=== PATIENT | male | born 1945 | race Hispanic/Latino ===

== ENCOUNTER 2017-03-30 09:59 | Emergency (ER) | payer MEDICARE, OTHER ==
[~2017-03-30] VITALS: Ht 160 cm; Wt 77.1 kg
[~2017-03-30 09:59] MED LIST: METFORMIN HCL500 MG PO
[2017-03-30] MEDS ORDERED: CIPRO500 MG PO (12:33)
== END 2017-03-30 12:47 | disposition home or self-care (01) ==
LOC: ED 09:59
PROC: 4A0D7LZ Measurement of Urinary Volume, Via Natural or Artificial Opening (ICD-10-PCS; principal; 2017-03-30)
DX: N39.0 Urinary tract infection, site not specified (principal); K59.00 Constipation, unspecified; E11.9 Type 2 diabetes mellitus without complications; Z85.46 Personal history of malignant neoplasm of prostate; Z79.84 Long term (current) use of oral hypoglycemic drugs
CPT/HCPCS: 51798; 80053; 81001; 85025; 87077; 87088; 99283

== ENCOUNTER 2020-02-22 20:59 | Inpatient (IN) | payer MEDICARE ==
[~2020-02-22] VITALS: Ht 160 cm; Wt 72.6 kg
--- OUTSIDE RECORDS SUMMARY | ~2020-02-22 | XMS | Encounter Summary ---
Demographics + + + | Address | [address] | | | [place] [address] | + + + | Home Phone | | + + + | Preferred Language | Unknown | + + + | Marital Status | | + + + | Latter-Day Affiliation | 1041 | + + + | Race | Unknown | + + + | Ethnic Group | Unknown | + + + Author + + + | Author | [facility] | | | and [place] | + + + | Organization | [facility] | | | and [...] Team Providers + +------+ + | Care Fisher Pot Name | Role | Phone | + +------+ + | Megan Garza | PCP | | + +------+ + Encounter Details +--------+ + + + + | Date | Type | Department | Care Team | Description | +--------+ + + + + | 10/03/ | Hospital | [facility] | Conversion | Venous ulcer of left | | 2019 | Encounter | [facility] | Transaction, | leg (HCC) | | | | [address] | Provider Unknown | | | | | [place], [place] | [phone] | | | | | [address] | | | | | | [phone] | | | +--------+ + + + + Social History + +-------+ +--------+------+ | Tobacco Use | Types | Packs/Day | Years | Date | | | | | Used | | + +-------+ +--------+------+ | Never Smoker | | | | | + +-------+ +--------+------+ + +---+---+---+ | Smokeless Tobacco: | | | | | Never Used | | | | + +---+---+---+ + + +---------+ + | Alcohol Use | Drinks/Week | oz/Week | Comments | + + +---------+ + | No | | | Alcoholic | | | | | Drinks/day: social | + + +---------+ + + + + | Sex Assigned at | Date Recorded | | | | + + + | Not on file | | + + + documented as of this encounter Medications at Time of Discharge + + + +---------+ + + | Medication | Sig | Dispensed | Refills | Start | End Date | | | | | | Date | | + + + +---------+ + + | ACCU-CHEK SOFTCLIX | | | 0 | 02/09/20 | | | LANCETS MISC | | | | 18 | | + + + +---------+ + + | carbidopa-levodopa | | | 0 | 05/31/20 | | | (SINEMET) 25-100 mg | | | | 18 | | | per tablet | | | | | | + + + +---------+ + + | cholecalciferol | Take 1,000 mg by | | 0 | | | | (VITAMIN D-3) 1,000 | mouth. | | | | | | units capsule | | | | | | + + + +---------+ + + | Cinnamon 500 MG | Take 500 mg by mouth | | 0 | | | | CAPS | 3 times daily. | | | | | + + + +---------+ + + | doxycycline | | | 0 | 08/31/19 | | | (VIBRAMYCIN) 50 MG | | | | 19 | | | capsule | | | | | | + + + +---------+ + + | fish oil 1,000 mg | Take 1,200 mg by | | 0 | | | | capsule | mouth 3 times daily. | | | | | + + + +---------+ + + | gabapentin | Take 1 capsule by | 90 | 1 | 05/15/20 | | | (NEURONTIN) 300 mg | mouth 3 times daily. | capsule | | 18 | | | capsule | | | | | | + + + +---------+ + + | Glucose Blood | | | 0 | 11/13/19 | | | (BLOOD GLUCOSE TEST | | | | 18 | | | STRIPS) STRP | | | | | | + + + +---------+ + + | glucose blood | | | 0 | 11/13/19 | | | test strips | | | | 18 | | | (ONETOUCH VERIO) | | | | | | | strip | | | | | | + + + +---------+ + + | glyBURIDE | Take 1 tablet (5 mg | | 0 | 10/05/19 | | | (DIABETA) 5 mg | total) by mouth | | | 18 | | | tablet | daily with | | | | | | | breakfast. | | | | | + + + +---------+ + + | Lancets Misc. | Test Blood sugar | | 0 | 02/28/20 | | | (UNISTIK 3 EXTRA) | QDAY and PRN Dx: | | | 17 | | | MISC | E11.9 DUSTIN: 99 | | | | | + + + +---------+ + + | | Take 1 tablet by | | 0 | 10/02/19 | | | lisinopril-hydrochlo | mouth daily. | | | 18 | | | rothiazide | | | | | | | (PRINZIDE,ZESTORETIC | | | | | | | ) 10-12.5 MG per | | | | | | | tablet | | | | | | + + + +---------+ + + | meloxicam (MOBIC) | Take 1 tablet by | 30 | 2 | 03/11/20 | | | 15 mg tablet | mouth Daily as | tablet | | 18 | | | | needed. | | | | | + + + +---------+ + + | metFORMIN | Take 1 tablet (1,000 | | 0 | 10/05/19 | | | (GLUCOPHAGE) 1000 MG | mg total) by mouth | | | 18 | | | tablet | 2 (two) times a day | | | | | | | with meals. | | | | | + + + +---------+ + + | raNITIdine | Take 1 tablet (150 | | 0 | 07/31/20 | | | (ZANTAC) 150 mg | mg total) by mouth 2 | | | 18 | | | tablet | (two) times a day. | | | | | | | Maltese instructions | | | | | + + + +---------+ + + | | Take 501,000 mg by | | 0 | 08/11/20 | | | SITagliptin-metFORMI | mouth | | | 15 | | | N (GAYATRI) 50-1,000 | | | | | | | mg per tablet | | | | | | + + + +---------+ + + | tamsulosin | Take 0.4 mg by mouth | | 0 | 01/26/20 | | | (FLOMAX) 0.4 mg CAPS | nightly. | | | 18 | | + + + +---------+ + + | timolol maleate | | | 0 | 06/26/20 | | | (TIMOPTIC) 0.5% | | | | 18 | | | ophthalmic solution | | | | | | + + + +---------+ + + | | | | 0 | 08/31/19 | | | tobramycin-dexametha | | | | 19 | | | sone (TOBRADEX) | | | | | | | ophthalmic solution | | | | | | + + + +---------+ + + | atorvaSTATin | Take 1 tablet (20 mg | | 0 | 06/17/20 | | | (LIPITOR) 20 mg | total) by mouth | | | 18 | 9 | | tablet | daily. | | | | | + + + +---------+ + + | diphenhydrAMINE | Take 1 capsule (25 | | 0 | 06/28/20 | | | (BENADRYL) 25 MG | mg total) by mouth | | | 18 | 9 | | capsule | every 6 (six) hours | | | | | | | as needed for | | | | | | | itching or | | | | | | | allergies. Maltese | | | | | | | instructions | | | | | + + + +---------+ + + | furosemide (LASIX) | Take 1 tablet (20 mg | | 0 | 06/28/20 | | | 20 mg tablet | total) by mouth | | | 18 | 9 | | | daily. Leg swelling | | | | | | | Maltese instructions | | | | | + + + +---------+ + + | glyBURIDE | Take 5 mg by mouth | | 0 | 10/05/19 | | | (DIABETA) 5 mg | daily (with | | | 18 | 9 | | tablet | breakfast). | | | | | + + + +---------+ + + | metFORMIN | Take 1,000 mg by | | 0 | 10/05/19 | | | (GLUCOPHAGE) 1000 MG | mouth 2 times daily | | | 18 | 9 | | tablet | (with breakfast & | | | | | | | dinner). | | | | | + + + +---------+ + + documented as of this encounter Plan of Treatment Not on filedocumented as of this encounter Procedures + +--------+ + + + | Procedure Name | Priori | Date/Time | Associated Diagnosis | Comments | | | ty | | | | + +--------+ + + + | XR TIBIA FIBULA LEFT | Routin | 10/03/2018 | | Results for this | | 2 VW | e | 2:57 PM | | procedure are in the | | | | PST | | results section. | + +--------+ + + + documented in this encounter Results XR Tibia Fibula Left 2 Vw (10/03/2018 2:57 PM PST) + + | Specimen | + + | | + + + + + | Impressions | Performed At | + + + | 1. Left tibia and fibula demonstrate sequela consistent with remote | | | trauma. 2. Peripheral vascular disease. Signed by: DO Rodrigo, | | | Kadeem Sign Date/Time: 10/03/2018 4:37 PM | | + + + + + + | Narrative | Performed At | + + + | LEFT TIBIA/FIBULA CLINICAL INFORMATION: Leg pain, Venous ulcer of | | | left leg. COMPARISON: [facility] (10/01/2018); FINDINGS: | | | Irregularities are demonstrated at the mid diaphysis of the left tibia | | | and fibula suggesting sequela of remote trauma. The tibia seems to | | | healed with some apex anterior angulation. No acute osseous | | | abnormality appreciated. Peripheral vascular calcifications are | | | noted. | | + + + + + | Procedure Note | + + | Satnam, Rad Conversion - 03/25/2019 9:04 PM PDT LEFT TIBIA/FIBULA | | CLINICAL INFORMATION: | | Leg pain, Venous ulcer of left leg. | | COMPARISON: | | [facility] (10/01/2018); | | FINDINGS: | | Irregularities are demonstrated at the mid diaphysis of the left tibia | | and fibula suggesting sequela of remote trauma. The tibia seems to | | healed with some apex anterior angulation. No acute osseous | | abnormality appreciated. Peripheral vascular calcifications are noted. | | IMPRESSION: | | 1. Left tibia and fibula demonstrate sequela consistent with remote | | trauma. | | 2. Peripheral vascular disease. | | Signed by: DO Wallace Robert | | Sign Date/Time: 10/03/2018 4:37 PM | + + documented in this encounter Visit Diagnoses + + | Diagnosis | + + | Venous ulcer of left leg (HCC) | + + documented in this encounter"
--- OUTSIDE RECORDS SUMMARY | ~2020-02-22 | XMS | Encounter Summary ---
Demographics + + + | Address | [address] | | | [place] [address] | + + + | Home Phone | | + + + | Preferred Language | Unknown | + + + | Marital Status | | + + + | Mandaeism Affiliation | 1041 | + + + | Race | Unknown | + + + | Ethnic Group | Unknown | + + + Author + + + | Author | [facility] | | | and [place] | + + + | Organization | [facility] | | | and [...] Team Providers + +------+ + | Care Shared Services Representative Name | Role | Phone | + +------+ + | Megan Garza | PCP | | + +------+ + Reason for Visit +---------+--------+ + | Reason | Onset | Comments | | | Date | | +---------+--------+ + | Results | 03/13/ | | | | 2018 | | +---------+--------+ + Encounter Details +--------+ + + + + | Date | Type | Department | Care Team | Description | +--------+ + + + + | 03/13/ | Telephone | [facility] [place] | Tirso Becerril | Results | | 2018 | | PHYSIATRY [address] | | | | [address] [place], [place] | | | | | [place], [place] | [address] | | | | | [address] | | | | | | [phone] | | | +--------+ + + + [...] +---------+ + | No | | | | + + +---------+ + + + + | Sex Assigned at | Date Recorded | | | | + + + | Not on file | | + + + documented as of this encounter Miscellaneous Notes Telephone Encounter - Susanna Ford, Information Coder - 03/13/2018 2:22 PM PDTAttempted to call the patient to notify him of Dr. Collins MRI notes and advise that a referral h as been sent for PT to [facility]. There was no voicemail and I was unable to leave a voice mailEle ctronically signed by Betty Charles Assistant at 03/13/2018 2:23 PM PDTTelephone Encounter - Susanna Ford, Information Coder - 03/13/2018 2:22 PM PDT----- Message from A sonu Becerril MD sent at 03/11/2018 15:49 PDT ----- He does have degenerative changes of the cervical spine at C5-C6 and C6-C7. I do recommend that he try PT for the neck first before we get advanced imaging or try any interventional procedures. I will order PT, to be done at [facility] per his request.Reyna franco signed by Susanna Ford Information Coder at 03/13/2018 2:22 PM PDTdocumented in th is encounter Plan of Treatment Not on filedocumented as of this encounter Visit Diagnoses Not on filedocumented in this encounter"
--- OUTSIDE RECORDS SUMMARY | ~2020-02-22 | XMS | Encounter Summary ---
Demographics + + + | Address | [address] | | | [place] [address] | + + + | Home Phone | | + + + | Preferred Language | Unknown | + + + | Marital Status | | + + + | Restoration Affiliation | 1041 | + + + | Race | Unknown | + + + | Ethnic Group | Unknown | + + + Author + + + | Author | [facility] | | | and [place] | + + + | Organization | [facility] | | | and [...] Team Providers + +------+ + | Care Casting And Locker Room Servicer Name | Role | Phone | + +------+ + | Megan Garza | PCP | | + +------+ + Encounter Details +--------+ + + + + | Date | Type | Department | Care Team | Description | +--------+ + + + + | 11/09/ | Orders Only | [facility] | Liz Castro | | | 2018 | | CARDIOLOGY [place] | [address] | | | | | [address] | [address] | | | | | [place], [place] | [place] [address] | | | | | [address] | [phone] | | | | | [phone] | | | +--------+ + + + [...] | + +--------+ + + + | LIPID PANEL | Routin | 11/09/2017 | | Results for this | | | e | 10:55 AM | | procedure are in the | | | | PDT | | results section. | + +--------+ + + + | SEDIMENTATION RATE, | Routin | 11/09/2017 | | Results for this | | AUTOMATED | e | 10:55 AM | | procedure are in the | | | | PDT | | results section. | + +--------+ + + + | CK TOTAL | Routin | 11/09/2017 | | Results for this | | | e | 10:55 AM | | procedure are in the | | | | PDT | | results section. | + +--------+ + + + | COMPREHENSIVE | Routin | 11/09/2017 | | Results for this | | METABOLIC PANEL | e | 10:55 AM | | procedure are in the | | | | PDT | | results section. | + +--------+ + + + documented in this encounter Results Sedimentation rate, automated (11/09/2017 10:55 AM PDT) + +-------+ + + + | Component | Value | Ref Range | Performed | Pathologist | | | | | At | Signature | + +-------+ + + + | Sed Rate | 10 | 0 - 15 | EXTERNAL | | | | | | LAB | | + +-------+ + + + + + | Specimen | + + | Blood specimen | | (specimen) | + + + +---------+ + + | Performing | Address | City/State/Zipcode | Phone Number | | Organization | | | | + +---------+ + + | EXTERNAL LAB | | | | + +---------+ + + CK Total (11/09/2017 10:55 AM PDT) + +-------+ + + + | Component | Value | Ref Range | Performed | Pathologist | | | | | At | Signature | + +-------+ + + + | CK, Total | 120 | 24 - 195 U/L | EXTERNAL | | | | | | LAB | | + +-------+ + + + + + | Specimen | + + | Blood specimen | | (specimen) | + + + +---------+ + + | Performing | Address | City/State/Zipcode | Phone Number | | Organization | | | | + +---------+ + + | EXTERNAL LAB | | | | + +---------+ + + Lipid Panel (11/09/2017 10:55 AM PDT) + +-------+ + + + | Component | Value | Ref Range | Performed | Pathologist | | | | | At | Signature | + +-------+ + + + | Cholesterol | 102 | 200 mg/dL | EXTERNAL | | | | | | LAB | | + +-------+ + + + | Triglycerid | 78 | 30 - 150 mg/dL | EXTERNAL | | | es | | | LAB | | + +-------+ + + + | HDL | 36.3 | 40 mg/dl | EXTERNAL | | | | | | LAB | | + +-------+ + + + | LDL, | 50 | 100 mg/dL | EXTERNAL | | | Calculated | | | LAB | | + +-------+ + + + | LDl/HDL | | | EXTERNAL | | | Ratio | | | LAB | | + +-------+ + + + | Chol/HDL | 2.8 | 4.97 | EXTERNAL | | | Ratio | | | LAB | | + +-------+ + + + | VLDL | 16 | 4 - 40 mg/dL | EXTERNAL | | | | | | LAB | | + +-------+ + + + | Non HDL | 66 | 130 | EXTERNAL | | | Chol. | | | LAB | | | (LDL+VLDL) | | | | | + +-------+ + + + + + | Specimen | + + | Blood specimen | | (specimen) | + + + +---------+ + + | Performing | Address | City/State/Zipcode | Phone Number | | Organization | | | | + +---------+ + + | EXTERNAL LAB | | | | + +---------+ + + Comprehensive Metabolic Panel (11/09/2017 10:55 AM PDT) + +---------+ + + + | Component | Value | Ref Range | Performed | Pathologist | | | | | At | Signature | + +---------+ + + + | Glucose, | 117 (A) | 70 - 100 mg/dL | EXTERNAL | | | Fasting | | | LAB | | + +---------+ + + + | BUN | 17 | 6 - 23 mg/dL | EXTERNAL | | | | | | LAB | | + +---------+ + + + | Creatinine | 0.84 | 0.70 - 1.18 | EXTERNAL | | | | | mg/dL | LAB | | + +---------+ + + + | BUN/Creatin | 20.2 | 6.0 - 28.6 | EXTERNAL | | | ine Ratio | | | LAB | | + +---------+ + + + | Calcium | 9.4 | 8.4 - 10.2 | EXTERNAL | | | | | mg/dL | LAB | | + +---------+ + + + | Protein, | 6.8 | 6.0 - 8.0 g/dL | EXTERNAL | | | Total | | | LAB | | + +---------+ + + + | Albumin | 4.0 | 3.5 - 5.0 | EXTERNAL | | | | | | LAB | | + +---------+ + + + | Globulin | 2.8 | 1.8 - 3.5 | EXTERNAL | | | | | | LAB | | + +---------+ + + + | A/G Ratio | 1.4 | 1.1 - 2.4 | EXTERNAL | | | | | | LAB | | + +---------+ + + + | Bilirubin | 0.5 | 0.0 - 1.2 mg/dL | EXTERNAL | | | Total | | | LAB | | + +---------+ + + + | ALP, | 104 | 31 - 120 | EXTERNAL | | | External | | | LAB | | + +---------+ + + + | ALT | 23 | 7 - 52 U/L | EXTERNAL | | | | | | LAB | | + +---------+ + + + | AST | 18 | 13 - 39 U/L | EXTERNAL | | | | | | LAB | | + +---------+ + + + | Na | 141 | 132 - 143 | EXTERNAL | | | | | mmol/L | LAB | | + +---------+ + + + | K | 4.1 | 3.6 - 5.1 | EXTERNAL | | | | | mmol/L | LAB | | + +---------+ + + + | Cl | 104 | 95 - 112 mmol/L | EXTERNAL | | | | | | LAB | | + +---------+ + + + | CO2 | 24 | 19 - 31 mmol/L | EXTERNAL | | | | | | LAB | | + +---------+ + + + | Anion Gap | 17.1 | 7 - 21 mmol/L | EXTERNAL | | | | | | LAB | | + +---------+ + + + | Estimated | 90 | 60 mg/dL | EXTERNAL | | | GFR | | | LAB | | + +---------+ + + + + + | Specimen | + + | Blood specimen | | (specimen) | + + + +---------+ + + | Performing | Address | City/State/Zipcode | Phone Number | | Organization | | | | + +---------+ + + | EXTERNAL LAB | | | | + +---------+ + + documented in this encounter Visit Diagnoses Not on filedocumented in this encounter"
--- OUTSIDE RECORDS SUMMARY | ~2020-02-22 | XMS | Encounter Summary ---
Demographics + + + | Address | [address] | | | [place] [address] | + + + | Home Phone | | + + + | Preferred Language | Unknown | + + + | Marital Status | | + + + | Advent Affiliation | 1041 | + + + | Race | Unknown | + + + | Ethnic Group | Unknown | + + + Author + + + | Author | [facility] | | | and [place] | + + + | Organization | [facility] | | | and [place] | + + + | Address | Unknown | + + + | Phone | Unavailable | + + + Support + + +---------+ + | Name | Relationship | Address | Phone | + + +---------+ + | Claudettecitlaly Piña | ECON | Unknown | | + + +---------+ + | Annjensen Nicholso | ECON | Unknown | | + + +---------+ + Care Team Providers + +------+ + | Care Pharmacy Technology Instructor Name | Role | Phone | + +------+ + | Megan Garza | PCP | | + +------+ + Reason for Visit Auth/Cert +--------+--------+ + + + + | Status | Reason | Specialty | Diagnoses / | Referred By | Referred To | | | | | Procedures | Contact | Contact | +--------+--------+ + + + + | | | | Diagnoses | | | | | | | Age-related | | | | | | | nuclear | | | | | | | cataract of | | | | | | | right eye | | | | | | | Age-related | | | | | | | nuclear | | | | | | | cataract of | | | | | | | right eye | | | | | | | [H25.11] | | | | | | | Procedures | | | | | | | DE REMV | | | | | | | CATARACT | | | | | | | EXTRACAP,INS | | | | | | | ERT LENS | | | | | | | RIGHT | | | | | | | EXTRACTION | | | | | | | CATARACT | | | | | | | WITH OR | | | | | | | WITHOUT LENS | | | | | | | IMPLANT | | | +--------+--------+ + + + + Encounter Details +--------+ + + + + | Date | Type | Department | Care Team | Description | +--------+ + + + + | 06/26/ | Anesthesia | [facility] | Roaslio Betts, | | | 2017 | Event | MED CTR OR INTRA OP | [address] | | | | | [address] | [place], [place] | | | | | [place], [place] | [address] | | | | | [address] | | | | | | [phone] | | | +--------+ + + + + Anesthesia Record + + + + + | Procedure Name | Responsible | Anesthesia Start | Anesthesia Stop Time | | | Anesthesiologist | Time | | + + + + + | RIGHT EXTRACTION | Rosalio Betts MD | 06/26/18 1044 | 06/26/18 1107 | | CATARACT WITH LENS | | | | | IMPLANT (Right Eye) | | | | + + + + + +----+---+ + + | Da | T | Event | Comment | | te | i | | | | | m | | | | | e | | | +----+---+ + + | 11 | 1 | | | | /1 | 0 | | | | 4/ | 1 | | | | 20 | 4 | | | | 18 | | | | +----+---+ + + | | 1 | An Checkout | Pre-use anesthesia machine/equipment checkout. | | | 0 | | | | | 3 | | | | | 8 | | | +----+---+ + + | | 1 | AN | Per surgeon request | | | 0 | Antibiotic | | | | 3 | declined | | | | 8 | | | +----+---+ + + | | 1 | An Start | Reassessment prior to anesthesia induction/procedure. | | | 0 | | | | | 4 | | | | | 4 | | | +----+---+ + + | | 1 | An | | | | 0 | Induction | | | | 4 | | | | | 7 | | | +----+---+ + + | | 1 | Pre-Procedu | | | | 0 | ral Timeout | | | | 5 | Completed | | | | 2 | | | +----+---+ + + | | 1 | Breathing | | | | 0 | Spontaneous | | | | 5 | ly | | | | 2 | | | +----+---+ + + | | 1 | First | | | | 0 | Inc/Proc St | | | | 5 | | | | | 4 | | | +----+---+ + + | | 1 | an stop | | | | 1 | data | | | | 0 | | | | | 4 | | | +----+---+ + + | | 1 | An Stop | Patient handed off to recovery nurseBraden | | | 0 | | | | | 7 | | | +----+---+ + + +------+ | Meds | +------+ + +--------+ | Name | Total | + +--------+ | lidocaine 2% | 80 mg | + +--------+ | propofol | 85 mg | + +--------+ | lactated ringers (LR) infusion | 350 mL | + +--------+ + + | Name | + + | N2O Flow Rate (L/Min) | + + | O2 Flow Rate (L/Min) | + + | Insp O2 | + + | Air Flow Rate (L/Min) | + + + + | No blood administrations on file. | + + +--------+ + + + | Type | Details | Placement | Removal | +--------+ + + + | Periph | 06/26/18; 1030; Right; Forearm; | 06/26/18 1030 by | 06/26/18 1147 by | | olayinkal | qono-eyn-gmomva catheter system; | Nicole Anders, | Tonja Ford, | | IV | 20 gauge, 1 1/4 in length; | RN | LAST MARKER | | | intradermal injection, tolerated | | | | | well; no longer indicated; short | | | | | term use; 06/26/18; 1147 | | | +--------+ + + + | Read | 06/26/18; 1057; Right; eye; | 06/26/18 1057 by | 11/05/18 1342 by | | only - | 11/05/18 (Completed/Removed by | Selena Hartman RN | User Epic | | | Utility); 1342 (Completed/Removed | | | | Incisi | by Utility) | | | | on | | | | +--------+ + + + documented in this encounter Social History + +-------+ +--------+------+ | Tobacco [...] + + documented as of this encounter OR Notes Anesthesia Postprocedure Evaluation - Rosalio Betts MD - 06/26/2018 11:08 AM PSTFormatti ng of this note might be different from the original. ANESTHESIA POSTANESTHESIA EVALUATION Kota Piña 73 y.o. male 1945 [id number] Procedure(s) RIGHT EXTRACTION CATARACT WITH LENS IMPLANT (Right Eye) Cooperates? Yes Mental Status Performs simple tasks. Respiratory Satisfactory - Airway patent (self maintained). Cardiovascular Satisfactory - Blood pressure and heart rate acceptable Temperature Satisfactory Pain Satisfactory N/V Control Satisfactory Hydration Satisfactory - No signs of dehydration Complications None apparent Vitals: 06/26/18 1032 06/26/18 1106 BP: 130/66 101/56 Pulse: 62 55 Temp: 36.9 C (98.4 F) 36.5 C (97.7 F) Resp: 16 16 SpO2: 97% Electronically signed by Rosalio Betts MD 06/26/2018 11:08 [facility] Rosalio Betts MD at 06/13 11:09 AM PSTAnesthesia Preprocedure Evaluation - Rosalio Betts MD - 06/24/2018 2: 33 PM PST ANESTHESIA PREANESTHESIA EVALUATION Kota Piña 73 y.o. male 1945 [id number] Procedure(s): RIGHT EXTRACTION CATARACT WITH OR WITHOUT LENS IMPLANT (Right Eye) Medical history, anesthesia, medications, allergy, NPO status verified histories reviewed. ECG reviewed. Labs reviewed. Review of Systems / Med History Anesthesia History (-) PONV, difficult intubation, malignant hyperthermia Cardiovascular (-) past AL , Exercise tolerance >4 METS Pulmonary No acute pulmonary concerns.. Neurology (+) back pain, chronic pain(-) CVA Renal (-) chronic renal insufficiency Gastrointestinal/Hepatic (-) reflux/GERD. Endocrine (+) Diabetes: type 2, NIDDM (+) obesity: BMI (30-39) Physical Exam Airway MP II, TM >3 FB, Mouth opening >2 FB. Neck: full ROM, extends >30 degrees. Dental Cesario ssly normal except where noted below.; CV Rhythm regular. Rate Normal. (-) murmur. Pulm Clear to auscultation bilaterally. Neuro Grossly normal. Anesthesia Plan ASA 2 Type: MAC. Induction: Local anesthesia. Potential problems: None anticipated. Monitors: Standard ASA monitors. Consent statement:Anesthetic plan, alternatives, risks and benefits discussed with patient and family. Risks discussed included (but were not limited to): pain, heart problems, perioperative CV events, respiratory events, nausea, failed or inadequate block. Consenting person understands and agrees to proceed. Annealing Oven Operator used. PARQ. MAC/TIVA with propofol and anxiolytics / opioids as needed / tolerated. Discussion distin tly mentions that awareness is probable during the case, as Dr. Russ often wants the patie nt to respond to commands.. documented in this en counter Plan of Treatment Not on filedocumented as of this encounter Visit Diagnoses Not on filedocumented in this encounter Administered Medications + +--------+ +-------+------+------+ | Medication Order | MAR | Action | Dose | Rate | Site | | | Action | Date | | | | + +--------+ +-------+------+------+ | lidocaine (PF) 2% injection | Given | 06/26/20 | 80 mg | | | | Intravenous, PRN, Starting Wed | | 18 10:47 | | | | | 06/26/18 at 1047, Anesthesia | | AM PST | | | | | Intra-op | | | | | | + +--------+ +-------+------+------+ +---+---+ | | | +---+---+ + +-------+ +-------+---+---+ | propofol (DIPRIVAN) injection | Given | 06/26/20 | 25 mg | | | | Intravenous, PRN, Starting Wed | | 18 11:00 | | | | | 06/26/18 at 1047, Anesthesia | | AM PST | | | | | Intra-op | | | | | | + +-------+ +-------+---+---+ +-------+ +-------+---+---+ | Given | 06/26/20 | 20 mg | | | | | 18 10:52 | | | | | | AM PST | | | | +-------+ +-------+---+---+ | Given | 06/26/20 | 40 mg | | | | | 18 10:47 | | | | | | AM PST | | | | +-------+ +-------+---+---+ +---+---+ | | | +---+---+ documented in this encounter"
--- OUTSIDE RECORDS SUMMARY | ~2020-02-22 | XMS | Encounter Summary ---
Demographics + + + | Address | [address] | | | [place] [address] | + + + | Home Phone | | + + + | Preferred Language | Unknown | + + + | Marital Status | | + + + | Christian Affiliation | 1041 | + + + | Race | Unknown | + + + | Ethnic Group | Unknown | + + + Author + + + | Author | [facility] | | | and [place] | + + + | Organization | [facility] | | | [...] Team Providers + +------+ + | Care Java Support Engineer Name | Role | Phone | + +------+ + | Megan Garza | PCP | | + +------+ + Encounter Details +--------+ + + + + | Date | Type | Department | Care Team | Description | +--------+ + + + + | 03/11/ | Hospital | [facility] | Tirso Becerril | Chronic neck pain | | 2018 | Encounter | MED CTR XRAY [address] | T, MD [address] | | | | | [place] | [place], [place] | | | | | [place] [address] | [id number] | | | | | [phone] | | | +--------+ + + + [...] + + +---------+ + + | Raymon Albertc. | Test Blood sugar | | 0 [...] | 0 | 02/09/20 | | | RAYMON MISC | | | | 18 | 8 | + + + +---------+ + + | ACCU-CHEK SOFTCLIX | | | 0 | 02/09/20 | | | LANCETS MISC | | | | 18 | 8 | + + + +---------+ + + | atorvaSTATin | Take 20 mg by mouth | | 0 | 10/02/19 | | | (LIPITOR) 20 mg | Daily. | | | 18 | 9 | | tablet | | | | | | + + + +---------+ + + | gabapentin | Take 300 mg by mouth | | 0 | | | | (NEURONTIN) 300 mg | nightly. | | | | 8 | | capsule | | | | [...] + +--------+ + + + | XR CERVICAL SPINE 2 | Routin | 03/11/2018 | Chronic neck pain | Results for this | | OR 3 VIEWS | e | 10:02 AM | | procedure are in the | | | | PDT | | results section. | + +--------+ + + + documented in this encounter Results XR Cervical Spine 2 or 3 Views (03/11/2018 10:02 AM PDT) + + | Specimen | + + | | + + + + + | Narrative | Performed At | + + + | THREE VIEWS CERVICAL SPINE 03/11/2018 10:02 AM CLINICAL HISTORY: | [facility] | | Chronic neck pain and left arm pain COMPARISON: None available | | | FINDINGS: There is slight offset in alignment of the right lateral | | | masses of C1 and C2 on the odontoid view. Cervical vertebral height | | | and alignment are otherwise maintained, without visible fracture or | | | other subluxation. There is anterior disc space narrowing and | | | vertebral spondylosis at C5-6 and C6-7 with early multilevel facet | | | hypertrophy. Imaged skull base, soft tissue structures and lung | | | apices are unremarkable. IMPRESSION - 1. SLIGHT OFFSET IN | | | ALIGNMENT OF THE RIGHT LATERAL MASSES AT C1-2. CONSIDER FOLLOW-UP | | | CT. 2. DEGENERATIVE DISC DISEASE AND SPONDYLOSIS DESCRIBED. | | | Dictated and Signed by: Eduardo Santamaria MD Electronically signed: | | | 03/11/2018 10:09 AM | | + + + + + | Procedure Note | + + | Satnam, Rad Results In - 03/11/2018 10:12 AM PDT THREE VIEWS CERVICAL SPINE 03/11/2018 | | 10:02 AMCLINICAL HISTORY: Chronic neck pain and left arm painCOMPARISON: None | | availableFINDINGS: There is slight offset in alignment of the right lateral masses of | | C1and C2 on the odontoid view. Cervical vertebral height and alignment areotherwise | | maintained, without visible fracture or other subluxation. There isanterior disc space | | narrowing and vertebral spondylosis at C5-6 and C6-7 withearly multilevel facet | | hypertrophy. Imaged skull base, soft tissue structuresand lung apices are | | unremarkable.IMPRESSION -1. SLIGHT OFFSET IN ALIGNMENT OF THE RIGHT LATERAL MASSES AT | | C1-2. CONSIDERFOLLOW-UP CT.2. DEGENERATIVE DISC DISEASE AND SPONDYLOSIS | | DESCRIBED.Dictated and Signed by: Eduardo Santamaria MD Electronically signed: 03/11/2018 | | 10:09 AM | |and lung apices are unremarkable. | | | |IMPRESSION - | |1. SLIGHT OFFSET IN ALIGNMENT OF THE RIGHT LATERAL MASSES AT C1-2. CONSIDER | |FOLLOW-UP CT. | | | |2. DEGENERATIVE DISC DISEASE AND SPONDYLOSIS DESCRIBED. | | | |Dictated and Signed by: Eduardo Santamaria MD | | Electronically signed: 03/11/2018 10:09 AM | + + + +---------+ + + | Performing | Address | City/State/Zipcode | Phone Number | | Organization | | | | + +---------+ + + | [facility] | | | | + +---------+ + + documented in this encounter Visit Diagnoses + + | Diagnosis | + + | Chronic neck pain Cervicalgia | + + documented in this encounter"
--- OUTSIDE RECORDS SUMMARY | ~2020-02-22 | XMS | Encounter Summary ---
Demographics + + + | Address | [address] | | | [place] [address] | + + + | Home Phone | | + + + | Preferred Language | Unknown | + + + | Marital Status | | + + + | Quaker Affiliation | 1041 | + + + | Race | Unknown | + + + | Ethnic Group | Unknown | + + + Author + + + | Author | [facility] | | | and [place] | + + + | Organization | [facility] | | | [...] Team Providers + +------+ + | Care It Application Architect Name | Role | Phone | + +------+ + PCP | Unavailable | + +------+ + Encounter Details +--------+ + + + + | Date | Type | Department | Care Team | Description | +--------+ + + + + | 12/27/ | Hospital | [facility] | Conversion | Pain | | 2014 | Encounter | CONVERSION [address] | Transaction, | | | | | [address] | Provider Unknown | | | | | [place], [place] | | | | | | [address] | (Fax) | | | | | [phone] | | | +--------+ + + + [...] | + +--------+ + + + | MRI LUMBAR SPINE WO | Routin | 11/14/2013 | | Results for this | | CONTRAST | e | 2:21 AM | | procedure are in the | | | | PDT | | results section. | + +--------+ + + + documented in this encounter Results MRI Lumbar Spine wo Contrast (11/14/2013 2:21 AM PDT) + + | Specimen | [...]
--- OUTSIDE RECORDS SUMMARY | ~2020-02-22 | XMS | Encounter Summary ---
Demographics + + + | Address | [address] | | | [place] [address] | + + + | Home Phone | | + + + | Preferred Language | Unknown | + + + | Marital Status | | + + + | Baptist Affiliation | 1041 | + + + | Race | Unknown | + + + | Ethnic Group | Unknown | + + + Author + + + | Author | [facility] | | | and [place] | + + + | Organization | [facility] | | | [...] Team Providers + +------+ + | Care Construction Site Crossing Guard Name | Role | Phone | + [...] | Lumbar | [place], | [address] | | | | | radiculopath | Tirso Brito MD | [place], | | | | | y | [address] | [place] | | | | | Procedures | [place] | [address] | | | | | [place] INJECT | [place] | Phone: | | | | | ANES/STEROID | [address] | [phone] | | | | | [place] | Phone: | Fax: | | | | | LUMBAR/SACRA | [phone] | [phone] | | | | | L W IMG | Fax: | | | | | | GUIDE ,1 | [phone] | | | | | | LEVEL [place] | | | | | | | [...] + + | 07/24/ | Hospital | [facility] | [place], | Lumbar | | 2018 | Encounter | MED CTR XRAY [address] | PA-C [address] | radiculopathy; | | | | [address] [place] | [address] [place] | Spondylolisthesis at | | | | [place] [address] | [place] [address] | L5-S1 level | | | | [phone] | [phone] | | | | | | | | | | | | Plastics Process Hand, Svetlana | | | | | | [...] | | | | | | allergies. Belgian | | | | | | | instructions | | | | | + + + +---------+ + + | furosemide (LASIX) | Take 1 tablet (20 mg | | 0 | 06/28/20 | | | 20 mg tablet | total) by mouth | | | 18 | 9 | | | daily. Leg swelling | | | | | | | Belgian instructions | | | | | + [...]
--- OUTSIDE RECORDS SUMMARY | ~2020-02-22 | XMS | Encounter Summary ---
Demographics + + + | Address | [address] | | | [place] [address] | + + + | Home Phone | | + + + | Preferred Language | Unknown | + + + | Marital Status | | + + + | Adventist Affiliation | 1041 | + + + | Race | Unknown | + + + | Ethnic Group | Unknown | + + + Author + + + | Author | [facility] | | | and [place] | + + + | Organization | [facility] | | [...] Team Providers + +------+ + | Care Honey Blender Name | Role | Phone | + [...] | Lumbar | [place], | [address] | | | | | radiculopath | Tirso Brito MD | [place], | | | | | y | [address] | [place] | | | | | Procedures | [place] | [address] | | | | | [place] INJECT | [place] | Phone: | | | | | ANES/STEROID | [address] | [phone] | | | | | [place]AM[place] | Phone: | Fax: | | | | | LUMBAR/SACRA | [phone] | [phone] | | | | | [address] W IMG | Fax: | | | | | | GUIDE ,1 | [phone] | | | | | | LEVEL [place] | | | | | | | TRIAMCINOLON | | | | | | | E ACET INJ | | | | | | | NOS, 10 MG | | | | | | | Left L5-S1 | | | | | | | TFESI To | | | | | | | be completed | | | | | | | second | | | +--------+--------+ + + + + Encounter Details +--------+ + + + + | Date | Type | Department | Care Team | Description | +--------+ + + + + | 12/31/ | Hospital | [facility] | [place], | Spondylolisthesis at | | 2019 | Encounter | MED CTR XRAY [address] | PA-C [address] | L5-S1 level; Lumbar | | | | [place] | [address] [place] | radiculopathy | | | | [place] [address] | [place] [address] | | | | | [phone] | [phone] | | | | | | | | | | | | Client Associate, [facility] | | | | | | [place] [...] +---------+ + + | Blood Pressure | 169/81 | 12/31/2018 4:37 PM | | | | | PDT | | + +---------+ + + | Pulse | 75 | 12/31/2018 4:37 PM | | | | | PDT | | + +---------+ + + | [...] ACCU-CHEK SOFTCLIX | | | 0 | 10/26/19 | | | LANCETS MISC | | | | 19 | | + + + +---------+ + [...] + + +---------+ + + | Raymon Leon. | Test Blood sugar | | 0 | 02/28/20 | | | (UNISTIK 3 EXTRA) | QDAY and NELL Dx: | | | 17 | | [...] | | | | | | | Welsh instructions | | | | | + [...] | | | | | | allergies. Welsh | | | | | | | instructions | | | | | + + + +---------+ + + | furosemide (LASIX) | Take 1 tablet (20 mg | | 0 | 06/28/20 | | | 20 mg tablet | total) by mouth | | | 18 | 9 | | | daily. Leg swelling | | | | | | | Welsh instructions | | | | | + [...] | FL EPIDURAL STEROID | Routin | 12/31/2018 | Spondylolisthesis | Results for this | | INJECTION LUMBAR | e | 4:30 PM | at L5-S1 level | procedure are in the | | TRANSFORAMINAL | | PDT | Lumbar radiculopathy | results section. | + +--------+ + + + documented in this encounter Results FL ALE Lumbar Transforaminal (12/31/2018 4:30 PM PDT) + + | Specimen | + + | | + + + + + | Narrative | Performed At | + + + | 12/31/2018 | [facility] | | Transforaminal Epidural Steroid InjectionDiagnosis: Lumbar | | | radiculopathyICD-10 Code M54.16 Kota Piña presents to the | | | fluoroscopy suite for a fluoroscopically-guided left L5-S1 | | | transforaminal epidural steroid injection as part of conservative | | | management for chronic pain with lumbar radiculopathy and degenerative | | | disc disease. After informed consent was obtained, the patient lay | | | in the prone position on the fluoroscopy table. The area was | | | identified under fluoroscopic guidance. The area was prepped and | | | draped in sterile fashion. A 25-gauge, 1.5-inch needle was inserted | | | into this region and approximately 3 mL of buffered 1% lidocaine was | | | infused. Then, a 22-gauge spinal needle was inserted into the | | | posterior superior transforaminal space and advanced into the epidural | | | space under fluoroscopic guidance. Confirmation into the epidural | | | space was obtained with infusion of approximately 1 mL of Omnipaque | | | contrast which showed epidural flow as well as nerve sheath flow. | | | Then, a combination of 1.5 mL of 1% lidocaine and 1 mL of 10 | | | mg/mL Dexamethasone was infused. The patient tolerated the procedure | | | well without complications. Pre- and post-procedure blood pressures | | | were stable. The patient was given verbal as well as written | | | follow-up instructions. Prior to the start of the procedure, the | | | following were performed and/or verified, including correct patient | | | [...] | | | 1% Lidocaine | | |addressed. | | |I personally performed the procedure above. | | | | | |Estimated blood loss: Minimal | | |Complications: None | | |Findings: As expected | | |Anesthesia: Local 1% Lidocaine | | | | | + + + + +---------+ + + | Performing | Address | City/State/Zipcode | Phone Number | | Organization | | | | + +---------+ + + | [facility] | | | | + +---------+ + + documented in this encounter Visit Diagnoses + + | Diagnosis | + + | Spondylolisthesis at L5-S1 level | + + | Lumbar radiculopathy Thoracic or lumbosacral neuritis or radiculitis, unspecified | + + documented in this encounter Administered Medications + +--------+ +-------+------+------+ | Medication Order | MAR | Action | Dose | Rate | Site | | | Action | Date | | | | + +--------+ +-------+------+------+ | dexamethasone (PF) 10 mg/mL | Given | 01/01/20 | 10 mg | | | | injection 10 mg 10 mg, Other, | | 19 4:48 | | | | | ONCE, 12/31/18 at 1645, For 1 | | PM PDT | | | | | dose, When ordered IV push: | | | | | | | Dilute to 10-20 mL with NS and | | | | | | | give slowly over 1-2 minutes., | | | | | | + +--------+ +-------+------+------+ +---+---+ | | | +---+---+ + +-------+ +-------+---+---+ | iohexol (OMNIPAQUE 300) 300 | Given | 01/01/20 | 4 mLs | | | | mg/mL injection 4 mL 4 mL, | | 19 4:46 | | | | | INTRATHECAL, ONCE, 12/31/18 at | | PM PDT | | | | | 1645, For 1 dose | | | | | | + +-------+ +-------+---+---+ +---+---+ | | | +---+---+ + +-------+ +-------+---+---+ | lidocaine (PF) 1% injection 2 | Given | 01/01/20 | 2 mLs | | | | mL 2 mL, Other, ONCE, Tue | | 19 4:48 | | | | | 12/31/18 at 1645, For 1 dose | | PM PDT | | | | + +-------+ +-------+---+---+ +---+---+ | | | +---+---+ + +-------+ +-------+---+ + | lidocaine buffered 0.9% | Given | 01/01/20 | 3 mLs | | Other | | injection 3 mL 3 mL, | | 19 4:44 | | | (Comment | | Intradermal, ONCE, Loco 12/31/18 at | | PM PDT | | | ) | | 1645, For 1 dose | | | | | | + +-------+ +-------+---+ + +---+---+ | | | +---+---+ documented in this encounter"
--- OUTSIDE RECORDS SUMMARY | ~2020-02-22 | XMS | Encounter Summary ---
Demographics + + + | Address | [address] | | | [place] [address] | + + + | Home Phone | | + + + | Preferred Language | Unknown | + + + | Marital Status | | + + + | Worship Affiliation | 1041 | + + + | Race | Unknown | + + + | Ethnic Group | Unknown | + + + Author + + + | Author | [facility] | | | and [place] | + + + | Organization | [facility] | | [...] Team Providers + +------+ + | Care Tile Shader Name | Role | Phone | + [...] | | | | | | | MO REMV | | | | | | [...] + + | 06/26/ | Hospital | [facility] | Ty Russ | | | 2018 | Encounter | MED CTR OR INTRA OP | MD Tyron [address] | | | | | [address] | [place] | | | | | [place], [place] | [place] [address] | | | | | [address] | [phone] | | | | | [phone] | | | +--------+ + + + [...] wear the eye shield as noted aleksey bladnon. Do not drive for at least 24 [...] symptoms, immediately call your eye doctor or 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 | [place] | [phone] | | [facility] | | [address] | | | - LABORATORY | | [...]
--- OUTSIDE RECORDS SUMMARY | ~2020-02-22 | XMS | Encounter Summary ---
Demographics + + + | Address | [address] | | | [place] [address] | + + + | Home Phone [...] | + + +---------+ + | Ann iPña | ECON | Unknown | | + + +---------+ + Care Team Providers + +------+ + | Care Product Safety Expert Name | Role | Phone | + [...] | Chronic | Jone, | [address] | | | | | bilateral | Tirso Brito MD | [place], | | | | | low back | [address] | [place] | | | | | pain with | [place] | [address] | | | | | bilateral | [place], [place] | Phone: | | | | | sciatica | [address] | [phone] | | | | | Spondylolist | Phone: | Fax: | | | | | hesis at | [phone] | [phone] | | | | | L5-S1 level | Fax: | | | | | | Procedures | [phone] | | | | | | MRI [...] | [place] [address] | [facility] | | | | | pain | St | [place], [place] | | | | | | [place], | [address] Phone: | | | | | | [place] [address] | [phone] | | | | | | Phone: | Fax: | | | | | | [phone] | [phone] | | | | | | Fax: | | | | | | | [phone] | | +--------+--------+ + + + + Encounter Details +--------+---------+ + + + | Date | Type | Department | Care Team | Description | +--------+---------+ + + + | 03/11/ | Office | [facility] | Tirso Becerril | Chronic bilateral | | 2017 | Visit | PHYSIATRY [address] | MD Daryl [address] | low back pain with | | | | [address] | [place] | bilateral sciatica | | | | [place] [facility] | [address] | (Primary Dx); | | | | [address] | | Spondylolisthesis at | | | | [phone] | | L5-S1 level; | | | | | | Parkinson's disease | | | | | | (tremor, stiffness, | | | | | | slow motion, | | | | | | unstable posture) | | | | | | ([facility]); Type 2 | | | | | | diabetes mellitus | | | | | | without | | | | | | complication, | | | | | | without long-term | | | | | | current use of | | | | | | insulin ([facility]); | | | | | | Chronic [...] 8:30 AM PDT Tirso Becerril MD [address] [facility], [address] [place], [place] [address] FAX: PHYSICAL MEDICINE AND REHABILITATION H&P CHIEF [...] disease (tremor, stiffness, slow motion, unstable posture) ([facility]) 03/11/2018 Pedal edema Pill rolling tremor Spondylolisthesis at L5-S1 level 03/11/2018 Type 2 diabetes mellitus without complication ([facility]) 03/11/2018 Type II diabetes mellitus ([facility]) PAST SURGICAL HISTORY: History reviewed. No pertinent [...] has no apparent deficits with short or usp memory. He has appropriate fund of knowledge [...] complication, without long-term current use of insulin ([facility]) Chronic neck pain PLAN: 1. We discussed [...] would like to complet e this at [facility]. 3. We only briefly discussed his neck and arm issues. I did order cervical x-rays for fur ther evaluation. I will likely order PT as an initial treatment for the neck and arm pain a s he has not tried that as of yet. He would like to do this at [facility] also. 4. Medications were reviewed today. [...]
--- OUTSIDE RECORDS SUMMARY | ~2020-02-22 | XMS | Encounter Summary ---
Demographics + + + | Address | [address] | | | [place] [address] | + + + | Home Phone | | + + + | Preferred Language | Unknown | + + + | Marital Status | | + + + | Advent Affiliation | 1041 | + + + | Race | Unknown | + + + | Ethnic Group | Unknown | + + + Author + + + | Author | [facility] | | | and [place] | + + + | Organization | [facility] | | [...] Team Providers + +------+ + | Care Web Production Designer Name | Role | Phone | + [...] + + | 05/15/ | Office | [facility] | Raheel De Luna, | Lumbar radiculopathy | | 2018 | Visit | PHYSIATRY [address] | PA-C [address] | (Primary Dx); | | | | [address] | [address] [place] | Spondylolisthesis at | | | | [facility] | [place] [address] | L5-S1 level; | | | | [address] | [phone] | Chronic bilateral | | | | [phone] | | low back pain with | [...] of the procedure you must provide a refrigerated company driver to take you home. For all [...] presin contra un nervio. Date Last Reviewed: 05/16/201519996391-8094 [employer]. [address] [place] [address], [place] [address]. Todos lo s derechos reservados. Esta informacin no pretende sustituir la atencin mdica profesio nal. Slo marcelino mdico puede diagnosticar y tratar un problema de halie. documented in this encounter Progress Notes Raheel De Luna PA-C - 05/15/2018 8:50 AM PDTFormatting of this note might be different fro m the original. Raheel De Luna PA-C [address] [facility], [address] [place] [address] FAX: PHYSICAL MEDICINE AND REHABILITATION H&P CHIEF [...] which he is Dr. Kumar in the [facility] (neurology - [facility]). He is currently n ot taking medication [...] disease (tremor, stiffness, slow motion, unstable posture) ([facility]) 03/11/2018 Pedal edema Pill rolling tremor Spondylolisthesis at L5-S1 level 03/11/2018 Type 2 diabetes mellitus without complication ([facility]) 03/11/2018 Type II diabetes mellitus ([facility]) PAST SURGICAL HISTORY: History reviewed. No pertinent [...] has no apparent deficits with short or terminal superintendent memory. 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 Unfortunately Kota rai continues to have significant [...] medication was never called over to the [facility]. I instructed patient's son to follow-up with Dr. Kumar's office and provided the [facility]'s phone number for patient. 5) Patient [...] care, and coordinating his care. Patient is Venezuelan-speaking only and his son was there as chicken fancier. ELECTRONICALLY EDITED AND SIGNED BY: Raheel De Luna PA-C, 05/15/2018 CC: TARYN Valverde CC: Dr. Kumar ([facility] neurology) documented in this en counter Plan [...]
--- OUTSIDE RECORDS SUMMARY | ~2020-02-22 | XMS | Encounter Summary ---
Demographics + + + | Address | [address] | | | [place] [address] | + + + | Home Phone | | + + + | Preferred Language | Unknown | + + + | Marital Status | | + + + | Denominational Affiliation | 1041 | + + + | Race | Unknown | + + + | Ethnic Group | Unknown | + + + Author + + + | Author | [facility] | | | and [place] | + + + | Organization | [facility] | | [...] Team Providers + +------+ + | Care Straightener And Aligner Name | Role | Phone | + +------+ + | Megan Garza | PCP | | + +------+ + Encounter Details +--------+ + + + + | Date | Type | Department | Care Team | Description | +--------+ + + + + | 03/23/ | Orders Only | [facility] | Provider, | | | 2019 | | SYSTEM GENERIC OP | MD [address] | | | | | [address] | [place] | | | | | [address] [place], [place] | [place] [address] | | | | | [address] | | | | | | [phone] | | | +--------+ + + + [...]
--- OUTSIDE RECORDS SUMMARY | ~2020-02-22 | XMS | Encounter Summary ---
Demographics + + + | Address | [address] | | | [place] [address] | + + + | Home Phone | | + + + | Preferred Language | Unknown | + + + | Marital Status | | + + + | Holiness Affiliation | 1041 | + + + | Race | Unknown | + + + | Ethnic Group | Unknown | + + + Author + + + | Author | [facility] | | | and [place] | + + + | Organization | [facility] | | [...] Team Providers + +------+ + | Care Tool Inspector Name | Role | Phone | + +------+ + | Megan Garza | PCP | | + +------+ + Encounter Details +--------+ + + + + | Date | Type | Department | Care Team | Description | +--------+ + + + + | 10/01/ | Orders Only | [facility] | Monty Murillo DNP | | | 2018 | | VASCULAR SURGERY | [address] | | | | | [address] | [address] [place], [place] | | | | | [address] | [address] | | | | | [place], [place] | | | | | | [address] | | | | | | [phone] | | | +--------+ + + + [...]
--- OUTSIDE RECORDS SUMMARY | ~2020-02-22 | XMS | Encounter Summary ---
Demographics + + + | Address | [address] | | | [place] [address] | + + + | Home Phone | | + + + | Preferred Language | Unknown | + + + | Marital Status | | + + + | Zoroastrianism Affiliation | 1041 | + + + | Race | Unknown | + + + | Ethnic Group | Unknown | + + + Author + + + | Author | [facility] | | | and [place] | + + + | Organization | [facility] | | [...] Team Providers + +------+ + | Care Cementer Machine Name | Role | Phone | + [...] | | | [address] [place] | [place] [address] | | | | | [place] [address] | | | | | | [phone] | | | +--------+ + + + [...]
--- OUTSIDE RECORDS SUMMARY | ~2020-02-22 | XMS | Encounter Summary ---
Demographics + + + | Address | [address] | | | [place] [address] | + + + | Home Phone | | + + + | Preferred Language | Unknown | + + + | Marital Status | | + + + | Druze Affiliation | 1041 | + + + | Race | Unknown | + + + | Ethnic Group | Unknown | + + + Author + + + | Author | [facility] | | | and [place] | + + + | Organization | [facility] | | | and [...] Team Providers + +------+ + | Care Finisher Special Stocks Name | Role | Phone | + +------+ + | Megan Garza | PCP | | + +------+ + Encounter Details +--------+ + + + + | Date | Type | Department | Care Team | Description | +--------+ + + + + | 09/10/ | Orders Only | [facility] | Greyson Vaughan, | | | 2018 | | VASCULAR SURGERY | PA-C [address] | | | | | [address] | [address], | | | | | [address] | [place] [address] | | | | | [facility] [place] | [phone] | | | | | [address] | | | | | | [phone] | | | +--------+ + + + [...]
--- OUTSIDE RECORDS SUMMARY | ~2020-02-22 | XMS | Encounter Summary ---
Demographics + + + | Address | [address] | | | [place] [address] | + + + | Home Phone | | + + + | Preferred Language | Unknown | + + + | Marital Status | | + + + | Caodaism Affiliation | 1041 | + + + | Race | Unknown | + + + | Ethnic Group | Unknown | + + + Author + + + | Author | [facility] | | | and [place] | + + + | Organization | [facility] | | | [...] Team Providers + +------+ + | Care Mortgage Protection Sales Name | Role | Phone | + [...] | [place] [address] | [address] [facility] | | | | | pain | | [place], [place] | | | | | | [place], | [address] Phone: | | | | | | [place] [address] | [phone] | | | | | | Phone: | Fax: | | | | | | [phone] | [phone] | | | | | | Fax: | | | | | | | [phone] | | + +--------+ + + + + Encounter Details +--------+---------+ + + + | Date | Type | Department | Care Team | Description | +--------+---------+ + + + | 05/12/ | Office | [facility] | Andrea Nguyen PA-C | Chronic neck pain | | 2019 | Visit | PHYSIATRY [address] | [address] | (Primary Dx); | | | | [address] | [place] | Cervical | | | | [place] | [address] | radiculopathy; | | | | [address] | | Parkinson's disease | | | | [phone] | | (tremor, stiffness, | | | [...] realice actividades en las que tenga que gum remover mucho el julianne. Puede usar calor y masajes para ayudar a aliviar el dolor. [place] mary ducha o un avi, o use [...] para respirar o tragar Date Last Reviewed: 06/03/201719992575-8515 [employer]. [address] [place] [address], [place] [address]. Todos lo s derechos reservados. Esta informacin no pretende sustituir la atencin mdica profesio nal. Slo diza mdico puede diagnosticar y tratar un problema de halie. Qu es la radiculopata cervical? La radiculopata cervical es mary irritacin o inflamacin de mary lisseth nerviosa en el cu ello. Provoca dolor en el julianne y otros sntomas que pueden propagarse al pecho o a lo lar go del brazo. Para entender esta afeccin, ayuda comprender relationship mgr se compone la columna kaylyn tebral: Vrtebras. [...] las races nerviosas del julianne estn irritadas. [place] produce dolor y sntomas que pueden desplazarse [...] a causa del desgaste y el envejecimiento. [place] puede ocasionar un estrecha miento (estenosis) de las aberturas entre las vrtebras. Las aberturas que se york estrechad o presionan sobre las races nerviosas cuando estas salen del canal koroma. Mary columna inestable. [place] sucede cuando mary vrtebra se desliza hacia [...] dolor. Soporte para el julianne (julianne ortopdico). [place] puede ayudar a aliviar la inflamacin y el dolor. Fisioterapia, incluyendo ejercicios fsicos y estiramientos. Puede ayudar a reducir el dolor y a aumentar el movimiento y el funcionamiento. Inyecciones de medicamentosalrededor de las races nerviosas. [place] se hace para ayudar a aliviar los sntomas por algn tiempo. En algunos casos, diaz proveedor de atencin mdica puede indicarle amry ciruga para corre gir el problema subyacente. [...] vejiga o anjelica intestinos Date Last Reviewed: 10/21/201519992271-7[address] [employer] [place] [address]. All [facility] ts reserved. This information is not intended [...] disk, and irritate nerves. Date Last Reviewed: 01/11/201819994415-2719 [employer]. [address] [place] [address], [place] [address]. All [facility] reserved. This information is not intended as [...] los mensajes que le indican al cuerpo relationship mgr moverse se duane interrumpidos o alterados. [place] puede causar s ntomas rogelio temblores, rigidez [...] que producen d opamina comienzan a morir. [place] significa que hay menos dopamina disponible para [...] completamente paralizadas e incapaces de moverse. Rigidez. [place] ocurre cuando los msculos no se relajan. Puede causar dolor muscular y u na postura encorvada. Otros sntomas. Estos incluyen prdida del equilibrio, escritura en mary letra diminuta , volumen bajo de voz, estreimiento, expresin facial disminuida o apagada y trasto rnos del sueo. Elijah pueden ocurrir prdida de la memoria u otros problemas del pensam iento a medida que avanza la enfermedad. Delivery Director se diagnostica la enfermedad de Parkinson? No [...] la enfermedad de Parkinson. Date Last Reviewed: 05/08/201519990821-0990 [employer]. [address] [place] [address]. Todos lo s derechos reservados. Esta informacin [...] piso y las rodillas separadas. Ponga las lras sobre los apoyabrazos. Inclnese hacia adelante mientras [...] lentamente sobre la silla. Date Last Reviewed: 05/11/201519991811-4554 [employer]. [address] [place] [address], [place] [address]. Todos lo s derechos reservados. Esta informacin no pretende sustituir la atencin mdica profesio nal. Slo diaz mdico puede diagnosticar y tratar un problema de haile. Sntomas comunes de la enfermedad de Parkinson Usted tiene la enfermedad de Parkinson. Esta enfermedad se debe a la prdida de mary sustan sindhu qumica en diaz cerebro que se necesita para controlar el movimiento y el equilibrio. Por razones que an no son claras, las clulas que producen esta sustancia del cerebro laquita de funcionar. [place] es lo que provoca los sntomas. En esta hoja, encontrar ms informaci n sobre la enfermedad de Parkinson. Delivery Director podran afectarle los sntomas? Los sntomas de [...] en reposo (cuando no se usa). Rigidez. [place] significa tener los msculos duros o tensos. Sucede porque los msculos no reciben la seal de relajarse. La rigidez puede provocar calambres y dolor en los mscu los. Tambin puede causar mary postura encorvada. Problemas de equilibrio. [place] puede afectar la manera en que usted [...] se puede presentar bradicinesia (o movimientos lentos). [place] puede causar prob lemas con acciones rogelio levantarse de la cama o de mary silla. Caminar podra quedar limitad o a pasos cortos y arrastrados. Quizs se sienta congelado, o incapaz de moverse. Tambin se vuelven ms lentos otros movimientos que son inconscientes, rogelio pestaear, gum remover la ca ra en diferentes expresiones, balancear los brazos al caminar. Algunas personas pueden tener problemas al orinar, y otras pueden sufrir depresin. Date Last Reviewed: 05/08/201519993091-0076 [employer]. [address] [place] [address]. Todos lo s derechos reservados. Esta informacin no pretende sustituir la atencin vidhi cifuentes. Slo diaz mdico puede diagnosticar y tratar un problema de halie. documented in this encounter Progress Notes Andrea Nguyen PA-C - 05/12/2019 11:20 AM PDT Andrea Nguyen PA-C [address] [facility] [place] [address] FAX: CHIEF COMPLAINT: Chief Complaint [...] Dermatophytosis of nail Diabetes mellitus type I ([facility]) Disorder of eye Disorder of lipid metabolism Disorder of skin and subcutaneous tissue Fecal occult blood test positive Functional disorder of stomach History of prostate cancer treated with radiation Obesity Osteoarthrosis Parkinson's disease ([facility]) 03/07/2018 Parkinson's disease (tremor, stiffness, slow motion, unstable posture) ([facility]) 03/11/2018 Pedal edema Pill rolling tremor Prostate cancer ([facility]) Spondylolisthesis at L5-S1 level 03/11/2018 Type 2 diabetes mellitus without complication ([facility]) 03/11/2018 PAST SURGICAL HISTORY: Past Surgical History: Procedure Laterality Date CATARACT REMOVAL Right 06/26/2018 Procedure: RIGHT EXTRACTION CATARACT WITH LENS IMPLANT; Surgeon: Bj Thomas; Location: [facility] MAIN OR HERNIA REPAIR WRIST FRACTURE SURGERY [...] hours as needed for itching or allergies. Namibian instructions docusate sodium (COLACE) 100 MG tablet 100 mg doxycycline (VIBRAMYCIN) 50 MG capsule ergocalciferol (VITAMIN D-2) 50,000 units capsule Ergocalciferol(ERGOCALCIFEROL) 92750 UNT CAPSULE Dose: 58489 UNT finasteride (PROSCAR) 5 mg tablet 5 mg fish oil 1,000 mg capsule Take 1,200 mg by mouth 3 (three) times a day. fish oil 1,000 mg capsule Take 1,200 mg by mouth 3 times daily. furosemide (LASIX) 20 mg tablet Take 1 tablet (20 mg total) by mouth daily. Leg swellin g Namibian instructions gabapentin (NEURONTIN) 300 mg capsule Take [...] by mouth 2 (two) times a day. [place]ian instructions SITagliptin-metFORMIN (JANUMET) 50-1,000 mg per tablet [...] Extension 5 4 Finger Abduction 5 4 Web Services Manager Strength 5 4 NEUROLOGIC: The patient is awake, alert, and oriented to time, place, person. He follows simple and complex commands. His speech is fluent. He comprehends speech well. He has no apparent deficits with short or chcf memory. He has appropriate fund of knowledge [...] complication, without long-term current use of insulin ([facility]) PLAN: It was a pleasure meeting and [...] PT (multiple sessions over the years) and memory care director. Unfortunately Kota rai continues to have significant [...]
--- OUTSIDE RECORDS SUMMARY | ~2020-02-22 | XMS | Encounter Summary ---
Demographics + + + | Address | [address] | | | [place] [address] | + + + | Home Phone | | + + + | Preferred Language | Unknown | + + + | Marital Status | | + + + | Shinto Affiliation | 1041 | + + + [...] Team Providers + +------+ + | Care Solid State Tester Name | Role | Phone | + [...] | | | | | | | HI REMV | | | | | | [...] Description | +--------+---------+ + + + | 06/26/ | Surgery | [facility] | Ty Russ | RIGHT EXTRACTION | | 2018 | | MED CTR OR INTRA OP | MD Tyron [address] | CATARACT WITH LENS | | | | [address] [place] | IMPLANT | | | | [place], [place] | [place] [address] | | | | | [address] | [phone] | | | | | [phone] | | | +--------+---------+ + + + Social History [...] wear the eye shield as noted aleksey bautista Do not drive for at least 24 [...] symptoms, immediately call your eye doctor or [facility] at (dial "9" after hours or on [...] AM PSTSURGICAL INTERIM HISTORY & PHYSICAL UPDA NADIA Pt. Name/Age/: Kota Piña 73 y.o. 1945 [...] signed by: Ty Russ MD, 06/26/2018 10:13 [facility] documented in t his encounter Miscellaneous Notes Op Note - Ty Russ MD - 06/26/2018 10:50 AM PSTPre-op Diagnosis: Nuclear scle rosis (H25.11), right eye Post-op Diagnosis: same Procedure: Cataract extraction by phacoemulsification with intraocular lens implant, right eye (75845) Implant: Glez PCB00 24.5 D, SN [id number] Surgeon: Ty Russ MD Anesthesia: Monitored anesthesia care Technique/Procedure Description: After the patient's eye prepped and draped in the usual [facility] ophthalmic manner, a lid speculum was [...] + | [facility] | [address] | [place] | [phone] | | [facility] | | [id number] | | | - LABORATORY | | | | + + + + + documented in this encounter Visit Diagnoses + + | Diagnosis | + + | Age-related nuclear cataract of right eye Senile nuclear sclerosis | + + documented in this encounter Administered Medications + +--------+---------+------+------+------+ [...] +---+ | | | + +---+ + +-------+ + +---+ + | balanced salts sterile | Given | 06/26/20 | 1 | | Surgical | | ophthalmic irrigation solution | | 18 10:56 | Applicat | | Site | | PRN, Starting Sun06/26/18 at | | AM PST | ion | | | | 1056, Intra-op | | | | | | + +-------+ + +---+ + +---+---+ | | | +---+---+ + +-------+ +-------+---+---+ | BSS 2.25ML + lidocaine 4% | Given | 06/26/20 | 4 mLs | | | | 0.75ML + EPINEPHrine (1:1000) 1ML | | 18 10:56 | | | | | one step ophthalmic solution | | AM PST | | | | | PRN, Starting Sun06/26/18 at | | | | | | | 1056, Intra-op | | | | | | + +-------+ +-------+---+---+ + +---+ | | | + +---+ [...] +---+ | | | + +---+ + +-------+ +-------+---+---+ | hyaluronate & chondroitin | Given | 06/26/20 | 1 kit | | | | hyaluronate (DUOVISC) intraocular | | 18 10:56 | | | | | kit PRN, Starting 06/26/18 | | AM PST | | | | | at 1056, Intra-op | | | | | | + +-------+ +-------+---+---+ +---+---+ | | | +---+---+ + +---------+ +---+-------+---+ | lactated ringers (LR) [...] PST | | | | | Starting Sun06/26/18 at 0958, | | | | | [...] +---+---+ | | | +---+---+ + +-------+ + +---+ + | lidocaine (XYLOCAINE) 2% jelly | Given | 06/26/20 | 1 | | Surgical | | (uro-jet) PRN, Starting Sun | | 18 10:53 | Applicat | | Site | | 06/26/18 at 1053, Intra-op | | AM PST | ion | | | + +-------+ + +---+ + +---+---+ | | | +---+---+ + +-------+ +--------+---+ + | moxifloxacin (VIGAMOX) 0.5 % | Given | 06/26/20 | 0.5 mg | | Eye-Righ | | intracameral injection PRN, | | 18 11:02 | | | t | | Starting 06/26/18 at 1102, | | AM PST | | | | | Intra-op | | | | | | + +-------+ +--------+---+ + +---+---+ | | | +---+---+ + +-------+ [...] | | +---+---+ + +-------+ +--------+---+---+ | pilocarpine (ISOPTO CARPINE) 1% | Given | 06/26/20 | 1 drop | | | | ophthalmic solution PRN, | | 18 11:02 | | | | | Starting Sun06/26/18 at 1102, | | AM PST | | | | | Intra-op | | | | | | + +-------+ +--------+---+---+ +---+---+ | | | +---+---+ + +-------+ +--------+---+---+ | povidone-iodine 5 % ophthalmic | Given | 06/26/20 | 1 drop | | | | solution PRN, Starting Sun | | 18 10:47 | | | | | 06/26/18 at 1047, Intra-op | | AM PST | | | | + +-------+ +--------+---+---+ +---+---+ | | | +---+---+ + +-------+ +--------+---+---+ | proparacaine (ALCAINE) 0.5% | Given | 06/26/20 | 1 drop | | | | ophthalmic solution 1 drop 1 | | 18 10:16 | | | | | drop, Right Eye, Prior to | | AM PST | | | | | Incision, Starting Wed /14/18 | | | | | | | [...] +---+---+ | | | +---+---+ + +-------+ +------+---+ + | triamcinolone acetonide | Given | 06/26/20 | 5 mg | | Surgical | | (KENALOG-10) 10 mg/mL injection | | 18 11:02 | | | Site | | PRN, Starting Sun06/26/18 at | | AM PST | | | | | 1102, Intra-op | | | | | | + +-------+ +------+---+ + +---+---+ | | | +---+---+ + +-------+ [...]
--- OUTSIDE RECORDS SUMMARY | ~2020-02-22 | XMS | Encounter Summary ---
Demographics + + + | Address | [address] | | | [place] [address] | + + + | Home Phone | | + + + | Preferred Language | Unknown | + + + | Marital Status | | + + + | Spiritism Affiliation | 1041 | + + + | Race | Unknown | + + + | Ethnic Group | Unknown | + + + Author + + + | Author | [facility] | | | and [place] | + + + | Organization | [facility] | | | and [...] Team Providers + +------+ + | Care Dock Loader Name | Role | Phone | + +------+ + PCP | Unavailable | + +------+ + Encounter Details +--------+ + + + + | Date | Type | Department | Care Team | Description | +--------+ + + + + | 12/27/ | Hospital | [facility] | Conversion | Pain | | 2014 | Encounter | CONVERSION [address] | Transaction, | | | | | [address] | Provider Unknown | | | | | [place], [place] | | | | | | [address] | (Fax) | | | | | [phone] | | | +--------+ + + + [...]
--- OUTSIDE RECORDS SUMMARY | ~2020-02-22 | XMS | Encounter Summary ---
Demographics + + + | Address | [address] | | | [place] [address] | + + + | Home Phone | | + + + | Preferred Language | Unknown | + + + | Marital Status | | + + + | Faith Affiliation | 1041 | + + + | Race | Unknown | + + + | Ethnic Group | Unknown | + + + Author + + + | Author | [facility] | | | and [place] | + + + | Organization | [facility] | | [...] Team Providers + +------+ + | Care Technology Adoption Manager Name | Role | Phone | + +------+ + | Megan Garza | PCP | | + +------+ + Encounter Details +--------+ + + + + | Date | Type | Department | Care Team | Description | +--------+ + + + + | 05/09/ | Hospital | [facility] | Conversion | | | 2018 | Encounter | CENTER OUTPATIENT | Transaction, | | | | | PHYSICAL THERAPY | Provider Unknown | | | | | [address] [facility] | [phone] | | | | | [place], [place] | | | | | | [address] | Doris Rosado, PT | | | | | [phone] | | | +--------+ + + + [...] Plan by Doris Rosado PT at 05/09/18 9135 Author: Doris Rosado PT Service: Physical Medicine and Rehab Author Type: Physical donald Filed: 10/10/18 1357 Date of Service: 05/09/18 4221 Status: Signed Economics Instructor: Doris Rosado PT (Physical Therapist) [facility] Physical Therapy Discharge Summary 10/10/2018 Dear Rick [...] Date of Service: 05/09/18 0729 Status: Signed Economics Instructor: Doris Rosado PT (Physical Therapist) Cosigner: Rick Kumar MD at 08/30 1122 [facility] Physical Therapy Initial Evaluation Summary/Plan of Care [...] gabapentin (NEURONTIN) 300 MG capsule glucose blood (Dinner LabUCH VERIO) test strip glyBURIDE (DIABETA) 5 MG [...] son Ann is with him as a eyeletter a nd lives with him along with pts . Patient s prior functional status: Independent with functional mobility, Independent wit h ADLs, Independent with IADLs, Community distance History of current diagnosis: Pt has had some tremor for a couple of years. 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 H e was diagnosed last year. He also has some chronic back and neck pain with some recent imag ing that was done out of town and they do not have any results. He has not had any previous physical therapy. He does not use any assistive devices. Additional Comments: Patient speaks Welsh only, sone interprets per their request. Pt [...] and change in activity or exercise , Ericson 3DY Screening Tool 1. What is the [...] Movement (toe tapping): dysdiadochokinesis of bilateral leg(s). [id number] Coordination Test: within normal limits of bilateral hand(s). Heel to Kim Coordination Test: dysdiadochokinesis of bilateral leg(s). Note: if motor & sensory systems are intact, an abnormal, asymmetric heel to kim test is h ighly suggestive of an ipsilateral cerebellar lesion. and Results of the evaluation were discussed using demonstration, explanation and eyeletter w ith the patient and/or their family/caregivers, [...] to ascend 8 stairs with CGA. LTG: Sizing End Bander Goals to be achieved in 13 weeks: [...] please feel free to contact me at [phone] . Doris Rosado, PT 05/09/2018 10:16 AM Please sign below to indicate agreement with treatment plan: Rick Kumar MD Date documented in t his encounter Plan of Treatment Not on filedocumented as of this encounter Visit Diagnoses Not on filedocumented in this encounter
--- OUTSIDE RECORDS SUMMARY | ~2020-02-22 | XMS | Encounter Summary ---
Demographics + + + | Address | [address] | | | [place] [address] | + + + | Home Phone | | + + + | Preferred Language | Unknown | + + + | Marital Status | | + + + | Hinduism Affiliation | 1041 | + + + | Race | Unknown | + + + | Ethnic Group | Unknown | + + + Author + + + | Author | [facility] | | | and [place] | + + + | Organization | [facility] | | | and [...] Team Providers + +------+ + | Care Radioisotope Technologist Name | Role | Phone | + +------+ + | Megan Garza | PCP | | + +------+ + Encounter Details +--------+ + + + + | Date | Type | Department | Care Team | Description | +--------+ + + + + | 05/27/ | Hospital | [facility] | Marce Jeanna Mon, | | | 2017 | Encounter | CENTER OUTPATIENT | [facility]LL[facility] | | | | | PHYSICAL THERAPY | | | | | | [address] | | | | | | [place] | | | | | | [address] | | | | | | [phone] | | | +--------+ + + + [...] Jeanna Zheng PTA Service: (none) Author Type: Incident Analyst Filed: 06/06/18 5486 Date of Service: 05/27/181115 Status: Signed Comic Illustrator: Jeanna J Zheng, NUT SHELLER (Incident Analyst) Therapy Daily Treatment note Date of Service: [...] Date: Expiration Date: G-CODES 1 of 10 NUT SHELLER visits: 1 of 4 Functional Limitations: $Mobility: [...] to ascend 8 stairs with CGA. LTG: Care Home Goals to be achieved in 13 weeks: [...]
--- OUTSIDE RECORDS SUMMARY | ~2020-02-22 | XMS | Encounter Summary ---
Demographics + + + | Address | [address] | | | [place] [address] | + + + | Home Phone | | + + + | Preferred Language | Unknown | + + + | Marital Status | | + + + | Episcopalian Affiliation | 1041 | + + + | Race | Unknown | + + + | Ethnic Group | Unknown | + + + Author + + + | Author | [facility] | | | and [place] | + + + | Organization | [facility] | | | [...] Team Providers + +------+ + | Care Fur Blower Name | Role | Phone | + +------+ + | Megan Garza | PCP | | + +------+ + Encounter Details +--------+ + + + + | Date | Type | Department | Care Team | Description | +--------+ + + + + | 04/11/ | Imaging | [facility] | Provider, | | | 2018 | Exam | MED CTR EXTERNAL | MD [address]il[address] | | | | | IMAGING [address] | | | | | [address] [place] | [place] [address] | | | | | [place] [address] | | | | | | [phone] | | | +--------+ + + + [...] MRI LUMBAR SPINE WO | Routin | 04/02/2018 | | Results for this | | CONTRAST | e | 4:35 PM | | procedure are in the | | | | PDT | | results section. | + +--------+ + + + documented in this encounter Results MRI Lumbar Spine wo Contrast (04/02/2018 4:35 PM PDT) + + | Specimen | [...]
--- OUTSIDE RECORDS SUMMARY | ~2020-02-22 | XMS | Encounter Summary ---
Demographics + + + | Address | [address] | | | [place] [address] | + + + | Home Phone | | + + + | Preferred Language | Unknown | + + + | Marital Status | | + + + | Bahai Affiliation | 1041 | + + + | Race | Unknown | + + + | Ethnic Group | Unknown | + + + Author + + + | Author | [facility] | | | and [place] | + + + | Organization | [facility] | [...] Team Providers + +------+ + | Care Mental Health Professional Name | Role | Phone | + [...] | Cervical | [place], | [address] | | | | | radiculopath | Tirso Brito MD | [place], | | | | | y | [address] | [place] | | | | | Procedures | [address] [place] | [address] | | | | | [place] | [place], [place] | Phone: | | | | | DX/THER SBST | [address] | [phone] | | | | | INTRLMNR | Phone: | Fax: | | | | | CRV/THRC | [phone] | [phone] | | | | | W/IMG GDN | Fax: | | | | | | [place] | [phone] | | | | | | TRIAMCINOLON [...] + + | 06/23/ | Hospital | [facility] | Andrea Nguyen PA-C | Chronic neck pain; | | 2019 | Encounter | MED CTR XRAY [address] | [address] | Cervical | | | | [place] | [place] | radiculopathy | | | | [place] [address] | [phone] | | | | | [phone] | | | | | | | Ship CaptainSvetlana | | | | | | helen [...] | | (VITAMIN D-2) 50,000 | ALCIFEROL) 90620 UNT | | | | | | units capsule | CAPSULEDose: [address] | | | | | | | [...] | | | | | | | Bulgarian instructions | | | | | + [...] | | | | | | allergies. Bulgarian | | | | | | | instructions | | | | | + + + +---------+ + + | furosemide (LASIX) | Take 1 tablet (20 mg | | 0 | 06/28/20 | | | 20 mg tablet | total) by mouth | | | 18 | 9 | | | daily. Leg swelling | | | | | | | Bulgarian instructions | | | | | + [...]
--- OUTSIDE RECORDS SUMMARY | ~2020-02-22 | XMS | Clinical Summary ---
Demographics + + + | Address | [address] | | | [place] [address] | + + + | Home Phone | | + + + | Preferred Language | Unknown | + + + | Marital Status | | + + + | Mormon Affiliation | 1041 | + + + [...] Team Providers + +------+ + | Care Stoner Hand Name | Role | Phone | + +------+ + | Megan Garza | PCP | | + +------+ + Allergies No Known Allergies Medications + + + +---------+------+------+-------+ | Medication | Sig | Dispensed | Refills | Star | End | Statu | | | | | | t | Date | s | | | | | | Date | | | + + + +---------+------+------+-------+ | cholecalciferol | Take 1,000 mg by | | 0 | | | Activ | | (VITAMIN D-3) 1,000 | mouth. | | | | | e | | units capsule | | | | | | | + + + +---------+------+------+-------+ | Cinnamon 500 MG | Take 500 mg by mouth | | 0 | | | Activ | | CAPS | 3 times daily. | | | | | e | + + + +---------+------+------+-------+ | fish oil 1,000 mg | Take 1,200 mg by | | 0 | | | Activ | | capsule | mouth 3 times daily. | | | | | e | + + + +---------+------+------+-------+ | tamsulosin | Take 0.4 mg by mouth | | 0 | 06/1 | | Activ | | (FLOMAX) 0.4 mg CAPS | nightly. | | | 5/20 | | e | | | | | | 18 | | | + + + +---------+------+------+-------+ | Glucose Blood | | | 0 | 04/0 | | Activ | | (BLOOD GLUCOSE TEST | | | | 2/20 | | e | | STRIPS) STRP | | | | 18 | | | + + + +---------+------+------+-------+ | glucose blood | | | 0 | 04/0 | | Activ | | test strips | | | | 2/20 | | e | | (ONETOUCH VERIO) | | | | 18 | | | | strip | | | | | | | + + + +---------+------+------+-------+ | meloxicam (MOBIC) | Take 1 tablet by | 30 | 2 | 07/3 | | Activ | | 15 mg tablet | mouth Daily as | tablet | | 0/20 | | e | | | needed. | | | 18 | | | + + + +---------+------+------+-------+ | gabapentin | Take 1 capsule by | 90 | 1 | 10/0 | | Activ | | (NEURONTIN) 300 mg | mouth 3 times daily. | capsule | | 3/20 | | e | | capsule | | | | 18 | | | + + + +---------+------+------+-------+ | carbidopa-levodopa | | | 0 | 10/1 | | Activ | | (SINEMET) 25-100 mg | | | | 9/20 | | e | | per tablet | | | | 18 | | | + + + +---------+------+------+-------+ | docusate sodium | 100 mg | | 0 | | | Activ | | (COLACE) 100 MG | | | | | | e | | tablet | | | | | | | + + + +---------+------+------+-------+ | doxycycline | | | 0 | 01/1 | | Activ | | (VIBRAMYCIN) 50 MG | | | | 05/02 | | e | | capsule | | | | 19 | | | + + + +---------+------+------+-------+ | ergocalciferol | Ergocalciferol(ERGOC | | 0 | | | Activ | | (VITAMIN D-2) 50,000 | ALCIFEROL) 16298 UNT | | | | | e | | units capsule | CAPSULEDose: 19841 | | | | | | | | UNT | | | | | | + + + +---------+------+------+-------+ | finasteride | 5 mg | | 0 | | | Activ | | (PROSCAR) 5 mg | | | | | | e | | tablet | | | | | | | + + + +---------+------+------+-------+ | glyBURIDE | Take 1 tablet (5 mg | | 0 | 02/2 | | Activ | | (DIABETA) 5 mg | total) by mouth | | | 10/30 | | e | | tablet | daily with | | | 18 | | | | | breakfast. | | | | | | + + + +---------+------+------+-------+ | ACCU-CHEK SOFTCLIX | | | 0 | 06/2 | | Activ | | LANCETS MISC | | | | 9/20 | | e | | | | | | 18 | | | + + + +---------+------+------+-------+ | ACCU-CHEK SOFTCLIX | | | 0 | 03/1 | | Activ | | LANCETS MISC | | | | 5/20 | | e | | | | | | 19 | | | + + + +---------+------+------+-------+ | Lancets Misc. | Test Blood sugar | | 0 | 07/1 | | Activ | | (UNISTIK 3 EXTRA) | QDAY and ANAN Dx: | | | 8/20 | | e | | MISC | E11.9 DUSTIN: 99 | | | 17 | | | + + + +---------+------+------+-------+ | | Take 1 tablet by | | 0 | 02/2 | | Activ | | lisinopril-hydrochlo | mouth daily. | | | 0/20 | | e | | rothiazide | | | | 18 | | | | (PRINZIDE,ZESTORETIC | | | | | | | | ) 10-12.5 MG per | | | | | | | | tablet | | | | | | | + + + +---------+------+------+-------+ | metFORMIN | Take 1 tablet (1,000 | | 0 | 02/2 | | Activ | | (GLUCOPHAGE) 1000 MG | mg total) by mouth | | | 3/20 | | e | | tablet | 2 (two) times a day | | | 18 | | | | | with meals. | | | | | | + + + +---------+------+------+-------+ | fish oil 1,000 mg | Take 1,200 mg by | | 0 | | | Activ | | capsule | mouth 3 (three) | | | | | e | | | times a day. | | | | | | + + + +---------+------+------+-------+ | omeprazole | 40 mg. | | 0 | | | Activ | | (PRILOSEC) 40 MG | | | | | | e | | capsule | | | | | | | + + + +---------+------+------+-------+ | raNITIdine | Take 1 tablet (150 | | 0 | 12/ | | Activ | | (ZANTAC) 150 mg | mg total) by mouth 2 | | | 05/02 | | e | | tablet | (two) times a day. | | | 18 | | | | | [place] instructions | | | | | | + + + +---------+------+------+-------+ | | Take 501,000 mg by | | 0 | 12/3 | | Activ | | SITagliptin-metFORMI | mouth | | | 0/20 | | e | | N (JANUMET) 50-1,000 | | | | 15 | | | | mg per tablet | | | | | | | + + + +---------+------+------+-------+ | terazosin (HYTRIN) | 1 mg | | 0 | | | Activ | | 1 mg capsule | | | | | | e | + + + +---------+------+------+-------+ | timolol maleate | | | 0 | 11/1 | | Activ | | (TIMOPTIC) 0.5% | | | | 4/20 | | e | | ophthalmic solution | | | | 18 | | | + + + +---------+------+------+-------+ | | | | 0 | 01/1 | | Activ | | tobramycin-dexametha | | | | 9/20 | | e | | sone (TOBRADEX) | | | | 19 | | | | ophthalmic solution | | | | | | | + + + +---------+------+------+-------+ | traMADol (ULTRAM) | 100 mg | | 0 | | | Activ | | 50 mg tablet | | | | | | e | + + + +---------+------+------+-------+ | traZODone | 50 mg | | 0 | | | Activ | | (DESYREL) 50 mg | | | | | | e | | tablet | | | | | | | + + + +---------+------+------+-------+ | glucose blood | CONTOUR NEXT TEST | | 0 | | | Activ | | test strips (CONTOUR | STRIPS(GLUCOSE | | | | | e | | NEXT TEST) strip | BLOOD) 1 EACH | | | | | | | | STRIPDose: 1 EA | | | | | | + + + +---------+------+------+-------+ Active Problems + + + | Problem | Noted Date | + + + | Chronic venous insufficiency | 08/28/2018 | + + + + + | Overview: 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 [facility], wears compression | | stockings | + + + + + | Venous ulcer of left leg | 08/28/2018 | + + + | Lumbar radiculopathy | 05/15/2018 | + + + | Age-related cataract of right eye | 04/10/2018 | + + + | Chronic bilateral low back pain with bilateral sciatica | 03/11/2018 | + + + | Spondylolisthesis at L5-S1 level | 03/11/2018 | + + + | Parkinson's disease (tremor, stiffness, slow motion, unstable | 03/11/2018 | | posture) | | + + + | Type 2 diabetes mellitus without complication | 03/11/2018 | + + + | Chronic neck pain | 03/11/2018 | + + + | DDD (degenerative disc disease), cervical | 03/11/2018 | + + + Immunizations + + + + | Name | Administration Dates | Next Due | + + + + | PNEUMOCOCCAL | 10/30/2008 | | | POLYSACCHARIDE | | | | 23-VALENT (PPSV23) | | | + + + + Family History + + +--------+ + | Relation | Name | Status | Comments | + + +--------+ + | Daughter | CLAUDETTE | Alive | | | | Q. | | | + + +--------+ + Social History + +-------+ +--------+------+ | [...] on file | | + + + Last Filed Vital Signs + + + + + | Vital Sign | Reading | Time Taken | Comments | + + + + + | Blood Pressure | 119/57 | 06/23/2019 1:18 PM | | | | | PST | | + + + + + | Pulse | 71 | 01/23/2019 3:22 PM | | | | | PDT [...] | | + + + + + Plan of Treatment + + + + + | Health Maintenance | Due Date | Last | Comments | | | | Done | | + + + + + | Hepatitis C | | | | | Screening | 6 | | | + + + + + | Diabetic Eye Exam | | | | | | 4 | | | + + + + + | Diabetic Foot Exam | | | | | | 4 | | | + + + + + | Hemoglobin A1c | | | | | Screening | 4 | | | + + + + + | Vaccine: | | | | | Dtap/Tdap/Td (1 - | 5 | | | | Tdap) | | | | + + + + + | Colorectal Cancer | | | | | Screening | 6 | | | | (Colonoscopy) | | | | + + + + + | Vaccine: Zoster (1 | | | | | of 2) | 6 | | | + + + + + | Vaccine: | | 10/31/19 | | | Pneumococcal 65+ (1 | 4 | 09 | | | of 1 - PPSV23) | | | | + + + + + | Adult Annual | | | | | Wellness Visit | 8 | | | + + + + + | Statin Therapy | | | | | (optimal intensity) | 8 | | | + + + + + | Vaccine: Influenza | | | | | (#1) | 0 | | | + + + + + Implants + +--------+--------+ +--------+--------+--------+ | Implanted | Type | Area | Manufacture | Device | Shelf | Model | | | | | r | | Expira | / | | | | | | Identi | tion | Serial | | | | | | fier | Date | / Lot | + +--------+--------+ +--------+--------+--------+ | Lens Tecnis Preloaded Pcb | Generi | Right: | NELSON | | 03/20/ | [id number] | | 24.5 - [id number]: | c | Eye | MEDICAL | | 2020 | [id number] | | Qty: 1 on 06/26/2018 by | | | [employer] - | | | /[id number] | | Ty Russ MD at | | | [place] | | | [id number] | | [facility] | | | | | | / | | [facility] | | | | | | | + +--------+--------+ +--------+--------+--------+ Results Not on filefrom Last 3 Months Insurance + +--------+ +--------+ +---------+--------+ | Payer | Benefi | Subscriber | Effect | Phone | Address | Type | | | t Plan | ID | wu | | | | | | / | | Dates | | | | | | Group | | | | | | + +--------+ +--------+ +---------+--------+ | BCBS | BCBS | [id number] | 08/13/19 | | | PPO | | | OOS | [id number] | 19-Pre | | | | | | PPO | | sent | | | | + +--------+ +--------+ +---------+--------+ | MEDICARE | MEDICA | [id number] | 04/13/20 | [phone] | | Medica | | | RE | | 11-Pre | 5 | | re | | | PART A | | sent | | | | | | AND B | | | | | | + +--------+ +--------+ +---------+--------+ + +--------+ +--------+ + + | Guarantor Name | Accoun | Relation to | Date | Phone | Billing Address | | | t Type | Patient | of | | | | | | | | | | + +--------+ +--------+ + + | Kota Piña | Person | Self [birth year] | [address] | | | al/Fam | | 1945 | [phone] | [place] | | | [place] | | | [address] (Home) | [address] | + +--------+ +--------+ + + Advance Directives + + + + + | Type | Date Recorded | Patient | Explanation | | | | 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
--- OUTSIDE RECORDS SUMMARY | ~2020-02-22 | XMS | Encounter Summary ---
Demographics + + + | Address | [address] | | | [place] [address] | + + + | Home Phone | | + + + | Preferred Language | Unknown | + + + | Marital Status | | + + + | Hoahaoism Affiliation | 1041 | + + + | Race | Unknown | + + + | Ethnic Group | Unknown | + + + Author + + + | Author | [facility] | | | and [place] | + + + | Organization | [facility] | | | and [...] Team Providers + +------+ + | Care Staff Psychiatrist Name | Role | Phone | + +------+ + | Megan Garza | PCP | | + +------+ + Encounter Details +--------+ + + + + | Date | Type | Department | Care Team | Description | +--------+ + + + + | 06/06/ | Hospital | [facility] | Marce Jeanna Mon, | | | 2017 | Encounter | CENTER OUTPATIENT | 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 LTG: Intermediate Goals to be achieved in 13 weeks: [...]
--- OUTSIDE RECORDS SUMMARY | ~2020-02-22 | XMS | Encounter Summary ---
Demographics + + + | Address | [address] | | | [place] [address] | + + + | Home Phone | | + + + | Preferred Language | Unknown | + + + | Marital Status | | + + + | Islam Affiliation | 1041 | + + + [...] Team Providers + +------+ + | Care Technical Sales Representative Name | Role | Phone | [...] | [place], [place] | [place] [address] | | | | | [address] | [phone] | | | | | [phone] | | | +--------+ + + + [...]
--- OUTSIDE RECORDS SUMMARY | ~2020-02-22 | XMS | Encounter Summary ---
Demographics + + + | Address | [address] | | | [place] [address] | + + + | Home Phone | | + + + | Preferred Language | Unknown | + + + | Marital Status | | + + + | Zoroastrian Affiliation | 1041 | + + + | Race | Unknown | + + + | Ethnic Group | Unknown | + + + Author + + + | Author | [facility] | | | and [place] | + + + | Organization | [facility] | | | and [place] | + + + | Address | Unknown | + + + | Phone | Unavailable | + + + Support + + +---------+ + | Name | Relationship | Address | Phone | + + +---------+ + | Claudette Mariano | ECON | Unknown | | + + +---------+ + | Ann Mariano | ECON | Unknown | | + + +---------+ + Care Team Providers + +------+ + | Care Bell Person Name | Role | Phone | + +------+ + PCP | Unavailable | + +------+ + Encounter Details +--------+ + + + + | Date | Type | Department | Care Team | Description | +--------+ + + + + | 08/17/ | Emergency | [facility] | Greyson Day | Hyperglycemia; Acute | | 2016 | | [facility] | DO Brodie [address] | nonintractable | | | | [facility] [place] | [address] | headache, | | | | [address] | [place], [place] | unspecified headache | | | | [place], [place] | [address] | type; Acute | | | | [address] | [phone] | bronchitis, | | | | [phone] | | unspecified | | | | | | organism; Dizziness; | | | | | | Renal insufficiency | +--------+ + + + + Social [...] + + documented as of this encounter ED Notes Symone Apple ARNP - 08/17/2015 1:13 PM PSTFormatting of this note might be differ ent from the original. ED Provider Notes by FERMIN Camacho at 08/17/15 1313 Author: FERMIN Camacho Service: Emergency Department Author Type: Advanced R egistered Nurse Practitioner Filed: 08/17/15 1316 Date of Service: 08/17/151312 Status: Signed Kitchen Utility Associate: FERMIN Camacho (Advanced Registered Nurse Practitioner) Cosigner: Dana Day DO at 08/17/152101 Patient called and requested work note to be off work until tomorrow. Faxed to employer. Re ports that he has mild headache, no other symptoms. Wants to return to work. Reviewed precau tions. Advised to seek assistance if dizziness, increased headache, increased BP, syncope or near syncope or any focal neurologic symptoms. Patient verbalized understanding. Son transl ating. FERMIN Camacho 08/17/15 131 Greyson Mcgee DO - 08/17/2015 1:06 AM PSTFormatting of this note might be different fr om the original. ED Provider Notes by Greyson Day DO at 08/17/15 010 Author: Greyson Day DO Service: Emergency Department Author Type: Physician Filed: 08/17/15 0334 Date of Service: 08/17/15105 Status: Signed Kitchen Utility Associate: Greyson Day DO (Physician) Procedures Additional Documentation Procedures [facility] Department of Emergency Medicine 3:34 AM History of Present Illness Patient Identification Marty Mariano is a 70 y.o. male. Patient information was obtained from patient. History/Exam limitations: communication barrier Language. Patient presented to the Emergency Department by: Car Chief Complaint Chief Complaint Patient presents with Headache Hyperglycemia- Symptomatic has a headache, blodd sugar was 518 at home 70-year-old male was brought to the emergency department by family for evaluation of feelin g shaky and having a elevated blood sugar. Tonight the patient was at work when he felt very shaky, weak and was having headaches. The patient also complains of recent cough and conges tion. The patient has been taking all his medications as prescribed. The patient denies feve rs, chills or shortness of breath or chest pain. The patient now is feeling much improved Past Medical History Diagnosis Date Diabetes mellitus type I (HCC) Prostate cancer (HCC) History reviewed. No pertinent past surgical history. Prior to Admission medications Not on File No Known Allergies History Social History Marital Status: Spouse Name: N/A Number of Children: N/A Years of Education: N/A Occupational History Not on file. Social History Main Topics Smoking status: Never Smoker Smokeless tobacco: Never Used Alcohol Use: Yes Comment: social Drug Use: No Sexual Activity: Not on file Other Topics Concern Not on file Social History Narrative No narrative on file History reviewed. No pertinent family history. Review of Systems Review of Systems Constitutional: Negative for fever. Respiratory: Positive for cough. Negative for sputum production. Cardiovascular: Negative for chest pain. Gastrointestinal: Negative for nausea and vomiting. Genitourinary: Negative for dysuria. Skin: Negative for rash. Neurological: Positive for headaches. All other systems reviewed and are negative. Physical Exam There BP 134/68 mmHg | Pulse 91 | Temp(Src) 98.5 F (36.9 C) (Oral) | Resp 16 | Ht 1.676 m (5' 6") | Wt 72.3 kg (159 lb 6.3 oz) | BMI 25.74 kg/m2 | SpO2 94% Vital signs interpretation: WNL Pulse Oximetry interpretation: Normal Physical Exam Constitutional: He is oriented to person, place, and time. He appears well-developed and we ll-nourished. No distress. HENT: Head: Normocephalic and atraumatic. Right Ear: External ear normal. Left Ear: External ear normal. Mouth/Throat: No oropharyngeal exudate. Eyes: Conjunctivae and EOM are normal. Pupils are equal, round, and reactive to light. Righ t eye exhibits no discharge. Left eye exhibits no discharge. Neck: Normal range of motion. No tracheal deviation present. Cardiovascular: Normal rate, regular rhythm and intact distal pulses. Pulmonary/Chest: Effort normal and breath sounds normal. No respiratory distress. Abdominal: Soft. There is no tenderness. Musculoskeletal: Normal range of motion. He exhibits no edema or tenderness. Neurological: He is alert and oriented to person, place, and time. He exhibits normal muscl e tone. Skin: Skin is warm. He is not diaphoretic. Psychiatric: He has a normal mood and affect. His behavior is normal. Medical Decision Making and Emergency Department Course Laboratory Evaluation Results Procedure Component Value Ref Range Date/Time POC venous blood gas [[id number]] (Abnormal) Collected: 08/17/15241 Order Status: Completed Updated: 08/17/15248 POC CORD MARINA PH 7.448 (H) 7.310 - 7.410 POC CORD MARINA PCO2 37 (L) 41 - 51 mmHG POC CORD MARINA PO2 53 (H) 30 - 40 mmHG POC VENOUS HCO3 26 23 - 28 mmol/L POC TCO2 27 24 - 29 mEq/L POC BASE EXCESS 2 0 - 3 mEq/L POC VENOUS SO2 89.0 (H) 60 - 85 % Cardiac Panel [[id number]] (Abnormal) Collected: 08/17/15123 Order Status: Completed Updated: 08/17/15210 WBC 6.88 3.80 - 11.00 K/uL RBC 4.36 4.20 - 5.70 M/uL HGB 13.3 13.2 - 17.0 g/dL HCT 39.1 39.0 - 50.0 % MCV 89.6 80.0 - 100.0 fl MCH 30.4 27.0 - 34.0 pg MCHC 34.0 32.0 - 35.5 g/dL RDW SD 40.3 37 - 53 fl PLT 220 150 - 400 K/uL MPV 8.3 fl DIFF TYPE AUTOMATED NEUTROPHILS 85.78 % LYMPHOCYTES 6.04 % MONOCYTES 7.36 % EOSINOPHILS 0.52 % BASOPHILS 0.30 % NEUTROPHILS ABS 5.91 1.90 - 7.40 K/uL LYMPHOCYTES ABS 0.42 (L) 1.00 - 3.90 K/uL MONOCYTES ABS 0.51 0.00 - 0.80 K/uL EOSINOPHILS ABS 0.04 0.00 - 0.50 K/uL BASOPHILS ABS 0.02 0.00 - 0.10 K/uL MORPHOLOGY NORMAL RBC MORPH Platelet Estimate ADEQUATE Diff Comment Result: SLIDE SCANNED, AGREES WITH AUTOMATED RESULTS. SODIUM 133 (L) 135 - 143 mmol/L POTASSIUM 4.7 3.5 - 4.9 mmol/L CHLORIDE 98 (L) 99 - 109 mmol/L CO2 27 23 - 32 mmol/L ANION GAP AGAP 13 5 - 20 mmol/L GLUCOSE 416 (H) 65 - 99 mg/dL BUN 21 8 - 25 mg/dL CREATININE 1.74 (H) 0.70 - 1.30 mg/dL BUN/CREAT 12 CALCIUM 8.6 8.5 - 10.5 mg/dL TOTAL PROTEIN 7.0 6.3 - 8.2 g/dL Albumin 2.7 (L) 3.3 - 4.8 g/dL GLOBULIN 4.3 1.3 - 4.9 g/dL A/G 0.6 (L) 1.0 - 2.4 TBIL 0.2 0.1 - 1.5 mg/dL ALK PHOS 124 (H) 35 - 115 U/L AST 55 (H) 10 - 45 U/L ALT 60 10 - 65 U/L EGFR 42 (L) >60 mL/min/1.73m2 CPK 168 55 - 400 U/L INR 1.0 APTT 29 23 - 32 seconds MMB 4.0 (H) 0.5 - 3.6 ng/mL CK-MB Index 2.4 Urine microscopic only [[id number]] (Abnormal) Collected: 08/17/15124 Order Status: Completed Updated: 08/17/15205 WBC >100 0 - 5 /hpf RBC 1-5 0 - 2 /hpf EPITHELIAL 1-5 /lpf BACTERIA 3+ (A) NONE SEEN Urinalysis Comments CULTURE TO FOLLOW TSH [[id number]] Collected: 08/17/15123 Order Status: Completed Specimen Information: Blood Updated: 08/17/15204 TSH 1.70 0.45 - 5.10 uIU/mL T4, Free [[id number]] Collected: 08/17/15123 Order Status: Completed Specimen Information: Blood Updated: 08/17/15204 FREE T4 1.2 0.7 - 1.5 ng/dL CPK [[id number]] Collected: 08/17/15123 Order Status: Completed Specimen Information: Blood Updated: 08/17/15204 CPK 173 55 - 400 U/L Urinalysis (reflex to microscopic) [[id number]] (Abnormal) Collected: 08/17/15124 Order Status: Completed Specimen Information: Urine / Urine, Clean Catch Updated: 01/ 05/16 0204 COLOR UA YELLOW CLARITY CLOUDY Specific [place], UA 1.010 1.001 - 1.035 LEUKOCYTE ESTERASE SMALL (A) NEGATIVE NITRITE NEGATIVE NEGATIVE UROBILINOGEN 1.0 <1.1 mg/dL PROTEIN NEGATIVE NEGATIVE mg/dL PH,URINE 6.5 4.6 - 8.0 BLOOD TRACE (A) NEGATIVE KETONES TRACE (A) NEGATIVE mg/dL BILIRUBIN NEGATIVE NEGATIVE GLUCOSE >1000 (A) NEGATIVE mg/dL Troponin I [[id number]] Collected: 08/17/15123 Order Status: Completed Specimen Information: Blood Updated: 08/17/15155 TROPONIN I <0.04 0.00 - 0.10 ng/mL Magnesium [[id number]] Collected: 08/17/15123 Order Status: Completed Specimen Information: Blood Updated: 08/17/15155 MAGNESIUM 2.0 1.7 - 2.4 mg/dL Influenza Swab [[id number]] Collected: 08/17/15123 Order Status: Completed Specimen Information: Nasopharyngeal / Nasopharyngeal Culture Updated: 08/17/15154 Specimen Description NASOPHARYNGEAL RESULT Result: Negative for Influenzae Type A and Type B antigen by ICA RESULT Result: Testing performed at [facility], [address] [address] Ketones, Serum [[id number]] Collected: 08/17/15123 Order Status: Completed Specimen Information: Blood Updated: 08/17/15 0149 KETONES,SERUM NEGATIVE NEGATIVE I personally reviewed the lab results and they have been posted to the chart. Pertinent po sitive and negative findings have been addressed appropriately. EKG:Sinus at 98 beats a minute, VA interval within normal limits, normal QRS duration, nor mal ST segments, normal T waves: Sinus without acute ischemic changes or arrhythmia Radiology Imaging Results XR chest PA and lateral (Preliminary result) Result time: 08/17/15 03:34:08 ED Interpretation Documented by Greyson Day DO (08/17/15 03:34:08, [facility] in [place], Emergency Medicine) Questionable infiltrate right middle lobe CT Head Non-Contrast (Final result) Result time: 08/17/15 02:17:37 Preliminary result by Rad Results In Satnam (08/17/15 02:17:37) Impression: Negative head CT. RADIA Read by Leon Oneal MD on Aug 17 2015 2:17AM Final result by Rad Results In Satnam (08/17/15 02:17:28) Impression: Negative head CT. RAD[facility] Electronically signed by Leon Oneal MD on Aug 17 2015 2:17AM Referring Provider Mahnaz styles: [phone] ID: [id number] Narrative: EXAM: CT HEAD EXAM DATE: 08/17/2015 01:56 AM. CLINICAL HISTORY: Headache. COMPARISON: None. TECHNIQUE: Multiaxial CT images were obtained from the foramen magnum to the vertex. IV con trast: None. FINDINGS: Parenchyma: No intraparenchymal hemorrhage. No evidence of mass, midline shift or CT findin gs of infarction. Martinez-white differentiation is distinct. Extraaxial Spaces: Normal for age. No subdural or epidural collections identified. Ventricles: Normal in size and position. Sinuses: Imaged paranasal sinuses, orbits, and mastoids show no significant abnormality. Bones: No evidence of fracture or calvarial defect. Other: None. ED Diagnoses Final diagnoses Hyperglycemia Acute nonintractable headache, unspecified headache type Acute bronchitis, unspecified organism Dizziness Renal insufficiency ED Department Course The patient is feeling much better and requesting discharge home. All the findings were dis cussed with the patient, I advised following up with primary care to further evaluate his re nal function. We will start the patient on antibiotics for bronchitis first pneumonia. The p atient will return to the emergency department for any worsening in his condition Disposition: ED Disposition Discharge Condition at discharge: Good Follow-up Information Follow up With Details Comments Contact Info Robles Matta MD MPH In 1 week [address] [place] [id number] Discharge Medications: New Prescriptions AZITHROMYCIN (ZITHROMAX) 250 MG TABLET Take 1 tablet by mouth daily. Dr. Greyson Day D.O. Dictation software, [employer], used which may contain error for similar sounding words even af ter review. Personal communication requested for any clarification. Greyson Day DO 08/17/15 0334 documente d in this encounter Plan of Treatment Not on filedocumented as of this encounter Procedures + +--------+ + + + | Procedure Name | Priori | Date/Time | Associated Diagnosis | Comments | | | ty | | | | + +--------+ + + + | POC GLUCOSE | Routin | 08/17/2015 | | Results for this | | | e | 2:51 AM | | procedure are in the | | | | PST | | results section. | + +--------+ + + + | XR CHEST 2 VIEWS | Routin | 08/17/2015 | | Results for this | | | e | 1:56 AM | | procedure are in the | | | | PST | | results section. | + +--------+ + + + | CT HEAD WO CONTRAST | Routin | 08/17/2015 | | Results for this | | | e | 1:55 AM | | procedure are in the | | | | PST | | results section. | + +--------+ + + + | ECG 12 LEAD | Routin | 08/17/2015 | | Results for this | | | e | 1:37 AM | | procedure are in the | | | | PST | | results section. | + +--------+ + + + | URINALYSIS WITH | Routin | 08/17/2015 | | Results for this | | MICROSCOPIC IF | e | 1:25 AM | | procedure are in the | | INDICATED | | PST | | results section. | + +--------+ + + + | URINALYSIS, | Routin | 08/17/2015 | | Results for this | | MICROSCOPIC ONLY | e | 1:25 AM | | procedure are in the | | | | PST | | results section. | + +--------+ + + + | CULTURE, URINE | STAT | 08/17/2015 | | Results for this | | | | 1:25 AM | | procedure are in the | | | | PST | | results section. | + +--------+ + + + | HISTORICAL LAB PANEL | Routin | 08/17/2015 | | Results for this | | RESULT | e | 1:24 AM | | procedure are in the | | | | PST | | results section. | + +--------+ + + + | TROPONIN I | Routin | 08/17/2015 | | Results for this | | | e | 1:24 AM | | procedure are in the | | | | PST | | results section. | + +--------+ + + + | INFLUENZA A AND B | STAT | 08/17/2015 | | Results for this | | [place], [place] | | 1:24 AM | | procedure are in the | | | | PST | | results section. | + +--------+ + + + | TSH | Routin | 08/17/2015 | | Results for this | | | e | 1:24 AM | | procedure are in the | | | | PST | | results section. | + +--------+ + + + | T4, FREE | Routin | 08/17/2015 | | Results for this | | | e | 1:24 AM | | procedure are in the | | | | PST | | results section. | + +--------+ + + + | MAGNESIUM | Routin | 08/17/2015 | | Results for this | | | e | 1:24 AM | | procedure are in the | | | | PST | | results section. | + +--------+ + + + | CK TOTAL | Routin | 08/17/2015 | | Results for this | | | e | 1:24 AM | | procedure are in the | | | | PST | | results section. | + +--------+ + + + | KETONES, BLOOD | Routin | 08/17/2015 | | Results for this | | | e | 1:24 AM | | procedure are in the | | | | PST | | results section. | + +--------+ + + + | POC GLUCOSE | Routin | 08/17/2015 | | Results for this | | | e | 1:19 AM | | procedure are in the | | | | PST | | results section. | + +--------+ + + + documented in this encounter Results POC Glucose (08/17/2015 2:51 AM PST) + + + + + + | Component | Value | Ref Range | Performed | Pathologist | | | | | At | Signature | + + + + + + | Glucose, | 310 (H)Comment: Testing | 65 - 99 mg/dL | EXTERNAL | | | Fingerstick | performed at [facility];[address] | LAB | | | [address];[place], [place] | | | | | | [address] | | | | + + + + + + + + | Specimen | + + | | + + + +---------+ + + | Performing | Address | City/State/Zipcode | Phone Number | | Organization | | | | + +---------+ + + | EXTERNAL LAB | | | | + +---------+ + + XR Chest 2 Vws (08/17/2015 1:56 AM PST) + + | Specimen | + + | | + + + + + | Impressions | Performed At | + + + | 1. Opacity in the right lower lobe may reflect developing | | | atelectasis or pneumonia. | | + + + + + + | Narrative | Performed At | + + + | MARTY MARIANO 1945 70 years Male XR CHEST 2 VIEW FRONTAL AND | | | LATERAL 08/17/2015 1:56 AM INDICATION: Shortness of breath | | | COMPARISON: None. TECHNIQUE: Two view chest, PA and lateral views | | | FINDINGS: There is borderline mild cardiomegaly. No mediastinal | | | widening or shift is noted. There is no pneumothorax. There appears to | | | be a granuloma of the right upper lobe. The pulmonary markings are | | | normal in caliber. No focal airspace consolidation is present. There | | | is mild atelectasis of the right lower lobe. | | + + + + + | Procedure Note | + + | Satnam, Rad Conversion - 03/27/2019 7:56 PM PDT MARTY MARIANO89[birth year]53 years MaleXR | | CHEST 2 VIEW FRONTAL AND LATERAL08/17/2015 1:56 AM INDICATION: Shortness of breath | | COMPARISON: None. TECHNIQUE: Two view chest, PA and lateral views FINDINGS: There is | | borderline mild cardiomegaly. No mediastinal widening or shift is noted. There is no | | pneumothorax. There appears to be a granuloma of the right upper lobe. The pulmonary | | markings are normal in caliber. No focal airspace consolidation is present. There is | | mild atelectasis of the right lower lobe. IMPRESSION: 1. Opacity in the right lower | | lobe may reflect developing atelectasis or pneumonia. | | | |TECHNIQUE: Two view chest, PA and lateral views | | | |FINDINGS: There is borderline mild cardiomegaly. No mediastinal widening or shift is noted. There is no pneumothorax. There appears to be a granuloma of the right upper lobe. The pulm onary markings are normal in | |caliber. No focal airspace consolidation | |is present. There is mild atelectasis of the right lower lobe. | | | |IMPRESSION: | |1. Opacity in the right lower lobe may reflect developing atelectasis or pneumonia. | | | | | + + CT Head wo Contrast (08/17/2015 1:55 AM PST) + + | Specimen | + + | | + + + + + | Impressions | Performed At | + + + | Negative head CT. RADIA Electronically signed by Leon | | | MD Jm on Aug 17 2015 2:17AM Referring Provider Line: | | | [phone] ID: [id number] | | + + + + + + | Narrative | Performed At | + + + | EXAM: CT HEAD EXAM DATE: 08/17/2015 01:56 AM. CLINICAL | | | HISTORY: Headache. COMPARISON: None. TECHNIQUE: Multiaxial CT | | | images were obtained from the foramen magnum to the vertex. IV | | | contrast: None. FINDINGS: Parenchyma: No intraparenchymal | | | hemorrhage. No evidence of mass, midline shift or CT findings of | | | infarction. Martinez-white differentiation is distinct. Extraaxial | | | Spaces: Normal for age. No subdural or epidural collections | | | identified. Ventricles: Normal in size and position. Sinuses: | | | Imaged paranasal sinuses, orbits, and mastoids show no significant | | | abnormality. Bones: No evidence of fracture or calvarial defect. | | | Other: None. | | + + + + + | Procedure Note | + + | Satnam, Rad Conversion - 03/27/2019 7:56 PM PDT EXAM:CT HEAD EXAM DATE: 08/17/2015 01:56 | | AM. CLINICAL HISTORY: Headache. COMPARISON: None. TECHNIQUE: Multiaxial CT images were | | obtained from the foramen magnum to the vertex. IV contrast: None. FINDINGS:Parenchyma: | | No intraparenchymal hemorrhage. No evidence of mass, midline shift or CT findings of | | infarction. Martinez-white differentiation is distinct. Extraaxial Spaces: Normal for age. | | No subdural or epidural collections identified. Ventricles: Normal in size and position. | | Sinuses: Imaged paranasal sinuses, orbits, and mastoids show no significant | | abnormality. Bones: No evidence of fracture or calvarial defect. Other: None. | | IMPRESSION: Negative head CT. RADIA Electronically signed by Leon Oneal MD on Aug | 2015 2:17AM Referring Provider Line: [phone] ID: [id number] | | | |FINDINGS: | |Parenchyma: No intraparenchymal hemorrhage. No evidence of mass, midline shift or CT findin gs of infarction. Martinez-white differentiation is distinct. | | | |Extraaxial Spaces: Normal for age. No subdural or epidural collections identified. | | | |Ventricles: Normal in size and position. | | | |Sinuses: Imaged paranasal sinuses, orbits, and mastoids show no significant abnormality. | | | |Bones: No evidence of fracture or calvarial defect. | | | |Other: None. | | | |IMPRESSION: | |Negative head CT. | | | |RADIA | | | | Electronically signed by Leon Oneal MD on Aug 17 2015 2:17AM Referring Provider Mahnaz e: [phone] ID: [id number] | + + ECG 12 lead (08/17/2015 1:37 AM PST) + + + + + + | Component | Value | Ref Range | Performed | Pathologist | | | | | At | Signature | + + + + + + | DIAGNOSIS: | Normal sinus | | EXTERNAL | | | | rhythmNormal ECGNo | | LAB | | | | previous ECGs | | | | | | availableThis ECG | | | | | | contains Unconfirmed | | | | | | Interpretation | | | | | | Statements. See ED | | | | | | Record for Physician | | | | | | Interpretation. | | | | | | Confirmed by MUSE READ | | | | | | ONLY, -COMPUTER ([id number]), | | | | | | commissioning editor Allison Basilio | | | | | | ([id number]) on 08/17/2015 6:46:53 | | | | | | AM | | | | + + + + + + + + | Specimen | + + | | + + + + + | Narrative | Performed At | + + + | Historically converted procedure from [employer] Epic environment | EXTERNAL LAB | + + + + +---------+ + + | Performing | Address | City/State/Zipcode | Phone Number | | Organization | | | | + +---------+ + + | EXTERNAL LAB | | | | + +---------+ + + Culture, Urine (08/17/2015 1:25 AM PST) + + | Specimen | + + | | + + + + + | Narrative | Performed At | + + + | Specimen Description URINE, COLLECTION NOT | EXTERNAL LAB | | GIVEN CULTURE NO GROWTH | | | Testing performed | | | at [facility], [address] [place] [address] | | + + + + +---------+ + + | Performing | Address | City/State/Zipcode | Phone Number | | Organization | | | | + +---------+ + + | EXTERNAL LAB | | | | + +---------+ + + Urinalysis, Microscopic Only (08/17/2015 1:25 AM PST) + + + + + + | Component | Value | Ref Range | Performed | Pathologist | | | | | At | Signature | + + + + + + | WBC, UA | >100Comment: Testing | 0 - 5 /hpf | EXTERNAL | | | | performed at [facility], [address] | [address] | | | [address] [place], | | | | | | [place] [address] | | | | + + + + + + | RBC, UA | 1-5Comment: Testing | 0 - 2 /hpf | EXTERNAL | | | | performed at [facility], [address] | | [address] | | | [address] [place], | | | | | | [place] [address] | | | | + + + + + + | Epithelial | 1-5Comment: Testing | /lpf | EXTERNAL | | | Cells | performed at [facility], [address] | | [address] | | | [address] [place], | | | | | | [place] [address] | | | | + + + + + + | Bacteria, | 3+ (A)Comment: Testing | | EXTERNAL | | | UA | performed at [facility], [address] | | [address] | | | [address] [place], | | | | | | [place] [address] | | | | + + + + + + | Urinalysis | CULTURE TO | | EXTERNAL | | | Comments | FOLLOWComment: Testing | | LAB | | | | performed at [facility], [address] | | | [address] [place], | | | | | | [place] [address] | | | | + + + + + + + + | Specimen | + + | | + + + +---------+ + + | Performing | Address | City/State/Zipcode | Phone Number | | Organization | | | | + +---------+ + + | EXTERNAL LAB | | | | + +---------+ + + Urinalysis with Microscopic if Indicated (08/17/2015 1:25 AM PST) + + + + + + | Component | Value | Ref Range | Performed | Pathologist | | | | | At | Signature | + + + + + + | Color | YELLOWComment: Testing | | EXTERNAL | | | | performed at [facility], [address] | [address] | | | [address] [place], | | | | | | [place] [address] | | | | + + + + + + | Clarity, | CLOUDYComment: Testing | | EXTERNAL | | | Urine | performed at [facility], [address] | | [address] | | | [address] [place], | | | | | | [place] [address] | | | | + + + + + + | Specific | 1.010Comment: Testing | 1.001 - 1.035 | EXTERNAL | | | [place], | performed at [facility], [address] | | LAB | | | Urine | [address], | | | | | | [place] [address] | | | | + + + + + + | Leukocyte | SMALL (A)Comment: | | EXTERNAL | | | Esterase, | Testing performed at | | LAB | | | Urine | [facility], [address], | | | | | | [place] [address] | | | | + + + + + + | Nitrite, | NEGATIVEComment: Testing | | EXTERNAL | | | Urine | performed at [facility], [address] | | LAB | | | | [address], | | | | | | [place] [address] | | | | + + + + + + | Urobilinoge | 1.0Comment: Testing | mg/dL | EXTERNAL | | | n, Urine | performed at [facility], [address] | | LAB | | | | [address], | | | | | | [place] [address] | | | | + + + + + + | Protein, | NEGATIVEComment: Testing | mg/dL | EXTERNAL | | | Urine | performed at [facility], [address] | | LAB | | | | [address], | | | | | | [place] [address] | | | | + + + + + + | pH, Urine | 6.5Comment: Testing | 4.6 - 8.0 | EXTERNAL | | | | performed at [facility], [address] | | LAB | | | | [address], | | | | | | [place] [address] | | | | + + + + + + | Blood, | TRACE (A)Comment: | | EXTERNAL | | | Urine | Testing performed at | | LAB | | | | [facility], [address], | | | | | | [place] [address] | | | | + + + + + + | Ketones | TRACE (A)Comment: | mg/dL | EXTERNAL | | | | Testing performed at | | LAB | | | | [facility], [address], | | | | | | [place] [address] | | | | + + + + + + | Bilirubin, | NEGATIVEComment: Testing | | EXTERNAL | | | Urine | performed at [facility], [address] | | LAB | | | | [address] | | | | | | [place] [address] | | | | + + + + + + | Glucose, | >1000 (A)Comment: | mg/dL | EXTERNAL | | | Urine | Testing performed at | | LAB | | | | [facility], [address], | | | | | | [place], [place] [address] | | | | + + + + + + + + | Specimen | + + | Urine specimen | | (specimen) | + + + +---------+ + + | Performing | Address | City/State/Zipcode | Phone Number | | Organization | | | | + +---------+ + + | EXTERNAL LAB | | | | + +---------+ + + Ketones, blood (08/17/2015 1:24 AM PST) + + + + + + | Component | Value | Ref Range | Performed | Pathologist | | | | | At | Signature | + + + + + + | Ketones, | NEGATIVEComment: Testing | | EXTERNAL | | | Blood | performed at [facility], [address] | | LAB | | | | [address], | | | | | | [place] [address] | | | | + + + + + + + + | Specimen | + + | Blood specimen | | (specimen) | + + + +---------+ + + | Performing | Address | City/State/Zipcode | Phone Number | | Organization | | | | + +---------+ + + | EXTERNAL LAB | | | | + +---------+ + + Influenza A and B YASIR Garrison (08/17/2015 1:24 AM PST) + + | Specimen | + + | | + + + + + | Narrative | Performed At | + + + | Specimen Description NASOPHARYNGEAL RESULT | EXTERNAL LAB | | Negative for Influenzae Type A | | | and Type B antigen by ICA | | | Testing performed at [facility], [address] | | | [address] | | + + + + +---------+ + + | Performing | Address | City/State/Zipcode | Phone Number | | Organization | | | | + +---------+ + + | EXTERNAL LAB | | | | + +---------+ + + HISTORICAL LAB PANEL RESULT (08/17/2015 1:24 AM PST) + + + + + -+ | Component | Value | Ref Range | Performed | Pathologist | | | | | At | Signature | + + + + + -+ | WBC | 6.88Comment: Testing | 3.80 - 11.00 | EXTERNAL | | | | performed at [facility], [address] | K/uL | LAB | | | | [address], | | | | | | [place] [address] | | | | + + + + + -+ | Non- | 4.36Comment: Testing | 4.20 - 5.70 | EXTERNAL | | | Red Blood | performed at [facility], [address] | M/uL | LAB | | | Cells | [address], | | | | | Counted | [place] [address] | | | | + + + + + -+ | Hemoglobin | 13.3Comment: Testing | 13.2 - 17.0 | EXTERNAL | | | | performed at [facility], [address] | g/dL | LAB | | | | [address], | | | | | | [place] [address] | | | | + + + + + -+ | Hematocrit, | 39.1Comment: Testing | 39.0 - 50.0 % | EXTERNAL | | | POC | performed at [facility], [address] | | LAB | | | | [address], | | | | | | [place] [address] | | | | + + + + + -+ | MCV | 89.6Comment: Testing | 80.0 - 100.0 fl | EXTERNAL | | | | performed at [facility], [address] | | LAB | | | | [address], | | | | | | [place] [address] | | | | + + + + + -+ | MCH | 30.4Comment: Testing | 27.0 - 34.0 pg | EXTERNAL | | | | performed at [facility], [address] | | LAB | | | | [address], | | | | | | [place] [address] | | | | + + + + + -+ | MCHC | 34.0Comment: Testing | 32.0 - 35.5 | EXTERNAL | | | | performed at [facility], [address] | g/dL | LAB | | | | [address], | | | | | | [place] [address] | | | | + + + + + -+ | RDW-CV | 40.3Comment: Testing | 37 - 53 fl | EXTERNAL | | | | performed at [facility], [address] | | LAB | | | | [address], | | | | | | [place] [address] | | | | + + + + + -+ | Platelet | 220Comment: Testing | 150 - 400 K/uL | EXTERNAL | | | Count | performed at [facility], [address] | | LAB | | | Plasma | [address], | | | | | | [place] [address] | | | | + + + + + -+ | MPV | 8.3Comment: Testing | fl | EXTERNAL | | | | performed at [facility], [address] | | LAB | | | | [address], | | | | | | [place] [address] | | | | + + + + + -+ | Differentia | AUTOMATEDComment: | | EXTERNAL | | | l Type | Testing performed at | | LAB | | | | [facility], [address], | | | | | | [place], [place] [address] | | | | + + + + + -+ | % Segmented | 85.78Comment: Testing | % | EXTERNAL | | | | performed at [facility], [address] | | LAB | | | Neutrophils | [address], | | | | | | [place] [address] | | | | + + + + + -+ | % | 6.04Comment: Testing | % | EXTERNAL | | | Lymphocytes | performed at [facility], [address] | | LAB | | | | [address] [place] [address], | | | | | | [place] [address] | | | | + + + + + -+ | % Monocytes | 7.36Comment: Testing | % | EXTERNAL | | | | performed at [facility], [address] | | LAB | | | | [address], | | | | | | [place] [address] | | | | + + + + + -+ | % | 0.52Comment: Testing | % | EXTERNAL | | | Eosinophils | performed at [facility], [address] | | LAB | | | | [address], | | | | | | [place] [address] | | | | + + + + + -+ | % Basophils | 0.30Comment: Testing | % | EXTERNAL | | | | performed at [facility], [address] | | LAB | | | | [address], | | | | | | [place] [address] | | | | + + + + + -+ | Absolute | 5.91Comment: Testing | 1.90 - 7.40 | EXTERNAL | | | Segmented | performed at [facility], [address] | K/uL | LAB | | | Neutrophils | [address], | | | | | | [place] [address] | | | | + + + + + -+ | Absolute | 0.42 (L)Comment: Testing | 1.00 - 3.90 | EXTERNAL | | | Lymphocytes | performed at [facility], [address] | K/uL | LAB | | | | [address], | | | | | | [place] [address] | | | | + + + + + -+ | Absolute | 0.51Comment: Testing | 0.00 - 0.80 | EXTERNAL | | | Monocytes | performed at [facility], [address] | K/uL | LAB | | | | [address], | | | | | | [place] [address] | | | | + + + + + -+ | Absolute | 0.04Comment: Testing | 0.00 - 0.50 | EXTERNAL | | | Eosinophils | performed at [facility], [address] | K/uL | LAB | | | | [address], | | | | | | [place] [address] | | | | + + + + + -+ | Absolute | 0.02Comment: Testing | 0.00 - 0.10 | EXTERNAL | | | Basophils | performed at [facility], [address] | K/uL | LAB | | | | [address], | | | | | | [place] [address] | | | | + + + + + -+ | RBC | NORMAL RBC MORPHComment: | | EXTERNAL | | | Morphology | NORMAL PLT MORPH1+TOXIC | | LAB | | | | GRANULATIONTesting | | | | | | performed at [facility], [address] | | | | | | [address], | | | | | | [place] [address] | | | | | | | | | | + + + + + -+ | Platelet | ADEQUATEComment: Testing | | EXTERNAL | | | Estimate | performed at [facility], [address] | | LAB | | | | [address], | | | | | | [place] [address] | | | | + + + + + -+ | Differentia | SLIDE SCANNED, AGREES | | EXTERNAL | | | l Comments | WITH AUTOMATED | | LAB | | | | RESULTS.Comment: Testing | | | | | | performed at [facility], [address] | | | | | | [address], | | | | | | [place] [address] | | | | + + + + + -+ | Na | 133 (L)Comment: Testing | 135 - 143 | EXTERNAL | | | | performed at [facility], [address] | mmol/L | LAB | | | | [address], | | | | | | [place] [address] | | | | + + + + + -+ | K | 4.7Comment: Testing | 3.5 - 4.9 | EXTERNAL | | | | performed at [facility], [address] | mmol/L | LAB | | | | [address], | | | | | | [place] [address] | | | | + + + + + -+ | Cl | 98 (L)Comment: Testing | 99 - 109 mmol/L | EXTERNAL | | | | performed at [facility], [address] | | LAB | | | | [address], | | | | | | [place] [address] | | | | + + + + + -+ | CO2 | 27Comment: Testing | 23 - 32 mmol/L | EXTERNAL | | | | performed at [facility], [address] | | LAB | | | | [address], | | | | | | [place] [address] | | | | + + + + + -+ | Anion Gap | 13Comment: Testing | 5 - 20 mmol/L | EXTERNAL | | | | performed at [facility], [address] | | LAB | | | | [address], | | | | | | [place] [address] | | | | + + + + + -+ | Glucose, | 416 (H)Comment: Testing | 65 - 99 mg/dL | EXTERNAL | | | Fasting | performed at [facility], [address] | | LAB | | | | [address], | | | | | | [place] [address] | | | | + + + + + -+ | BUN | 21Comment: Testing | 8 - 25 mg/dL | EXTERNAL | | | | performed at [facility], [address] | | LAB | | | | [address], | | | | | | [place] [address] | | | | + + + + + -+ | Creatinine | 1.74 (H)Comment: Testing | 0.70 - 1.30 | EXTERNAL | | | | performed at [facility], [address] | mg/dL | LAB | | | | [address], | | | | | | [place] [address] | | | | + + + + + -+ | BUN/Creatin | 12Comment: Testing | | EXTERNAL | | | ine Ratio | performed at [facility], [address] | | LAB | | | | [address], | | | | | | [place] [address] | | | | + + + + + -+ | Calcium | 8.6Comment: Testing | 8.5 - 10.5 | EXTERNAL | | | | performed at [facility], [address] | mg/dL | LAB | | | | [address], | | | | | | [place] [address] | | | | + + + + + -+ | Protein, | 7.0Comment: Testing | 6.3 - 8.2 g/dL | EXTERNAL | | | Total | performed at [facility], [address] | | LAB | | | | [address], | | | | | | [place] [address] | | | | + + + + + -+ | Albumin | 2.7 (L)Comment: Testing | 3.3 - 4.8 g/dL | EXTERNAL | | | | performed at [facility], [address] | | LAB | | | | [address], | | | | | | [place] [address] | | | | + + + + + -+ | Globulin | 4.3Comment: Testing | 1.3 - 4.9 g/dL | EXTERNAL | | | | performed at [facility], [address] | | LAB | | | | [address], | | | | | | [place] [address] | | | | + + + + + -+ | A/G Ratio | 0.6 (L)Comment: Testing | 1.0 - 2.4 | EXTERNAL | | | | performed at [facility], [address] | | LAB | | | | [address], | | | | | | [place] [address] | | | | + + + + + -+ | Bilirubin | 0.2Comment: Testing | 0.1 - 1.5 mg/dL | EXTERNAL | | | Total | performed at [facility], [address] | | LAB | | | | [address], | | | | | | [place] [address] | | | | + + + + + -+ | ALP, | 124 (H)Comment: Testing | 35 - 115 U/L | EXTERNAL | | | External | performed at [facility], [address] | | LAB | | | | [address], | | | | | | [place] [address] | | | | + + + + + -+ | AST | 55 (H)Comment: Testing | 10 - 45 U/L | EXTERNAL | | | | performed at [facility], [address] | | LAB | | | | [address], | | | | | | [place] [address] | | | | + + + + + -+ | ALT | 60Comment: Testing | 10 - 65 U/L | EXTERNAL | | | | performed at [facility], [address] | | LAB | | | | [address], | | | | | | [place] [address] | | | | + + + + + -+ | Estimated | 42 (L)Comment: GFR <60: | mL/min/1.73m2 | EXTERNAL | | | GFR | CHRONIC KIDNEY DISEASE, | | LAB | | | | IF FOUND OVER A 3 MONTH | | | | | | PERIOD.GFR <15: KIDNEY | | | | | | FAILURE.FOR | | | | | | AMERICANS, MULTIPLY THE | | | | | | CALCULATED GFR BY | | | | | | 1.210.Testing performed | | | | | | at [facility], [address] | | | | | | [place] | | | | | | [address] | | | | + + + + + -+ | CK, Total | 168Comment: Testing | 55 - 400 U/L | EXTERNAL | | | | performed at [facility], [address] | | LAB | | | | [address], | | | | | | [place] [address] | | | | + + + + + -+ | INR | 1.0Comment: REFERENCE | | EXTERNAL | | | | RANGE:0.9 - 1.2 | | LAB | | | | NON-ANTICOAGULATED2.0 | | | | | | - 3.0 ALL OTHER | | | | | | THERAPEUTIC | | | | | | INDICATIONS2.5 - 3.5 | | | | | | MECHANICAL HEART VALVES, | | | | | | RECURRENT OR SYSTEMIC | | | | | | EMBOLISMTesting | | | | | | performed at [facility], [address] | | | | | | [address] [place] [address], | | | | | | [place] [address] | | | | + + + + + -+ | aPTT, | 29Comment: Testing | 23 - 32 seconds | EXTERNAL | | | Patient | performed at [facility], [address] | | LAB | | | | [address], | | | | | | [place] [address] | | | | + + + + + -+ | CK-MB | 4.0 (H)Comment: Testing | 0.5 - 3.6 ng/mL | EXTERNAL | | | | performed at [facility], [address] | | LAB | | | | [address], | | | | | | [place] [address] | | | | + + + + + -+ | CK-MB Index | 2.4Comment: CK INDEX | | EXTERNAL | | | | INTERPRETATION: | | LAB | | | | MMB ng/mL | | | | | | | | | | | |CK INDEX INTERPRETATION: | | | | | | MMB ng/mL | | | | | | | | | | + + + + + -+ + + | Specimen | + + | | + + + +---------+ + + | Performing | Address | City/State/Zipcode | Phone Number | | Organization | | | | + +---------+ + + | EXTERNAL LAB | | | | + +---------+ + + Troponin I (08/17/2015 1:24 AM PST) + + + + + + | Component | Value | Ref Range | Performed | Pathologist | | | | | At | Signature | + + + + + + | Troponin I, | <0.04Comment: 0.00 to | 0.00 - 0.10 | EXTERNAL | | | Qual | 0.10 CONSISTENT WITH | ng/mL | LAB | | | | NORMAL POPULATION0.11 to | | | | | | 0.60 CONSISTENT WITH | | | | | | INCREASED RISK FOR | | | | | | ADVERSE OUTCOMES> 0.60 | | | | | | CONSISTENT | | | | | | WITH WHO CRITERIA FOR | | | | | | ACUTE HI Testing | | | | | | performed at [facility], [address] | | | | | | [address], | | | | | | [place] [address] | | | | + + + + + + + + | Specimen | + + | Blood specimen | | (specimen) | + + + +---------+ + + | Performing | Address | City/State/Zipcode | Phone Number | | Organization | | | | + +---------+ + + | EXTERNAL LAB | | | | + +---------+ + + TSH (08/17/2015 1:24 AM PST) + + + + + + | Component | Value | Ref Range | Performed | Pathologist | | | | | At | Signature | + + + + + + | TSH | 1.70Comment: Testing | 0.45 - 5.10 | EXTERNAL | | | | performed at [facility], [address] | uIU/mL | LAB | | | | [address], | | | | | | [place] [address] | | | | + + + + + + + + | Specimen | + + | Blood specimen | | (specimen) | + + + +---------+ + + | Performing | Address | City/State/Zipcode | Phone Number | | Organization | | | | + +---------+ + + | EXTERNAL LAB | | | | + +---------+ + + T4, Free (08/17/2015 1:24 AM PST) + + + + + + | Component | Value | Ref Range | Performed | Pathologist | | | | | At | Signature | + + + + + + | FREE T4 | 1.2Comment: Testing | 0.7 - 1.5 ng/dL | EXTERNAL | | | (REF) | performed at [facility], [address] | | LAB | | | [address] [place], | | | | | | [place] [address] | | | | + + + + + + + + | Specimen | + + | Blood specimen | | (specimen) | + + + +---------+ + + | Performing | Address | City/State/Zipcode | Phone Number | | Organization | | | | + +---------+ + + | EXTERNAL LAB | | | | + +---------+ + + Magnesium (08/17/2015 1:24 AM PST) + + + + + + | Component | Value | Ref Range | Performed | Pathologist | | | | | At | Signature | + + + + + + | Magnesium | 2.0Comment: Testing | 1.7 - 2.4 mg/dL | EXTERNAL | | | | performed at [facility], [address] | | LAB | | | | [address], | | | | | | [place] [address] | | | | + + + + + + + + | Specimen | + + | Blood specimen | | (specimen) | + + + +---------+ + + | Performing | Address | City/State/Zipcode | Phone Number | | Organization | | | | + +---------+ + + | EXTERNAL LAB | | | | + +---------+ + + CK Total (08/17/2015 1:24 AM PST) + + + + + + | Component | Value | Ref Range | Performed | Pathologist | | | | | At | Signature | + + + + + + | CK, Total | 173Comment: Testing | 55 - 400 U/L | EXTERNAL | | | | performed at [facility], [address] | | LAB | | | | [address] [place] [address], | | | | | | [place] [address] | | | | + + + + + + + + | Specimen | + + | Blood specimen | | (specimen) | + + + +---------+ + + | Performing | Address | City/State/Zipcode | Phone Number | | Organization | | | | + +---------+ + + | EXTERNAL LAB | | | | + +---------+ + + POC Glucose (08/17/2015 1:19 AM PST) + + + + + + | Component | Value | Ref Range | Performed | Pathologist | | | | | At | Signature | + + + + + + | Glucose, | 346 (H)Comment: Testing | 65 - 99 mg/dL | EXTERNAL | | | Fingerstick | performed at [facility];[address] | | LAB | | | | [address] [place];[place] | | | | | | [address] | | | | + + + + + + + + | Specimen | + + | | + + + +---------+ + + | Performing | Address | City/State/Zipcode | Phone Number | | Organization | | | | + +---------+ + + | EXTERNAL LAB | | | | + +---------+ + + documented in this encounter Visit Diagnoses + + | Diagnosis | + + | Hyperglycemia Other abnormal glucose | + + | Acute nonintractable headache, unspecified headache type | + + | Acute bronchitis, unspecified organism | + + | Dizziness Dizziness and giddiness | + + | Renal insufficiency Unspecified disorder of kidney and ureter | + + documented in this encounter
--- OUTSIDE RECORDS SUMMARY | ~2020-02-22 | XMS | Encounter Summary ---
Demographics + + + | Address | [address] | | | [place] [address] | + + + | Home Phone | | + + + | Preferred Language | Unknown | + + + | Marital Status | | + + + | Presybeterian Affiliation | 1041 | + + + | Race | Unknown | + + + | Ethnic Group | Unknown | + + + Author + + + | Author | [facility] | | | and [place] | + + + | Organization | [facility] | | | [...] Team Providers + +------+ + | Care Nurse Practitioner Per Diem Name | Role | Phone | + +------+ + | Megan Garza | PCP | | + +------+ + Encounter Details +--------+ + + + + | Date | Type | Department | Care Team | Description | +--------+ + + + + | 06/27/ | Hospital | [facility] | Marce Jeanna Mon, | | | 2017 | Encounter | CENTER OUTPATIENT | SENIOR ELECTRICAL ESTIMATOR | | | | | PHYSICAL THERAPY | | | | | | [address] | | | | | | [place] | | | | | | [address] | | | | | | [phone] | | | +--------+ + + + [...] Jeanna Zheng PTA Service: (none) Author Type: Stationary Boiler Fireman Filed: 06/27/18 0935 Date of Service: 06/27/18803 Status: Signed Outreach Coordinator: Jeanna Zheng PTA (Stationary Boiler Fireman) Therapy Daily Treatment note Date of Service: [...] Date: Expiration Date: G-CODES 3 of 10 SENIOR ELECTRICAL ESTIMATOR visits: 3 of 4 Functional Limitations: $Mobility: [...] to ascend 8 stairs with CGA. LTG: Raw Silk Grader Goals to be achieved in 13 weeks: [...]
--- OUTSIDE RECORDS SUMMARY | ~2020-02-22 | XMS | Encounter Summary ---
Demographics + + + | Address | [address] | | | [place] [address] | + + + | Home Phone | | + + + | Preferred Language | Unknown | + + + | Marital Status | | + + + | Mandaen Affiliation | 1041 | + + + | Race | Unknown | + + + | Ethnic Group | Unknown | + + + Author + + + | Author | [facility] | | | and [place] | + + + | Organization | [facility] | | | [...] Team Providers + +------+ + | Care Wire Spooler Name | Role | Phone | + [...] | | | | | Cervical | [place], | [address] | | | | | radiculopath | Tirso Brito MD | [place], | | | | | y | [address] | [place] | | | | | Procedures | [address] [place] | [address] | | | | | [place] | [facility], [place] | Phone: | | | | | DX/THER SBST | [address] | [phone] | | | | | INTRLMNR | Phone: | Fax: | | | | | CRV/THRC | [phone] | [phone] | | | | | W/IMG GDN | Fax: | | | | | | [place] | [phone] | | | | | | TRIAMCINOLON | | | | | | | E ACET INJ | | | | | | | NOS, 10 MG | | | | | | | C7-T1 ILESI | | | | | | | To be done | | | | | | | last | | | +--------+--------+ + + + + Encounter Details +--------+ + + + + | Date | Type | Department | Care Team | Description | +--------+ + + + + | 01/23/ | Hospital | [facility] | Raheel De Luna, | Cervical | | 2019 | Encounter | MED CTR XRAY [address] | PA-C [address] | radiculopathy | | | | [place] | [address] [place] | | | | | [place] [address] | [place] [address] | | | | | [phone] | [phone] | | | | | | | | | | | | Qm Consultant, [facility] | | | | | | [...] +---------+ + + | Blood Pressure | 161/84 | 01/23/2019 3:22 PM | | | | | PDT | | + +---------+ + + | Pulse | 71 | [...] ACCU-CHEK SOFTCLIX | | | 0 | / | | | LANCETS MISC | | [...] | | | | | | | Italian instructions | | | | | + [...] | | | | | | allergies. Italian | | | | | | | instructions | | | | | + + + +---------+ + + | furosemide (LASIX) | Take 1 tablet (20 mg | | 0 | 06/28/20 | | | 20 mg tablet | total) by mouth | | | 18 | 9 | | | daily. Leg swelling | | | | | | | Italian instructions | | | | | + [...] | [place] EPIDURAL STEROID | Routin | 01/23/2019 | Cervical | Results for this | | INJ CERVICAL | e | 3:07 PM | radiculopathy | procedure are in the | | THORACIC | | PDT | | results section. | | INTERLAMINAR | [...] + | Diagnosis | + + | Cervical radiculopathy Brachial neuritis or radiculitis nos | + + documented in this encounter Administered Medications + +--------+ +-------+------+------+ | Medication Order | MAR | Action | Dose | Rate | Site | | | Action | Date | | | | + +--------+ +-------+------+------+ | dexamethasone (PF) 10 mg/mL | Given | 01/24/20 | 10 mg | | | | injection 10 mg 10 mg, Other, | | 19 3:17 | | | | | ONCE, [facility] 01/23/19 at 1530, For 1 | | PM PDT | [...] iohexol (OMNIPAQUE 300) 300 | Given | 01/24/20 | 4 mLs | | | | mg/mL injection 4 mL 4 mL, | | 19 3:15 | | | | | Other, ONCE, [facility] 01/23/19 at 1530, | | PM PDT | | | | | For 1 dose | | | | | | + +-------+ +-------+---+---+ +---+---+ | | | +---+---+ + +-------+ +-------+---+ + | lidocaine buffered 0.9% | Given | 01/24/20 | 3 mLs | | Other | | injection 3 mL 3 mL, | | 19 3:12 | | | (Comment | | Intradermal, ONCE, [facility] 01/23/19 at | | PM PDT | | | ) | | 1530, For 1 dose | | | | | | + +-------+ +-------+---+ + +---+---+ | | | +---+---+ documented in this encounter"
--- OUTSIDE RECORDS SUMMARY | ~2020-02-22 | XMS | Encounter Summary ---
Demographics + + + | Address | [address] | | | [place] [address] | + + + | Home Phone | | + + + | Preferred Language | Unknown | + + + | Marital Status | | + + + | Latter Day Affiliation | 1041 | + + + | Race | Unknown | + + + | Ethnic Group | Unknown | + + + Author + + + | Author | [facility] | | | and [place] | + + + | Organization | [facility] | | | and [...] Team Providers + +------+ + | Care Boat Tender Name | Role | Phone | + [...] | | | | | disease), | [address] [address] | | | | | cervical | Phone: | [place] | | | | | Procedures | [phone] | [address] | | | | | HIM 03/13 | Fax: | Phone: | | | | | | [phone] | [phone] | | | | | | | Fax: | | | | | | | [phone] | +--------+ + + + + + [...] | | | [place], [place] | [address] | cervical | | | | [address] | | | | | | [phone] | | | +--------+ + + + [...]
--- OUTSIDE RECORDS SUMMARY | ~2020-02-22 | XMS | Encounter Summary ---
Demographics + + + | Address | [address] | | | [place] [address] | + + + | Home Phone | | + + + | Preferred Language | Unknown | + + + | Marital Status | | + + + | Latter-Day Affiliation | 1041 | + + + | Race | Unknown | + + + | Ethnic Group | Unknown | + + + Author + + + | Author | [facility] | | | and [place] | + + + | Organization | [facility] | | [...] Team Providers + +------+ + | Care Cotton Gin Yard Supervisor Name | Role | Phone | [...] | hesis at | [address] | [place] | | | | | L5-S1 level | [address] | [address] | | | | | Lumbar | [place], | [place], [place] | | | | | radiculopath | [place] [address] | [address] Phone: | | | | | y | Phone: | [phone] | | | | | Procedures | [phone] | Fax: | | | | | HIM 08/14/18 | Fax: | [phone] | | | | | | [phone] | | +--------+ + + + + + Reason for Visit + + + | Reason | Comments | + + + | Follow-up | Injections: bilateral L5-S1 TFESI 07/24/18 | + + + Encounter Details +--------+---------+ + + + | Date | Type | Department | Care Team | Description | +--------+---------+ + + + | 08/14/ | Office | [facility] | Raheel De Luna, | Spondylolisthesis at | | 2019 | Visit | PHYSIATRY [address] | PA-C [address] | L5-S1 level | | | | [address] | [address] [place] | (Primary Dx); Lumbar | | | | RADHA [place] | [place] [address] | radiculopathy; | | | | [address] | [phone] | Sacroiliitis, not | | | | [phone] | | elsewhere classified | | | | | | ([facility]); Cervical | | | | | | [...] of the procedure you must provide a jukebox route driver to take you home. For all [...] el tratamien to actual. [facility] [place]: 1. Si diaz mdico le roper recetado [...] el flujo sanguneo a la malcom inflamada. [place] hace que sea ms difcil de tratar. [...] enrojecimiento de la piel Date Last Reviewed: 07/06/201519996732-9595 [employer]. [address] [place] [address]. Todos lo s derechos reservados. Esta informacin [...] realice actividades en las que tenga que asset protection professional mucho el julianne. Puede usar calor y masajes para ayudar a aliviar el dolor. [place] mary ducha o un avi, o use [...] para respirar o tragar Date Last Reviewed: 06/03/201719997648-1413 [facility] [employer]. [address] [place] [address]. Todos lo s derechos reservados. Esta informacin no pretende sustituir la atencin mdica profesio nal. Slo diaz mdico puede diagnosticar y tratar un problema de halie. documented in this encounter Progress Notes Raheel De Luna PA-C - 08/14/2018 11:20 AM PSTFormatting of this note might be different fro m the original. Raheel De Luna PA-C [address] [place] [address], [address] [place] [address] FAX: PHYSICAL MEDICINE AND REHABILITATION [...] ch [facility]). He rates the pain as moderate [...] disease (tremor, stiffness, slow motion, unstable posture) ([facility]) 03/11/2018 Pedal edema Pill rolling tremor Spondylolisthesis at L5-S1 level 03/11/2018 Type 2 diabetes mellitus without complication ([facility]) 03/11/2018 PAST SURGICAL HISTORY: Past Surgical History: Procedure Laterality Date CATARACT REMOVAL Right 06/26/2018 Procedure: RIGHT EXTRACTION CATARACT WITH LENS IMPLANT; Surgeon: Bj Thomas; Location: [facility] MAIN OR CURRENT MEDICATIONS: Current Outpatient [...] has no apparent deficits with short or termite treater helper memory. He has appropriate fund of knowledge [...] PT (multiple sessions over the years) and critical care cns. Unfortunately Kota rai continues to have significant [...] care, and coordinating his care. Patient is Indian-speaking only and his grandson was there as bottom presser. ELECTRONICALLY EDITED AND SIGNED BY: Raheel De [...]
--- OUTSIDE RECORDS SUMMARY | ~2020-02-22 | XMS | Encounter Summary ---
Demographics + + + | Address | [address] | | | [place] [address] | + + + | Home Phone | | + + + | Preferred Language | Unknown | + + + | Marital Status | | + + + | Sikhism Affiliation | 1041 | + + + | Race | Unknown | + + + | Ethnic Group | Unknown | + + + Author + + + | Author | [facility] | | | and [place] | + + + | Organization | [facility] | | | [...] Team Providers + +------+ + | Care Leather Production Worker Name | Role | Phone | + [...] | | | [place], | [address] | | | | | Sacroiliitis | Tirso Brito MD | [place], | | | | | ([facility]) | [address] | [place] | | | | | Procedures | [place] | [address] | | | | | [place] INJECT SI | [place], [place] | Phone: | | | | | JOINT | [address] | [phone] | | | | | ARTHRGRPHY&/ | Phone: | Fax: | | | | | ANES/STEROID | [phone] | [phone] | | | | | W/IMAGE [place] | Fax: | | | | | | | [phone] | | | | | | TRIAMCINOLON [...] + + | 11/26/ | Hospital | [facility] | [place], | Sacroiliitis, not | | 2019 | Encounter | MED CTR XRAY [address] | PA-C [address] | elsewhere classified | | | | [address] [place] | [address] [place] | ([facility]) | | | | [place] [address] | [place] [address] | | | | | [phone] | [phone] | | | | | | | | | | | | Dope Mixer, Ws | | | | | | [...] | | | | | | | [place] instructions | | | | | + [...] | | | | | | allergies. [place] | | | | | | | instructions | | | | | + + + +---------+ + + | furosemide (LASIX) | Take 1 tablet (20 mg | | 0 | 06/28/20 | | | 20 mg tablet | total) by mouth | | | 18 | 9 | | | daily. Leg swelling | | | | | | | [place] instructions | | | | | + [...] the | | | | PDT | ([facility]) | results section. | + +--------+ + + + | [place] SACROILIAC | Routin | 11/26/2018 | Sacroiliitis, not | Results for this | | INJECTION LEFT | e | 2:17 PM | elsewhere classified | procedure are in the | | | | PDT | ([facility]) | results section. | + +--------+ [...]
--- OUTSIDE RECORDS SUMMARY | ~2020-02-22 | XMS | Encounter Summary ---
Demographics + + + | Address | [address] | | | [place] [address] | + + + | Home Phone [...] Team Providers + +------+ + | Care Burlap Worker Name | Role | Phone | [...] Provider Unknown | | | | | [place], [place] | | | | | | [address] | (Fax) | | | | | [phone] | | | +--------+ + + + [...]
[~2020-02-22 20:59] MED LIST changes: +CIPRO500 MG PO
--- NOTE | 2020-02-23 03:30 | NUR ---
ASSESSMENT, VS AND I&O COMPLETED. LUNGS CLEAR, SHALLOW BREATHING, SPO2 92%, RA. PT USED URINAL WITH ASSISTANCE. IV FLUIDS INFUSING PER ORDER. IV WNL, CDI, FLUSHED WELL. BOWEL TONES ACTIVE. NO EDEMA NOTED. ICE WATER PROVIDED. PT INSTRUCTED ON USE OF CALL LIGHT. NO OTHER NEEDS AT THIS TIME. CALL LIGHT IN REACH.
--- NOTE | 2020-02-23 05:17 | NUR ---
PT RESTING IN BED, EYES CLOSED. RR EVEN, SHALLOW. IV FLUIDS INFUSING PER ORDER. CALL LIGHT IN REACH.
--- NOTE | 2020-02-23 06:46 | NUR ---
VS AND I&O COMPLETED. PT USED URINAL WITH ASSISTANCE. SPO2 92%, RA. RR EVEN, SHALLOW, UNLABORED. LUNG SOUNDS CLEAR. NO OTHER NEEDS AT THIS TIME. CALL LIGHT IN REACH.
--- NOTE | 2020-02-23 07:00 | NUR ---
HANDOFF REPORT RECEIVED FROM SPINNING LATHE OPERATOR HYDRAULIC RN, PT RESTING IN BED, BED ALARM IN PLACE.
--- NOTE | 2020-02-23 08:15 | NUR ---
PT REQUESTED ASSISTANCE WITH USING URINAL, VOIDED. PT ON ROOM AIR, O2 SATS 96%, DENIES SOB, OCCASIONAL COUGH, UNABLE TO ASSESS LUNG SOUNDS DUE TO PAPR. PT ALERT/ORIENTED. PT WITH MILD CHEST PAIN 08/22. IV FLUIDS INFUSING LR AT 125ML/HR TO LEFT ARM. PT WITH POOR APPETITE, ORDERED BREAKFAST, DENIES NAUSEA. CMS INTACT, PT WITH HX OF PARKINSONS, TREMORS PRESENT, WITHOUT EDEMA. PT 2PA TO STAND PIVOT TO CHAIR, WEAK. MORNING MEDICATIONS ADMINISTERED PER EMAR.
[2020-02-23] MEDS ORDERED: ATORVASTATIN CA20 MG PO (08:24)
[2020-02-23] MEDS ORDERED: METFORMIN HCL1000 MG PO (08:24)
[2020-02-23] MEDS ORDERED: LISINOPRIL-HCT1 EAC2 PO (08:25)
[2020-02-23] MEDS ORDERED: GLYBURIDE5 MG PO (08:25)
[2020-02-23] MEDS ORDERED: CARBIDOPA-LEVO1 EAC1 PO (08:25)
[2020-02-23] MEDS ORDERED: TAMSULOSIN HCL0.4 MG PO (08:25)
[2020-02-23] MEDS ORDERED: LATANOPROST2.5 ML OD (08:26)
--- NOTE | 2020-02-23 09:09 | EKG ---
[facility] [address] [facility] [facility] [address] [place] [address] Signed Normal sinus rhythm Normal ECG No previous ECGs available Confirmed by OSMAN BOWER MD ([id number]) on 02/23/2020 9:09:03 AM Electronically Signed By: OSMAN BOWER MD 02/23/20908 PATIENT NAME: MARTY MARIANO Electrocardiogram DATE OF : 47 PHYSICIAN: OSMAN BOWER MD REPORT #: [id number] REPORT IS CONFIDENTIAL AND NOT TO BE RELEASED WITHOUT AUTHORIZATION
--- NOTE | 2020-02-23 09:25 | NUR ---
Medications reconciled using pharmacy records
--- NOTE | 2020-02-23 09:47 | NUR ---
PATIENT SITTING UP IN CHAIR. PATIENT WAS FED. VITAL SIGNS AND I&O DONE. HIGH TEMPERATURE. RN NOTIFIED. CALL LIGHT WITHIN REACH. NO OTHER NEEDS AT THIS TIME
--- NOTE | 2020-02-23 09:51 | NUR ---
pt with fever 101.7, given 500mg po tylenol per order. pt sitting in chair. pt denies other needs at this time.
--- NOTE | 2020-02-23 11:36 | NUR ---
DAUGHTER LOIS CALLED, MESSAGE LEFT, RETURNED CALL TO NUMBER PROVIDED BUT IT WAS THE WRONG NUMBER. CALLED LISTED HOUSE NUMBER, SPOKE WITH DAUGHTER KANA, UPDATED ON PT CONDITION, AWAITING TEST RESULTS AND PT LIKELY TO REMAIN HOSPITALIZED TODAY, ALL QUESTIONS ANSWERED. PT WITH FEVER 101.7, DR. BOWER NOTIFIED, ORDER TO REDRAW BLOOD CULTURES, COMPLETED. PT SITTING IN CHAIR, DENIES OTHER NEEDS AT THIS TIME.
--- NOTE | 2020-02-23 12:30 | NUR ---
PT SITTING IN CHAIR. PT BLOOD GLUCOSE 147, GIVEN 1 UNIT SS INSULIN. PT ASSISTED TO EAT LUNCH, GOOD APPETITE. PT TEMP IMPROVED, NOW 99.7. PT DENIES OTHER NEEDS AT THIS TIME.
--- NOTE | 2020-02-23 13:53 | NUR ---
PATIENT SITTING UP IN CHAIR. PATIENT ASSISTED TO ANSWER A PHONE CALL. CALL LIGHT WITHIN REACH. NO OTHER NEEDS AT THIS TIME
--- NOTE | 2020-02-23 14:31 | NUR ---
PT WITH FEVER 101.5, GIVEN TYLENOL. DR. BOWER NOTIFIED, NO NEW ORDERS AT THIS TIME.
--- NOTE | 2020-02-23 16:37 | NUR ---
DR. BOWER NOTIFIED OF FEVER 102.0 AFTER TYLENOL, MOTRIN GIVEN PER ORDER. XRAY AT BEDSIDE FOR CHEST XRAY, NO NEW ORDERS AT THIS TIME.
--- NOTE | 2020-02-23 17:10 | NUR ---
PT SITTING IN CHAIR. PT BLOOD GLUCOSE 101, SS INSULIN HELD. PT ASSISTED TO ORDER DINNER. PT FEVER DOWN TO 99.2. PT DENIES OTHER NEEDS AT THIS TIME.
--- NOTE | 2020-02-23 19:47 | NUR ---
SHIFT REPORT RECEIVED FROM NURSE PEGUERO. pt UP IN CHAIR EATING DINNER. NO APPARENT SIGNS OF DISTRESS.
--- NOTE | 2020-02-23 21:00 | NUR ---
ASSESSMENT COMPLETE. VSS. SPO2 93% ON RA. 2PA WITH FWW TO BED pt WAS IN RECLINER. pt COULD NOT URINATE IN URINAL IN CHAIR BUT WAS SUCCESSFUL WITH STANDING. URINE IS MEI IN COLOR. pt APPEARS TO UNDERSTAND SOME K[place]YARWANDA AND RESPONDS APPRORIATELY. ASSISTED pt WITH PHONE CALL TO DAUGHTER DREA. CALL LIGHT PLACED WITHIN REACH. SIDE RAILS UP ON BED.
--- NOTE | 2020-02-23 23:46 | NUR ---
ROUNDS COMPLETE. PT SLEEPING, TURNED SLIGHTLY TO RIGHT SIDE. NO APPARENT SIGNS OF DISRESS.
--- NOTE | 2020-02-24 02:26 | NUR ---
CALL LIGHT ANSWERED. PT WAS UP AT BEDSIDE TO VOID, INCONTINENCE IN DEPENDS WELL. VITAL SIGNS TAKEN. 102.[address] BOWER INFORMED. PRN TYLENOL PROVIDED FOR pt. OTHERWISE VSS. SP02 91-92% ON RA. pt REPOSITIONED IN BED. CALL LIGHT WITHIN REACH.
--- NOTE | 2020-02-24 04:45 | NUR ---
IN ROOM TO RECHECK VITALS. TEMP IS DOWN TO 100.3. VSS OTHERWISE STABLE. SPO2 AT 92% ON RA. PT VOICED NEEDS FOR THE URINAL AND THEN WAS UP TO BSC TO HAVE A BM AND RETURNED TO BED. NO FURTHER NEEDS AT THIS TIME.
--- NOTE | 2020-02-24 06:07 | NUR ---
PT HAD A GOOD NIGHT. PT USES CALL LIGHT APPROPRIATELY. PT CAN TRANSFER VERY SLOWLY WITH SBA AND FWW TO BS. PT HAD ONE EPISODE OF URINE INCONTINENCE THIS SHIFT OTHERWISE USES URINAL WITH ASSISTANCE. SPO2 REMAINS 91-92% ON RA. TEMP SPIKED TO 102.5 (DR. BOWER INFORMED) THIS SHIFT BUT WITH TYLENOL CAME DOWN TO 100.3. RESPIRATIONS REMAIN TACHYPNIC. PT REPORTS NO PAIN.
--- NOTE | 2020-02-24 07:09 | NUR ---
REPORT RECEIVED FROM BK THAO. PT RESTING IN BED. NO REQUESTS OR COMPLAINTS AT THIS TIME. CALL LIGHT WITHIN REACH.
--- NOTE | 2020-02-24 07:59 | NUR ---
MORNING ASSESSMENT AND MEDICATION DUE. PT RESTING IN BED. REPORTS NEED TO URINATE. PT ASSISTED WITH USE OF URINAL. CARLOS CARE DONE. DEPENDS CHANGED. 2 PERSON ASSIST UP TO CHAIR. PT UNSTEADY ON FEET AND HAS DIFFICTULY WITH TRANSPORT. ASSESSMENT DONE. PT RE PORTS 2/10 PAIN WHEN COUGHING. CRACKELS NOTED TO RIGHT LOWER LOBE. TOLERATING ROOM AIR WITH O2 SATURATION OF 92 PERSCENT. PT REPORTS BASELINE TINGLING AND NUMBNESS IN FEET. VITALS TAKEN. MEDICATIONS GIVEN (SEE MAR). PT EATING BREAKFAST. NO ADDITIONAL REQUESTS OR COMPLAINTS. CALL LIGHT WITHIN REACH.
--- NOTE | 2020-02-24 10:11 | NUR ---
THIS RN TO ROOM WITH MD FOR ROUNDS. PT UP TO CHAIR. RR= 40, O2 AT 94% ON ROOM AIR. PT BREATHING SHALLOWLY AND RAPIDLY. PT DENIES SHORTNESS OF BREATH. TELEPHONE INTURPRETATION USED. PT ASSISTED WITH USING URINAL AND MAKING A TELEPHONE CALL. NO ADDITIONAL REQUESTS OR COMPLAINTS AT THIS TIME. CALL LIGHT WITHIN REACH.
--- NOTE | 2020-02-24 10:47 | NUR ---
PTS DAUGHTER IN LAW, WILMAR, CALLED FOR UPDATE. PT STATES IT IS OK TO TALK WITH WILMAR. WILMAR UPDATED ON PT CONDITION AND STATUS. WILMAR STATES HER QUESTIONS HAVE BEEN ANSWERED.
--- NOTE | 2020-02-24 11:40 | NUR ---
PATIENT SITTING UP IN CHAIR. PATIENT'S LUNCH ORDERED. CALL LIGHT WITHIN REACH. NO OTHER NEEDS AT THIS TIME
--- NOTE | 2020-02-24 12:05 | NUR ---
NOON ASSESSMENT AND MEDICAITON DUE. PT UPT O CHAIR. MARIOLA DAWSON USE TO TRANSLATE. PT DENIES PAIN AND NAUSEA. PT DENIES SHORTNESS OF BREATH. I.S. USE DEMONSTRATED. PT REACHES 500M.LUNG SOUNDS CORSE IN RIGHT LOWER LOBE. RR - 40 BREATHS PER MINUTE. MD AWARE. VITALS TAKEN. TEMPERATURE OF 102.5 NOTED. MD NOTIFIED. PT HAS DIFFICULY DRINKING AND FEEDING SELF RELATED TO TREMORS. PT ASSISTED. PT ABLE TO EAT 100% OF LUNCH ORRDER. TYLENOL GIVEN. PT REPOITIONED IN CHAIR FOR COMFORT. PT DENIES ADDITIONAL REQUESTS OR COMPLAINTS. CALL LIGHT WITHIN REACH.
--- NOTE | 2020-02-24 13:25 | NUR ---
PT RESTING IN CHAIR, RESPONDS TO VOICE. PT PLACED ON CONTINIOUS PULSE OX MONITORING RELATED TO RR OF 40 AND O2 SATURATIONS IN THE LOW 90'S, O2 SATURATION STEADY AT 91% AT THIS TIME HEART RATE OF 93. TEMPERATURE REASSESSED, NOW 102.2. ADVIL GIVEN. UPDATED. PT REPOSITIONED WITH PILLOW. CONTINUES TO REPORT WEAKNESS. CALL LIGHT WITHIN REACH. PT EASILY VIEWED FROM NURSES STATION.
--- NOTE | 2020-02-24 13:37 | NUR ---
BECAUSE OF PRECAUTIONS, I AM UNABLE TO VISIT PT. WILL FOLLOW NEEDED
--- NOTE | 2020-02-24 14:15 | NUR ---
UPDATED ON PT STATUS. ORDERS FOR O2 BY NC TO KEEP O2 SATURATION ABOVE 92%. PT PLACED ON 2L O2 AND RESPONDS WITH O2 INCREASING TO 93% ON 2L O2 BY NC. PT REPORTS FEELING COMFORTABLE. CONTINIOUS PULSE OX IN PLACE. NO ADDITIONAL REQUESTS OR COMPLAINTS. CALL LIGHT WITHING REACH.
--- NOTE | 2020-02-24 15:44 | NUR ---
AFTERNOON ASSESSMENT DUE. PT REQUESTS REPOSITIONING IN CHAIR. CPOX REMAINS IN PLACE WITH O2 SATURATION OF 94-97% ON 2L O2 BY NC. 2 PERSON ASSIST TO REPOSITION IN CHIAR TO RIGHT SIDE. LUNG SOUNDS CONTINUE TO SHOW CRACKELS IN RIGHT LOWER LOBE. VITALS TAKEN. FEVER RESOLVED. RESPIRATORY RATE NOW 30 BPM. PT REPORTS HE IS FEELING BETTER NOW. TREMORS CONTINUE. HEEL PROTETORS PLACED. PT DEMONSTRATES USE OF I.S. REACHING 500ML. I/Os RECORDED. PT DENIES ADDITIONAL REQUESTS OR COMPLAINTS. DINNER ORDER PLACED. CALL LIGHT WITHIN REACH. PT EASILY VIEWED FROM NURSES STATION.
--- NOTE | 2020-02-24 16:40 | NUR ---
MEDICATION DUE. PT RESTING IN CHAIR. O2 NOW AT 97% ON 2L O2 BY NC. PT REPORTS FEELING COMFORTABLE. MEDICAITON GIVEN. PT CONTINUES RESTING IN CHAIR. NO ADDITIONAL REQUESTS OR COMPLAINTS. CALL LIGHT WITHIN REACH.
--- NOTE | 2020-02-24 17:51 | NUR ---
MD CALLED AND UPDATED REGARDING PTS BLOOD PRESSURE AND RESPIRATORY RATE. NO NEW ORDERS AT THIS TIME. WILL REASSESS BLOOD PRESSURE. AUTOMATIC SERGING MACHINE OPERATOR TO BEDSIDE. 2PA ASSIST BACK TO BED. PT REPORTS DIZZINESS WITH TRANSFER BACK TO BED. INCONTANT EPISODE NOTED WITH DEPENDS, SHEETS AND PILLOWS WET. CARLOS CARE DONE. FRESH DEPENDS IN PLACE. PT VOIDS ADDITIONAL 100ML IN URINAL. O2 REMAINS AT 98% ON 2L O2 BY NC. NO ADDITIONAL REQUESTS OR COMPLAINTS. BED RAILS UP. CALL LIGHT WITHIN REACH.
--- NOTE | 2020-02-24 17:59 | NUR ---
PATIENT SITTING UP IN CHAIR. PATIENT TRANSFERRED TO BED. TWO PERSON ASSISTING. PATIENT'S GOWN AND BEDDING IS COMPLETELY WET WITH SWEAT. GOWN AND LINENS CHANGED. PATIENT INCONTINENT OF URINE. PERICARE PERFORMED AND PATIENT USING A CLEAN ADULT PULL UP. PATIENT SAID HE IS FEELING DIZZY AND REFUSED TO EAT OR DRINK FLUIDS. RN NOTIFIED. CALL LIGHT WITHIN REACH. NO OTHER NEEDS AT THIS TIME
--- NOTE | 2020-02-24 18:22 | NUR ---
PT HERE FOR WEAKNESS, FEVER, PNEUMOINA AND COVID RULE OUT. PT VERY WEAK THIS SHIFT, HEAVY 2 PERSON ASSIST UP TO CHAIR. BLOOD SUGAR CHECKS WITH SLIDING SCALE INSULIN, NO INSULIN NEEDED THIS SHIFT. MINIMAL APPITITE FOR 60 GRAM CARB DIET. PT DENIES PAIN AND NAUSEA THIS SHIFT. RESPIRATORY RATE ELVEATED 30-40 BPM. O2 AT 2L BY NC STARTED. PT NOW ON CONTINIOUS PULSE OXEMETRY. PT FEBRIAL THIS SHIFT WITH DIFFICULTY CONTROLYING FEVER, SEE MAR FOR MEDICATIONS GIVEN. MONITORING VITAL SIGNS AND I/OS CLOSELY. NICARAGUAN SPEAKING ONLY, HIRED HAND USED. IV FLUID RATE DECREASED THIS SHIFT, ENCORUAGING PO FLUIDS. VOIDING QUANTITY SUFFICIENT. PT USES CALL LIGHT INCONSISTANTLY.
--- NOTE | 2020-02-24 19:33 | NUR ---
RECEIVED REPORT ON PT. HE IS RESTING IN ROOM AT THIS TIME. CALL LIGHT IS CLOSE
--- NOTE | 2020-02-24 21:11 | NUR ---
ASSISTED PT TO USE URINAL AND BSC, 2PA WITH VI BOURGEOIS. USED LANGUAGE LINE TO ASSIST IN ASSESSMENT. PT DENIES SOB AND PAIN. RR IS INCREASED WITH COARSE LUNGS ON 2LNC. PT DENIES FURTHER NEEDS AT THIS TIME. CALL LIGHT IS CLOSE AND HE IS VISABLE FROM 2ND RN STATION.
--- NOTE | 2020-02-24 22:27 | NUR ---
ASSISTED PT TO ANSWER PHONE CALL. PT DENIES FURTHER NEEDS AND CALL LIGHT IS CLOSE.
--- NOTE | 2020-02-25 00:20 | NUR ---
PT IS RESTING WITH EYES CLOSED, RR IS EVEN AND SHALLOW, HE REMAINS ON 2LNC AND SPO2 IS 97%. CALL LIGHT IS CLOSE.
--- NOTE | 2020-02-25 01:47 | NUR ---
ASSISTED PT TO USE URINAL. THEN HE WAS ASKING ABOUT SOMETHING WHICH THIS RN COULD NOT UNDERSTAND. USED IT RISK ANALYST SERVICE. PT IS ASKING ABOUT SOMETHING RED FROM HOME THAT HE USES TO GRAB THINGS, OR WALK WITH, THEN HE SAID IT MIGHT BE ON HIS FEET. WE SHOWED HIM HIS FEET AND HE SAID THEY WERE NOT THERE. TOLD PT THAT WE CAN ASK HIS FAMILY TOMORROW BECAUSE IT'S NOT IN THE ROOM. THIS RN IS NOT SURE IF THE PT IS CONFUSED OR IF THERE IS A LANGUAGE BARRIER/DIALECT ISSUE WITH THE IMPROVEMENT INTERN. VI BOURGEOIS ASSISTED IN REPOSITIONING PT IN BED. PT DENIES FURTHER NEEDS AT THIS TIME. CALL LIGHT IS CLOSE.
--- NOTE | 2020-02-25 06:00 | NUR ---
PT RR IS ELEVATED AND TEMP IS 100.3. PT WAS UNCOMFORTABLE IN BED SAYING HIS BACK HURT (VIA LANGUAGE LINE). ADMINISTERED TYLENOL AND REPOSITIONED PT. VS AND I&O'S ENTERED AND PT DENIES FURTHER NEEDS. CALL LIGHT IS CLOSE.
--- NOTE | 2020-02-25 07:11 | NUR ---
REPORT RECEIVED FROM BK BEAN. PT RESTINGIN BED ON LEFT SIDE. O2 AT 2L BY NC REMAINS IN PLACE WITH O2 SATURATION OF 91%. BED RAILS UP CALL LIGHT WITHIN REACH. PT EASILY VIEWED FROM NURSES STATION.
--- NOTE | 2020-02-25 08:15 | NUR ---
MORNING ASSESSMENT AND MEDICAITON DUE. PT RESTING IN BED. O2 SATRUATION HOLDING AT 90% ON 2L O2 BY [place]. PHONE INTURPRETER SERVICES USED FOR ASSESSMENT. PT DENIES PAIN AND NAUSEA. PT CONCERNED ABOUT COUGH. CURRENT ILLNESS EXPLAINED IN DETAIL TO PT. PT VERBALIZES UNDERSTANDING BUT IS QUICKLY FORGETFUL. VITALS TAKEN. O2 INCRASED TO 4L O2 BY [place] WITH OXYBEN SATURATIOSN MAINTAINING ABOVE 92%. TEMPERATURE OF 99.1, RR = 32. UPDATED ON PT STATUS. LUNG SOUNDS CORSE IN BASES. PT REPORTS TROUBLE WITH CONSTIPATION IN THE PAST. NIO MEDICATIONS ORDERED. PT DECLINES BREAKFAST. DEMONSTRATES USE OF I.S. REACHING 400ML. 1PERSON HEAVY ASSIST UP TO CHAIR. CARLOS CARE DONE. URINAL USED WITH MINIMAL VOIDING. FRESH DEPENDS IN PLACE. LINENS CHANGED. PT DENIES ADDITIONAL REQUESTS OR COMPLAINTS. CALL LIGHT WITHIN REACH. PT EASILY VEIWED FROM NURSES STATION.
--- NOTE | 2020-02-25 09:54 | NUR ---
THIS RN TO ROOM TO CHECK ON PT. PHONE TRANSLATION SERVICES USED. PT DECLINES MEDICATION FOR CONSTIPATION AT THIS TIME STATING HE HAS HAD PROBLEMS WITH CONSTIPATION IN THE PAST BUT DOES NOT RIGHT NOW. O2 AT 98% ON 4L O2 BY NC. RR = 32. PT RESTING ON BACK IN CHAIR. NO ADDITIONAL REQUESTS OR COMPLAINTS AT THIS TIME. CALL LIGHT WITHIN REACH.
--- NOTE | 2020-02-25 10:27 | NUR ---
PT WAVING AT NURSE FROM WINDOW. A OPERATOR SERVICES ACTIVATED. PT REQUESTS ASSISTANCE WITH RESTROOM USE. PT USES URAINAL VOIDING 125ML. PT ENCOURAGED TO DRINK WATER. PT DECLINES. O2 AT 96% ON 4L O2 BY DE. PT DENIES ADDITIONAL REQUESTS OR COMPLAINTS AT THIS TIME. CALL RAS HAQUE.
--- NOTE | 2020-02-25 11:17 | NUR ---
2PA WITH BK RICHARD TO C AND BACK TO CHAIR, USING GAIT BELT AND PIVOT. VITALS AND I&OS CHARTED. SECURITY SUPPORT ANALYST USED FOR ASSISTANCE. CALL LIGHT IN REACH. NO OTHER NEEDS AT THIS TIME
--- NOTE | 2020-02-25 11:24 | NUR ---
PT CALL LIGHT ON. PT REQUESTS ASSISTANCE UP TO RESTROOM TO HAVE BOWEL MOVMENT. MASONRY INSTALLER SERVICES USED FOR CARES AND ASSESSMENT. 2 PERSON ASSIST UP TO COMODE. PT VERY WEEK BUT ABLE TO FOLLOW DIRECTIONS AND ATTEMPTS TO ASSIST WITH CARES. CARLOS CARE ANURADHA, DEPENDS CHANGED. 2 PERSON ASSIST BACK TO CHAIR. PT POSITIONED WITH PILLOWS. ASSESSMENT DONE. LUNGS CORSE IN BASES. O2 BY NC REMAINS AT 4L. O2 SATURATION AT 97%. PT DENIES SHORTNESS OF BREATH EXCEPT WHEN AMBULATING. I.S. USED, PT REACHES 400ML. VITAL SIGNS TAKEN. PT DECLINES LUNCH, DRINKS SMALL AMOUNTS OF WATER. IV FLUDS INCREASED PER MD ORDER. MEDICATIONS GIVEN. NO ADDITIONAL REQUESTS OR COMPLAINTS. CALL LIGHT WITHIN REACH.
--- NOTE | 2020-02-25 12:32 | NUR ---
PTS SON SHANTA CALLED FOR UPDATE. PT STATES HE WOULD LIKE HIS SON UPDATED. SHANTA UPDATED PER PT REQUEST. SHANTA HAS QUESTIONS ABOUT TEST RESULTS AND DURATION OF STAY. SHANTA UPDATED AND STATES HIS QUESTIONS HAVE BEEN ANSWERED. CALL TRANSFERED INTO PTS ROOM. PT TALKING ON PHONE WITH FAMILY. NO ADDITIONAL NEEDS AT THIS TIME. O2 AT 96% ON 4L O2 BY NC. CALL LIGHT WITHIN REACH.
--- NOTE | 2020-02-25 13:17 | NUR ---
PT CALL LIGHT ON. PT TALKING WITH FAMILY ON PHONE AND REQUESTS REPOSITIONING. PT REPOSITIONED TO LEFT SIDE PER REQUEST, PILLOWS IN PLACE FOR COMFORT. PT REQUESTS YOGURT AND FRUIT TO EAT. ORDER PLACED. PT ASSISTED WITH DINKING WATER AND EATING YOGURT AND FRUIT. ENSURE MILKSHAKE PROVIDED WELL. PT DEMONSTRATES USE OF I.S. REACHING 500ML. O2 REMAINS AT 96% ON 4L O2 BY NC. NO ADDITIONAL REQUESTS OR COMPLAINTS. CALL LIGHT WITHIN REACH.
--- NOTE | 2020-02-25 13:39 | NUR ---
PT ON PRECAUTIONS, UNABLE TO VISIT. WILL REMAIN AVAILABLE
--- NOTE | 2020-02-25 15:27 | NUR ---
AFTERNOON ASSESSMENT DUE. PT CALL LIGHT ON. PT SMELLS DIRTY. PT UP TO STAND, CARLOS CARE DONE. DEPENDS CHANGED. MD TO BEDSIDE FOR ROUNDS. INTREPRETER USED FOR ALL CARES, VIST, AND ASSESSMENT. PT DENIES PAIN AND NAUSEA. PT REPORTS HE FEELS HIS COUGH IS BETTER. PT VERY WEEK AND UNABLE TO STAND WITHOUT 2 PERSON SUPPORT AND ASSIST. ATTEMPTED TO WEAN PT TO 3 LITERS O2 BY NC. O2 SATURATION MAINTAINS ABOVE 92% BUT WORK OF BREATHING AND RESPIRATORY RATE INCREASES. PT PLACED BACK ON 4L O2 BY PA. MD UPDATED. PT ASSISTED WITH DRINKING WATER. I.S. USED REACHING 400ML. PT POSITIONED IN CHAIR WILL PILLOWS. NO ADDITIONAL REQUESTS OR COMPLAINTS. CALL LIGHT WITHIN REACH.
--- NOTE | 2020-02-25 17:00 | NUR ---
THIS RN TO ROOM TO CHECK ON PT. DETECTIVE PRIVATE EYE SERVICES USED. PT REQUESTS TO GET BACK TO BED. 2 PERSON HEAVEY ASSIST BACK TO BED. PT ABLE TO ASSIST VERY LITTLE. WORK OF BREATHING NOTED TO BE INCREASED. PT O2 DROPPING TO LOW 90'S ON 4 LITERS. TACHYCARDIA NOTED. PT REPORTS COUGH IS WORSE. RR = 48-56. MD NOTIFIED. MD TO BEDSIDE. MEDICATION GIVEN FOR FEVER AND COUGH. RESPIRATORY RATE REMAINS ELEVATED. HEAD OF BED ELEVATED. PT REQUESTS SOMETHING TO EAT. APPLE SAUCE PROVIDED. PT ASSISTED WITH EATING. WATER PROVIDED. BLOOD SUGAR TAKEN, SEE MAR FOR MEDICATION GIVEN. CONTINIOUS PULSE OX REMAINS IN PLACE. PT MAINTAININ O2 SATURATIONS FROM 92-94% ON 4 LITERS. HUMIDIFICATION ADDED TO OXYGEN LINE. PT DENIES ADDITIONAL REQUESTS OR COMPLAINTS. BED RAILS UP. CALL LIGHT WITHIN REACH.
--- NOTE | 2020-02-25 18:06 | PATH ---
[facility] [address] [place], [place] [address] Signed ORDERING PHYSICIAN: Boubacar BLUE, Mary Rosales PATIENT NAME: MARTY MARIANO GENDER: M : 1945 SPECIMEN(S): No Source Given MOLECULAR PATHOLOGY RESULTS: SARS-CoV-2 DETECTED ADDITIONAL NOTES.: Positive results are indicative of the presence of SARS-CoV-2 RNA. The test will detect both and live SARS-CoV-2. Positive results do not rule out bacterial infection or co-infection with other viruses. Negative results do not rule-out SARS-CoV-2 infection and should not be used as the sole basis for patient management decisions. Negative results must be combined with other clinical observations, patient history, and epidemiological information. Inconclusive results indicate the minimum number of SARS-CoV-2 molecular targets required to reliably interpret the test was not met. Invalid results are possibly due to inhibiting or interfering substances in the collected sample. In both scenarios, please recollect if clinically indicated. The [employer] COVID-19 combo test kit is authorized to aid in the diagnosis of SARS-CoV2 infection. The test has not been validated for screening asymptomatic individuals. The test has not been FDA approved; it has been authorized by the FDA under an Emergency Use Authorization (EUA). This test is only authorized for the duration of the declaration that circumstances exist justifying the authorization of emergency use of in vitro diagnostic tests for detection and/or diagnosis of COVID-19 under Section 564(b)(1) of the Act, 21 U.S. C. 360bbb-3(b)(1), unless the authorization is terminated or revoked sooner. PERFORMING LABORATORY.: Molecular testing was performed by [facility], [address] [place] [id number] (Vice President Business & Corporate Development: Jennifer Batres MD, PhD.; CLIA#: [id number]).1 PATIENT NAME: MARTY MARIANO PATHOLOGY DATE OF : 47 REPORT #: [id number] PHYSICIAN: [facility] PATH[facility] PCP: NO PRIMARY CARE PHYSICIAN REPORT IS CONFIDENTIAL AND NOT TO BE RELEASED WITHOUT AUTHORIZATION [address] [place] [address] Signed Diagnostician: Marion Reeves Pathologist Electronically Signed 02/25/2020 Copies: ~ PATIENT NAME: MARTY MARIANO PATHOLOGY DATE OF : 47 REPORT #: [id number] PHYSICIAN: [facility] PATHOLOG[facility] PCP: NO PRIMARY CARE PHYSICIAN REPORT IS CONFIDENTIAL AND NOT TO BE RELEASED WITHOUT AUTHORIZATION
--- NOTE | 2020-02-25 18:10 | NUR ---
DR VALE AND CHARGE NOTIFIED OF POSITIVE RESULT FROM [employer]
--- NOTE | 2020-02-25 18:34 | NUR ---
PTS FAMILY CALLED AND UPDATED PER DOCTOR REQUEST. PTS FAMILY STATES THEIR QUESTIONS HAVE BEEN ANSWERED. THIS RN TO ROOM. RECOOPERER SERVICES USED TO UPDATE PT. MD TO BEDSIDE FOR CONCENT OF REMDESIVIR. CONCENT FORM SIGNED. MEDICAITON GIVEN (SEE MAR). NO ADDITIONAL REQUESTS AT THIS TIME. CALL LIGHT WITHIN REACH.
--- NOTE | 2020-02-25 19:15 | NUR ---
SHIFT REPORT RECEIVED FROM DAYSHIFT BK RICHARD AT BEDSIDE. PT AWAKE AND RESTING IN BED, DROWSY. RESPIRATIONS LABORED, 30-40'S ALL DAY PER BK RICHARD. 4LNC IN PLACE, O2 SAT LOW 90'S. IV FLUIDS INFUSING 125MLS/HR, PER BK RICHARD. CALL LIGHT IN REACH OF PT, ISOLATION PRECAUTIONS IN PLACE.
--- NOTE | 2020-02-25 19:16 | NUR ---
PT HERE FOR WEKNESS, FEVER AND COVID REALTED PNEUMONIA. 2 PERSON HEAVY ASSIST UP TO CHAIR THIS SHIFT WITH INCREASING WEAKNESS. PT HAS MINIMAL APPITITE, ENSURES PROVIDED X2. SMALL BOWEL MOVMENT NOTED THIS SHIFT. CRAKESL TO LOWER LOBES CONTINUE, O2 INCRASED TO 4L BY NC TO MAINTAIN O2 SATURATIONS ABOVE 92%. PT VERY SHORT OF BREATH WITH ACTIVITY. PT FEBRIAL THIS SHIFT, TYELNOL GIVEN. PHONE INTURPRETATION USED FOR ALL CARES. FAMILY UPDATED X2. CONCENT PENDING FOR COVID TREATMENT. PT INCONTINANT AT TIMES, VODING QUANTITY SUFFICIENT. PT USES CALL LIGHT APPROPRAITLY.
--- NOTE | 2020-02-25 20:35 | NUR ---
spoke to dr de via telephone regarding poc and medications. per dr de, continue with scheduled decadron. kenisha waiting to hear back from family regarding remdesimir medicaiton and consent.
--- NOTE | 2020-02-25 21:15 | NUR ---
ASSESSMENT COMPLETE, SCHEDULED MEDS GIVEN ALONG WITH PRN TYLENOL (SEE EMAR). CERTIFIED INTERPRETOR UTILIZED, PT IS CONGOLESE SPEAKING ONLY. COMMUNICAITON IS SLOW AND TIME CONSUMING. ELEVATED TEMP REMAINS, 100.4, PRN TYLENOL GIVEN. RR ALSO INCREASED. MILITARY ANALYST MADE AWARE, PER CHARGE NO NEED TO NOTIFY MD AT THIS TIME STATUS HAS NOT DECREASED AND VS ARE IMPROVING COMPARED TO PREVIOUS SET. WILL MONITOR. PT DENIES SOB AT REST, BUT REPORTS SOME SOB WITH COUGHING, STATING "NOTHING COMES UP". DENIES PAIN. VERY WEAK, REQUIRES ASSISTANCE WITH BOOSTING SELF IN BED. ASSISTANCE WITH URINAL, I&O'S COMPLETE. NO FURTHER NEEDS, CALL LIGHT IN REACH.
--- NOTE | 2020-02-25 22:00 | NUR ---
DR VALE WANTING TO VISIT WITH FAMILY ABOUT REMDESIMIR, FOR COVID. PT UNABLE TO UNDERSTAND THE RISKS. DR VALE WOULD LIKE FAMILY TO CONTACT HIM IN THE MORNING.
--- NOTE | 2020-02-25 22:20 | NUR ---
KENDRA CALLED, PT SON. INFORMED HIM THAT DR VALE WOULD LIKE TO VISIT WITH HIM IN THE MORNING, REGARDING THE COVID MEDICATION. SON STATED HE WOULD CALL AFTER 8 AM, WAS TOLD TO CALL THE [phone], REQUEST MEDICAL FLOOR, AND THIS RN WILL PASS TO THE DAY CHARGE, AND BUSINESS ANALYST INTERN THE PLAN FOR SUNDAY.
--- NOTE | 2020-02-25 23:45 | NUR ---
WITH HELP FROM BK GARNICA, PT REPOSITIONED AND BOOSTED IN BED. PT SWEATY TO THE TOUCH, CLEANED WITH COOL CLOTH. REPEAT TEMP AFEBRILE, 98.7 AXILLARY. WILL MONITOR. EXCESS BLANKETS REMAIN OFF, PT HAS SHEET. HOB REMAINS ELEVATED FOR EASE OF BREATHING. RESPIRATIONS REMAINS SOMEWHAT LABORED, BUT APPEAR TO BE IMPROVING, WILL MONITOR. PT ASSISTED TO LEFT LATERAL WITH USE OF PILLOWS PER REQUEST. LUNG SOUNDS CLEAR. CALL LIGHT IN REACH, LIGHTS TURNED OFF TO PROMOTE REST.
--- NOTE | 2020-02-26 01:11 | NUR ---
PT RESTING IN BED WITH EYES CLOSED, RESPIRATIONS SHALLOW, RR APPROX. 36. 4LNC IN PLACE, O2 SAT 94%. 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 CALL LIGHT IN REACH.
--- NOTE | 2020-02-26 02:02 | NUR ---
THIS RN IN ROOM AFTER PT WAVED RN IN. ASSISTED WITH URINAL, 275MLS OUTPUT NOTED. IV FLUIDS INFUSING, SITE REMAINS WNL. VIA INTERPRETOR, PT REQUESTING BLANKET, BLANKET GIVEN. PT DENIES ADDITIONAL NEEDS. DENIES PAIN, SOB, DIFFICULTY BREATHING. O2 SAT 92% ON 4LNC W/ HUMIDIFIER. CALL LIGHT IN REACH.
--- NOTE | 2020-02-26 03:42 | NUR ---
THIS RN IN ROOM TO PLACE O2 PROBE ON FINGER. O2 SAT 93% ON 4LNC, RR 32. NO RETRACTIONS OR DISTRESS NOTED. PT RESTING QUIETLY IN BED WITH EYES CLOSED. AWAKENS TO VOICE, ATTEMPTED TO VOID VIA URINAL. UNSUCCESSFUL. NO ADDITIOANL NEEDS, CALL LIGHT IN REACH.
--- NOTE | 2020-02-26 04:34 | NUR ---
PT CALLED, ASSISTED WITH USE OF URINAL. NO FURTHER NEEDS, 4LNC IN PLACE, O2 SAT IN LOW 90'S. NO FURTHER NEEDS, PT ASSISTED WITH POSITIONING. CALL LIGHT IN REACH.
--- NOTE | 2020-02-26 05:55 | NUR ---
ASSESSMENT COMPLETE, NO NEW CHANGES OR CONCERNS. PT A/O TO SELF, PLACE, AND EVENTS. REORIENTED TO DATE, INTERPRETOR USED FOR COMMUNICATION. VSS, PT AFEBRILE. IV SITE WNL, FLUIDS INFUSING AT 125MLS/HR. PT DENIES PAIN AND NAUSEA. LAB DRAW COLLECTED AND SENT TO LAB. PT DENIES FURTHER NEEDS, CALL LIGHT IN REACH.
--- NOTE | 2020-02-26 07:42 | NUR ---
MESSAGE SENT TO DR VALE REGARDING UPDATE ON RR AND TEMP. DAYSHIFT BK MASON WHO IS TAKING OVER CARE OF PT UPDATED ON STATUS OF REMDESIVIR CONSENT AND THAT FAMILY IS GOING TO DISCUSS MEDICATION WITH DR VALE THIS AM. WILL LEAVE UNFINISHED CONSENT ON PT'S CHART, UNTIL ISSUE IS RESOLVED. BK MASON AWARE.
--- NOTE | 2020-02-26 09:59 | NUR ---
ASSESSMENT COMPLETED. UNABLE TO AUSCULTATE DUE TO PAPR USE. DENIES PAIN. RESPIRATIONS UNLABORED AT THIS TIME. REMAINS ON OXYGEN PER NC. CALL LIGHT IN REACH. BED RAILS UP X2. REFUSES BREAKFAST WHEN ATTEMPTS TO ASSIST TO EAT. TAKES MEDICATIONS WITHOUT DIFFICULTY. ANSWERS QUESTIONS APPROPRIATELY, IN CHILEAN, WHEN ASKED IN CHILEAN.
--- NOTE | 2020-02-26 10:56 | NUR ---
VERBAL ORDER DR. VALE/Sarah GILLETTE RN FOR CONDOM CATHETER. SON INFORMED OF NEED FOR CONDOM CATHETER AND PROCEDURE FOR PLACEMENT, INFORMS PATIENT.
--- NOTE | 2020-02-26 11:14 | NUR ---
STANDING IN ROOM WHILE PATIENT TALKING TO FAMILY ON PHONE. STATES HE DOESN'T WANT THE MEDICATION FOR COVID TREATMENT. SPOKE WITH PATIENT'S SON ON THE PHONE WELL PER PATIENT REQUEST. SON STATES PATIENT DOES NOT WANT TO TAKE MEDICATIONS FOR COVID, WOULD STILL LIKE TO SPEAK WITH DR. VALE REGARDING PATIENT.
--- NOTE | 2020-02-26 11:53 | NUR ---
Condom catheter placed on patient. Incontinent of urine prior to application, periarea cleansed and clean brief placed on patient.
--- NOTE | 2020-02-26 15:25 | NUR ---
Utilized scorekeeper with Dr. Turner, patient and son on phone. Discussed medications and need for carolina catheter. Condom catheter slipped off, patient incontinent of urine. After phone conference, patient assist to bedside commode with 2 person assist. Continent of large stool. Returns to bed. Carolina catheter inserted, utilizing uroject. Tolerates without verbalizations of pain or signs of discomfort. Moved from patient room 114 to room 118 in bed. VS obtained, assessment completed. Unable to auscultate lungs due to PAPR. Completed incentive spirometer use 10 times, Able to get up to 750. Encouraged use of IS multiple times.
--- NOTE | 2020-02-26 18:03 | NUR ---
ASSISTED PATIENT WITH EATING DINNER. VITALS AND I&OS CHARTED. GARCIA EMPTIED. FACE, HANDS, NECK AND HEAD WIPED DOWN WITH WASHCLOTH. FRESH ICE WATER GIVEN 2 PA ASSIST IN REPOSITIONING PATIENT WITH RN. NO OTHER NEEDS AT THIS TIME.
--- NOTE | 2020-02-26 18:47 | NUR ---
IV CONVERTED TO SL. SITTING UP IN BED. VS OBTAINED. MEDICATIONS GIVEN, TAKES WITHOUT DIFFICULTY. CALL LIGHT IN REACH, BED RAILS X2.
--- NOTE | 2020-02-26 19:57 | NUR ---
IN BED, EQUATORIAL GUINEAN SPEAKING, COOP WITH ASSSESSMENT. WANTED WARM WATER TO RINSE BACK OF THROAT. ' I NEED TO GET RID OF THIS SICKNESS, YOU CAN GET RID OF BY TAKING WARM WATER, HONEY AND LEMON, IT HELPS WITH COUGH TOO". PT INSTRUCTED ABOUT COVID PRECAUTIONS AND THAT WARM WATER GARGLES DO NOT HELP, INSTRUCTED ON SCIENTIFIC AND NON SCIENTIF MISSCONCEPTIONS AND TX. OH, I STILL WANT WARM WATER, WARM WATER PROVIDED. TELE IN PLACE, O2 IN PLACE, RESP 30, NON FEBRILE AT THIS TIME. HELPS TURNING IN BED. DRY COUGH PRESENT. STILL ON ISOLATION PRECATUONS, COVID+. SL PATENT
--- NOTE | 2020-02-26 22:07 | NUR ---
All procedures exdplained in Haitian, stated understanding, on 3.5L NC O@. moist, non productive cough present. SL L arm patent. f/c care and HS care done. Visiting with family via phone. call light and warm fluids at his requests at hands reach. Pt has invomuntary hand tremors, tolerating sips of fluids given by RN. Continue on isolation precautions COVID+. COoperative. CBG 223 received 3 untis insulin sq.
--- NOTE | 2020-02-27 00:45 | NUR ---
HOB ELEVATED TO HIS COMOFRT, O2 3.5L NC IN PLACE, O2 SATS PER MONITOR RANGE FROM 88-94%, RESP 24 AT THIS TIME. CALL LIGHT, BED ALARM ON AND FLUIDSA T BEDSIDE, HIGH RISK FALL AND ASPIRATION PRECAUTIONS IN PLACE.
--- NOTE | 2020-02-27 02:05 | NUR ---
resting, eys closed. O2 3.5L NC, sats 88%, nasal prong repositioned. turns self in bed. call light at bedside. fall and aspiratin precautions in place continues on isolation precautions
--- NOTE | 2020-02-27 06:11 | NUR ---
Repositioned in bed, HOB elevated, Sats dropped to 84% on 3.5L NC, O2 increaed to 4L and after that and CDB several times, sats went up to 89%, currently satting at 89-90% on 4L, resp 26, denies sob with exertion. tolerating sips of warm water. Tessalon perles given per dry cough, Tylenol given per back and throat pain from coughing stated, all procedures and precautions explained in Armenian, stated understanding. f/c patent. Turned. tolerated well, call light, phone and fluids at bedside. Fall and aspiration precautions in place.
--- NOTE | 2020-02-27 07:10 | NUR ---
Recieved report from Luciano Car RN.
--- NOTE | 2020-02-27 09:57 | NUR ---
In to assess patient and give AM medications. Utilized interpretation line to discuss with patient proning and medications. Patient requests warm water to take meds and help cough. Warm water provided. Begins desaturation while this nurse at bedside to 84-85% on 4 L/min per NC. Turned to Right side. encouraged to deep breath and cough. Sats remain low, patient coughing as well. After increase O2 to 6L/min per NC. Patient begins to reach O2 sats of 92% on 6L/min per NC. Pulse of 77. Remains pink skin color and respirations 28. Dr. Turner at room, informed of increased demand for O2 and turning to right side at this time. Will lay on stomach after patient taken to bedside commode per request.
--- NOTE | 2020-02-27 10:30 | NUR ---
2PA TO BSC USING GAIT BELT AND BACK TO BED. RT IN ROOM. REFUSED BREAKFAST, SIPS ON WARM WATER. CALL LIGHT IN HAND.
--- NOTE | 2020-02-27 10:40 | NUR ---
RT in to assess patient. Patient pivots to bedside commode, then returns to bed. Call light in hand. Currently on Vapotherm as set by RT and sats have increased to 95%.
--- NOTE | 2020-02-27 11:08 | NUR ---
Currently lying in bed with head of bed elevated to 30 degrees. O2 sats 94% at this time. Eyes closed. No signs of discomfort at this time. Heartrate remains in the 70's at this time. Dr. Turner verbalizes need to encourage frequent use of IS when in room.
--- NOTE | 2020-02-27 11:34 | NUR ---
Working with PT at this time. O2 saturations remain in mid 90's at this time.
--- NOTE | 2020-02-27 11:45 | NUR ---
Begins to desat while working with PT. Sats mid to high 80's while on Vapotherm at 30LPM and 90%. RT notified. PT discontinued and patient in bed. Stating he is hungry. Discussed patient with RT and charge nurse regarding possible need for transfer to CCU due to activity intolerance and increasing need for supplemental oxygen. Jason Rodríguez, RN/Charge nurse discusses with Dr. Turner while this nurse in room, will be transferring to CCU bed.
--- NOTE | 2020-02-27 12:33 | NUR ---
Assisting to feed patient. Tolerating eating without desaturation. Remains on Vapotherm as previously state, settings remain unchanged at this time. O2 sats currently 94%.
--- NOTE | 2020-02-27 12:59 | NUR ---
Dr. Turner in to speak with patient. Utilize interpretor phone to discuss transfer to CCU. Also discussed patient's desire if he were to need a ventilator. Patient states "if he needs it, he will use it." Questions answered by Dr. Turner. Also discussed need for proning and educated patient on turning with nurse assistance. Patient verbalizes understanding and states he will do what is needed.
--- NOTE | 2020-02-27 13:25 | NUR ---
Transport patient in bed to CCU room 130 by this nurse. Report given to BK Small.
--- NOTE | 2020-02-27 13:45 | NUR ---
PATIENT ARRIVED TO THE CCU ROOM 130 VIA BED. REPOSITIONED PATIENT IN BED TO HIS SIDE. NO OTHER NEEDS AT THIS TIME. WILL START NEW ORDERES. PER REPORT PATIENTS RR BASELINE HAS BEEN 30-40'S SHALLOW AND TACHYPNIC. PATIENT DENEIS SOB AT REST. PATIENT ON VAPOTHERM AT 30L AND 90% ON ARRIVAL. TURNED DOWN TO 30L AND 75%. WILL CONTINUE TO TURN DOWN O2 PATIENT TOLERATES.
--- NOTE | 2020-02-27 15:00 | NUR ---
THIS RN UPDATED PATIENTS FAMILY OF HOW HE IS DOING. EDUCATED THAT PATIENT IS CONTINUING TO GET WORSE, EHICH IS WHY HE WAS TRANSFERED TO CCU. PATIENTS FAMILY DOES NOT SEEM TO UNDERSTAND PATIENTS CONDITION. EDUCATED THAT PATIENT IS STABLE, BUT IS CONTINUING TO SLOWLY GET WORSE EACH DAY AND IS NOT SHOWING IMPROVEMENTS. FAMILY ASKED STAFF WHEN WE THINK HE WILL BE ABLE TO COME HOME. AGAIN EDUCATED FAMILY WE HAVE NO IDEA WHEN THAT KEIRY BE, D/T THE FACT THAT AT THIS TIME HE IS CONTINUING TO GET WORSE AND NOT BETTER. FAMILY WOULD LIKE TO TALK WITH THE PATIENT. THIS RN WILL BE IN THE ROOM AND GET HIS PHONE SET UP. ALL OTHER QUESTIONS ANSWERED. WILL CONTINUE TO CLOSELY MONITOR.
--- NOTE | 2020-02-27 17:00 | NUR ---
THIS RN IN PATIENTS ROOM FOR MUNGUIA 2 HOURS. PATIENT VISITED WITH HIS FAMILY FOR ABOUT 30MINUTES. CALLED INTERPRETIVE SERVICES AND SPOKE WITH THEM PRIOR TO GIVING MEDICATIONS. PATIENTS ASSESSMENT COMPLETED. DINNER ORDERED. EDUCATED PATIENT HOW PRONING WORKS AND THEN 4 MEMBERS CAME INTO THE ROOM AND STAFF WERE ABLE TO REPOSITION INTO A PRONE POSITION. STAYED WITH PATIENT AND USED INTERPRETIVE SERVICE TO ENSURE PATIENT IS COMFORTABLE PRIOR TO STAFF LEAVING. THIS RN STAYED IN THE ROOM FOR 30 MINUTES ONCE PATIENT WAS ON HIS BELLY. PATIENT SEEMED TO TOELRATE WELL. PATIENTS SPO2 INCREASED TO 100% ONCE HE WAS ON HIS BELLY. GAVE PATIENT THE PUSH BUTTON CALL LIGHT FOR EASIER ACCESS TO CALLING STAFF. ALL QUESTIONS ANSWERED. WILL CONTINUE TO CLOSELY MONITOR.
--- NOTE | 2020-02-27 18:20 | NUR ---
STAFF IN ROOM TO REPOSITION PATIENT FROM HIS BELLLY TO HIS SIDE. PATIENT TOLERATED WELL. CALLED INTERPRUTIVE SERVICES TO ASSIST WITH TRANSLATION. PATIENT DENEIS ANY OTHER NEEDS AT THIS TIME. PATIENT STATES HE IS FELLING OKAY AT THIS TIME. DEONNA BARLOW IN HAND. WILL CONTINUE TO CLOSELY MONITOR.
--- NOTE | 2020-02-27 19:45 | NUR ---
PATIENT'S DINNER ARRIVED LATER THAN EXPECTED. EVENING ACCU CHECK AND SSI PROVIDED. PATIENT ASSISTED WITH EATING 100% OF HIS NOODLE AND VEGGIE DISH. DID NOT EAT THE DINNER ROLL. PATIENT TOLERATED WELL. DOES NOT APPEAR TO BE SOB. VS STABLE. ORAL TEMP WNL. PATIENT TOLERATING A MOSTLY SIDE LYING POSITION AT THIS TIME. FIELD PRODUCER NUMBER NOT WORKING AT THIS TIME. DIRECTOR OF PHYSICIAN PRACTICES CONTACTED.
--- NOTE | 2020-02-27 20:30 | NUR ---
VIA WRAP KNITTING MACHINE OPERATOR PHONE CALL PATIENT ASKING IF HE IS DOING BETTER OR WORSE. DISCUSSED PATIENT'S CURRENT O2 DEMANDS AND NEED FOR PRONE POSITION WHILE HIS BODY FIGHTS THE VIRUS. PATIENT WANTS TO KNOW HOW LONG. TOLD PATIENT THE TIME LINE IS UNKNOWN BUT HAS BEEN A SLOW PROCESS WITH OTHER PATIENTS. PATIENT VERBALIZED UNDERSTANDING. PATIENT REQUEST COUGH MEDS, WHICH WERE PROVIDED. DISCUSSED NEED FOR PRONING POSITION IN ABOUT AN HOUR. PATIENT AGREEABLE. NO FURTHER NEEDS AT THIS TIME. CALL BUTTON IN HAND.
--- NOTE | 2020-02-27 22:24 | NUR ---
SETTER AUTOMATIC SPINNING LATHE USED TO PROVIDED PATIENT WITH EVENING MEDS AND DISCUSSED PLAN TO PRONE. ALL QUESTIONS ANSWERED. PATIENT AGREEABLE TO PLAN. RT AND SUPERVISOR WHITE SUGAR ASSISTED THIS RN TO TURN PATIENT. PATIENT TOLERATED WELL. REPORTS BEING COMFORTABLE AND APPEARS SO. O2 SATS 93% ON VAPO THERM AT 25L WITH 65% Fi02. RR 40. IMPROVED TO O2 SAT OF 99% WITH RR 32. PATIENT PROVIDED WITH BUTTON CALL LIGHT IN HIS HAND AND INSTRUCTED TO USE CALL LIGHT. PATIENT VERBALIZED UNDERSTANDING.
--- NOTE | 2020-02-27 23:15 | NUR ---
PATIENT REPORTS DIFFICULTY SLEEPING IN PRONE POSITION AND REQUEST TO LAY ON HIS SIDE. DOCUMENTATION COORDINATOR USED TO DISCUSS OPTIONS WITH PATIENT. PATIENT REPOSITIONED TO RIGHT SIDE. REPORTS BEING COMFORTABLE. O2 SATS MAINTAINED GREATER THAN 88%. RR 40'S. PATIENT DENIES FEELING SOB. VS STABLE. CALL LIGHT IN HAND.
--- NOTE | 2020-02-28 02:15 | NUR ---
INTERPRETOR USED; PATIENT REPORTS PAIN IN HIS STOMACH AND HEAD. NO NAUSEA. PRN TYLENOL PROVIDED. ASSISTED PATIENT TO REPOSITION IN BED. PATIENT REPORTS FEELING THAT HE CANNOT BREATH WELL IN BED. ATTEMPTED TO GET PATIENT UP TO THE CHAIR AND PATIENT DECLINED. REPOSITIONED AGAIN TO LEFT SIDE WITH HOB ELEVATED. O2 SATS 89% WITH RR 45 ON VAPOTHERM AT 25L AND 65%. INCREASED TO 70% Fi02 AND PATIENT REPORTED BEING MORE COMFORTABLE. OR SATS IMPROVED TO 94% AND RR DECREASED TO 30S. PATIENT VERBALIZED UNDERSTANDING OF USING CALL LIGHT AND HAS CALL LIGHT IN HAND.
--- NOTE | 2020-02-28 04:24 | NUR ---
PATIENT CALLED VIA CALL LIGHT. NIGHT FILLER USED TO DISCUSS NEEDS. PATIENT REPORTS BEING HOT, ORAL TEMP. COOL WASH CLOTH APPLIED TO HIS FOREHEAD. PATIENT REPORTS BEING UNCOMFORTABLE. REPOSIITONED THE BED REQUESTED. PATIENT REPORTS DIFFICULTY SLEEPING DUE TO HIS COUGHING. PRN COUGH SYRUP PROVIDED. PATIENT APPEARS UNCOMOFRTABLE IN THE BED BUT DENIES ANY FURTHER POSITION CHANGES. O2 SAT 95% ON VAPOTHERM 25L 70% Fi02, RR 35-40. PATIENT HAS CALL LIGHT IN HAND. ENCOURAGED PATIENT TO CALL FOR ANY NEEDS AT ALL.
--- NOTE | 2020-02-28 06:20 | NUR ---
PATIENT APPEARS TO BE RESTING COMFORTABLY LAYING FLAT ON HIS BACK PER HIS REQUEST. SECOND IV SITE ESTABLISHED AND LABS DRAWN. PATIENT TOLERATED WELL. DENIED ANY NEEDS. VS STABLE. GARCIA EMPTIED. RR 25-30. 02 SAT 95% ON VAPOTHERM AT 25L AND 70% Fi02.
--- NOTE | 2020-02-28 07:30 | NUR ---
report recieved. PATIENT IS RESTFUL IN BED ON VAPOTHERM.
--- NOTE | 2020-02-28 08:23 | NUR ---
SLEEPING ON BACK, WILL DO ASSESSMENT AND ACCUCHECK WHEN BREAKFAST ARRIVES.
--- NOTE | 2020-02-28 08:40 | NUR ---
ACCUCHECK-235. 5 UNITS HUMULIN SQ GIVEN.
--- NOTE | 2020-02-28 09:00 | NUR ---
FED PATIENT APPROX 30% OF BREAKFAST. THEN OOB TO CHAIR WITH TOTAL ASSIST. IS VERY STIFF.
--- NOTE | 2020-02-28 09:10 | NUR ---
LANTUS 10 UNITS SQ GIVEN PER ORDERS.
--- NOTE | 2020-02-28 09:45 | NUR ---
TALKING WITH SON ON PHONE, IS ABLE TO HAVE LONG CONVERSATION ON THE PHONE W/O INCREASED SHORTNESS OF BREATH.
--- NOTE | 2020-02-28 10:15 | NUR ---
TO COMMODE WITH ASSIST. UNABLE TO HAVE BM. REQUESTING TO RETURN TO CHAIR. THIS DONE. PATIENT INDICATES HE IS FEELING BETTER TODAY. WAS ABLE TO STAND ON BOTH FEET TO TRANSFER BACK TO CHAIR. SPONGE GIVEN WHILE ON COMMODE.
--- NOTE | 2020-02-28 10:48 | NUR ---
REMAINS IN CHAIR. VAPOTHERM 25 L AT 70%. RESTING. IS W/O C/O.
--- NOTE | 2020-02-28 12:04 | NUR ---
WILL DO ASSESSMENT WHEN LUNCH TRAY ARRIVES. CONTINUES TO SIT IN CHAIR. DR. VALE HERE TO SEE PATIENT. HE TURNED FIO2 VIA VAPOTHERM TO 50%.
--- NOTE | 2020-02-28 12:08 | NUR ---
CURRENT SAT ON FIO2 AT 50% 91. REMAINS IN CHAIR.
--- NOTE | 2020-02-28 12:30 | NUR ---
FED PATIENT APPROX 80% 0F LUNCH.
--- NOTE | 2020-02-28 12:45 | NUR ---
TO COMMODE TO EXPELL LARGE SOFT FORMED STOOL. THEN TO BED. POSTIONED TO PRONE, WITH ASSIST OF 2 STAFF.
--- NOTE | 2020-02-28 13:00 | NUR ---
IN PRONE POSITION, O2 SAT ON 50%, 96. O2 TO 40%.
--- NOTE | 2020-02-28 14:00 | NUR ---
REMAINS PRONE. TOLERATING WELL.
--- NOTE | 2020-02-28 14:40 | NUR ---
REPOSITIONED TO BACK WITH HOB SLIGHTLY ELEVATED. DENEIS SHORTNESS OF BREATH.
--- NOTE | 2020-02-28 15:15 | NUR ---
O2 SATS ON BACK ON 40%, 87-88. FIO2 INCREASED TO 55%. WITH 25 L VIA OXYMASK.
--- NOTE | 2020-02-28 17:00 | NUR ---
NAPPING, NO CHANGES.
--- NOTE | 2020-02-28 18:10 | NUR ---
RESTING AFTER DINNER. REMAINS ON O2 VIA VAPOTHERM AT 25 L, 55%. GARCIA CATH PATENT. LAYING ON RIGHT SIDE.
--- NOTE | 2020-02-28 19:07 | NUR ---
TALKING TO SON ON PHONE. REPORT TO NEXT SHIFT. NO CHANGES.
--- NOTE | 2020-02-28 19:33 | NUR ---
SHIFT REPORT RECEIVED. PATIENT APPEARED TO BE TRYING TO PUT HIS NASAL CANULA BACK INTO PLACE. O2 SATS 84% ON ROOM AIR. RN ENTERED ROOM TO ASSIST PATIENT. O2 SATS IMPROVED QUICKLY TO >88% ON THE 55% Fi02 VIA VAPOTHERM. PATIENT DENIED ANY NEEDS. CALL LIGHT IN REACH.
--- NOTE | 2020-02-28 20:45 | NUR ---
ASSITED PATIENT TO ANSWER PHONE CALL FROM HIS SON
--- NOTE | 2020-02-28 21:30 | NUR ---
WASH OIL COOLER OPERATOR USED. PATIENT REPORTS NEED TO HAVE A BM. ASSISTED PATIENT TO STAND PIVOT TO THE BSC. PATIENT PASSED SOME GAS AND HAD A SMEAR OF BM. NEW [place]OWN AND ATTENDS PROVIDED. PATIENT RETURNED TO BED. COUGH MEDS AND SCHEDULED MEDS PROVIDED. PATIENT TURNED TO LEFT SIDE. TOLERATING VAPOTHERM AT 25L WITH 55% Fi02, O2 SAT 88% AND RR 40. THIS ACCEPTABLE PER MD ORDERS TO KEEP Fi02 MINIMAL TO MAINTAIN O2 SAT OF 88%. PATIENT'S LUNGS ARE CLEAR IN UPPER LOBES AND LLL. CRACKLES NOTED IN RLL. URINE OUTPUT IMPROVED, GARCIA EMPTIED. PATIENT HAS CALL LIGHT IN REACH.
--- NOTE | 2020-02-29 00:47 | NUR ---
PATIENT HAS APPEARS TO BE SLEEPING SOUNDLY. O2 SAT CONSISTENTLY 86-89% ON VAPOTHERM AT 25L 55% Fi02. INCREASED Fi02 TO 60%. TURNED PATIENT TO HIGH RIGHT SIDE. PATIENT TOLERATED WELL. WOKE ONLY BREIFLY. ALLOWED PATIENT TO REST. CALL LIGHT IN HAND. RR 30'S.
--- NOTE | 2020-02-29 02:20 | NUR ---
PATIENT HAD MOVED HIMSELF MOSTLY ONTO HIS BACK. APPEARED TO BE SLEEPING WELL. O2 SATS CONSISTENTLY 86-87%. RR 35. RN TURNED PATIENT ONTO HIGH RIGHT SIDE. O2 SATS IMPROVED TO 93%, PATIENT DENIED ANY NEEDS. VAPOTHERM 25L 60% Fi02.
--- NOTE | 2020-02-29 05:15 | NUR ---
MORNING LABS DRAWN. PATIENT HAD WORKED HIMSELF ONTO HIS BACK AND AGAIN HAD O2 SATS IN 85-87% RANGE. TURNED PATIENT TO HIGH LEFT SIDE. SATS IMPROVED. PATIENT CONTINUES ON THE VAPOTHERM WITH 25L AND 60% Fi02. CAR SWEEPER USED; PATIENT REPORTS FEELING RESTED THIS MORNING. ASK THAT STAFF ORDER HIS BREAKFAST AND HE IS NOT SURE WHAT HE WOULD LIKE. PATIENT'S LEFT EYE APPEARS MORE RED THIS MORNING. WARM WASH CLOTH USED TO APPLY WARM PRESSURE AND EYE FLUSHED. PATIENT REPORTS MILD PAIN IN THIS EYE. MESSAGE SENT TO . VS STABLE. PATIENT PROVIDED WITH COUGH SYRUP AND SIPS OF WARM WATER. NO FURTHER NEEDS AT THIS TIME.
--- NOTE | 2020-02-29 07:30 | NUR ---
REPORT RECIEVED. PATIENT IS SLEEPING IN BED TURNED TO LEFT SIDE ON VAPOTHERM AT 60% FIO2 AND 25 LITERS. NO DISTRESS NOTED.
--- NOTE | 2020-02-29 08:00 | NUR ---
WOKE PATIENT FOR ASSESSENT AND ACCUCHECK. ACCUCHECK-224, 5 UNITS INSULIN SQ GIVEN WELL LANTUS 20 UNITS SQ. AFTER ASSESSMENT ASSISTED PATIENT OOB TO CHAIR. ROUTINE MEDICATIONS GIVEN. TYLENOL 500 MG PO GIVEN FOR OVERALL COMFORT.
--- NOTE | 2020-02-29 08:15 | NUR ---
ENC USE OF I.S. VERY POOR TECHNIQUE. LEFT EYE REMAINS RED AND IRRITATED.
--- NOTE | 2020-02-29 09:00 | NUR ---
FED PATIENT 85% OF BREAKFAST. TOOK ENSURE WELL. O2 SATS VARY FROM 88-92 ON 60% FIO2. SHAVE GIVEN, BED LINEN CHANGED.
--- NOTE | 2020-02-29 09:15 | NUR ---
TALKING WITH SON ON PHONE. JOSE RASHID PATENT. REMAINS IN CHAIR.
--- NOTE | 2020-02-29 11:14 | NUR ---
REMAINS IN CHAIR, RESTFUL. NOT CHANGES IN VAPOTHERM SETTINGS.
--- NOTE | 2020-02-29 13:00 | NUR ---
FED PATIENT 100% OF LUNCH. TOLERATED WELL. WISHES TO REMAIN IN CHAIR.
--- NOTE | 2020-02-29 14:30 | NUR ---
SLEEPING IN CHAIR.
--- NOTE | 2020-02-29 15:00 | NUR ---
ASSISTED BACK TO BED, NOW IN PRONE POSITION. UPON PLACING IN PRONE O2 SAT UP TO 99. FIO2 DECREASED TO 40%. WILL CONTINUE TO MONITOR SATS.
--- NOTE | 2020-02-29 16:06 | NUR ---
IZZY IN PRONE POSITION. O2 SAT94.
--- NOTE | 2020-02-29 16:30 | NUR ---
OUT OF PRONE POSITION TO COMMODE TO EXPELL LARGE SOFT STOOL. ACCUCHECK 273. INSULIN 7 HUMULIN UNITS GIVEN WELL 3 UNITS OF REG HUMALOG. ROUTINE MEDICATIONS GIVEN. FIO2 INCREASED TO 60%, NOW NOT IN PRONE POSITION.
--- NOTE | 2020-02-29 18:00 | NUR ---
FED BY JEWEL STRIPPER. TOLERATED DINNER WELL. SITTNG UP IN BED.
--- NOTE | 2020-02-29 19:30 | NUR ---
SHIFT REPORT RECEIVED. PATIENT RESTING IN BED. HOB ELEVATED. PATIENT APPEARS COMFORTABLE. RR 25, O2 SATS 92% ON VAPOTHERM AT 25L 60% Fi02. CALL LIGHT IN REACH.
--- NOTE | 2020-02-29 21:15 | NUR ---
PATIENT PROVIDED WITH EVENING MEDICATIONS. DENIES NEED FOR GOAT HERDER AT THIS TIME. PATIENT HAS HARSH COUGH. LUNG SOUNDS ARE CLEAR. RR 30'S. O2 SAT 92% ON VAPOTHERM AT 25 AND 60% Fi02. PATIENT PROVIDED WITH PRN COUGH MEDS. FACE WASHED WITH WARM WASH CLOTH. WARM CLOTH APPLIED TO EYES. EYES APPEAR LESS IRRITATED AT THIS TIME. RECENTLY EYE DROPS WERE APPLIED. GARCIA EMPTIED, GOOD URINE OUTPUT. IV FLUSHED WNL. ACCU CHECK, BLOOD GLUCOSE >300. 9 UNITS PROVIDED PER SLIDING SCALE. PATIENT ASSISTED TO TURN ONTO LEFT SIDE PER REQUEST. ASSISTED IN DIALING SON'S PHONE NUMBER. LIGHTS DIMMED. PATIENT ON PHONE WITH HIS SON AND HAS CALL LIGHT IN HAND.
--- NOTE | 2020-02-29 21:42 | NUR ---
THIS ICE CREAM SERVER ASSISTED RN TO REPOSITION PATIENT. PATIENT ROTATED ONTO HIS LEFT SIDE, RN AT BEDSIDE.
--- NOTE | 2020-03-01 01:15 | NUR ---
PATIENT SLEEPING SOUNDLY. O2 SATS 86%. PATIENT HAD TURNED HIMSELF ONTO HIS BACK. TURNED PATIENT ONTO LEFT SIDE. O2 SATS IMPROVED TO 90% ON VAPOTHERM AT 25L AND 60% Fi02. WATER OFFERED, PATIENT DECLINED. DENIES ANY NEEDS. CALL LIGHT IN REACH.
--- NOTE | 2020-03-01 04:15 | NUR ---
PATIENT SLEEPING SOUNDLY. TURNED PATIENT TO RIGHT SIDE. WATER PROVIDED. TOLERATING VAPOTHERM. VS STABLE.
--- NOTE | 2020-03-01 08:00 | NUR ---
ASSESSMENT DONE. UP TO COMMODE, UNABLE TO HAVE BM. ACCUCHECK 150, ROUTINE INSULIN AND 3 UNITS OF SS INSULIN GIVEN. TAKES PO MEDS WELL. DENIES SHORTNESS OF BREATH. REMAINS ON VAPOTHERM AT 25 L AND 60%. WHILE PATIENT ON COMMODE, SPONGE BATH GIVEN.
--- NOTE | 2020-03-01 09:00 | NUR ---
IN CHAIR, FED PATIENT 70% OF BREAKFAST. GARCIA CATH IS PATENT. MEI URINE NOTED. TYLENOL GIVEN EARLIER FOR GENERAL COMFORT.
--- NOTE | 2020-03-01 10:30 | NUR ---
REMAINS IN CHAIR. DENIES PROBLEMS. NO CHANGES.
--- NOTE | 2020-03-01 12:00 | NUR ---
OOB TO COMMODE TO EXPELL VERY LARGE SOFT STOOL. THEN TO CHAIR FOR LUNCH. FED SELF SANDWICH, AND SOUP. ACCUCHECK 185. HUMALOG 5 UNITS SQ AND HUMULIN 3 UMITS.
--- NOTE | 2020-03-01 13:00 | NUR ---
BACK TO BED WITH ASSIST. THEN BACK OOB PATIENT STATES HE IS UNCOMFORTABLE, BACK TO CHAIR. O2 DECREASED TO 55 FROM 60.
--- NOTE | 2020-03-01 14:17 | NUR ---
BECAUSE OF PRECAUTIONS, UNABLE TO VISIT WITH PT. WILL RESPOND NEEDED
--- NOTE | 2020-03-01 15:22 | NUR ---
REMAINS IN CHAIR. UPON TALKING WITH PATIENT ABOUT GOING TO BED, HE INDICATES HE WANTS TO STAY IN THE CHAIR. ENC USE OF I.S. HAS VERY POOR TECHNIQUE.
--- NOTE | 2020-03-01 17:00 | NUR ---
O2 SATS 0N 60 % VA VAPOTHERM 95. PATIENT IS SITTING IN CHAIR. FIO2 DECREASED TO 40. WILL CONTINUE TO MONITOR O2 SATS, AND TITRATE ACCORDINGLY.. ACCUCHECK 212 5 UNITS HUMALOG, 3 UNITS HUMULIN. HAS OCC DRY COUGH. L EYE CONTINUES TO LOOK IRRITATES WITH LIGHT FILM OVER IT. EYE GTT HAVE BEEN INSTILLED.
--- NOTE | 2020-03-01 19:25 | NUR ---
REPORT RECEIVED FROM BK BURNS. pt UP IN CHAIR, SPO2 91-92% ON VAPOTHERM 50% 25L. PERSONAL SUPPLIES IN REACH.
--- NOTE | 2020-03-01 22:33 | NUR ---
pt SLEEPING IN CHAIR, SPO2 86% ON VAPOTHERM 50% FIO2, 25L. INCREASED TO 55% FIO2, SATURATIONS WNL. pt DENIES PAIN, DENIES SOB. C/O COUGH. PRN COUGH MEDICATION ADMINISTERED WITH SCHEDULED MEDICATION. ORAL CARE COMPLETE BY pt. CATHETER CARE COMPLETE. GARCIA EMPTIED. 1PA TO BED WITH FWW, SLOW GAIT. pt COMPLIANT TO SIDE LIE AT THIS TIME. PERSONAL SUPPLIES IN REACH. PHONE CALL FROM SON WHILE RN IN ROOM, pt VISITING WITH SON. PHONE INTERPRETIVE SERVICES UTILIZED. CALL LIGHT IN HAND. LIGHTS OFF IN ROOM.
--- NOTE | 2020-03-01 23:35 | NUR ---
pt APPEARS TO BE SLEEPING, RESTING ON BACK AT THIS TIME, SPO2 90% WITH VAPOTHERM 25L AT 55% FIO2. RR 28.
--- NOTE | 2020-03-02 01:11 | NUR ---
pt RESTING IN BED WITH EYES CLOSED, RR 22. SPO2 90% ON VAPOTHERM.
--- NOTE | 2020-03-02 01:50 | NUR ---
SPO2 MAINTAINING AT 87% ON CONT. PULSE OX MONITOR. pt COUGHING, RESTING IN BED WITH EYES CLOSED. AWAKENS TO VOICE. PRN MEDICATION ADMINISTERED FOR COUGH. VAPOTHERM OUT OF ONE NARE, REPOSITIONED, SPO2 INCREASES TO 92%. pt ASSISTED TO REPOSITION IN BED. GARCIA EMPTIED. DRINKS OF WATER PROVIDED. CALL LIGHT IN REACH. LIGHTS OFF IN ROOM.
--- NOTE | 2020-03-02 04:04 | NUR ---
pt RESTING IN BED WITH EYES CLOSED, RR 30, 89% ON VAPOTHERM. LIGHTS OFF IN ROOM.
--- NOTE | 2020-03-02 05:40 | NUR ---
SPO2 DECREASES LOW 83% ON 25L OXYGEN, 50% VAPOTHERM, TITRATED TO 40L OXYGEN, 65% VAPOTHERM, SATURATIONS INCREASE TO 87% SPO2. pt REPOSITIONED TO SIDE, PULSE OXIMETER PROBE CHANGED, ATTEMPT AT IS USE, 250 ML BEST EFFORT, NO INCREASE IN SPO2. pt REPOSITIONED WITH TWO RN ASSIST TO PRONE POSITION, SPO2 INCREASES TO 93-94% SPO2 WITH TITRATION OF VAPOTHERM DOWN TO 30L, 65% FIO2. TELEPHONE INTERPRETIVE SERVICES UTILIZED, EDUCATION PROVIDED, pt COMPLIANT. RN REMAINS IN ROOM.
--- NOTE | 2020-03-02 05:49 | NUR ---
VAPOTHERM TITRATED TO 25L, 65% FIO2 AT THIS TIME. pt REMAINS IN PRONE POSITION, RR 36. SPO2 92%. GARCIA EMPTIED. CALL LIGHT IS IN REACH.
--- NOTE | 2020-03-02 06:25 | NUR ---
CALL LIGHT ANSWERED. pt STATES TO ARTISTIC ASSOCIATE "I'M TIRED". TWO RN ASSIST TO SIDE LYING POSITION, pt SATURATIONS 85%. 2PA TO CHAIR. SPO2 INCREASES TO 89-90% ON 40L 75% FIO2. pt DENIES SOB. RESTING IN CHAIR WITH EYES CLOSED. GARCIA DRAINING YELLOW URINE.
--- NOTE | 2020-03-02 08:49 | NUR ---
IN PATIENT'S ROOM FOR ASSESSMENT AND VITALS AND MEDS. PT SITTING IN CHAIR. RT WAS IN PRIOR TO THIS RN AND INCREASED FI02 TO 100% and 40 L FLOW ON VAPOTHERM. RR ELEVATED, MID TO UPPER 30s-40. HARDWOOD FLOOR REFINISHER PHONE USED FOR MORNING ASSESSMENT. PT DENIES PAIN, AND ALSO DENIES FEELING SHORT OF BREATH. WHEN ASKED HOW HE WAS FEELING, PATIENT STATES, "I FEEL FINE. I FEEL GOOD COMPARED TO YESTERDAY." CBG 97 THIS AM. RT NOW BACK IN ROOM AND COLLECTING ABG. LUNGS UNABLE TO BE LISTENED TO DUE TO PAPR. PT TO GET BACK INTO BED AFTER BREAKFAST. WILL CONTINUE TO MONITOR CLOSELY.
--- NOTE | 2020-03-02 09:41 | NUR ---
BACK IN PATIENT'S ROOM. PT TALKING ON THE PHONE WITH HIS FAMILY. BED LINEN CHANGED. ABG RESULTS BACK. SP02 IS ONLY 89% ON VAPOTHERM 100% AND 40 L.
--- NOTE | 2020-03-02 10:33 | NUR ---
DR. BEARD IN ROOM AND SEES PATIENT. POLITICAL ANTHROPOLOGIST PHONE USED. CPAP SET UP WITH RT. DISCUSSED PATIENT'S REASONING FOR NOT WANTING THE ANTIVIRAL MEDICATION AND PATIENT STATES, "I DID NOT WANT IT BECAUSE IT WOULD AFFECT MY DIABETES." PATIENT THEN ASKS US TO DISCUSS THIS MORE WITH HIS FAMILY. DR. BEARD ALSO DISCUSSING ADVANCE DIRECTIVES WITH PATIENT, AND AGAIN HE DEFERS US TO DISCUSS MORE WITH HIS FAMILY. PT BACK INTO BED ON CPAP NOW, LAYING ON LEFT SIDE. CALL LIGHT WITHIN REACH. WILL CONTINUE TO MONITOR.
--- NOTE | 2020-03-02 10:43 | NUR ---
PATIENT ON CPAP WITH SETTINGS OF 12 AND FI02 OF 55%. PT'S OXYGEN NOW UP TO 100% ON THIS, LAYING ON LEFT SIDE. CONTINUE TO MONITOR.
--- NOTE | 2020-03-02 12:15 | NUR ---
IN PATIENT'S ROOM FOR ASSESSMENT. PT BACK ON VAPOTHERM AT 40 L AND 90%. PT HELPED TO GET INTO PRONE POSITION AND NOW RESTING IN THIS POSITION, WITH PILLOWS UNDERNEATH. SP02 100% ON THIS AT THE MOMENT. SP02 MOVED TO RIGHT RING FINGER HAND. IV REMDESIVIR STARTED. PT'S FAMILY GAVE VERBAL CONSENT ON THE PHONE.
--- NOTE | 2020-03-02 13:11 | NUR ---
PATIENT OUT OF PRONE POSITION AT 1300 AND NOW LAYING ON RIGHT SIDE. SP02 IS 95% WITH 40 L FLOW AND 90% FI02 VAPOTHERM. PT DENIES WANTING LUNCH TODAY. WILL CONTINUE TO MONITOR.
--- NOTE | 2020-03-02 13:25 | NUR ---
PT UNDER PRECAUTIONS, WILL BE AVAILABLE NEEDED
--- NOTE | 2020-03-02 15:03 | NUR ---
PHYS THERAPY WORKING WITH PATIENT AT THIS TIME. BOTTLE GAUGER PHONE USED AND PATIENT'S QUESTIONS ANSWERED BEST POSSIBLE. PT UP TO CHAIR WITH PT AND THIS RN. PT TAKES MEDICATIONS AND ALSO TAKES COUGH MEDICINE, HE STATES HIS COUGH IS WHAT IS HURTING HIM THE MOST. PT ALSO BROUGHT SOME LUNCH TO EAT AT THIS TIME.
--- NOTE | 2020-03-02 15:25 | NUR ---
PATIENT REMAINS SITTING UP IN CHAIR AT THIS TIME AND HAS FINISHED HIS GRILLED CHEESE SANDWICH. PATIENT CURRENTLY SP02 IS 97% ON 85% FI02. PT WORKED WITH PHYSICAL THERAPY WELL. WILL CONTINUE TO LET PATIENT SIT IN CHAIR FOR A LITTLE WHILE LONGER.
--- NOTE | 2020-03-02 16:12 | NUR ---
PATIENT RESTING IN CHAIR AT THIS TIME WITH EYES CLOSED. SP02 IS 96%, RR 29-30, HR IN THE 70s. WILL TAKE TEMP AND BP NEXT TIME IN ROOM TO SEE PATIENT. PT DOES NOT APPEAR TO BE IN ANY RESPIRATORY DISTRESS.
--- NOTE | 2020-03-02 16:52 | NUR ---
IN PATIENT'S ROOM FOR ASSESSMENT AND MEDICATIONS. ICELANDIC SPEAKING CAREGIVER IN ROOM WITH THIS RN TO HELP TRANSLATE. DINNER ORDERED FOR PATIENT, BUT NOT UNTIL AROUNS 1800 PATIENT ATE A LATE LUNCH. PT REMAINS SITTING IN CHAIR. PT STATES HE FEELS BETTER THAN EARLIER TODAY. PT'S OXYGEN LEVELS HAVE BEEN BETTER THIS AFTERNOON. PT AGREES TO WEAR CPAP AGAIN THIS AFTERNOON FOR A WHILE UNTIL HIS DINNER COMES. CURRENT CPAP SETTINGS ARE 10 AND 55% FI02. SP02 IS 97% AT THIS TIME AND RR IS 35. BED BATH GIVEN AND GARCIA CATHETER CARE PROVIDED. PT REMAINS RESTING IN CHAIR. WILL BRING PT'S DINNER IN AND CHECK BLOOD SUGAR WHEN DINNER ARRIVES.
--- NOTE | 2020-03-02 18:29 | NUR ---
IN ROOM FOR DINNER AND CBG - 323 AND 9 + 3 UNITS GIVEN PER EMAR. PT EATING. PT'S SON SHANTA GIVEN UPDATE ON PHONE. PT ON VAPOTHERM AT 75% AND 40 L, WIHT SP02 OF 94% AT THIS TIME. RR STILL ELEVATED AT HIGH 28-35. CONTINUE TO MONITOR.
--- NOTE | 2020-03-02 18:54 | NUR ---
FI02 TURNED DOWN TO 70% WHILE IN PATIENT'S ROOM LAST. PT ON PHONE WITH HIS SON SHANTA FOR ABOUT 15 MINUTES, AND ABLE TO TALK WITHOUT SEEMING SHORT OF BREATH. CONTINUE TO MONITOR.
--- NOTE | 2020-03-02 19:30 | NUR ---
REPORT RECEIVED FROM BK VELARDE. pt UP IN CHAIR, VAPOTHERM 40L 70% IN PLACE. SPO2 99% AT THIS TIME, CALL LIGHT IN REACH.
--- NOTE | 2020-03-02 21:30 | NUR ---
pt AWAKE, SITTING IN CHAIR. ALERT AND ORIENTED TO ALL. DENIES SOB, DENIES PAIN. C/O COUGH, PRN MEDICATION ADMINISTERED. WARM WATER PROVIDED. CBG 283, SS INSULIN ADMINISTERED ORDERED. GARCIA EMPTIED, YELLOW URINE. VSS, SPO2 WNL ON VAPOTHERM 40L, 79% FIO2. pt REQUESTING TO SIT UP IN CHAIR. PHONE CALL FROM SON SHANTA. FAMILY TO BRING IN EYE DROPS FOR pt TOMORROW. CALL LIGHT IN REACH.
--- NOTE | 2020-03-02 22:15 | NUR ---
PHONE CALL FROM FAMILY STATING pt REQUESTS RN BACK IN ROOM HE IS NOW OFF PHONE. RN IN ROOM, ORAL CARE COMPLETE BY pt. 1PA WITH FWW TO BED FROM CHAIR. pt TOLERATED WELL, MINIMAL ASSIST WITH LEGS INTO BED. GARCIA CARE COMPLETE. RN REPOSITIONED pt TO LEFT SIDE LYING POSITION. VAPOTHERM IN PLACE 40 L, 70% FIO2. CALL LIGHT AND PERSONAL SUPPLIES IN REACH.
--- NOTE | 2020-03-02 23:18 | NUR ---
CHECKED ON pt, RESTING IN BED WITH EYES CLOSED, pt HAS SHIFTED TO BACK. SPO2 92% ON VAPOTHERM. CALL LIGHT IN REACH.
--- NOTE | 2020-03-03 00:47 | NUR ---
pt SHIFTING IN BED, EYES CLOSED, APPEARS ASLEEP, GARCIA APPEARS TAUT. RN IN ROOM, STAT LOCK NOT IN PLACE, REINFORCED. GARCIA DRAINING CLEAR YELLOW URINE, EMPTIED. pt REPOSITIONED IN BED TO RIGHT SIDE, SPO2 93% ON VAPOTHERM. RR REMAINS TACHYPNIC. pt DENIES PAIN OR ADDITIONAL NEEDS. CALL LIGHT IN HAND, PERSONAL SUPPLIES IN REACH.
--- NOTE | 2020-03-03 02:06 | NUR ---
pt RESTING IN BED, SPO2 95% ON VAPOTHERM 40L, 75% FIO2. CALL LIGHT IN REACH.
--- NOTE | 2020-03-03 03:12 | NUR ---
CALL LIGHT ANSWERED. INTERPRETIVE SERVICES UTILIZED. pt COUGHING, PRN MEDICATION ADMINISTERED. pt C/O 02/19 PAIN IN LEGS, PRN TYLENOL ADMINISTERED. pt STATES "I WILL WAIT AND SEE IF THAT HELPS". ASSISTED TO REPOSITION TO LEFT SIDE. GARCIA DRAINING YELLOW URINE WNL. VAPOTHERM IN PLACE, SPO2 94%. DRINKS OF WARM WATER PROVIDED. CALL LIGHT AND PERSONAL SUPPLIES IN REACH. pt DENIES ADDITIONAL REQUESTS AT THIS TIME.
--- NOTE | 2020-03-03 03:57 | NUR ---
CHECKED ON pt. RESTING IN BED WITH EYES CLOSED. SPO2 96% ON VAPOTHERM. RR 29.
--- NOTE | 2020-03-03 05:00 | NUR ---
CHECKED ON pt. RESTING ON LEFT SIDE WITH EYES CLOSED, VAPOTHERM IN PLACE, SPO2 WNL.
--- NOTE | 2020-03-03 06:30 | NUR ---
pt RESTING IN BED WITH EYES CLOSED, GARCIA WITH YELLOW URINE IN BAG, DRAINING QS. VAPOTHERM 40L, 70% FIO2 IN PLACE, SPO2 IS 98% AT THIS TIME. RR 24.
--- NOTE | 2020-03-03 09:02 | NUR ---
IN PATIENT'S ROOM FOR ASSESSMENT, VITALS, MEDS, AND BREAKFAST. PT SLEEPING UPON ENTRY INTO ROOM. SP02 IS MAINTAINING AT 94-95% ON 40 L AND 70% FI02 VAPOTHERM. PT HELPED UP TO CHAIR FOR BREAKFAST AND TAKES ALL AM MEDICATIONS. PT NOW EATING HIS BREAKFAST AND ABLE TO FEED HIMSELF. GARCIA DRAINING YELLOW URINE. BED LINEN CHANGED. IV REMDESIVIR STARTED IN RIGHT FOREARM. RR AROUN D 30, WHICH IS IMPROVED FROM YESTERDAY. PT WILL WORK WITH PHYS THERAPY TODAY. LEFT ARM NOTED TO TREMOR MORE THAN RIGHT ARM. CONTINUE TO MONITOR.
--- NOTE | 2020-03-03 09:19 | NUR ---
AUDIT CLERKS SUPERVISOR PHONE USED AND PLAN OF CARE DISCUSSED WITH PATIENT FOR THE DAY. PT DENIES SHORTNESS OF BREATH AND STATES HE IS FEELING FINE BUT HIS COUGH IS BOTHERING HIM. COUGH MEDICATION TO BE GIVEN. PT AGREES TO WEAR THE CPAP THIS AM, WHICH WILL PLACE ON AFTER COUGH MEDICATION IS GIVEN. SP02 IS 87% SITTING IN CHAIR ON 70%.
--- NOTE | 2020-03-03 09:33 | NUR ---
PATIENT ON CPAP NOW WITH SETTINGS OF 10 AND 50%, BUT SP02 STILL HOVERING AROUND 88-89%. FI02 TO BE TURNED UP. PT RESTING IN CHAIR. PT TALKED WITH HIS FAMILY FOR A MOMENT ON THE PHONE PRIOR TO CPAP BEING PLACED ON.
--- NOTE | 2020-03-03 11:13 | NUR ---
IN PATIENT'S ROOM IV PUMP STARTS TO ALARM, IV REMDESIVIR FINISHED. BLOOD DRAWN FOR ROUTINE LABS AND SENT. IV IN LEFT ARM D/C, TIP INTACT. PT TOLERATED WELL. PT REMAINS RESTING ON CPAP AT THIS TIME. CONTINUE TO MONITOR.
--- NOTE | 2020-03-03 12:19 | NUR ---
PATIENT WORE CPAP FROM AROUND 0930- NOW, 2.5 HOURS. PT TOLERATED WELL. UP TO BSC NOW AND SP02 DOWN TO 81% WITH ACTIVITY. INCREASED VAPOTHERM SETTINGS TO 100% WHILE PATIENT MOVING AROUND. LUNCH IN ROOM. PLAN TO HAVE PATIENT LAY DOWN IN BED AFTER LUNCH AND PRONE AND LAY ON SIDES. CBG 291 - COVERED WITH APPROPRIATE INSULIN - SEE EMAR.
--- NOTE | 2020-03-03 12:38 | NUR ---
PATIENT NOT ABLE TO HAVE A BM. PT DENIES BEING HUNGRY AT THIS TIME. PT AGREES TO GET BACK INTO BED AND INTO PRONE POSITION. HELPED PATIENT WITH THIS. FI02 BEING TITRATED BACK DOWN ON VAPOTHERM. GOAL WILL BE FOR PATIENT TO PRONE LONG POSSIBLE. PT POSITIONED WITH PILLOWS. CALL LIGHT WITHIN REACH. [facility] SPECIALIST SERVICES USED TO DISCUSS WITH PATIENT.
--- NOTE | 2020-03-03 14:31 | NUR ---
PHYS THERAPY IN ROOM WITH PATIENT. PATIENT ON VAPOTHERM AT 80% AND 40 L, WITH CURRENT SP02 OF 91%.
--- NOTE | 2020-03-03 15:48 | NUR ---
PATIENT IS SLEEPING AT THIS TIME, RESTING ON HIS LEFT SIDE IN BED WITH PILLOWS SUPPORTING HIM. SP02 IS 92% ON VAPOTHERM AT 80% AND 40 L. RR IS 25 AT THIS TIME. WILL ALLOW PATIENT TO REST AND DEFER VITALS AND ASSESSMENT UNTIL PATIENT AWAKENS. CONTINUE TO MONITOR.
--- NOTE | 2020-03-03 16:40 | NUR ---
PATIENT GIVEN COUGH MEDICINE AND CPAP PLACED ON. PATIENT WANTING TO GET UP INTO CHAIR, BUT ENCOURAGED PATIENT TO LAY ON RIGHT SIDE NOW HE HAS BEEN LAYING ON LEFT SIDE. DR. BEARD IN ROOM TO SEE PATIENT. PT'S SON SHANTA ON THE PHONE AND HELPING WITH PATIENT'S INTERPRETATION. PT AGREES TO STAY ON SIDE FOR LONG HE CAN. FAMILY WANTING TO CALL TO TALK TO PATIENT AGAIN AROUND 1800. DINNER TO BE ORDERED FOR LATER THIS EVENING WELL, SINCE HE ATE LUNCH LATER.
--- NOTE | 2020-03-03 16:48 | NUR ---
PEEP MANEUVER PERFORMED 4 TIMES 30-45SECONDS OF [id number]. BO WELL FIO2 DECREASED FROM 60-45% POST.
--- NOTE | 2020-03-03 18:08 | NUR ---
IN PATIENT'S ROOM FOR OVER AN HOUR, ON THE PHONE WITH MEDICAL TECHNICIAN SERVICES. PATIENT NOT ABLE TO WEAR CPAP FOR MORE THAN 15 MINUTES DUE TO FEELING LIKE IT WAS SUFFOCATING HIM. PATIENT ALSO STATES WHILE ON THE [place] MEDICAL TECHNICIAN THAT HE FEELS FINE, THAT HE FEELS LIKE HE NEEDS TO GO OUTSIDE AND WALK AROUND HE IS NOT NORMALLY A PERSON WHO LAYS AROUND IN BED. PATIENT DOES NOT SEEM TO UNDERSTAND THAT HE IS REQUIRING SO MUCH OXYGEN. PATIENT STANDS IN ROOM AND WALKS SOME SMALL STEPS AROUND SIDE OF BED. PT NOW SITTING IN CHAIR AND EATING DINNER. PT'S SON SHANTA CALLED AND TRANSFERRED INTO ROOM TO TALK WITH PATIENT. GARCIA EMPTIED FOR 575 ML YELLOW URINE. PT WAS ON 100% FI02 AND 40 L FLOW WHILE WALKING AROUND IN ROOM. SHORTLY AFTER TURNED DOWN TO 90%. WILL CONTINUE TO MONITOR.
--- NOTE | 2020-03-03 19:08 | NUR ---
PATIENT CONTINUES TO HAVE A COUGH BUT IS NON PRODUCTIVE. PATIENT FINISHES HIS DINNER. PATIENT SPOKE ON THE PHONE WITH HIS FAMILY FOR ABOUT 45 MINUTES. PT HAS NOT SEEMED SHORT OF BREATH AT ALL DURING THE DAY. REPORT TO DIRECTOR INSTITUTION.
--- NOTE | 2020-03-03 21:02 | NUR ---
PATIENT PROVIDED WITH EVENING MEDS AND COUGH MEDS PER REQUEST. PATIENT IS SITTING IN RECLINER. USING OPS MANAGER; IT WAS DIFFICULT TO KNOW WHAT THE PATIENT WAS WILLING TO DO. AFTER SOME DIISCUSSION PATIENT REFUSED TO LAY PRONE BUT WAS WILLING TO WEAR CPAP FOR 1 HOUR. ON CPAP PATIENT REQUIRES 50% Fi02 TO MAINTAIN O2 SAT OF 88% AND GREATER. PATIENT RR IS 40. PATIENT DID STATE TODAY FEELS THE BEST HE HAS FELT. ATE 100% OF HIS DINNER AND FINISHED AN ENSURE. SSI PROVIDED PER ORDERS. PATIENT REPORTS PAIN IN HIS BACK AND JOINTS. DENIED PRN TYLENOL. CALL LIGHT IN HAND.
--- NOTE | 2020-03-03 21:45 | NUR ---
PATIENT'S SON CALLED. SPOKE WITH HIM ABOUT HIS UNDERSTANDING OF THE PRONING AND CPAP USE. PATIENT'S SON APPEARS TO UNDERSTAND EDUCATION PROVIDED BY LUIS A BOURGEOIS AND . ENCOURAGED HIM TO EXPLAIN THINGS TO HIS FATHER. SHANTA REPORTS THAT THE CPAP IS MORE DIFFICULT TO TOLERATE WHILE IN BED BUT PATIENT IS WILLING TO WEAR IT MORE WHILE UP IN CHAIR. SHANTA ALSO REPORTS THAT THE PATIENT HAS SAID HE WILL TRY TO LAY PRONE OR ON HIS SIDE MUCH POSSIBLE. FAMILY APPEARS TO HAVE GOOD UNDERSTANDING AND ARE ENCOURAGING THE PATIENT. PHONE TRANSFERED INTO THE ROOM. PATIENT TAKEN OFF CPAP AND PLACED ON VAPOTHERM. 40L AND 90% Fi02. PATIENT THEN SPOKE TO HIS SON. CALL LIGHT IN LAP.
--- NOTE | 2020-03-03 22:00 | NUR ---
PATIENT ASSISTED INTO BED. LAID HIMSELF ON HIS LEFT SIDE. APPEARS COMFORTABLE. TOLERATING VAPOTHERM, TITRATED TO 35L AND 90% Fi02. PATIENT RR 30'S. VS STABLE. GARCIA EMPTIED. PATIENT HAS CALL LIGHT IN HAND. DENIES NEEDS.
--- NOTE | 2020-03-04 00:20 | NUR ---
PATIENT CONTINUES TO REST ON HIS LEFT SIDE. O2 SAT 94% ON VAPOTHERM 35L AND 90% Fi02. TITRATED TO 30L AND 85% Fi02. RR 20'S. PATIENT APPEARS COMFORTABLE. CALL LIGHT IN HAND.
--- NOTE | 2020-03-04 02:13 | NUR ---
PATIENT HAS BEEN TOLERATING VAPOTHERM AT 30L 85% Fi02, RR 20 AND O2 SAT 91%.
--- NOTE | 2020-03-04 04:16 | NUR ---
PATIENT O2 SAT 88-90% ON VAPOTHERM AT 30L 80% Fi02. PATIENT HAD TURNED TO HIS BACK. ASSISTED PATIENT TO REPOSITION TO HIS RIGHT SIDE. O2 SAT CONTINUES TO BE 88-90%. PATIENT DECLINES PRONING AND CPAP AT THIS TIME. AGREES TO DO ONE OR THE OTHER IN THE MORNING. VS STABLE. CALL LIGHT IN HAND.
--- NOTE | 2020-03-04 05:56 | NUR ---
PATIENT ENCOURAGED INTO PRONE POSITION DUE TO O2 SATS 86-88%. PATIENT ABLE TO GET HIMSELF INTO PRONE WITH DIRECTIONS AND ASSISTANCE WITH LINES. PATIENT HAD DIFFICULTY AND RR INCREASED TO 40'S. O2 SATS IMPROVED TO 92% ON VAPOTHERM AT 30L 85% Fi02. PATIENT AGREES TO PRONE FOR LONG HE CAN TOLERATE BUT SAYS NO TO THE GOAL OF 1 HOUR. PATIENT HAS CALL LIGHT IN [facility].
--- NOTE | 2020-03-04 06:17 | NUR ---
PATIENT UNABLE TO TOLERATE PRONE POSITION. REPORTS PAIN IN HIS BACK AND NECK. ASSISTED PATIENT TO RIGHT SIDE. O2 SAT 90% ON VAPOTHERM 30L 85% Fi02, RR 35. PATIENT PROVIDED WITH COUGH MEDS AND WARM WATER. DENIES FURTHER NEEDS. AGREES TO SIT IN CHAIR WITH CPAP AFTER RESTING A LITTLE LONGER. ENCOURAGED PATIENT TO DEEP BREATH. CALL LIGHT IN HAND.
--- NOTE | 2020-03-04 07:08 | NUR ---
PATIENT REMOVED NC AND DESAT TO 80%. UNABLE TO IMPROVE SATS WITH VAPOTHERM IN A TIMELY MANNER. ASSISTED PATIENT UP TO RECLINER TO PLACE CPAP, PATIENT ONLY AGREEABLE TO CPAP WHILE IN CHAIR. CPAP Fi02 AT 60%. PATIENT'S SATS IMPROVED TO 94% AND RR 22 AFTER 5 MINS ON CPAP. PATIENT HAS CALL LIGHT IN HAND.
--- NOTE | 2020-03-04 07:30 | NUR ---
PATIENT SHIFT REPORT RECIEVED FROM STAVE BLOCK SPLITTER RN. PATIENT RESTING IN THE CHAIR WITH THE CPAP ON AT THIS TIME. CALL LIGHT IN HAND. NO FURTHER NEEDS AT THIS TIME. WILL CONTINUE TO CLOSELY MONITOR.
--- NOTE | 2020-03-04 10:00 | NUR ---
THIS RN HAS BEEN IN THE PATIENTS ROOM FOR OVER AN HOUR. PATIENT ASSESSMENT COMPLETED AND MEDICATIONS GIVEN WHILE USING THE VACUUM DRUM DRIER OPERATOR SERVICE. UPDATED PATIENT ON PLAN OF CARE AND THE MDS RECOMMENDATION OF TRYING TO PRONE MORE TODAY. UNABLE TO LISTEN TO PATIENTS BREATH SOUNDS, BOWEL SOUNDS, AND HEART TONES D/T PAPR. AL QUESTIONS ANSWERED. PATIENT EATING BREAKFAST AT THIS TIME. VAPOTHERM AT 40L AND 95% WHILE EATING. WILL CONTINUE TO CLOSELY MONITOR.
--- NOTE | 2020-03-04 11:30 | NUR ---
CALLED AND UPDATED SON SHANTA BECAUSE HE CALLED EARLIER TODAY. UPDATE GIVEN. IN TO PATIENTS ROOM TO LET SHANTA TALK TO PATIENT. NO OTHER NEEDS AT THIS TIME. WILL CONTINUE TO CLOSELY MONITOR.
--- NOTE | 2020-03-04 12:50 | NUR ---
PT IS UNDER PRECAUTIONS, WILL FOLLOW ABLE
--- NOTE | 2020-03-04 13:00 | NUR ---
THIS RN IN TO COMPLETE PATIENT ASSESSMENT. PATIENT TOELRATED WELL. ASSISTED PATIENT UP TO THE BED AND INTO THE PRONE POSITION. ENCOURAGED PATIENT TO STAY IN THIS POSITION FOR AN HOUR. PATIENT AGGREEABLE TO PLAN OF CARE. THIS RN ON THE PHONE WITH THE HANDLING TECH TO ASSIST PATIENT INTO THIS POSITION AND ANSWRE ALL QUESTIONS. CALL LIGHT IN PATIENTS HAND. NO OTHER NEEDS AT THIS TIME. WILL CONTINUE TO CLOSELY MONITOR.
--- NOTE | 2020-03-04 14:15 | NUR ---
PHYSICAL THERAPIST IN TO ASSIST PATIENT BACK INTO THE CHAIR. PATIENT STAYED IN THE PRONE POSITION FOR APPROX 1.5 HRS AND TOELRATED WELL. VAPOTHERM CURRENTLY AT 35LPM AND 85%. WILL CONTINUE TO CLOSELY MONITOR AND WEAN OXYGEN REQUIREMENTS APPROPRIATE.
--- NOTE | 2020-03-04 15:33 | NUR ---
PATIENT SITTING BACK IN THE CHAIR AT THIS TIME VISITING WITH HIS BROTHER ON THE PHONE. LUNCH PROVIDED. PRODUCTION PLANNING MANAGER ON THE PHONE PRIOR TO HIS BROTHER CALLING. ALL QUESTIONS ANSWERED. EDUCATED ABOUT HIS BLOOD SUGAR BEING ELEVATED D/T THE STEROID MEDICATION, BUT PATIENT DOES NOT SEEM TO UNDERSTAND. ALL OTHER QUESTIONS ANSWERED. PATIENT WORKED WITH PHYSICAL THERAPY PRIOR TO THIS RN ENTERING THE ROOM. WILL CONTINUE TO CLOSELY MONITOR. CALL LIGHT ON PATIENTS LAP.
--- NOTE | 2020-03-04 17:02 | NUR ---
PATIENTS DINNER ORDERED AND ASSESSMENT COMPLETED. PATIENT RESTING COMFORTABLY IN THE CHAIR AT THIS TIME. PATIENT DENEIS ANY NEEDS. WILL CONTINUE TO MONITOR.
--- NOTE | 2020-03-04 18:00 | NUR ---
THIS RN IN PATIENTS ROOM TO BRING HIM HIS DINNER. USED INTERPETER SERVICE AND ASSISTED PATIENT TO REPOSITION IN HIS CHAIR. PATIENT TOELRATED WELL. ALL QUESTIONS ANSWERED. NO OTHER NEEDS AT THIS TIME. WILL CONTINUE TO CLOSELY MONITOR.
--- NOTE | 2020-03-04 19:15 | NUR ---
SHIFT REPORT RECEIVED FROM SKIP BOURGEOIS. PT UP IN CHAIR, WATCHING TV. VAPOTHERM AT 30L, 80%. SPO2 92%. HR 66, RR 32. CALL LIGHT IN REACH.
--- NOTE | 2020-03-04 20:30 | NUR ---
ASSESSMENT, VS AND I&O COMPLETED. UNABLE TO ASSESS LUNG AND BOWEL TONES DUE TO PAPR. PULSES INTACT, CHRONIC NUMBNESS IN ALL EXTREMITIES. PT DENIES PAIN AT THIS TIME. IVs CDI, WNL, FLUSHED VIGORIOUSLY. SKIN WARM, DRY, HR SR @ 65. VAPOTHERM 30L @ 80%, SPO2 95%, HR 30. NO EDEMA NOTED. SCAB TO ANTERIOR LEFT CALF NOTED, OPEN TO AIR. PT MOVED INTO PRONE POSITION PER PROTOCOL, TOLERATING WELL. ASSESSMENT AND CARE COMPLETED WITH ASSISTANCE OF PHONE ELECTRICAL EQUIPMENT TESTER. PT STATES HE HAS NO OTHER NEEDS AT THIS TIME.
--- NOTE | 2020-03-04 21:50 | NUR ---
SCHEDULED MEDS PROVIDED. CBG 145, 3 UNITS INSULIN PROVIDED. PT MOVED TO SUPINE POSITION WITH HOB ELEVATED. JOSE WNL. HR SR @ 73. RR 24, SPO2 97%. PRN COUGH MED PROVIDED PT IS COUGHING, DRY. VAPOTHERM 30L @ 80%. CALL LIGHT IN REACH.
--- NOTE | 2020-03-04 23:15 | NUR ---
PT RESTING IN BED, EYES CLOSED. RR 24, HR SR @62. VAPOTHERM 30L, 80%.
--- NOTE | 2020-03-05 00:15 | NUR ---
ASSESSMENT, VS AND I&O COMPLETED. UNABLE TO ASSESS LUNG SOUNDS OR BOWEL TONES DUE TO PAPR. RR 30, EVEN, DOES NOT APPEAR LABORED. HR SR @64. VAPOTHERM 30L @ 80%, SPO2 92%. PT REPOSITIONED, GARCIA CARE PROVIDED. WATER OFFERED, DECLINED. SKIN WARM, DRY. NO EDEMA NOTED. IVs WNL, CDI. PT AFEBRILE. CALL LIGHT IN REACH.
--- NOTE | 2020-03-05 01:10 | NUR ---
PT RESTING IN BED, EYES CLOSED. RR 26, EVEN, SPO2 93. HR SR @ 66. VAPOTHERM 30L, 80%. CALL LIGHT IN REACH.
--- NOTE | 2020-03-05 01:54 | NUR ---
PT SPO2 DROPS TO 86 ON VAPOTHERM 30L, 80%. VAPOTHERM INCREASED TO 30L, 90% WITHOUT IMPROVEMENT. VAPOTHERM INCREASED TO 40L, 90%. SPO2 92%. SPO2 MONITOR CHECKED, VAPOTHERM TUBING AND NASAL PRONG PLACEMENT CHECKED. PT SPO2 TRENDING 90-92% ON 40L, 90%. PT REPOSITIONED. CALL LIGHT IN REACH.
--- NOTE | 2020-03-05 03:00 | NUR ---
PT RESTING IN BED, EYES CLOSED. HR SR @ 63, RR 30, EVEN ON VAPOTHERM 40L, 90%. CALL LIGHT IN REACH.
--- NOTE | 2020-03-05 04:55 | NUR ---
PT RESTING IN BED, EYES CLOSED. RR EVEN AT 30, SPO2 92% ON VAPOTHERM AT 40L, 90%. HR SR @ 65. CALL LIGHT IN REACH.
--- NOTE | 2020-03-05 05:30 | NUR ---
ASSESSMENT, VS AND I&O COMPLETED. UNABLE TO ASSESS HEART AND BOWEL TONES DUE TO PAPR. RR EVEN, 30 ON VAPOTHERM 40L, 90%. IVs WNL, CDI. SKIN WARM, DRY, APPROPRIATE COLOR. ABD SOFT, NONTENDER. NO EDEMA NOTED. GARCIA WNL. BLOOD DRAW COMLETED IN RIGHT WRIST, PT TOLERATED WELL. CALL LIGHT IN REACH.
--- NOTE | 2020-03-05 06:42 | NUR ---
PT CALLS TO USE BSC, 1PA. PT SITS FOR 20 MINUTES WITHOUT RESULTS, BACK TO BED. SPO2 95% ON 40L, 90% VAPOTHERM. HR SR @ 72. GARCIA WNL. CALL LIGHT IN REACH.
--- NOTE | 2020-03-05 07:30 | NUR ---
PATIENT SHIFT REPORT RECIEVED FROM RADIOCOMMUNICATIONS TECHNICIAN RN. PATIENT RESTING IN BED AT THIS TIME. STAFF HAD TO GO UP ON OXYGEN NEEDS AROUND 0200 THIS AM. PATIENT ON 40LPM AND 90% FIO2. THIS RN WILL BE IN TO PRONE PATIENT FIRST THING THIS AM. NO OTHER NEEDS AT THIS TIME. WILL CONTINUE TO CLOSELY MONITOR.
--- NOTE | 2020-03-05 08:00 | NUR ---
THIS RN IN TO DO MORNING ASSESSMENT AND TO GET PATIENT INTO PRONE POSITION. ASSESSMENT COMPLETED. UNABLE TO LISTEN TO BREATH OSUNDS, BOWEL TONES, AND HEART TONES. PATIENT COTNINUES TO HAVE SHALLOW TACHYPNIC RESPIRATIONS IN THE MID 30'S. PATIENT APPEARS COMFORTABLE AND DOES NOT APPEAR SOB AND ALSO DENEIS SOB TO THE COMMUNITY SUPPORT WORKER. NO EDEMA NOTED. GARCIA CATHETER PRESENT. PATIENT AGREEABLE TO PRONING THIS AM AND PATIENT ASSISTED INTO THIS POSITION. PATIENT TOELRATED WELL. CALL LIGHT IN HAND. CHECKED WITH INTERPETER PRIOR TO THIS RN LEAVING IF PATIENT HAD ANY OTHER NEEDS. PATIENT DENEIS ANYTHING ELSE AT THIS TIME. WILL ENCOURAGE PATIENT TO STAY PRONE FOR APPROX 1 HOUR.
--- NOTE | 2020-03-05 09:45 | NUR ---
AND THIS RN IN TO ASSIST PATIENT. NO NEW ORDERS AT THIS TIME. ASSISTED PATIENT UP TO THE CHAIR FOR BREAKFAST. ALL MEDICATIONS GIVEN. PATIENT ON THE PHONE WITH HIS SON. NO FURTHER QUESTIONS AT THIS TIME. WILL CONTINUE TO CLSOELY MONITOR.
--- NOTE | 2020-03-05 11:26 | NUR ---
PHYSICAL THERAPISTS IN TO WORK WITH PATIENT. NO OTHER NEEDS AT THIS TIME. NEW BEDDING ON PATIENTS BED. WILL CONTINUE TO CLOSELY MONITOR.
--- NOTE | 2020-03-05 12:28 | NUR ---
PT STILL UNDER PRECAUTIONS, UNABLE TO VISIT.
--- NOTE | 2020-03-05 13:30 | NUR ---
this rn in to take patient off cpap machine and set up his lunch. halal butcher on the phone and all questions answered. patient deneis any other needs at this time. will continue to closely monitor.
--- NOTE | 2020-03-05 14:30 | NUR ---
PATIENT FINSIHED WITH HIS LUNCH. PATIENT DENIES ANY OTHER NEEDS. PATIETN SITTING UP IN THE CHAIR AT THSI TIME. WILL CONTINUE TO CLSOELY MONITOR. PATIENT TAKING A NAP.
--- NOTE | 2020-03-05 16:00 | NUR ---
STAFF IN TO DO PATIENTS DAILY CARES. PATIENT AGREEABLE TO PLAN OF CARE TO GET UP AND PRONE FOR AWHLE. NO OTHER NEEDS AT THIS TIME.
--- NOTE | 2020-03-05 16:30 | NUR ---
TWO RNS IN TO COMPLETE PATIENTS BEDBATH. SPOKE WITH PATIENT AND PATIENT OBSERVER PRIOR TO STARTING BEDBATH. PATIENT AGREEABLE TO PLAN OF CARE. NEW GOWN, TELE LEADS, AND UNDERWEAR PROVIDED. GARCIA CATH CARE DONE. DEODORANT APPLIED. NEW LINEN ON BED. PATIENT THEN CLIMBED INTO BED INTO THE PRONE POSITION AND STATED HE WAS COMFORTABLE. PATIENT ASSESSMENT COMPLETED AND REMAINS UNACHNGED FROM THIS AM. PATIENT HAS BEEN VERY COMPLIANT WITH PLANS FOR PRONING, PHYSICAL THERAPY, USING THE CPAP INTERMITENTLY. NO OTHER NEEDS AT THIS TIME. PATIENTS VAPOTHERM ON 30LPM AND 75% FIO2. PATIENTS SPO2 94%. RR 28 WHILE PRONING. CALL LIGHT IN PATIENTS HAND. WILL CONTINUE TO CLOSELY MONITOR.
--- NOTE | 2020-03-05 18:15 | NUR ---
PATIENT REPOSITIONED FROM THE PRONE POSITION. PATIENT WAS ABLE TO TOLERATE THE PRONE POSITION FOR 2 HOURS. CALLED AND SPOKE WITH TRIMMER AND BORER MACHINE OPERATOR. MEDICATIONS ADMINISTERED. DINNER AT THE BEDSIDE. CALL LIGHT IN HAND. WILL CONTINUE TO CLOSELY MONITOR.
--- NOTE | 2020-03-05 19:15 | NUR ---
REPORT RECEIVED FROM DAY SHIFT RN. PT IS IN BED, RESTING WITH EYES CLOSED. RESP EVEN AND UNLABORED BUT TACHYPNEIC- WEARING VAPOTHERM 30L/80% FIO2.
--- NOTE | 2020-03-05 19:50 | NUR ---
IN TO DO ASSESSMENT AND HS MEDS. CASE INVESTIGATOR PHONE USED. PT DENIES PAIN OR SOB, WAS GIVEN MEDS WITH EXPLANATION INCLUDING PRN ROBITUSSIN FOR OCCASIONAL UNPRODUCTIVE COUGH. EXPLAINED TO PT PLAN OF CARE FOR THE NIGHT, INCLUDING PLAN TO PRONE AGAIN. PT AGREES TO TRY PRONING LATER. PTS RESP RATE 24-32, DO NOT APPEAR LABORED. SPO2 93% ON VAPOTHERM 30L/80%. GARCIA PATENT DRAINING LIGHT YELLOW URINE. CALL LIGHT IN HAND
--- NOTE | 2020-03-05 22:10 | NUR ---
IN TO TRY TO GET PT TO PRONE, PT REFUSES AT THIS TIME STATES HE WILL DO IT LATER. SON CALLS FOR PT, PT TALKING TO SON WITH CALL LIGHT IN HAND.
--- NOTE | 2020-03-06 00:17 | NUR ---
IN TO DO ASSESSMENT AND TRY TO HAVE PT PRONE, PT RELUCTANT BUT AGREES TRY. SPO2 HAS DIPPED DOWN TO 88-90% ON VAPOTHERM 30L/80%. RESP RATE IS 32-36. SATS UP TO 91% ONCE REPOSITIONED.
--- NOTE | 2020-03-06 01:11 | NUR ---
PT REMAINS IN PRONE POSITION WITH SPO2 88-92% ON VAPOTHERM. RESP RATE IS 32-36.
--- NOTE | 2020-03-06 01:30 | NUR ---
PT ROLLED HIMSELF BACK ONTO BACK. RESP RATE REMAINS 32-36. SPO2 88-90%, HR 70'S.
--- NOTE | 2020-03-06 03:12 | NUR ---
OXYGEN SATS HAVE BEEN DROPPING, DOWN TO 86-89%, PT HAD CURLED HIMSELF UP IN BED ON HIS SIDE- IN TO REPOSITION. PT PLACED IN PRONE POSITION, VAPOTHERM IN PLACE 30L/80%. O2 SATS UP TO 96% AFTER APPROX 5 MIN. RESP RATE 36. ASSESSMENT DONE. LUNGS REMAIN CLEAR.
--- NOTE | 2020-03-06 04:19 | NUR ---
PT CALLS, UNABLE TO TOLERATE PRONE POSITION ANY LONGER, PULPER TENDER PHONE USED. ASSISTED PT WITH REPOSITIONING ONTO LEFT LATERAL POSITION-PT DENIES FEELING SOB DESPITE RESP RATE BEING 36. DENIES PAIN. SPO2 90% IN NEW POSITION, VAPOTHERM REMAINS 30L/80%. PT WAS ABLE TO TOLERATE PRONE POSITION FOR ONE HOUR. STATES HE WILL TRY TO SLEEP SOME NOW, CALL LIGHT IN HAND.
--- NOTE | 2020-03-06 05:45 | NUR ---
IN TO DRAW BLOOD, PT DENIES NEEDS. SPO2 88-92% ON VAPOTHERM- 30L/80%.
--- NOTE | 2020-03-06 08:15 | NUR ---
THIS RN GAVE PATIENT A BACK MASSAGE PER REQUEST. PATIENT STATES WHEN HE LAYS IN THE PRONE POSITION HIS LOWER BACK REALLY ACHES EVEN MORE THAN NORMAL PER THE INTRPRETER. AFTER A BACK MASSAGE APPLIED A WARM COMPRESS TO HIS LOWER BACK.
--- NOTE | 2020-03-06 08:30 | NUR ---
IN TO GIVE PATIENT A SUPPOSITORY AND GET HIM INTO A PRONE POSITION. PATIENT AGRREABLE TO PLAN OF CARE WHEN SPEAKING WITH THE WEARING APPAREL PRESSER. PATIENT TOLERATED WELL. CALL LIGHT IN HAND. WILL CONTINUE TO CLOSELY MONITOR.
--- NOTE | 2020-03-06 09:45 | NUR ---
PATIENT UP TO THE CAMMODE AND NOW IN THE CHAIR EATING BREAKFAST. PATIENT TOLERATED WELL. PATIENT HAD A LARGE BM. PATIENT ON VAPOTHERM 30LPM AND 80%. WILL CONTINUE TO CLOSELY MONITOR. CALL LIGHT IN HAND. PATIENTS ASSESSMENT WAS COMPLETED. PATIENT APPEARS TO BE DOING A LITTLE BETTER TODAY. PATIENT STATES "I FEEL BETTER" WELL. THIS RN IN PAP AND UNABLE TO LISTEN TO HIS BREATH SOUNDS, BOWEL TONES, AND HEART TONES.
--- NOTE | 2020-03-06 10:30 | NUR ---
PATIENT IV BEEPING. THIS RN IN TO ASSESS IT. PATIENT WAS BENDING HIS ARM. RESTARTED WITH NO ISSUES. CALL LIGHT IN HAND. PHYSICAL THERPAY WILL BE IN TO WORK WITH PATIENT.
--- NOTE | 2020-03-06 11:15 | NUR ---
PHYSICAL THERAPY IN TO WORK WITH PATIENT. NO OTHER NEEDS AT THIS TIME. WILL CONTINUE TO CLOSELY MONTIOR.
--- NOTE | 2020-03-06 12:51 | NUR ---
MD BOWER WAS INTO SEE PATIENT WITH RT. PATIENT THEN PLACED ON CPAP FOR SOME RECRUTMENT. PATIENT HAS THE CALL LIGHT IN HAND. WILL ORDER LUNCH. NO OTHER NEEDS AT THIS TIME. WILL CONTINUE TO CLSOELY MONITOR.
--- NOTE | 2020-03-06 13:30 | NUR ---
THIS RN IN TO TAKE PATIENT HIS LUNCH AND MEDICATIONS. ASSISTED PATIENT INTO BETTER POSITION IN HIS CHAIR. CALLED PATIENTS SON ON HIS PHONE IN HIS ROOM SO HE COULD VISIT WITH HIM. ALL QUESTIONS ANSWERED. NO OTHER NEEDS AT THIS TIME. WILL CONTINUE TO CLOSELY MONITOR. CALL LIGHT IN HAND.
--- NOTE | 2020-03-06 15:30 | NUR ---
THIS RN IN THE ROOM TO ASSIST PATIENT.
--- NOTE | 2020-03-06 16:00 | NUR ---
ASSISTED PATIENT UP TO THE BED AND REPOSITIONED IN THE BED IN A PRONE LAYING POSITION. PATIENT TOLERATED WELL. ALL QUESTIONS AND EXPLANATIONS GIVEN THROUGH TOPOGRAPHICAL ENGINEER. GAVE PATIENT A BACK MASSAGE PER REQUEST. WILL CONTINUE TO CLSOELY MONITOR.
--- NOTE | 2020-03-06 18:38 | NUR ---
IN PATIENTS ROOM TO GIVE MEDICATIONS AND MOVE BACK TO HIS BACK AFTER PRONING. PATIENT TOLERATED PRONING FOR A LITTLE OVER 2 HOURS. PATIENT REMAINS ON VAPOTHERM 30LPM AND 60% FIO2. THIS RN USED THE MACHINE QUILT STUFFER LINE TO COMMUNICATE WITH PATIENT. DINNER AT HIS BEDSIDE. CALL LIGHT IN LAP. WILL CONTINUE TO CLOSELY MONITOR.
--- NOTE | 2020-03-06 23:54 | NUR ---
PT RESTING ON RIGHT SIDE, SPO2 91-92% VAPOTHERM REMAINS UNCHANGED AT 30L/60%. RESP RATE 30.
--- NOTE | 2020-03-07 03:50 | NUR ---
IN TO ASSESS PT AND PUT IN PRONE POSITION. PT HAD BEEN SLEEPING WELL WITH SATS 90-91% ON BACK WITH VAPOTHERM 30L/60%. ASSESSMENT DONE, LUNGS HAVE FEW SLIGHT COARSE SOUNDS ON RIGHT SIDE. PT PUT INTO PRONE POSITION, NETWORKING ENGINEER USED TO EXPLAIN PLAN OF CARE TO PT. CALL LIGHT IN HAND.
--- NOTE | 2020-03-07 04:40 | NUR ---
SATS HAVE BEEN UP-93-97% WITH PT IN PRONE POSITION. PT CALLS TO MOVE POSITION-STATES VIA WEB SITE PROJECT MANAGER THAT HE IS UNCOMFORTABLE. EXPLAINED IMPORTANCE OF POSITIONING TO HIM, HE AGREES TO STAY PRONE A LITTLE LONGER.
--- NOTE | 2020-03-07 06:30 | NUR ---
PT WAS ABLE TO STAY IN FULL PRONE POSITION APPROX 30 MINUTES. THEN ROLLED HIMSELF UP ONTO HIS LEFT SIDE. SATS WENT FROM MID NINETIES TO 90%. APPEARS RESTFUL AT THIS TIME WITH RR 30, SPO2 90%. VAPOTHERM REMAINS 30L/60%FIO2.
--- NOTE | 2020-03-07 07:30 | NUR ---
PATIENT SHIFT REPORT RECIEVED FROM UPWARD BOUND DIRECTOR RN. PATIENT RESTING IN BED ON HIS SIDE AT THIS TIME. CALL LIGHT IN REACH. WILL CONTINUE TO CLSOELY MONITOR.
--- NOTE | 2020-03-07 09:00 | NUR ---
PATIENT WAS ABLE TO REPOSITION TO HIS SIDE ON HIS OWN WITH NO ISSUES. PATIENTS SPO2 IMPROVED WITH THIS. PHYSICAL THERAPY WILL BE GOING IN TO WORK WITH PATIENT. WILL GIVE MEDICATIONS AND BREAKFAST AFTER PHYSICAL THERAPY IS COMPLETED. NO OTHER NEEDS AT THSIU TIME. PATIENT REMAINS ON VAPOTHERM AT 30LPM AND 60% FIO2 WITH SPO2 92-94%. WILL CONTINUE TO CLOSELY MONITOR.
--- NOTE | 2020-03-07 09:50 | NUR ---
PATIENT COMPLETED PHYSICAL THERAPY. THIS RN IN THE ROOM TO DO AM ASSESSMENT AND MEDICATIONS.
--- NOTE | 2020-03-07 10:30 | NUR ---
CALLED AND SPOKE WITH PHOTO FINISH PHOTOGRAPHER. PATIENTS ASSESSMENT COMPLETED. PATIENT STATES "I FEEL BETTER THAN YESTERDAY". THIS RN IN PAPR. UNABLE TO LISTEN TO BREATH SOUNDS, BOWEL TONES, HEART TONES. PATIENT DENIES SOB AND REMAINS ON VAPOTHERM AT 30LPM AND 60% FIO2. ALL MEDICATIONS GIVEN AND EXPLAINED TO PATIENT. PATIENT STATED THE PAIN IN MY FEET IS GONE NOW. NO OTHER NEEDS AT THSI TIME. CALL LIGHT ON LAP. VITALS COMPLETED. GARCIA CATHETER EMPTIED. FAMILY UPDATED. WILL CONTINUE TO CLOSELY MONITOR.
--- NOTE | 2020-03-07 12:45 | NUR ---
MD BOWER AND RT MARYSOL IN TO SEE PATIENT. AFTER MDS ASSESSMENT COMPLETED RT PLACED PATIENT ON CPAP FOR SOME LUNG RECRUTMENT. PATIENT AGREEABLE TO PLAN OF CARE. CALL LIGHT ON LAP. NO OTHER NEEDS AT THIS TIME. WILL CONTINUE TO CLOSELY MONTIOR
--- NOTE | 2020-03-07 14:45 | NUR ---
THIS RN IN PATIENTS ROOM TO ASSIST UP TO THE CAMMDOE. PATIENT TOELRATED STANDING WELL AND ON THE CAMMDOE AT THIS TIME.
--- NOTE | 2020-03-07 15:15 | NUR ---
ANNABELLEETN BACK TO THE CHAIR TO FINISH LUNCH. ONCE PATIENT WAS IN THE CHAIR P PATIENT PUSHED HIS FOOD AWAY. CALL LIGHT ON PATIENTS LAP. VAPOTHERMA T 30LPM ABD 55% FIO2. WILL BE BACK IN SHORTLY TO GET PATIENT BACK TO BED TO PRONE FOR AWHILE. WILL CONTINUE TO CLOSELY MONITOR.
--- NOTE | 2020-03-07 18:18 | NUR ---
ASSISTED PATIENT UP TO THE CAMMODE AND THEN INTO BED IN THE PRONE POSITION. PATIENT TOLERATED WELL. MASSAGE GIVEN PER REQUEST. BEDBATH GIVEN. GARCIA CATH CARE PROVIDED. NO OTHER NEEDS AT THIS TIME. WILL CONTINUE TO CLOSELY MONITOR.
--- NOTE | 2020-03-07 19:30 | NUR ---
REPORT RECEIVED FROM SKIP BOURGEOIS. PT IS CURRENTLY IN BED ON BACK, RESTING WITH EYES CLOSED. VAPOTHERM 30L/55%, SPO2 90% AND RESP RATE 28.
--- NOTE | 2020-03-07 23:30 | NUR ---
IN TO ASSESS PT, WAKENS EASILY. DENIES PAIN. UP TO BSC TO TRY TO HAVE BM, SMALL AMT LIQUID STOOL ONLY. THEN BACK TO BED INTO PRONE POSITION. IN PRONE POSITION SATS WENT TO 78%. ATTEMPTED TO HELP PT RELAX AND DEEP BREATH IN ATTEMPT TO BRING SATS UP. BACK RUB GIVEN, SATS SLOWLY UP TO 88-89%. WILL KEEP PT IN PRONE POSITION AND CONT TO MONITOR.
--- NOTE | 2020-03-08 00:49 | NUR ---
PT HAS TOLERATED BEING PRONE APPROX 30 MINUTES NOW WITH SATS 88-91%, ON VAPOTHERM 30L/55%.
--- NOTE | 2020-03-08 01:36 | NUR ---
PT HAD REPOSITIONED SELF ONTO RIGHT SIDE. SATS DROPPED, 83%. RN IN TO WORK WITH PT TO BRING SATS UP, COULD NOT GET UP ABOVE 87% SO FIO2 TITRATED UP TO 60% AND PT REPOSITIONED. SPO2 CURRENTLY 89-90%.
--- NOTE | 2020-03-08 02:05 | NUR ---
SATS AGAIN DROPPED, CONSISTENTLY IN LOW 80'S, 80-84%. IN TO CHECK ON PT, PT FOUND RESTING WITH EYES CLOSED, VAPOTHERM IN PLACE WITH RESP EVEN, UNLABORED, SHALLOW PREVIOUSLY AND RATE 28. LUNGS AUSCULTATED, MOSTLY CLEAR FEW COARSE SOUNDS HEARD ON RIGHT SIDE. PT REPOSITIONED UP IN BED, ENCOURAGED TO COUGH, SATS REMAIN LOW 80'S SO FIO2 TITRATED UP TO 70%. SATS SLOWLY UP TO 89-90%. CONT TO MONITOR.
--- NOTE | 2020-03-08 04:30 | NUR ---
SATS HAVE MAINTAINED AT 90% FOR THE LAST COUPLE OF HOURS. ASSESSMENT DONE, PT BACK TO SLEEP, WILL KEEP VAPOTHERM AT 30L/70% FOR NOW.
--- NOTE | 2020-03-08 05:54 | NUR ---
SATS CONTINUE AT 89-92% ON VAPOTHERM 30L/70% FIO2. PT REPOSITIONED ONTO LEFT SIDE, SATS CAME UP TO 94%.
--- NOTE | 2020-03-08 06:45 | NUR ---
PT REMAINS SLEEPING ON LEFT SIDE WITH VAPOTHERM IN PLACE, 30L/70% WITH SPO2 90-92%.
--- NOTE | 2020-03-08 08:30 | NUR ---
ASSESSMENT DONE, TRANSFERRED TO COMMODE, UNABLE TO HAVE BM. THEN TO CHAIR, FOR BREAKFAST.
--- NOTE | 2020-03-08 09:15 | NUR ---
TOOK BREAKFAST WELL. REMAINS ON VAPOTHERM AT 30 LITERS AND 70% FIO2. MODIFIED SPONGE BATH GIVEN.
--- NOTE | 2020-03-08 09:25 | NUR ---
DR. BOWER IN TO SEE PATIENT. PATIENT SITTING UP EATING HIS BREAKFAST. PT UP TO BATHROOM WITH ASSISTANCE OF GUARDS, BUT AMBULATING INDEPENDENTLY.
--- NOTE | 2020-03-08 10:40 | NUR ---
O2 SOURCE CHANGED TO HIGH FLOW NC AT 15 LITERS.
--- NOTE | 2020-03-08 11:20 | NUR ---
PHYS THERAPY CONTINUES TO WORK WITH PATIENT. PATIENT TOLERATING PHYS THERAPY WELL. REMAINS ON HIGH FLOW O2 AT 15 LITERS. O2 SATS ABOVE 90.
--- NOTE | 2020-03-08 12:00 | NUR ---
CONTINUES TO SIT IN CHAIR. ASSESSMENT DONE. VON ON HIGH FLOW 02 AT 15 LITERS. O2 SATS 90-94.
--- NOTE | 2020-03-08 12:29 | NUR ---
PT UNDER PRECAUTIONS, WILL REMAIN AVAILABLE
--- NOTE | 2020-03-08 13:00 | NUR ---
ORDERS RECIEVED TO TRANSFER TO MED-SURG. TOOK LUNCH WELL. REMAINS IN CHAIR AND IS ON HIGH FLOW NC AT 15 LITERS.
--- NOTE | 2020-03-08 14:00 | NUR ---
RECEIVED REPORT FROM GRANT BOURGEOIS.
--- NOTE | 2020-03-08 14:15 | NUR ---
TO MED-SURG VIA CHAIR REPORT GIVEN JOSHUA.
--- NOTE | 2020-03-08 14:27 | NUR ---
[facility]. PT IN CHAIR AND HAS NO COMPLAINTS AT THIS TIME
--- NOTE | 2020-03-08 15:30 | NUR ---
THIS RN IN PTS ROOM. DISCUSSED WITH PT IN [place] IF HE WOULD TRY TO PRONE UNTIL DINNER. PT REFUSED TO PRONE AT THIS TIME. PT STATES THAT HE DOESN'T NEED ANYTHING ELSE AT THIS TIME.
--- NOTE | 2020-03-08 18:23 | NUR ---
IN PTS ROOM GIVING EVENING MEDS AND GETTING BLOOD SUGAR. PT STATES HE IS NOT HUNGERY BUT PTS BLOOD SUGAR WAS 66. PTS SON SHANTA CALLED INTO ROOM AND ASSISTED IN TRANSLATING FOR THIS RN TO TELL HIS DAD TO EAT SOMETHING. PT DRINKING HOT APPLE CIDER AT THIS TIME AND EATING HIS FISH
--- NOTE | 2020-03-08 19:20 | NUR ---
CHARGE NURSE REPORT RECEIVED FROM TIFFANY
--- NOTE | 2020-03-08 19:35 | NUR ---
REPORT RECEIVED FROM DAY SHIFT RN. PT ALERT AND ORIENTED. CURRENTLY LYING ON RIGHT SIDE IN BED WITH CPAP IN PLACE. SPO2 92%.
--- NOTE | 2020-03-08 21:30 | NUR ---
EVENING ASSESSMENT COMPLETE. UNABLE TO AUSCULTATE LUNGS D/T PAPR. PT WITH OCCASIONAL DRY COUGH. RESP 28. RT IN ROOM TO PUT PT BACK ON VAPOTHERM AT 20 LPM WITH 50% FIO2. SPO2 90-92% CURRENTLY. REPOSITIONED PT TO SIDE LYING POSITION. SCHEDULED MEDS ADMINISTERED PER EMAR. PT DENIES PAIN. GARCIA PATENT. ENCOURAGED PT TO INCREASE ORAL INTAKE DUE TO LOW URINE OUTPUT. FRESH WATER PROVIDED. MAINTENANCE OF WAY CLERK LINE USED FOR PART OF ASSESSMENT. CALL LIGHT WITHIN REACH.
--- NOTE | 2020-03-09 01:34 | NUR ---
PT RESTING IN BED WITH EYES CLOSED LYING ON LEFT SIDE. SpO2 88-90% ON VAPOTHERM 2O LPM WITH 50% FIO2. HR 70'S.
--- NOTE | 2020-03-09 03:34 | NUR ---
PT SpO2 DOWN TO 86%. IN TO REPOSITION PT IN BED. VAPOTHERM TITRATED TO 25 LPM WITH 70% FIO2. SpO2 CURRENTLY AT 93%. HR 74. TEMP 98.4. NUT ORCHARDIST LINE CALLED FOR THIS PT INTERACTION. PT DENIES FURTHER NEEDS AT THIS TIME. CALL LIGHT IN REACH.
--- NOTE | 2020-03-09 06:51 | NUR ---
VS AND I&O COMPLETE. PT REPOSITIONED TO RIGHT SIDE. SpO2 92% ON VAPOTHERM 25L WITH 70% FIO2. RR=26.
--- NOTE | 2020-03-09 08:20 | NUR ---
Tylenol 500mg po and tessalon perles admin for generalized pain and cough.
--- NOTE | 2020-03-09 08:30 | NUR ---
Pt transitioned to the chair at this time. Vital signs are stable. Encouraged patient to drink more water as his urine is concentrated; Pt verbalized his understanding of this. Pt reports pain of 2/10; tylenol given. Pt denies sob and or chest pain. Breakfast ordered. Pt has no needs. Personal supplies and call light within reach.
--- NOTE | 2020-03-09 08:55 | NUR ---
PATIENT RESTING IN BED. RN IN ROOM. PATIENT ASSISTED TO TRANSFER TO CHAIR. TWO PERSON ASSISTING. PATIENT'S BREAKFAST ORDERED. CALL LIGHT WITHIN REACH. NO OTHER NEEDS AT THIS TIME
--- NOTE | 2020-03-09 09:57 | NUR ---
BBS DIMINISHED WITH SCATTERED RALES IN THE BASES. RN NOTIFIED THAT PT PLACED ON CPAP. PT IS ON CONTINUOUS CPOX AT THIS TIME.
--- NOTE | 2020-03-09 11:10 | NUR ---
CALLED DME'S AVAILABLE IN OUR AREA, [facility], [facility], [facility] REGARDING POSSIBLE DISCHARGE HOME ON 15L. ONLY [facility] FROM [place] HAS AVAILABILITY TO PROVIDE ENOUGH EQUIPEMENT FOR THIS. CALLED [facility] TO SEE IF THEY WOULD HAVE AVAILE RN/PT COVERAGE. SHE STATES THEY DO NOT HAVE OPENING AT THIS TIME, BUT WILL LET US KNOW. CALLED [facility] AND THEY DO NOT SERVICE [facility]. CALLED DAUGHTER WILMAR [phone] TO DISCUSS POSSIBLE DISCHARGE SOON. DISCUSSED OXYGEN NEED, POSSIBLE HOME HEALTH VISITS. SHE IS FINE WITH ANY OF THIS. SHE STATES SOMEONE WILL BE HOME WITH HIM AT ALL TIMES. DISCUSSED IMPORTANCE OF HIM KEEPING OXYGEN ON 24/7. SHE STATES THEY CAN MAKE SURE THIS HAPPENS. SHE STATES THEY WOULD BE ABLE TO TAKE HIM BACK HOME AT DISCHARGE. CONFIRMED THE ADDRESS WITH HER. WE WILL KEEP HER APPRAISED WE GET PLANS FINALIZED. SHE STATES NO ONE ELSE HAS BEEN SICK AT HOME.
--- NOTE | 2020-03-09 12:18 | NUR ---
In to check on patient. Pt sitting up in chair for lunch at this time. Encouraged IS use; pt able to demonstrate a few times. Pt denies sob and or chest pain. Montano intact, patent with concentrated urine noted. Prompted pt to drink more water at this time. Pt denies needs. Personal supplies and call light within reach.
--- NOTE | 2020-03-09 14:00 | NUR ---
CALL LIGHT ANSWERED. PATIENT SITTING UP IN CHAIR. PATIENT USES THE BASE COMMODE. ONE PERSON ASSISTING. PERICARE AND CATHETER CARE PERFORMED. PATIENT BACKS TO BED. GOWN AND ADULT PULL UP CHANGED. CALL LIGHT WITHIN REACH. NO OTHER NEEDS AT THIS TIME
--- NOTE | 2020-03-09 14:13 | NUR ---
PT SEEMS TO BE IMPROVING, BUT DUE TO PRECAUTIONS I AM UNABLE TO VISIT
--- NOTE | 2020-03-09 14:28 | NUR ---
Montano catheter removed per provider order. 9ml Sterile water removed from catheter balloon, catheter tip intact. Pt tolerated well. Pt due to void. Urinal placed within reach and brief placed on pt per his request.
--- NOTE | 2020-03-09 16:22 | NUR ---
CALL LIGHT ANSWERED. PATIENT SITTING UP IN CHAIR. PATIENT ASSISTED TO USE THE URINAL. ONE PERSON ASSISTING. CALL LIGHT WITHIN REACH. NO OTHER NEEDS AT THIS TIME
== END 2020-03-09 16:50 | disposition swing bed (61) | DRG 177 ==
LOC: ED 20:59 → MS 21:01 → CCU 02-27 13:25 → MS 03-08 14:00
PROVIDERS: ADMIT Internal Medicine
DX: U07.1 COVID-19 (principal); J12.89 Other viral pneumonia; J96.01 Acute respiratory failure with hypoxia; I10 Essential (primary) hypertension; E11.9 Type 2 diabetes mellitus without complications; N40.0 Benign prostatic hyperplasia without lower urinary tract symptoms; G20 Parkinson's disease; E78.5 Hyperlipidemia, unspecified; Z79.84 Long term (current) use of oral hypoglycemic drugs
CPT/HCPCS: 36600; 51702; 71045; 80048; 80053; 81001; 82803; 83036; 83605; 83615; 83735; 83880; 85025; 85379; 86140; 87040; 93005; 93010; 94660; 94760; 94761; 94762; 94799; 96360; 96361; 97110; 97116; 97163; 97530; 99285-25; C9803; J0696; J1650; J1815; J1940; J7030; J7050; J7121; J8540; U0002

== ENCOUNTER 2020-03-09 16:51 | Inpatient (IN) | payer MEDICARE ==
[~2020-03-09] VITALS: Ht 160 cm; Wt 72.6 kg
--- OUTSIDE RECORDS SUMMARY | ~2020-03-09 | XMS | Encounter Summary ---
Demographics + + + | Address | [address] | | | [place] [address] | + + + | Home Phone | | + + + | Preferred Language | Unknown | + + + | Marital Status | | + + + | Pentecostal Affiliation | 1041 | + + + | Race | Unknown | + + + | Ethnic Group | Unknown | + + + Author + + + | Author | [facility] | | | and [place] | + + + | Organization | [facility] | | | and [place] | + + + | Address | Unknown | + + + | Phone | Unavailable | + + + Support + + +---------+ + | Name | Relationship | Address | Phone | + + +---------+ + | Claudette Piña | ECON | Unknown | | + + +---------+ + | Ann Piña | ECON | Unknown | | + + +---------+ + Care Team Providers + +------+ + | Care Chemical Cell Changer Name | Role | Phone | + +------+ + PCP | Unavailable | + +------+ + Encounter Details +--------+ + + + + | Date | Type | Department | Care Team | Description | +--------+ + + + + | 12/27/ | Hospital | [facility] | Conversion | Pain | | 2014 | Encounter | CONVERSION [address] | Transaction, | | | | | [address] | Provider Unknown | | | | | [place], [place] | | | | | | [address] | (Fax) | | | | | [phone] | | | +--------+ + + + + Social History + +-------+ +--------+------+ | Tobacco Use | Types | Packs/Day | Years | Date | | | | | Used | | + +-------+ +--------+------+ | Never Assessed | | | | | + +-------+ +--------+------+ + + + | Sex Assigned at | Date Recorded | | | | + + + | Not on file | | + + + documented as of this encounter Plan of Treatment Not on filedocumented as of this encounter Procedures + +--------+ + + + | Procedure Name | Priori | Date/Time | Associated Diagnosis | Comments | | | ty | | | | + +--------+ + + + | XR LUMBAR SPINE 4 + | Routin | 10/17/2013 | | Results for this | | VW | e | 2:21 AM | | procedure are in the | | | | PST | | results section. | + +--------+ + + + documented in this encounter Results XR Lumbar Spine 4 + Vw (10/17/2013 2:21 AM PST) + + | Specimen | + + | | + + + + + | Narrative | Performed At | + + + | This is a non-reportable procedure without a radiologist report and | | | is used for image storage only | | + + + + + | Procedure Note | + + | Stewart Hay - 03/28/2019 3:29 PM PDT This is a non-reportable procedure | | without a radiologist report and isused for image storage only | + + documented in this encounter Visit Diagnoses + + | Diagnosis | + + | Pain Generalized pain | + + documented in this encounter"
--- OUTSIDE RECORDS SUMMARY | ~2020-03-09 | XMS | Encounter Summary ---
Demographics + + + | Address | [address] | | | [place] [address] | + + + | Home Phone | | + + + | Preferred Language | Unknown | + + + | Marital Status | | + + + | Confucianist Affiliation | 1041 | + + + | Race | Unknown | + + + | Ethnic Group | Unknown | + + + Author + + + | Author | [facility] | | | and [place] | + + + | Organization | [facility] | | | [...] Team Providers + +------+ + | Care Preparole Counseling Aide Name | Role | Phone | + +------+ + | Megan Garza | PCP | | + +------+ + Reason for Visit Service/Procedure (Routine) +--------+--------+ + + + + | Status | Reason | Specialty | Diagnoses / | Referred By | Referred To | | | | | Procedures | Contact | Contact | +--------+--------+ + + + + | Closed | | Radiology | Diagnoses | | [facility] | | | | | Lumbar | [place], | [address] | | | | | radiculopath | Tirso Brito MD | [place], | | | | | y | [address] | [place] | | | | | Procedures | [place] | [address] | | | | | [place] INJECT | [place], [place] | Phone: | | | | | ANES/STEROID | [address] | [phone] | | | | | FORAMEN | Phone: | Fax: | | | | | LUMBAR/SACRA | [phone] | [phone] | | | | | [address] IMG | Fax: | | | | | | GUIDE ,1 | [phone] | | | | | | LEVEL [place] | | | | | | | TRIAMCINOLON | | | | | | | E ACET INJ | | | | | | | NOS, 10 MG | | | | | | | *Given to | | | | | | | rajat to | | | | | | | schedule | | | | | | | 10/8*Bilat. | | | | | | | L5-S1 TFESI | | | +--------+--------+ + + + + Encounter Details +--------+ + + + + | Date | Type | Department | Care Team | Description | +--------+ + + + + | 07/24/ | Hospital | [facility] | [place], | Lumbar | | 2018 | Encounter | MED CTR XRAY [address] | PA-C [address] | radiculopathy; | | | | [address] [place] | [address] [place] | Spondylolisthesis at | | | | [place] [address] | [place] [address] | L5-S1 level | | | | [phone] | [phone] | | | | | | | | | | | | Computer Instructor, Svetlana | | | | | | [place] | | +--------+ + + + + [...] + + documented as of this encounter Last Filed Vital Signs + +---------+ + + | Vital Sign | Reading | Time Taken | Comments | + +---------+ + + | Blood Pressure | 120/78 | 07/24/2018 1:36 PM | | | | | PST | | + +---------+ + + | Pulse | 77 | 07/24/2018 1:36 PM | | | | | PST | | + +---------+ + + | Temperature | - | - | | + +---------+ + + | Respiratory Rate | - | - | | + +---------+ + + | Oxygen Saturation | - | - | | + +---------+ + + | Inhaled Oxygen | - | - | | | Concentration | | | | + +---------+ + + | Weight | - | - | | + +---------+ + + | Height | - | - | | + +---------+ + + | Body Mass Index | - | - | | + +---------+ + + documented in this encounter Medications at Time of Discharge [...] + + + +---------+ + + | Raymon Misc. | Test Blood sugar | | [...] | | 15 | | | N (JANUMET) 50-1,000 | | | | | | [...] +---------+ + + | atorvaSTATin | Take 20 mg by mouth | | 0 | 10/02/19 | | | (LIPITOR) 20 mg | Daily. | | | 18 | 9 | | tablet | | | | [...] | | | | | | allergies. Dominican | | | | | | | instructions | | | | | + + + +---------+ + + | furosemide (LASIX) | Take 1 tablet (20 mg | | 0 | 06/28/20 | | | 20 mg tablet | total) by mouth | | | 18 | 9 | | | daily. Leg swelling | | | | | | | Dominican instructions | | | | | + [...] 10/02/19 | | | lisinopril-hydrochlo | mouth Daily. | | | 18 | 9 | | rothiazide | | | | [...] | + +--------+ + + + | FL EPIDURAL STEROID | Routin | 07/24/2018 | Lumbar | Results for this | | INJECTION LUMBAR | e | 1:22 PM | radiculopathy | procedure are in the | | TRANSFORAMINAL | | PST | Spondylolisthesis at | results section. | | | | | L5-S1 level | | + +--------+ + + + documented in this encounter Results FL ALE Lumbar Transforaminal (07/24/2018 1:22 PM PST) + + | Specimen | + + | | + + + + -+ | Narrative | Performed At | + + -+ | 07/24/2018 | [facility] | | Bilateral Transforaminal Epidural Steroid Injections Diagnosis: Lumbar | | | radiculopathy ICD-10 Code M54.16 Kota Piña presents to the | | | fluoroscopy suite for fluoroscopically-guided bilateral L5-S1 | | | transforaminal epidural steroid injections as part of conservative | | | management for chronic pain with lumbar radiculopathy and degenerative | | | disc disease. After informed consent was obtained, the patient lay in | | | the prone position on the fluoroscopy table. The areas were | | | identified under fluoroscopic guidance. The areas were prepped and | | | draped in sterile fashion. A 25-gauge, 1.5-inch needle was inserted | | | into each region and approximately 3 mL of buffered 1% lidocaine was | | | infused. Then, a 22-gauge spinal needle was inserted into the | | | posterior superior transforaminal space bilaterally and advanced into | | | the epidural space under fluoroscopic guidance. Confirmation into the | | | epidural space was obtained with infusion of approximately 1 mL of | | | Omnipaque contrast which showed epidural flow as well as nerve sheath | | | flow. Then, a combination of 2 mL of 1% lidocaine and 2 mL of 6 mg/mL | | | betamethasone was infused, divided between the two sides. The patient | | | tolerated the procedure well without complications. Pre- and | | | post-procedure blood pressures were stable. The patient was given | | | verbal as well as written follow-up instructions. Prior to the start | | | of the procedure, the following were performed and/or verified, | | | including correct patient identity, correct site/side marked and | | | visible, agreement on the procedure to be done, correct patient | | | positioning and an accurate procedure consent form. Any safety | | | precautions based on clinical history and/or medication use have been | | | addressed. I personally performed the procedure above. Estimated blood | | | loss: MinimalComplications: NoneFindings: As expectedAnesthesia: | | | Local 1% Lidocaine | | |visible, agreement on the procedure to be done, correct patient | | |positioning and an accurate procedure consent form. Any safety precautions | | |based on clinical history and/or medication use have been addressed. I | | |personally performed the procedure above. | | | | | |Estimated blood loss: Minimal | | |Complications: None | | |Findings: As expected | | |Anesthesia: Local 1% Lidocaine | | | | | | | | + + -+ + +---------+ + + | Performing | Address | City/State/Zipcode | Phone Number | | Organization | | | | + +---------+ + + | [facility] | | | | + +---------+ + + documented in this encounter Visit Diagnoses + + | Diagnosis | + + | Lumbar radiculopathy Thoracic or lumbosacral neuritis or radiculitis, unspecified | + + | Spondylolisthesis at L5-S1 level | + + documented in this encounter Administered Medications + +--------+ +-------+------+------+ | Medication Order | MAR | Action | Dose | Rate | Site | | | Action | Date | | | | + +--------+ +-------+------+------+ | betamethasone (CELESTONE | Given | 07/24/20 | 12 mg | | | | SOLUSPAN) injection 12 mg 12 mg, | | 18 1:31 | | | | | Other, ONCE, Sun07/24/18 at | | PM PST | | | | | 1345, For 1 dose, Shake well. Not | | | | | | | for IV use., | | | | | | + +--------+ +-------+------+------+ +---+---+ | | | +---+---+ + +-------+ +-------+---+---+ | iohexol (OMNIPAQUE 300) 300 | Given | 07/24/20 | 4 mLs | | | | mg/mL injection 4 mL 4 mL, | | 18 1:29 | | | | | INTRATHECAL, ONCE, Sun07/24/18 | | PM PST | | | | | at 1345, For 1 dose | | | | | | + +-------+ +-------+---+---+ +---+---+ | | | +---+---+ + +-------+ +-------+---+---+ | lidocaine (PF) 1% injection 2 | Given | 07/24/20 | 2 mLs | | | | mL 2 mL, Other, ONCE, Wed | | 18 1:31 | | | | | 07/24/18 at 1345, For 1 dose | | PM PST | | | | + +-------+ +-------+---+---+ +---+---+ | | | +---+---+ + +-------+ +--------+---+ + | lidocaine buffered 0.9% | Given | 07/24/20 | 10 mLs | | Other | | injection 10 mL 10 mL, | | 18 1:27 | | | (Comment | | Intradermal, ONCE, 07/24/18 | | PM PST | | | ) | | at 1345, For 1 dose | | | | | | + +-------+ +--------+---+ + +---+---+ | | | +---+---+ documented in this encounter"
--- OUTSIDE RECORDS SUMMARY | ~2020-03-09 | XMS | Encounter Summary ---
Demographics + + + | Address | [address] | | | [place] [address] | + + + | Home Phone | | + + + | Preferred Language | Unknown | + + + | Marital Status | | + + + | Gnosticist Affiliation | 1041 | + + + | Race | Unknown | + + + | Ethnic Group | Unknown | + + + Author + + + | Author | [facility] | | | and [place] | + + + | Organization | [facility] | | | [...] Team Providers + +------+ + | Care Healthcare Risk Control Consultant Name | Role | Phone | + +------+ + | Megan Garza | PCP | | + +------+ + Encounter Details +--------+ + + + + | Date | Type | Department | Care Team | Description | +--------+ + + + + | 09/10/ | Orders Only | [facility] | Greyson Vaughan, | | | 2018 | | VASCULAR SURGERY | PA-C [address] | | | | | ULTRASOUND [address] | [address], | | | | | [address] | [place] [address] | | | | | [facility] [place] | [phone] | | | | | [address] | | | | | | [phone] | | | +--------+ + + + [...] | + +--------+ + + + | VAS VENOUS REFLUX | Routin | 09/10/2018 | | Results for this | | BILATERAL | e | 3:03 PM | | procedure are in the | | | | PST | | results section. | + +--------+ + + + documented in this encounter Results VAS Venous Reflux Bilateral (09/10/2018 3:03 PM PST) + + | Specimen | + + | | + + + + + | Impressions | Performed At | + + + | 1. No evidence of deep vein thrombosis. 2. Segmental reflux within | | | the right common femoral vein. 3. No evidence of deep venous | | | insufficiency in left lower extremity and superficial venous | | | insufficiency in both lower extremities. 4. Subcutaneous calf edema | | | bilaterally. Signed by: Bret Carballo Sign Date/Time: 09/11/2018 | | | 9:52 AM | | + + + + + + | Narrative | Performed At | + + + | VAS VENOUS REFLUX BILATERAL CLINICAL INFORMATION: Skin ulcer and | | | swelling. COMPARISON: XR CHEST 2 VIEW (08/17/2015); PROCEDURE: | | | Grayscale, color Doppler and spectral Doppler evaluation with | | | compression was performed in both lower extremity deep and superficial | | | veins from the inguinal ligament through the calves. Bilateral | | | lower extremity deep venous and greater and lesser saphenous vein | | | insufficiency studies were performed using both Valsalva and | | | augmentation, and weight-bearing, if needed. FINDINGS: No evidence | | | of acute or chronic deep or superficial venous thrombosis in either | | | lower extremity from the inguinal ligament through the calves. No | | | intraluminal echoes seen. Normal compressibility noted. | | | Augmentation noted. Subcutaneous calf edema bilaterally. Venous | | | insufficiency studies: RIGHT: Common femoral vein: Reflux greater | | | than 1 second. Femoral vein: Proximal no reflux, distal no reflux | | | Popliteal vein: No reflux Lesser Saphenous Vein: Proximal calf: | | | Diameter: 3.1 mm, depth: 5.2 mm, no reflux Mid calf: Diameter: 3.3 | | | mm, depth: 5.2 mm, no reflux Distal calf: Diameter: 2.7 mm, depth: | | | 9.3 mm, no reflux. Greater saphenous vein: Saphenofemoral junction: | | | Diameter: 6.6 mm, depth: 21.3 mm, no reflux Proximal thigh: Diameter: | | | 3 mm, depth: 11.4 mm Mid thigh: Diameter: 3.2 mm, depth: 7.3 mm, no | | | reflux Distal thigh: Diameter: 3.2 mm, depth: 8.1 mm, no reflux | | | Knee:Diameter: 2.9 mm, depth: 4.5 mm, no reflux Proximal calf: | | | Diameter: 2.4 mm, depth: 4.9 mm, no reflux Mid calf: Diameter: 3.3 | | | mm, depth: 3.9 mm, no reflux Distal calf: Diameter: 3.1 mm, depth: | | | 9.3 mm, no reflux Scratch LEFT: Common femoral vein: No reflux | | | Femoral vein: Proximal no reflux, distal no reflux Popliteal vein: No | | | refill Lesser Saphenous Vein: Proximal calf: Diameter: 3.4 mm, | | | depth: 5.4 mm, no reflux Mid calf: Diameter: 2.7 mm, depth: 7.6 cm, | | | no reflux Distal calf: Diameter: 2.7 mm, depth: 8.6 cm, no reflux | | | Greater saphenous vein: Saphenofemoral junction: Diameter: 6.8 mm, | | | depth: 24 mm, no reflux Proximal thigh: Diameter: 2.4 mm, depth: 8.6 | | | mm is Mid thigh: Diameter: 2.6 mm, depth: 9.8 mm, no reflux Distal | | | thigh: Diameter: 3 mm, depth: 7.9 mm, no reflux Knee: Diameter: 2.2 | | | mm, depth: 6.5 mm, no reflux Proximal calf: Diameter: 2.2 mm, depth: | | | 4.5 mm, no reflux Mid calf: Diameter: 2.7 mm, depth: 7.6 cm, no | | | reflux Distal calf: Diameter: 3 mm, depth: 8.3 mm, no reflux | | + + + + + | Procedure Note | + + | Satnam, Rad Conversion - 04/03/2019 1:32 PM PDT VAS VENOUS REFLUX BILATERAL | | CLINICAL INFORMATION: | | Skin ulcer and swelling. | | COMPARISON: | | XR CHEST 2 VIEW (08/17/2015); | | PROCEDURE: | | Grayscale, color Doppler and spectral Doppler evaluation with | | compression was performed in both lower extremity deep and superficial | | veins from the inguinal ligament through the calves. | | Bilateral lower extremity deep venous and greater and lesser saphenous | | vein insufficiency studies were performed using both Valsalva and | | augmentation, and weight-bearing, if needed. | | FINDINGS: | | No evidence of acute or chronic deep or superficial venous thrombosis | | in either lower extremity from the inguinal ligament through the | | calves. No intraluminal echoes seen. Normal compressibility noted. | | Augmentation noted. | | Subcutaneous calf edema bilaterally. | | Venous insufficiency studies: | | RIGHT: | | Common femoral vein: Reflux greater than 1 second. | | Femoral vein: Proximal no reflux, distal no reflux | | Popliteal vein: No reflux | | Lesser Saphenous Vein: | | Proximal calf: Diameter: 3.1 mm, depth: 5.2 mm, no reflux | | Mid calf: Diameter: 3.3 mm, depth: 5.2 mm, no reflux | | Distal calf: Diameter: 2.7 mm, depth: 9.3 mm, no reflux. | | Greater saphenous vein: | | Saphenofemoral junction: Diameter: 6.6 mm, depth: 21.3 mm, no reflux | | Proximal thigh: Diameter: 3 mm, depth: 11.4 mm | | Mid thigh: Diameter: 3.2 mm, depth: 7.3 mm, no reflux | | Distal thigh: Diameter: 3.2 mm, depth: 8.1 mm, no reflux | | Knee:Diameter: 2.9 mm, depth: 4.5 mm, no reflux | | Proximal calf: Diameter: 2.4 mm, depth: 4.9 mm, no reflux | | Mid calf: Diameter: 3.3 mm, depth: 3.9 mm, no reflux | | Distal calf: Diameter: 3.1 mm, depth: 9.3 mm, no reflux | | Scratch | | LEFT: | | Common femoral vein: No reflux | | Femoral vein: Proximal no reflux, distal no reflux | | Popliteal vein: No refill | | Lesser Saphenous Vein: | | Proximal calf: Diameter: 3.4 mm, depth: 5.4 mm, no reflux | | Mid calf: Diameter: 2.7 mm, depth: 7.6 cm, no reflux | | Distal calf: Diameter: 2.7 mm, depth: 8.6 cm, no reflux | | Greater saphenous vein: | | Saphenofemoral junction: Diameter: 6.8 mm, depth: 24 mm, no reflux | | Proximal thigh: Diameter: 2.4 mm, depth: 8.6 mm is | | Mid thigh: Diameter: 2.6 mm, depth: 9.8 mm, no reflux | | Distal thigh: Diameter: 3 mm, depth: 7.9 mm, no reflux | | Knee: Diameter: 2.2 mm, depth: 6.5 mm, no reflux | | Proximal calf: Diameter: 2.2 mm, depth: 4.5 mm, no reflux | | Mid calf: Diameter: 2.7 mm, depth: 7.6 cm, no reflux | | Distal calf: Diameter: 3 mm, depth: 8.3 mm, no reflux | | IMPRESSION: | | 1. No evidence of deep vein thrombosis. | | 2. Segmental reflux within the right common femoral vein. | | 3. No evidence of deep venous insufficiency in left lower extremity and | | superficial venous insufficiency in both lower extremities. | | 4. Subcutaneous calf edema bilaterally. | | Signed by: Bret Carballo | | Sign Date/Time: 09/11/2018 9:52 AM | + + documented in this encounter Visit Diagnoses Not on filedocumented in this encounter"
--- OUTSIDE RECORDS SUMMARY | ~2020-03-09 | XMS | Encounter Summary ---
Demographics + + + | Address | [address] | | | [place] [address] | + + + | Home Phone | | + + + | Preferred Language | Unknown | + + + | Marital Status | | + + + | Adventism Affiliation | 1041 | + + + | Race | Unknown | + + + | Ethnic Group | Unknown | + + + Author + + + | Author | [facility] | | | and [place] | + + + | Organization | [facility] | | [...] Team Providers + +------+ + | Care Manager Ecommerce Name | Role | Phone | + [...] | | | | | | | ME REMV | | | | | | [...] + + + + | 06/26/ | Hospital | [facility] | Ty Russ | | | 2018 | Encounter | [facility] | MD [address] | | | | | [address] | [place] | | | | | [place], [place] | [place] [address] | | | | | [address] | [phone] | | | | | [phone] | | | +--------+ + + + [...] this encounter Last Filed Vital Signs + + + + + | Vital Sign | Reading | Time Taken | Comments | + + + + + | Blood Pressure | 103/54 | 06/26/2018 11:15 AM | | | | | PST | | + + + + + | Pulse | 56 | 06/26/2018 11:15 AM | | | | | PST | | + + + + + | Temperature | 36.5 C (97.7 F) | 06/26/2018 11:06 AM | | | | | PST | | + + + + + | Respiratory Rate | 16 | 06/26/2018 11:06 AM | | | | | PST | | + + + + + | Oxygen Saturation | 94% | 06/26/2018 11:15 AM | | | | | PST | | + + + + + | Inhaled Oxygen | - | - | | | Concentration | | | | + + + + + | Weight | 78.3 kg (172 lb 9.9 | 06/26/2018 10:32 AM | | | | oz) | PST | | + + + + + | Height | 157.5 cm (5' 2") | 06/26/2018 10:32 AM | | | | | PST | | + + + + + | Body Mass Index | 31.57 | 06/26/2018 10:32 AM | | | | | PST | | + + + + + documented in this encounter Discharge Instructions Instructions Nelly Valdes RN - 06/25/2018FOLLOWING SURGERY: Wear the patch and shield until you get home or until your first post-op appointment, if same day. You may then discard the patch, but continue to wear the eye shield as noted aleksey blandon. Do not drive for at least 24 hours (longer if vision isn't clear enough to be safe) If prescribed the following eyedrops to use after surgery, then use as follows: Prednisolone acetate 1% - Shake well before using. Place 1 drop in your surgery ey e 4 times daily and continue for 1 month after surgery. Ofloxacin 0.3% - Place 1 drop in your surgery eye 4 times daily and continue for 1 week after surgery. Close your eye for 3-5 minutes after each eye drop. If your surgery eye has a dry, irritated, or "foreign body" sensation, you may use cold compresses or preservative free artificial tears (in individual vials) as needed. Drink water to stay well-hydrated and to promote healing. Most people need 8 glasses of water daily. Use your preferred non-prescription pain medicine as needed for mild discomfort. You will have appointments with your eye doctor as scheduled in future weeks/months. Nevaeh ng any eye drops you are taking to your first post-op appointment. THE FIRST DAYS AFTER SURGERY: The first few days are the most important after eye surgery t o be sure the eye heals well. Listed below are some things you should do or avoid doing: You may bend over, sleep on either side, read, go out to dinner, and resume most of your normal activities. Walking and gentle exercises are OK. Avoid strenuous activity for the first 3 days. Keep your eye clean with gentle lid scrubs and avoid wearing makeup for 3 days. Wear the eye shield for the first 3-4 nights to keep from bumping the eye while you are sleeping. Do not rub your eye. If you have an urge to rub your eye, wear the eye shield and chely nue using it when sleeping for even the first week after surgery. Avoid dry, makayla or dirty environments for at least 3 days. You may shower, but keep you eye dry for 3 days. Avoid dunking your head under water. Avoid splashing your face or dunking your head under water for 3 days. You may shower, k eeping your eye dry. No swimming, water sports, Jacuzzi, spa, or pool for 1 week. EXPECTATIONS: You may experience strange sensations after surgery, such as numbness, halos around lights, blurred and/or double vision. These usually resolve in 2-6 hours. Your visi on will improve over time as your eye heals, but may fluctuate over the first few weeks. Re dness will usually be gone within a few weeks. A mild dry eye sensation may persist for danie e months. IMPORTANT! If you have the following symptoms, immediately call your eye doctor or [facility] at (dial "9" after hours or on weekends): Bleeding or discharge from the eye. Vision suddenly becomes worse. Huge increase in floaters. Flashing lights or a curtain over part of or all of your vision. Severe pain not relieved by the pain reliever you've been instructed to take. Nausea, vomiting, chills, or fever over 100.4. documented in this encounter Medications at Time [...] + + documented as of this encounter H&P Notes Ty Russ MD - 06/26/2018 10:12 AM PSTSURGICAL INTERIM HISTORY & PHYSICAL UPDA TE Pt. Name/Age/: Kota Piña 73 y.o. 1945 Date of admission: 06/26/2018 The current H&P was reviewed. The patient was reexamined. Re-evaluation of the patient co nfirms the necessity for the scheduled procedure. No change has occurred in the patient s condition since the H&P was completed less than 30 days ago. VERIFICATION OF CONSENT (PARQ) The patient was counseled regarding the procedure, its indications, risks, potential compli cations and alternatives. Any questions were answered. Consent was obtained. Electronically signed by: Ty Russ MD, 06/26/2018 10:13 [facility] documented in t his encounter Miscellaneous Notes Op Note - Ty Russ MD - 06/26/2018 10:50 AM PSTPre-op Diagnosis: Nuclear scle rosis (H25.11), right eye Post-op Diagnosis: same Procedure: Cataract extraction by phacoemulsification with intraocular lens implant, right eye (24511) Implant: Glez PCB00 24.5 D, SN [id number] Surgeon: Ty Russ MD Anesthesia: Monitored anesthesia care Technique/Procedure Description: After the patient's eye prepped and draped in the usual [facility] ophthalmic manner, a lid speculum was placed between the eyelids. Two side ports were made and the anterior chamber was filled with viscoelastic. A keratome was used to create t he main wound temporally. Utrata forceps were used for a capsulorhexis. After hydrodissectio n, the lens was phacoemulsified and residual cortex was aspirated. The artificial lens was p laced under viscoelastic which was then removed. The wounds were checked and found to be leonora ertight. Vigamox 0.1cc was placed in the anterior chamber. Triamcinolone 3mg was placed in the subconjunctival space. Pilocarpine 1% drops were placed on the eye. A patch and shield w ere placed over the eye. Postoperative Plan: The patient was sent to recovery in good condition. Complications: none Estimated Blood Loss: none 1 1:02 AM PSTdocumented in this encounter Plan of Treatment Not on filedocumented as of this encounter Procedures + +--------+ + + + | Procedure Name | Priori | Date/Time | Associated Diagnosis | Comments | | | ty | | | | + +--------+ + + + | EXTRACTION CATARACT | | 06/26/2018 | Age-related | | | W/ OR W/O LENS | | 10:45 AM | nuclear cataract of | | | IMPLANT | | PST | right eye | | + +--------+ + + + | POC GLUCOSE | Routin | 06/26/2018 | | Results for this | | | e | 10:29 AM | | procedure are in the | | | | PST | | results section. | + +--------+ + + + documented in this encounter Results POC Glucose (06/26/2018 10:29 AM PST) + +---------+ + + + | Component | Value | Ref Range | Performed | Pathologist | | | | | At | Signature | + +---------+ + + + | Glucose, | 111 (H) | 70 - 109 mg/dL | [facility] | [facility] | | [facility] | | [facility] - | | | | | | [facility]ATORY | | + +---------+ + + + + + | Specimen | + + | Blood | + + + + + + + | Performing | Address | City/State/Zipcode | Phone Number | | Organization | | | | + + + + + | [facility] | [address] | [place] | [phone] | | [facility] | | [address] | | | - LABORATORY | | | | + + + + + documented in this encounter Visit Diagnoses Not on filedocumented in this encounter Administered Medications + +--------+---------+------+------+------+ | Medication Order | MAR | Action | Dose | Rate | Site | | | Action | Date | | | | + +--------+---------+------+------+------+ + +---+ | albuterol 2.5 mg/3 mL nebulizer | | | solution 2.5 mg 2.5 mg, | | | Nebulization, ONCE PRN, Wheezing, | | | Starting Sun06/26/18 at 1110, | | | For 1 dose, Notify anesthesia if | | | patient is wheezing and does not | | | have a history of asthma or COPD | | | or current smoking., | | | Recovery/Phase I | | + +---+ | | | + +---+ | albuterol-ipratropium 2.5-0.5 | | | mg/3 mL nebulizer solution 3 mL | | | 3 mL, Nebulization, ONCE PRN, | | | Wheezing, Starting Sun06/26/18 | | | at 0958, For 1 dose, Pre-op | | + +---+ | | | + +---+ | dextrose 50% injection 12.5-25 | | | g 12.5-25 g, Intravenous, EVERY | | | 15 MIN PRN, Low Blood Sugar, For | | | hypoglycemia. Give 12.5g (25ml) | | | IV if blood glucose 50-69 | | | mg/dL. Give 25g (50ml) IV if | | | blood glucose < 50, Starting Wed | | | 06/26/18 at 1110, Give over 2 | | | min. Repeat in 15 min if blood | | | glucose remains < 70 mg/dL. | | | Repeat blood glucose in 30 min | | | once blood glucose > 70., | | | Recovery/Phase I | | + +---+ | | | + +---+ | dextrose 50% injection 12.5-25 | | | g 12.5-25 g, Intravenous, EVERY | | | 15 MIN PRN, Low Blood Sugar, Give | | | 12.5g (25 mL) IV if blood | | | glucose 50-69 mg/dL. Give 25g | | | (50 mL) IV if blood glucose < 50, | | | Starting 06/26/18 at 0958, | | | Repeat in 15 min if blood glucose | | | remains < 70 mg/dL. Repeat | | | blood glucose in 30 min once | | | blood glucose > 70., Pre-op | | + +---+ | | | + +---+ + +---------+ +---+-------+---+ | lactated ringers (LR) infusion | New Bag | 06/26/20 | | 100 | | | at 10-100 mL/hr, Intravenous, | | 18 10:30 | | mL/hr | | | CONTINUOUS, Starting 06/26/18 | | AM PST | | | | | at 1015, TKO., Pre-op | | | | | | + +---------+ +---+-------+---+ +---+---+ | | | +---+---+ + +-------+ +--------+---+---+ | lidocaine (AKTEN) 3.5% | Given | 06/26/20 | 1 drop | | | | ophthalmic gel 1 drop 1 drop, | | 18 10:35 | | | | | Right Eye, Prior to Incision, | | AM PST | | | | | Starting 06/26/18 at 0958, | | | | | | | For 2 doses, Begin after | | | | | | | proparacaine. Begin 10 minutes | | | | | | | prior to leaving SDS for | | | | | | | operating room. Repeat jelly just | | | | | | | prior to leaving SDS and Q10 | | | | | | | minutes until in the operating | | | | | | | room. Keep eye closed after | | | | | | | placing medication., Pre-op | | | | | | + +-------+ +--------+---+---+ +-------+ +--------+---+---+ | Given | 06/26/20 | 1 drop | | | | | 18 10:31 | | | | | | AM PST | | | | +-------+ +--------+---+---+ +---+---+ | | | +---+---+ + +-------+ +--------+---+---+ | phenylephrine (MARION-SYNEPHRINE) | Given | 06/26/20 | 1 drop | | | | 2.5% ophthalmic solution 1 drop | | 18 10:31 | | | | | 1 drop, Right Eye, Prior to | | AM PST | | | | | Incision, Starting 06/26/18 | | | | | | | at 0958, For 3 doses, Begin after | | | | | | | proparacaine. 1 drop every 10 | | | | | | | minutes for 3 doses. (May | | | | | | | alternate every 5 minutes with | | | | | | | tropicamide) Remind patient to | | | | | | | keep eye closed after placing | | | | | | | each drop., Pre-op | | | | | | + +-------+ +--------+---+---+ +-------+ +--------+---+---+ | Given | 06/26/20 | 1 drop | | | | | 18 10:23 | | | | | | AM PST | | | | +-------+ +--------+---+---+ | Given | 06/26/20 | 1 drop | | | | | 18 10:16 | | | | | | AM PST | | | | +-------+ +--------+---+---+ +---+---+ | | | +---+---+ + +-------+ +--------+---+---+ | proparacaine (ALCAINE) 0.5% | Given | 06/26/20 | 1 drop | | | | ophthalmic solution 1 drop 1 | | 18 10:16 | | | | | drop, Right Eye, Prior to | | AM PST | | | | | Incision, Starting 06/26/18 | | | | | | | at 0958, For 1 dose, After | | | | | | | placing anesthetic, keep eye | | | | | | | closed except for when placing | | | | | | | additional medications. All other | | | | | | | drops/gel should follow this | | | | | | | drop., Pre-op | | | | | | + +-------+ +--------+---+---+ +---+---+ | | | +---+---+ + +-------+ +--------+---+---+ | tropicamide (MYDRIACYL) 1% | Given | 06/26/20 | 1 drop | | | | ophthalmic solution 1 drop 1 | | 18 10:31 | | | | | drop, Right Eye, Prior to | | AM PST | | | | | Incision, Starting 06/26/18 | | | | | | | at 0958, For 3 doses, Begin after | | | | | | | proparacaine. 1 drop every 10 | | | | | | | minutes for 3 doses. (May | | | | | | | alternate every 5 minutes with | | | | | | | phenylephrine) Remind patient to | | | | | | | keep eye closed after placing | | | | | | | each drop., Pre-op | | | | | | + +-------+ +--------+---+---+ +-------+ +--------+---+---+ | Given | 11/14/20 | 1 drop | | | | | 18 10:23 | | | | | | AM PST | | | | +-------+ +--------+---+---+ | Given | 06/26/20 | 1 drop | | | | | 18 10:16 | | | | | | AM PST | | | | +-------+ +--------+---+---+ +---+---+ | | | +---+---+ documented in this encounter
--- OUTSIDE RECORDS SUMMARY | ~2020-03-09 | XMS | Encounter Summary ---
Demographics + + + | Address | [address] | | | [place] [address] | + + + | Home Phone | | + + + | Preferred Language | Unknown | + + + | Marital Status | | + + + | Yarsanism Affiliation | 1041 | + + + | Race | Unknown | + + + | Ethnic Group | Unknown | + + + Author + + + | Author | [facility] | | | and [place] | + + + | Organization | [facility] | | | [...] Team Providers + +------+ + | Care Hair Colorist Name | Role | Phone | + +------+ + | Megan Garza | PCP | | + +------+ + Reason for Referral Evaluate & Treat (Routine) +--------+ + + + + + | Status | Reason | Specialty | Diagnoses / | Referred By | Referred To | | | | | Procedures | Contact | Contact | +--------+ + + + + + | Closed | Specialty | Physical | Diagnoses | | [facility] | | | Services | Therapy | Chronic | Jone, | JACK | | | Required | | neck pain | Tirso Brito MD | PHYSICAL | | | | | DDD | [address] | THERAPY - | | | | | (degenerativ | [place] | VENUS | | | | | e disc | [place] | [address] | | | | | disease), | [address] | [address] | | | | | cervical | Phone: | [place] | | | | | Procedures | [phone] | [address] | | | | | HIM 03/13 | Fax: | Phone: | | | | | | [phone] | [phone] | | | | | | | Fax: | | | | | | | [phone] | +--------+ + + + + + Encounter Details +--------+ + + + + | Date | Type | Department | Care Team | Description | +--------+ + + + + | 03/11/ | Orders Only | [facility] [place] | Tirso Becerril | Chronic neck pain; | | 2017 | | PHYSIATRY [address] | T, MD [address] | DDD (degenerative | | | | [address] | [place] | disc disease), | | | | [place], [place] | [address] | cervical | | | | [address] | | | | | | [phone] | | | +--------+ + + + [...] as of this encounter Plan of Treatment + + +--------+ + + | Name | Type | Priori | Associated Diagnoses | Order Schedule | | | | ty | | | + + +--------+ + + | Ambulatory referral | Outpatient | Routin | Chronic neck pain | Ordered: 03/11/2018 | | to Physical Therapy | Referral | e | DDD (degenerative | | | | | | disc disease), | | | | | | cervical | | + + +--------+ + + documented as of this encounter Visit Diagnoses + + | Diagnosis | + + | Chronic neck pain Cervicalgia | + + | DDD (degenerative disc disease), cervical Degeneration of cervical intervertebral | | disc | + + documented in this encounter"
--- OUTSIDE RECORDS SUMMARY | ~2020-03-09 | XMS | Encounter Summary ---
Demographics + + + | Address | [address] | | | [place] [address] | + + + | Home Phone | | + + + | Preferred Language | Unknown | + + + | Marital Status | | + + + | Episcopal Affiliation | 1041 | + + + | Race | Unknown | + + + | Ethnic Group | Unknown | + + + Author + + + | Author | [facility] | | | and [place] | + + + | Organization | [facility] | | | [...] Team Providers + +------+ + | Care Drywall Installer Name | Role | Phone | + +------+ + | Megan Garza | PCP | | + +------+ + Encounter Details +--------+ + + + + | Date | Type | Department | Care Team | Description | +--------+ + + + + | 06/27/ | Hospital | [facility] | Marce Jeanna Mon, | | | 2017 | Encounter | CENTER OUTPATIENT | [facility] | | | | | PHYSICAL THERAPY | | | | | | [address] | | | | | | [place] | | | | | | [address] | | | | | | [phone] | | | +--------+ + + + [...] + + documented as of this encounter Progress Notes Jeanna Zheng PTA - 06/27/2018 8:04 AM PSTFormatting of this note might be different fro m the original. Therapy Progress Note by Jeanna Zheng PTA at 06/27/18803 Author: Jeanna Zheng PTA Service: (none) Author Type: Promotion Officer Filed: 06/27/18 0935 Date of Service: 06/27/18803 Status: Signed Rn Admit: Jeanna Zheng PTA (Promotion Officer) Therapy Daily Treatment note Date of Service: 06/27/2018 Diagnosis: Gait disturbance Parkinson's disease (HCC) Resting tremor Referring Provider: Rick Kumar Treatment Time: 50 min Charges: $Therapeutic Interventions $Functional Dynamic Therapy : 23-37 mins Therapy Time: 30 Minutes $Gait/Mobility: 8-22 mins Therapy Time: 20 Minutes $ Therapeutic Interventions $Functional Dynamic Therapy : 23-37 mins Insurance Authorization: 4 of 999 authorized visits Recertification Date: Expiration Date: G-CODES 3 of 10 [facility] visits: 3 of 4 Functional Limitations: $Mobility: Moving and Walking Around $[id number] Current Status : CM - At least 80% but less than 100% impaired, limited or restricte d $[id number] Projected Goal Status : CK - At least 40% but less than 60% impaired, limited or res tricted Rationale: Pt was able to walk with no devices for 230 feet, then was unable to continue. SUBJECTIVE: Pain complaint: Yes - chronic pain in his full back, both leges and his L shoulder and r thumb. The pain is 7/10 now, average is 8/10 worst is 10/10. The pain is sharp, it does wake him at night and is eased by a cream from [place]. Subjective Comments: Pt states that he is having L LE pain. He has increased redness/blist er anterior chin and pain. OBJECTIVE: Observation: Pt has a continual tremor in his L hand. Tests/Measures: Daily treatment: Exercise Reps/Wt Completed/Date NuStep Level 3 x 10 minutes UE x 2 minutes LE only Functional warm-up to improve strength, endurance, tissue extensibility, and physiological response to exercise. Toe taps on 4"step x 10 x SLS // bars 2 x 30" x Romberg stance (blue compliant) 2 x 30" x Tandem stance(blue compliant) 2 x 30" x Feet apart (blue compliant) 2 x 30" x bridge x 10 KTC stretch 2 x 30" // bars balance forward/backward/side step 2 x length of // bars LTR HS stretch 2 x 30" x Gait: Pt provided FWW, adjusted height and instructed pt family in measurement, Pt performe d 3 x 180 ' instructed pt in mohan, step length, turning and transfers from walker to palmira r. Patient Education: Instructed pt in HEP, brigde lateral rotation ASSESSMENT: Response to treatment: Pt c/o L LE pain, pt has increased redness/blister, pain and warmth, toe appeared dark in collar. Encourage pt (family) to have MD examine LE possible increased cellulitis. Pt demonstrated improve gait with FWW, increased mohan and step length. Patient continues to require skilled intervention due to: the patient presents with gait de viations, chronic back and neck pain, stiffness, balance issues with a few falls, decreased ROM of shoulders, tremor that impacts functional ability to be safe with his walking and mob ility, difficulty with independence with functional tasks, fatigue, should try assistive dev ice for walking, and ability to live with less pain. GOALS: STG: Short Term Goals to be achieved in 4 weeks: Testing: Pt will be given additional testing on TUG and MCNAMARA balance testing for better ass essment of fall risk. HEP Education: Patient will be instructed in a home exercise program with good return demon stration of technique for stretching and strengthening. Education: Caregiver to be educated in exercise/activities to assist his father with his pr ogram. ROM: Pt to demonstrate increased ROM in shoulders Pain: Pt report average pain at 5 /10 to progress toward living a pain free life. Testing: Patient will demonstrate a 100 foot increase on the 6MWT test as indication of inc reased endurance. Gait: Pt will be given a trial of various assistive devices and recommendations made for hi s needs. Gait: Pt to demonstrate ability to ambulate 300 feet with SBA for improved independence wit h functional mobility. Stairs: Pt to demonstrate ability to ascend 8 stairs with CGA. LTG: Stretcher Leveler Operator Helper Goals to be achieved in 13 weeks: HEP Education: Patient will be independent with home exercise program to improve upon gains made during therapy as well as continued self-management of condition. Pain: Pt report average pain at 4/10 or less to progress toward living a pain free life. Testing: Patient will demonstrate a 200 foot increase on the 6MWT test as indication of inc reased endurance. Family member/pt will report readiness to continue with HEP independently. Gait: Pt to demonstrate ability to ambulate 600 feet with SBA for improved safety and indep endence with functional mobility. PLAN: Continue per POC; Recommended treatment plan: Pt would benefit from skilled intervention to address functional deficits. Treatment will include: Therapeutic Exercise, Stretching, Functional Dynamic Activity Training, Patient/Family Educ ation and Gait Training Jeanna Zheng PTA 06/27/2018 9:25 AM documented in this e ncounter Plan of Treatment Not on filedocumented as of this encounter Visit Diagnoses Not on filedocumented in this encounter
--- OUTSIDE RECORDS SUMMARY | ~2020-03-09 | XMS | Encounter Summary ---
Demographics + + + | Address | [address] | | | [place] [address] | + + + | Home Phone | | + + + | Preferred Language | Unknown | + + + | Marital Status | | + + + | Faith Affiliation | 1041 | + + + | Race | Unknown | + + + | Ethnic Group | Unknown | + + + Author + + + | Author | [facility] | | | and [place] | + + + | Organization | [facility] | | | [...] Team Providers + +------+ + | Care Can Operator Name | Role | Phone | + +------+ + PCP | Unavailable | + +------+ + Encounter Details +--------+ + + + + | Date | Type | Department | Care Team | Description | +--------+ + + + + | 12/27/ | Hospital | [facility] | Conversion | Pain | | 2014 | Encounter | CONVERSION [address] | Transaction, | | | | | [address] | Provider Unknown | | | | | [place], [place] | | | | | | [address] | (Fax) | | | | | [phone] | | | +--------+ + + + [...]
--- OUTSIDE RECORDS SUMMARY | ~2020-03-09 | XMS | Encounter Summary ---
Demographics + + + | Address | [address] | | | [place] [address] | + + + | Home Phone | | + + + | Preferred Language | Unknown | + + + | Marital Status | | + + + | Orthodoxy Affiliation | 1041 | + + + | Race | Unknown | + + + | Ethnic Group | Unknown | + + + Author + + + | Author | [facility] | | | and [place] | + + + | Organization | [facility] | | [...] Team Providers + +------+ + | Care Card Game Operator Name | Role | Phone | + +------+ + | Megan Garza | PCP | | + +------+ + Reason for Referral Diagnostic/Screening (Routine) +--------+--------+ + + + + | Status | Reason | Specialty | Diagnoses / | Referred By | Referred To | | | | | Procedures | Contact | Contact | +--------+--------+ + + + + | Closed | | Radiology | Diagnoses | | [facility] | | | | | Chronic | Jone, | [address] | | | | | bilateral | Tirso Brito MD | [place], | | | | | low back | [address] | [place] | | | | | pain with | [place] | [address] | | | | | bilateral | [place], [place] | Phone: | | | | | sciatica | [address] | [phone] | | | | | Spondylolist | Phone: | Fax: | | | | | hesis at | [phone] | [phone] | | | | | L5-S1 level | Fax: | | | | | | Procedures | [phone] | | | | | | MRI Lumbar | | | | | | | Spine wo | | | | | | | Contrast | | | +--------+--------+ + + + + Reason for Visit + + + | Reason | Comments | + + + | New Patient | low back pain | + + + Evaluate & Treat (Routine) +--------+--------+ + + + + | Status | Reason | Specialty | Diagnoses / | Referred By | Referred To | | | | | Procedures | Contact | Contact | +--------+--------+ + + + + | Closed | | Physical | Diagnoses | Greg, | [place], | | | | Medicine and | Chronic | Megan | Tirso Brito MD | | | | Rehabilitatio | bilateral | Raquel, | [address] | | | | n | low back | [place] [address] [facility] | | | | | pain | St | [place], [place] | | | | | | [place], | [address] Phone: | | | | | | [place] [address] | [phone] | | | | | | Phone: | Fax: | | | | | | [phone] | [phone] | | | | | | Fax: | | | | | | | [phone] | | +--------+--------+ + + + + Encounter Details +--------+---------+ + + + | Date | Type | Department | Care Team | Description | +--------+---------+ + + + | 03/11/ | Office | [facility] | Tirso Becerril | Chronic bilateral | | 2017 | Visit | PHYSIATRY [address] | MD Daryl [address] | low back pain with | | | | [address] | [place] | bilateral sciatica | | | | [place] [facility] | [address] | (Primary Dx); | | | | [address] | | Spondylolisthesis at | | | | [phone] | | L5-S1 level; | | | | | | Parkinson's disease | | | | | | (tremor, stiffness, | | | | | | slow motion, | | | | | | unstable posture) | | | | | | ([facility]); Type 2 | | | | | | diabetes mellitus | | | | | | without | | | | | | complication, | | | | | | without long-term | | | | | | current use of | | | | | | insulin ([facility]); | | | | | | Chronic neck pain | +--------+---------+ + + + Social History + +-------+ [...] + + + | Blood Pressure | 116/61 | 03/11/2018 8:42 AM | | | | | PDT | | + + + + + | Pulse | 52 | 03/11/2018 8:42 AM | | | | | PDT | | + + + + + | Temperature | - | - | | + + + + + | Respiratory Rate | - | - | | + + + + + | Oxygen Saturation | - | - | | + + + + + | Inhaled Oxygen | - | - | | | Concentration | | | | + + + + + | Weight | 72.6 kg (160 lb) | 03/11/2018 8:42 AM | | | | | PDT | | + + + + + | Height | 152.4 cm (5') | 03/11/2018 8:42 AM | | | | | PDT | | + + + + + | Body Mass Index | 31.25 | 03/11/2018 8:42 AM | | | | | PDT | | + + + + + documented in this encounter Progress Notes Tirso Becerril MD - 03/11/2018 8:30 AM PDT Tirso Becerril MD [address] [facility] [place], [place] [id number] FAX: PHYSICAL MEDICINE AND REHABILITATION H&P CHIEF COMPLAINT: Chief Complaint Patient presents with New Patient low back pain HISTORY OF PRESENT ILLNESS: The patient is a 73 y.o. male being seen today at the request of Megan Garza MD for the complaint of low back pain radiating into bilateral legs that beg an 4 years ago. The patient reports that the pain started without any inciting event. The s ymptoms have been unchanged/gradually worsening. He rates the pain as severe. The symptoms are daily. He describes the pain as aching, cru shing, numbing, sharp and tingling. The patient describes leg symptoms that occur on both sides. The leg symptoms are persisten t and the symptoms travel from the low back radiating into both legs. Leg symptoms account f or approximately 50% of his lower body pain. The patient does report numbness in the legs. He does report weakness of the legs. The patient does not report any change in bowel or bl adder function or saddle anesthesia recently. He reports that activities such as walking ar ound a store can increase his symptoms. Usually sitting is better but he reports that if he sits for too long his pain will increase. His symptoms worsen with changing position, walking, kneeling, bending and twisting. He has tried PT, Chiropactic, Massage, Steroids and Injections. He has had physical therap y in the past for his low back pain which unfortunately did not provide significant relief. He is also dealing with neck pain and pain in the left arm. He has not had any PT or imagi ng from that issue. He was also recently diagnosed with Parkinson's disease. PAST MEDICAL HISTORY: Past Medical History: Diagnosis Date Carpal tunnel syndrome Chronic bilateral low back pain with bilateral sciatica 03/11/2018 Chronic bilateral low back pain without sciatica Chronic midline low back pain with sciatica, sciatica laterality unspecified Dermatophytosis of nail Disorder of eye Disorder of lipid metabolism Disorder of skin and subcutaneous tissue Fecal occult blood test positive Functional disorder of stomach History of prostate cancer Obesity Osteoarthrosis Parkinson's disease (tremor, stiffness, slow motion, unstable posture) ([facility]) 03/11/2018 Pedal edema Pill rolling tremor Spondylolisthesis at L5-S1 level 03/11/2018 Type 2 diabetes mellitus without complication ([facility]) 03/11/2018 Type II diabetes mellitus ([facility]) PAST SURGICAL HISTORY: History reviewed. No pertinent surgical history. CURRENT MEDICATIONS: Current Outpatient Prescriptions Medication Sig Dispense Refill ACCU-CHEK SOFTCLIX LANCETS MISC ACCU-CHEK SOFTCLIX LANCETS MISC atorvaSTATin (LIPITOR) 20 mg tablet Take 20 mg by mouth Daily. cholecalciferol (VITAMIN D-3) 1,000 units capsule Take 1,000 mg by mouth. Cinnamon 500 MG CAPS Take 500 mg by mouth 3 times daily. fish oil 1,000 mg capsule Take 1,200 mg by mouth 3 times daily. gabapentin (NEURONTIN) 300 mg capsule Take 300 mg by mouth nightly. Glucose Blood (BLOOD GLUCOSE TEST STRIPS) STRP glucose blood test strips (ONETOUCH VERIO) strip glyBURIDE (DIABETA) 5 mg tablet Take 5 mg by mouth daily (with breakfast). lisinopril-hydrochlorothiazide (PRINZIDE,ZESTORETIC) 10-12.5 MG per tablet Take 1 table t by mouth Daily. meloxicam (MOBIC) 15 mg tablet Take 1 tablet by mouth Daily as needed. 30 tablet 2 metFORMIN (GLUCOPHAGE) 1000 MG tablet Take 1,000 mg by mouth 2 times daily (with breakf ast & dinner). tamsulosin (FLOMAX) 0.4 mg CAPS Take 0.4 mg by mouth nightly. No current facility-administered medications for this visit. ALLERGIES: No Known Allergies SOCIAL HISTORY: The patient reports that he has never smoked. He has never used smokeless tobacco. He repo rts that he does not drink alcohol or use drugs. FAMILY HISTORY: History reviewed. No pertinent family history. ROS GENERALLY: No fever, no night sweats, no anemia, no fatigue, no recent profound weight ch anges. EYES: No eye problems, no use of corrective lenses, no eye injury, no double vision, no bl indness. EARS, NOSE, AND THROAT: No changes in taste or smell, no hearing difficulty, no ringing in the ears, no ear drainage, no dizziness, no voice changes, no difficulty swallowing, no sig nificant snoring, no sleep apnea, no sinus problems, no major dental work. NEUROLOGICALLY:The patient has +numbness/pain of arms, +numbness/pain of legs, no awake wit h numbness/pain, +weakness, +muscle aching, +coordination difficulty, no change in walk, no head injury, no neck injury, no back injury, +pain in neck, +pain in back, no stroke, no mateusz nting spells, no loss of consciousness, no tremor/shaking, no seizures, no headaches, no papa kemar, no memory loss, no speech difficulty, no confusion and no numbness of face. PSYCHIATRIC: No depression, no sleep disorders, no anxiety, no bipolar disorder, no psycho tic episodes. CARDIOVASCULAR: No heart attacks, no heart murmur, no heart fluttering, no chest pain, no ankle swelling. LUNG DISEASE: No shortness of breath, no cough, no tuberculosis, no bloody cough, no asth ma, no emphysema/COPD. GASTROINTESTINAL: No bowel disease, no nausea or vomiting, no rectal bleeding, no constipa tion, no stool incontinence, no liver disease, no gallbladder disease, no abdominal pain, no ulcers. KIDNEY DISEASE: No urinary frequency, no painful or difficult urination, no incontinence. ENDOCRINE: +diabetes, no thyroid disease, no osteopenia or osteoporosis, no breast drainag e. SKIN: No breast lumps, no skin changes, no rashes, no itches. HEMATOLOGIC/LYMPHATIC: No enlarged lymph nodes, no easy or unusual bleeding, no personal h istory of cancer. RHEUMATOLOGIC: No joint arthritis, no rheumatoid arthritis. PHYSICAL EXAMINATION: Blood pressure 116/61, pulse 52, height 1.524 m (5'), weight 72.6 kg (160 lb). Body mass in dex is 31.25 kg/m. GENERAL: The patient is well developed and well nourished. He does not appear uncomfortabl e when seated. HEENT: HEAD/FACE: EYES: Normocephalic and atraumatic. There are no areas of recent trauma. Normal sclerae without icterus. SKIN Limited skin exam shows no significant rashes or lesions. There are not scars in the lumbar region. CHEST: The patient is in no acute respiratory distress with unlabored respirations. HEART: There is lower extremity edema. ABDOMEN: The patient is overweight. NEUROLOGIC: The patient is awake, alert, and oriented to time, place, person. He follows simple and complex commands. His speech is fluent. He comprehends speech well. He has no apparent deficits with short or retirement memory. He has appropriate fund of knowledge Cranial nerves 2-12 appear grossly intact. Sensory exam does not show diminished sensation at this time to light touch in the upper an d lower extremities. Pill-rolling tremor due to Parkinson's. REFLEX: RIGHT LEFT PATELLAR 2+ 2+ ACHILLES 0 0 PLANTAR Downgoing Downgoing Patient was unable to relax legs during reflex test MUSCULOSKELETAL There is no major palpable deformity of the spine. Some pain with straight leg lift on the left, mostly in the knee. Armani's maneuver and i mpingement testing were negative for any groin pain. There was no tenderness to palpation over the greater trochanters or sacral sulci. The patient localized the majority of the john n to the lower lumbar region. Lumbar facet loading was difficult to determine as he was mary ble to lean backwards. He stands with forward flexed posture and is unable to extend even t o neutral. Strength testing showed 5/5 strength throughout the lower extremities. The patient had diff iculty with heel to toe, but hard to distinguish if it was due to balance or weakness issues . There was no redness, effusion, warmth or joint line tenderness in the knees or ankles. Patient has deformity of left tibia from a fracture when he was 6 years old. RADIOGRAPHIC REVIEW: The patient's imaging was reviewed personally by me in detail with the patient during today 's visit. The XR Lumbar from 01/25/18 shows spondylolisthesis with loss of disc height at L5 -S1. IMPRESSION: Encounter Diagnoses Name Primary? Chronic bilateral low back pain with bilateral sciatica Yes Spondylolisthesis at L5-S1 level Parkinson's disease (tremor, stiffness, slow motion, unstable posture) ([facility]CC) Type 2 diabetes mellitus without complication, without long-term current use of insulin ([facility]) Chronic neck pain PLAN: 1. We discussed treatment options for his low back and leg pain which include PT, medicatio ns, injections and possibly surgery. He has tried PT without much relief. Medications incl uding gabapentin have also failed to help. I do think that interventional procedures for th e low back would be an appropriate next step. 2. Before we will consider injections for this issue I would like to have advanced imaging. I did order a lumbar MRI to further assess degenerative changes. He would like to complet e this at [facility]. 3. We only briefly discussed his neck and arm issues. I did order cervical x-rays for fur ther evaluation. I will likely order PT as an initial treatment for the neck and arm pain a s he has not tried that as of yet. He would like to do this at [facility] also. 4. Medications were reviewed today. I did recommend that he try meloxicam and a prescriptio n for this was given. Given his diabetes he does need to have his renal function tested chase ry 6 months or so. I, Dr. Tirso Becerril, personally performed the services described in this documentatio n, as scribed by Sulema Toussaint MA in my presence, and it is both accurate and complete. ELECTRONICALLY EDITED AND SIGNED BY: Tirso Becerril MD, 03/11/2018 documented in this encounter Plan of Treatment + +---------+--------+ + + | Name | Type | Priori | Associated Diagnoses | Order Schedule | | | | ty | | | + +---------+--------+ + + | MRI Lumbar Spine wo | Imaging | Routin | Chronic bilateral | Expected: | | Contrast | | e | low back pain with | 03/11/2018, Expires: | | | | | bilateral sciatica | 03/11/2019 | | | | | Spondylolisthesis at | | | | | | L5-S1 level | | + +---------+--------+ + + documented as of this encounter Results XR Cervical Spine 2 [...] | Diagnosis | + + | Chronic bilateral low back pain with bilateral sciatica - Primary | + + | Spondylolisthesis at L5-S1 level | + + | Parkinson's disease (tremor, stiffness, slow motion, unstable posture) (HCC) | | Paralysis agitans | + + | Type 2 diabetes mellitus without complication, without long-term current use of | | insulin ([facility]CC) | + + | Chronic neck pain Cervicalgia | + + documented in this encounter"
--- OUTSIDE RECORDS SUMMARY | ~2020-03-09 | XMS | Encounter Summary ---
Demographics + + + | Address | [address] | | | [place] [address] | + + + | Home Phone | | + + + | Preferred Language | Unknown | + + + | Marital Status | | + + + | Orthodox Affiliation | 1041 | + + + | Race | Unknown | + + + | Ethnic Group | Unknown | + + + Author + + + | Author | [facility] | | | and [place] | + + + | Organization | [facility] | | | [...] Team Providers + +------+ + | Care Electrician [employer] Name | Role | Phone | + [...] + + | 03/13/ | Telephone | [facility] [place] | Tirso Becerril | Results | | 2018 | | [address]SIATRY [address] | [address] | | | | | [address] | [place], [place] | | | | | [place], [place] | [address] | | | | | [address] | | | | | | [phone] | | | +--------+ + + + [...] Miscellaneous Notes Telephone Encounter - Susanna Ford, Plastics Design Engineer - 03/13/2018 2:22 PM PDTAttempted to call the patient to notify him of Dr. Collins MRI notes and advise that a referral h as been sent for PT to [facility]. There was no voicemail and I was unable to leave a voice mailEle ctronically signed by Betty Charles Assistant at 03/13/2018 2:23 PM PDTTelephone Encounter - Susanna Ford, Plastics Design Engineer - 03/13/2018 2:22 PM PDT----- Message from A sonu Becerril MD sent at 03/11/2018 15:49 PDT ----- He does have degenerative changes of the cervical spine at C5-C6 and C6-C7. I do recommend that he try PT for the neck first before we get advanced imaging or try any interventional procedures. I will order PT, to be done at [facility] per his request.Reyna franco signed by Susanna Ford Plastics Design Engineer at 03/13/2018 2:22 PM PDTdocumented in th is encounter Plan of Treatment Not on filedocumented as of this encounter Visit Diagnoses Not on filedocumented in this encounter"
--- OUTSIDE RECORDS SUMMARY | ~2020-03-09 | XMS | Encounter Summary ---
Demographics + + + | Address | [address] | | | [place] [address] | + + + | Home Phone | | + + + | Preferred Language | Unknown | + + + | Marital Status | | + + + | Yazidi Affiliation | 1041 | + + + | Race | Unknown | + + + | Ethnic Group | Unknown | + + + Author + + + | Author | [facility] | | | and [place] | + + + | Organization | [facility] | | | [...] Team Providers + +------+ + | Care Licensed Practical Nurse Clinic Nurse Name | Role | Phone | + +------+ + | Megan Garza | PCP | | + +------+ + Encounter Details +--------+ + + + + | Date | Type | Department | Care Team | Description | +--------+ + + + + | 01/29/ | Imaging | [facility] | Provider, | | | 2018 | Exam | [facility] | MD [address] | | | | | IMAGING [address] | [address] | | | | | [address] [place] | [place] [address] | | | | | [place] [address] | | | | | | [phone] | | | +--------+ + + + [...] + + + | XR LUMBAR SPINE 2 OR | Routin | 01/25/2018 | | Results for this | | 3 VW | e | 10:50 AM | | procedure are in the | | | | PDT | | results section. | + +--------+ + + + documented in this encounter Results XR Lumbar Spine 2 or 3 Vw (01/25/2018 10:50 AM PDT) + + | Specimen | + + | | + + + + + | Narrative | Performed At | + + + | External films for comparison only | [facility] | | | | | No results will be in the chart. | | + + + + +---------+ + + | Performing | Address | City/State/Zipcode | Phone Number | | Organization | | | | + +---------+ + + | [facility] | | | | + +---------+ + + documented in this encounter Visit Diagnoses Not on filedocumented in this encounter"
--- OUTSIDE RECORDS SUMMARY | ~2020-03-09 | XMS | Encounter Summary ---
Demographics + + + | Address | [address] [facility] [address] [facility] | | | [place] [address] | + + + | Home Phone [...] Team Providers + +------+ + | Care Provider Relations Rep Name | Role | Phone | + +------+ + | Megan Garza | PCP | | + +------+ + Reason for Visit + + + | Reason | Comments | + + + | Follow-up, Office | Discuss repeat injections | | Visit | | + + + Follow Up (Routine) + +--------+ + + + + | Status | Reason | Specialty | Diagnoses / | Referred By | Referred To | | | | | Procedures | Contact | Contact | + +--------+ + + + + | Authorized | | Physical | Diagnoses | Greg, | Jone, | | | | Medicine and | Chronic | Megan | Tirso Brito MD | | | | Rehabilitatio | bilateral | Raquel, | [address] | | | | n | low back | [place] [address] [facility] | | | | | pain | | [place], [place] | | | | | | [place], | [address] Phone: | | | | | | [place] [address] | [phone] | | | | | | Phone: | Fax: | | | | | | [phone] | [phone] | | | | | | Fax: | | | | | | | [phone] | | + +--------+ + + + + Encounter Details +--------+---------+ + + + | Date | Type | Department | Care Team | Description | +--------+---------+ + + + | 05/12/ | Office | [facility] | Andrea Nguyen PA-C | Chronic neck pain | | 2019 | Visit | PHYSIATRY [address] | [address] | (Primary Dx); | | | | [address] | RAMSES ERICKSON MD | Cervical | | | | STEPHON SZYMANSKI MD | [id number] | radiculopathy; | | | | [address] | | Parkinson's disease | | | | [phone] | | (tremor, stiffness, | | | | | | slow motion, | | | | | | unstable posture) | | | | | | (HCC); Type 2 | | | | | | diabetes mellitus | | | | | | without | | | | | | complication, | | | | | | without long-term | | | | | | current use of | | | | | | insulin (HCC) | +--------+---------+ + + + Social History [...] + + + | Blood Pressure | 108/62 | 05/12/2019 11:21 AM | | | | | PDT | | + + + + + | Pulse | - | - | | + [...] + + + + | Weight | 78 kg (172 lb) | 05/12/2019 11:21 AM | | | | | PDT | | + + + + + | Height | 157.5 cm (5' 2") | 05/12/2019 11:21 AM | | | | | PDT | | + + + + + | Body Mass Index | 31.46 | 05/12/2019 11:21 AM | | | | | PDT | | + + + + + documented in this encounter Patient Instructions Patient Instructions Andrea Nguyen PA-C - 05/12/2019 11:20 AM PDTFormatting of this note mi ght be different from the original. 1) C7-T1 ILESI ordered today. Our office will call you once we have insurance approval to m ove forward with next step in treatment plan. 2) Continue with at home exercises. 3) Continue with current Rx medications as prescribed and directed. 4) Follow up 3-4 weeks after injection. Nervio pinzado en el julianne Un nervio pinzado en el julianne (radiculopata cervical) se debe a que un nervio que va de la mdula koroma hasta el julianne o el brazo est irritado o presionado. Puede deberse a u n disco vertebral que est deformado. Un disco vertebral es mary almohadilla que hay entre c ada mary de las vrtebras (huesos) de la columna. Tambin puede deberse a que mary articulac in de la columna se estrech a causa de la osteoartritis o a un desgarro por lesiones coby teradas. Un nervio pinzado puede provocar entumecimiento, hormigueo, un dolor profundo o un dolor pu nzante con sensacin de electricidad que va desde un lado del julianne hasta los dedos de la mano de mary ann lado. Un nervio puede pinzarse despus de mary torcedura o flexin repentina y forzada (rogelio en un accidente de automvil) o despus de katarina realizado un movimiento simple nisha extrao . Cualquiera sea el jordyn, suele katarina espasmos musculares, lo cual aumenta el dolor. Cuidados en la casa Siga estos consejos para cuidarse en diaz casa: Descanse y relaje los msculos. Emplee mary almohada cmoda para apoyar la winston y man tener la columna en mary posicin natural (neutra). Diaz winston no debera estar inclinada roper sindhu adelante ni hacia atrs. Puede usar mary toalla enrollada para lograr un mejor apoyo.M antenga diaz julianne alineado con el diana del cuerpo cuando est parado o sentado. Mantenga l a winston hacia arriba y los hombros hacia abajo. No realice actividades en las que tenga que hollow handle knife assembler mucho el julianne. Puede usar calor y masajes para ayudar a aliviar el dolor. [place] mary ducha o un avi, o use mary almohadilla trmica. Elijah puede aliviarle usar mary compresa fra. Para formar mary compresa fra, puede envolver con mary toalla emil mary bolsa plstica con cubos de hiel o o hielo molido. Pruebe tanto con fro rogelio con calor, y use el mtodo que se sienta mejo r para usted. Daisy esto por 20 minutos varias veces al da. Puede usar acetaminofn o ibuprofeno para controlar el dolor, a menos que le hayan rece tado otro medicamento para calmar el dolor. Si tiene mary enfermedad crnica del hgado o d e los riones, consulte a diaz proveedor antes de usar estos medicamentos. Elijah hable con diaz proveedor si tiene mary lcera de estmago o sangrado gastrointestinal. Disminuya el estrs. El estrs puede hacer que el dolor tarde ms en irse. Daisy todos los ejercicios o estiramientos que le hayan indicado cuando le dieron el ela del hospital. Use un julianne ortopdico blando si as se lo indicaron. Se sabe que la fisioterapia y lso masajes pueden ayudar. Puede que necesite ciruga si tuvo mary lesin ms grave. Visita de control Programe mary visita de control con diaz proveedor de atencin mdica, o segn se le haya i ndicado, si no comienza a sentirse mejor al cabo de mary semana. Puede que necesite ms prue bas.Dgale a diaz proveedor si tiene fiebre o escalofros, o si baj de peso. Si le tomaron radiografas, las evaluar un radilogo. Le informarn de los nuevos herrmann azgos que puedan afectar diaz atencin mdica. Cundo debe buscar atencin mdica? Llame a diaz proveedor de atencin mdica de inmediato si tiene cualquiera de los siguiente s sntomas: El dolor empeora, incluso despus de maria l el medicamento recetado Debilidad en el brazo o las piernas El entumecimiento en el brazo empeora Dificultades para respirar o tragar Date Last Reviewed: 06/03/201719999235-7485 [employer]. [address] [place] [address], [place] [address]. Todos lo s derechos reservados. Esta informacin no pretende sustituir la atencin mdica profesio nal. Slo diaz mdico puede diagnosticar y tratar un problema de halie. Qu es la radiculopata cervical? La radiculopata cervical es mary irritacin o inflamacin de mary lisseth nerviosa en el cu ello. Provoca dolor en el julianne y otros sntomas que pueden propagarse al pecho o a lo lar go del brazo. Para entender esta afeccin, ayuda comprender hydrometeorology teacher se compone la columna kaylyn tebral: Vrtebras. Son huesos que se apilan unos sobre otros para formar la columna vertebral. La columna cervical contiene las siete vrtebras del julianne. Discos. Son las almohadillas blandas de tejido entre las vrtebras. Actan rogelio amorti guadores para la columna. Elcanal koroma. Es un tnel que se forma dentro de las vrtebras apiladas. La mdula koroma pasa a travs de francine canal. Nervios. Se ramifican desde la mdula koroma. Al salir del canal koroma, los nervios pasan por aberturas entre las vrtebras. La lisseth nerviosa es la parte de un nervio que est ms cerca de la mdula koroma. Cuando hay radiculopata cervical, las races nerviosas del julianne estn irritadas. [place] produce dolor y sntomas que pueden desplazarse hacia los nervios que van desde la mdula koroma hasta los brazos y el torso. Cules son las causas de la radiculopata cervical? Envejecer, mary lesin, teo postura y otros factores pueden ocasionar problemas en el cuel lo. Estos problemas pueden luego irritar las races nerviosas. Incluyen: Daos en un disco en la columna cervical. En mary ann jordyn, el disco daado puede presionar sobre las races nerviosas cercanas. Degeneracin a causa del desgaste y el envejecimiento. [place] puede ocasionar un estrecha miento (estenosis) de las aberturas entre las vrtebras. Las aberturas que se york estrechad o presionan sobre las races nerviosas cuando estas salen del canal koroma. Mary columna inestable. [place] sucede cuando mary vrtebra se desliza hacia adelante. Puede hacer presin sobre la lisseth nerviosa. Hay otras cosas, menos comunes, que ejercen presin sobre los nervios del julianne. Por ejem plo, infeccin, quistes y tumores. Sntomas de la radiculopata cervical Incluyen: Dolor en el julianne Dolor, entumecimiento, cosquilleo o debilidad que bajan por el brazo Prdida de movimiento del julianne Espasmos musculares Tratamiento de la radiculopata cervical En la mayora de los casos, diaz proveedor de atencin mdica intentar angelo con trata mientos que ayudan a aliviar los sntomas. Por ejemplo: Medicamentos analgsicos (calmantes del dolor) recetados o de venta trina. Ayudan a ali viar el dolor y la hinchazn. Compresas fras. Estos mtodos ayudan a reducir el dolor. Reposo. Implica evitar las posturas y actividades que aumentan el dolor. Soporte para el julianne (julianne ortopdico). [place] puede ayudar a aliviar la inflamacin y el dolor. Fisioterapia, incluyendo ejercicios fsicos y estiramientos. Puede ayudar a reducir el dolor y a aumentar el movimiento y el funcionamiento. Inyecciones de medicamentosalrededor de las races nerviosas. [place] se hace para ayudar a aliviar los sntomas por algn tiempo. En algunos casos, diaz proveedor de atencin mdica puede indicarle mary ciruga para corre gir el problema subyacente. Eso depende de la causa, los sntomas y cunto hace que tiene el dolor. Posibles complicaciones Con el tiempo, un nervio irritado e inflamado puede daarse. Eso puede ocasionar entumecim iento o debilidad a veronika plazo (permanente). Si anjelica sntomas cambian de manera repentina o empeoran, asegrese de comentrselo a diaz proveedor de atencin mdica. Cundo llamar a diaz proveedor de atencin mdica Llame a diaz proveedor de atencin mdica de inmediato si nota alguno de los siguientes s ntomas: Dolor nuevo o dolor que empeora Debilidad, cosquilleo o entumecimiento nuevos o que empeoran en diaz brazo o diaz mano Cambios en diaz vejiga o anjelica intestinos Date Last Reviewed: 10/21/201519991656-7568 [employer]. [address] [place] [address]. All [facility] ts reserved. This information is not intended as a substitute for professional medical care. Always follow your healthcare professional's instructions. Common Spine and Disk Problems The most common serious back problemshappen when disks tear, bulge, or rupture. In such c ases, an injured disk can no longer cushion the vertebrae and absorb shock. As a result, the rest of your spine may also weaken. This can lead to pain, stiffness, and other symptoms. Torn annulus. A sudden movement may cause a tiny tear in an annulus. Nearby ligaments ma y stretch. Contained herniated disk. As a disk wears out, the nucleus may bulge into the annulus an d press on nerves. Extruded herniateddisk. When a disk ruptures, its nucleus can squeeze out and irritate a nerve. Arthritis. As disks wear out over time, bone spurs form. These growths can irritate nerv es and inflame facets. Instability. As a disk stretches, the vertebrae slip back and forth. This can put pressu re on the annulus. Spondylolisthesis.Thisis a condition in which one vertebra has moved forward or back woodson, in relation to the one above or below it. Thiscauses a crack (stress fracture) in th e areas that link the vertebrae together. This may put pressure on the annulus, stretch the disk, and irritate nerves. Date Last Reviewed: 01/11/201819997748-5990 [employer]. [address] [place] [address], [place] [address]. All [facility] reserved. This information is not intended as a substitute for professional medical care. Always follow your healthcare professional's instructions. Informacin sobre la enfermedad de Parkinson La enfermedad de Parkinson es un trastorno que afecta el control de anjelica movimientos. Se pro duce por mary falta de dopamina, mary sustancia que ayuda a las neuronas del cerebro a comunic arse entre s. Cuando la dopamina est ausente de ciertas zonas del cerebro, los mensajes que le indican al cuerpo hydrometeorology teacher moverse se duane interrumpidos o alterados. [place] puede causar s ntomas rogelio temblores, rigidez y lentitud de los movimientos. No hay ninguna jordy para la enfermedad de Parkinson. Sin embargo, un tratamiento adecuado puede aliviar los sntomas y permitirle llevar mary bronwyn plena y activa. Cambios en el cerebro La dopamina se produce en mary malcom pequea del cerebro denominada sustancia clemencia. Por lisseth ones que an no se entienden claramente, las clulas nerviosas de esta malcom que producen d opamina comienzan a morir. [place] significa que hay menos dopamina disponible para ayudarle a controlar anjelica movimientos. Cuando est edouard, la sustancia clemencia produce suficiente dopamina para ayudar a controlar los movimientos corporales. Sntomas de la enfermedad de Parkinson Los sntomas de la enfermedad de Parkinson suelen aparecer de forma gradual. Algunos puede n tardar aos en presentarse. Otros abbe vez no se manifiesten nunca. A continuacin, se de scriben los sntomas ms comunes: Agitacin (temblor en reposo). Puede afectar las lars, los brazos y las piernas. En la mayora de los casos, los temblores son ms calin en un lado del cuerpo. Normalmente, d isminuyen cuando se usa el brazo o la pierna (la extremidad). Lentitud de los movimientos (bradicinesia). Puede afectar al cuerpo entero. Las personas afectadas pueden caminar dando pasos cortos y arrastrando los pies. Tambin pueden sentirs e completamente paralizadas e incapaces de moverse. Rigidez. [place] ocurre cuando los msculos no se relajan. Puede causar dolor muscular y u na postura encorvada. Otros sntomas. Estos incluyen prdida del equilibrio, escritura en mary letra diminuta , volumen bajo de voz, estreimiento, expresin facial disminuida o apagada y trasto rnos del sueo. Elijah pueden ocurrir prdida de la memoria u otros problemas del pensam iento a medida que avanza la enfermedad. [employer] Worker se diagnostica la enfermedad de Parkinson? No hay ninguna prueba que de por s sea suficiente para diagnosticar la enfermedad de Park inson. El diagnstico se basa en anjelica sntomas, diaz historia clnica y los resultados de un examen fsico. Es posible que elijah le larissa otros anlisis para descartar otros probl emas. Estos pueden incluir anlisis de hebert para detectar enfermedades que causan sntom as similares. Abdifatahbin pueden incluir pruebas cerebrales de diagnstico por imgenes, rogelio la resonancia magntica del cerebro. Enfermedad de Parkinson o parkinsonismo? El parkinsonismo es el nombre de un randall de trastornos cerebrales cuyos sntomas son oleg nupur a los de la enfermedad de Parkinson. Sin embargo, las causas de estos sntomas son di ferentes. En algunos casos, pueden producirse sntomas parecidos a los de la enfermedad de Parkinson rogelio consecuencia de ataques cerebrales o lesiones en la winston. Los sntomas pue den ser causados tambin por medicamentos u otras enfermedades que afectan al cerebro. En g eneral, estas afecciones no pueden tratarse jackman rudy utilizando los medicamentos que ayudan a las personas con la enfermedad de Parkinson. Date Last Reviewed: 05/08/201519993498-8950 [employer]. [address] [place] [address]. Todos lo s derechos reservados. Esta informacin no pretende sustituir la atencin mdica profesio nal. Slo diaz mdico puede diagnosticar y tratar un problema de halie. Cuando se vive con la enfermedad de Parkinson La enfermedad de Parkinson afecta el control y la coordinacin muscular. Por lo general, e sto provoca que los movimientos se larissa ms lentos y menos automticos. Quiz comience a caminar con pasos cortos, arrastrando los pies, y rachel a inclinarse hacia adelante. Tambi n es posible que en ocasiones se sienta agarrotado y no pueda moverse, rogelio si los pies es tuvieran pegados en el suelo. Los siguientes consejos pueden ayudarle con algunos movimiento s comunes. Si es necesario, diaz mdico tambin podra aconsejarle usar un bastn o andado r. Retire las alfombras pequeas y acomode el desorden para reducir el riesgo de caerse. Para levantarse de la cama Colquese de costado con las rodillas flexionadas. Baje los pies del borde de la cama, ayudndose con los brazos para incorporarse. Sintese en el borde de la cama con los pies sobre el suelo y las rodillas separadas. Implsese apoyando las lars sobre la cama y mzase hacia adelante para ponerse de pie . Mantngase parado darryl, al menos, 1 minuto antes de intentar ramirez el primer paso. Si se siente mareado o aturdido, sintese de nuevo sobre la cama. Caminar y voltearse Levante las piernas a la altura de la rodilla y d pasos altos y largos. Apoye angelo el taln en cada paso. Balancee los brazos rogelio si estuviera caminando al comps de mary ma rcha. Imagnese que est caminando por encima de mary serie de lneas en el suelo. Francine ejer cicio puede resultarle especialmente til para superar un episodio de agarrotamiento. Para voltearse, camine formando un semicrculo en lugar de tratar de detenerse y girar en el lugar. Ponerse de pie y sentarse Para ponerse de pie, arrime las caderas hasta el borde del asiento. Mantenga los pies ap oyados sobre el piso y las rodillas separadas. Ponga las lars sobre los apoyabrazos. Inclnese hacia adelante mientras se impulsa sobre los apoyabrazos para ponerse de pie. Abbe vez le sirva de ayuda mecerse unas cuantas veces en vaivn para maria l impulso. Para sentarse, retroceda hacia la silla y colquese lo ms cerca posible de la misma. Inclnese hacia ismael y doble las rodillas. Agrrese de los apoyabrazos mientras desciende lentamente sobre la silla. Date Last Reviewed: 05/11/[id number] [employer]. [address] [place] [address], [place] [address]. Todos lo s derechos reservados. Esta informacin no pretende sustituir la atencin mdica profesio nal. Slo diaz mdico puede diagnosticar y tratar un problema de halie. Sntomas comunes de la enfermedad de Parkinson Usted tiene la enfermedad de Parkinson. Esta enfermedad se debe a la prdida de mary sustan sindhu qumica en diaz cerebro que se necesita para controlar el movimiento y el equilibrio. Por razones que an no son claras, las clulas que producen esta sustancia del cerebro laquita de funcionar. [place] es lo que provoca los sntomas. En esta hoja, encontrar ms informaci n sobre la enfermedad de Parkinson. [employer] Worker podran afectarle los sntomas? Los sntomas de la enfermedad de Parkinson pueden ser diferentes en cada persona. Es posib le que tenga muchos sntomas graves o que solo tenga algunos leves. Anjelica sntomas pueden af ectar un solo lado del cuerpo o ambos lados del cuerpo. Adems, anjelica sntomas pueden cambia r con el tiempo. Es posible que tenga diferentes sntomas en fases diferentes de la enferme dad. Tambin es posible que anjelica sntomas empeoren a medida que avance la enfermedad. Sntomas que afectan el movimiento y el equilibrio Estos pueden incluir los siguientes: Temblor. marilee es un sntoma muy comn. Con frecuencia, tiembla la mano o el brazo en isra o ambos lados del cuerpo. El temblor tambin puede afectar otras zonas del cuerpo, rogelio mary pierna, un pie o la barbilla. El temblor puede ser anthony cuando se usa la parte afectad a. Y puede empeorar cuando est en reposo (cuando no se usa). Rigidez. [place] significa tener los msculos duros o tensos. Sucede porque los msculos no reciben la seal de relajarse. La rigidez puede provocar calambres y dolor en los mscu los. Tambin puede causar mary postura encorvada. Problemas de equilibrio. [place] puede afectar la manera en que usted se para y se mueve. T ambin puede aumentar diaz riesgo de caerse. Otros sntomas: Otros sntomas de la enfermedad de Parkinson incluyen hablar con voz muy baja y en un elmer solo, la escritura se vuelve temblorosa y ms pequea, problemas para tragar. Puede tener estreimiento, piel grasosa y cambios en la presin arterial. Tambin puede perder la me moria y tener otros problemas relacionados con el pensamiento a medida que avance la enferme dad. Tambin se puede presentar bradicinesia (o movimientos lentos). [place] puede causar prob lemas con acciones rogelio levantarse de la cama o de mary silla. Caminar podra quedar limitad o a pasos cortos y arrastrados. Quizs se sienta congelado, o incapaz de moverse. Tambin se vuelven ms lentos otros movimientos que son inconscientes, rogelio pestaear, hollow handle knife assembler la ca ra en diferentes expresiones, balancear los brazos al caminar. Algunas personas pueden tener problemas al orinar, y otras pueden sufrir depresin. Date Last Reviewed: 05/08/201519996300-2959 [employer]. [address] [place] [address]. Todos lo s derechos reservados. Esta informacin no pretende sustituir la atencin vidhi cifuentes. Slo diaz mdico puede diagnosticar y tratar un problema de halie. documented in this encounter Progress Notes Andrea Nguyen PA-C - 05/12/2019 11:20 AM PDT Andrea Nguyen PA-C [address] [facility], [address] [place] [address] FAX: CHIEF COMPLAINT: Chief Complaint Patient presents with Follow-up, Office Visit Discuss repeat injections HISTORY OF PRESENT ILLNESS: Kota Piña is a 74 y.o. male with the complaint of neck john n and radiating pain into bilateral shoulders Patient has been seen before for these symptom s and is requesting to have same injection repeated (C7-T1 interlaminar epidural steroid inj ection) that he had done by Dr. Becerril on 01/23/2019). The patient states that the sympto ms began over the past 2 years gradually, but first brought it to our clinic's attention in August of this year. The patient rates his pain and discomfort as moderate-severe. Since t he symptoms began, he has noticed that symptoms have been chronic and recurrent. He describ es the pain as a aching, numbing, throbbing and tingling feeling. The patient also describe s arm symptoms down to bilateral shoulders. Mr. Piña does report loss of strength on left arm. He does indicate a history of loss of fine motor function due to parkinson's disease. The patient does not reports bowel or bladder incontinence. The patient does not reports s addle paresthesias. His symptoms improve with nothing. His symptoms worsen with unknown. Treatments for these complaints have included OTC NSAIDs, massage at home, heat packs and i njections. Patient's medications, allergies, past medical, surgical, social and family histories were reviewed and updated as appropriate. 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 Disorder of skin and subcutaneous tissue Fecal occult blood test positive Functional disorder of stomach History of prostate cancer treated with radiation Obesity Osteoarthrosis Parkinson's disease ([facility]) 03/07/2018 Parkinson's disease (tremor, stiffness, slow motion, unstable posture) ([facility]) 03/11/2018 Pedal edema Pill rolling tremor Prostate cancer ([facility]) Spondylolisthesis at L5-S1 level 03/11/2018 Type 2 diabetes mellitus without complication ([facility]) 03/11/2018 PAST SURGICAL HISTORY: Past Surgical History: Procedure Laterality Date CATARACT REMOVAL Right 06/26/2018 Procedure: RIGHT EXTRACTION CATARACT WITH LENS IMPLANT; Surgeon: Bj Thomas; Location: [facility] MAIN OR HERNIA REPAIR WRIST FRACTURE SURGERY CURRENT MEDICATIONS: Current Outpatient Medications Medication Sig Dispense Refill ACCU-CHEK SOFTCLIX LANCETS MISC ACCU-CHEK SOFTCLIX LANCETS MISC atorvaSTATin (LIPITOR) 20 mg tablet Take 1 tablet (20 mg total) by mouth daily. carbidopa-levodopa (SINEMET) 25-100 mg per tablet cholecalciferol (VITAMIN D-3) 1,000 units capsule Take 1,000 mg by mouth. Cinnamon 500 MG CAPS Take 500 mg by mouth 3 times daily. diphenhydrAMINE (BENADRYL) 25 MG capsule Take 1 capsule (25 mg total) by mouth every 6 (six) hours as needed for itching or allergies. Irish instructions docusate sodium (COLACE) 100 MG tablet 100 mg doxycycline (VIBRAMYCIN) 50 MG capsule ergocalciferol (VITAMIN D-2) 50,000 units capsule Ergocalciferol(ERGOCALCIFEROL) 18476 UNT CAPSULE Dose: 90503 UNT finasteride (PROSCAR) 5 mg tablet 5 mg fish oil 1,000 mg capsule Take 1,200 mg by mouth 3 (three) times a day. fish oil 1,000 mg capsule Take 1,200 mg by mouth 3 times daily. furosemide (LASIX) 20 mg tablet Take 1 tablet (20 mg total) by mouth daily. Leg swellin g Irish instructions gabapentin (NEURONTIN) 300 mg capsule Take 1 capsule by mouth 3 times daily. 90 capsule 1 Glucose Blood (BLOOD GLUCOSE TEST STRIPS) STRP glucose blood test strips (CONTOUR NEXT TEST) strip CONTOUR NEXT TEST STRIPS(GLUCOSE BLOOD) 1 EACH STRIP Dose: 1 EA glucose blood test strips (ONETOUCH VERIO) strip glyBURIDE (DIABETA) 5 mg tablet Take 1 tablet (5 mg total) by mouth daily with breakfas t. Lancets Misc. (UNISTIK 3 EXTRA) MISC Test Blood sugar QDAY and PRN Dx: E11.9 DUSTIN: 99 lisinopril-hydrochlorothiazide (PRINZIDE,ZESTORETIC) 10-12.5 MG per tablet Take 1 table t by mouth daily. meloxicam (MOBIC) 15 mg tablet Take 1 tablet by mouth Daily as needed. 30 tablet 2 metFORMIN (GLUCOPHAGE) 1000 MG tablet Take 1 tablet (1,000 mg total) by mouth 2 (two) t imes a day with meals. omeprazole (PRILOSEC) 40 MG capsule 40 mg. raNITIdine (ZANTAC) 150 mg tablet Take 1 tablet (150 mg total) by mouth 2 (two) times a day. Irish instructions SITagliptin-metFORMIN (JANUMET) 50-1,000 mg per tablet Take 501,000 mg by mouth tamsulosin (FLOMAX) 0.4 mg CAPS Take 0.4 mg by mouth nightly. terazosin (HYTRIN) 1 mg capsule 1 mg timolol maleate (TIMOPTIC) 0.5% ophthalmic solution tobramycin-dexamethasone (TOBRADEX) ophthalmic solution traMADol (ULTRAM) 50 mg tablet 100 mg traZODone (DESYREL) 50 mg tablet 50 mg No current facility-administered medications for this visit. ALLERGIES: No Known Allergies SOCIAL HISTORY: The patient reports that he has never smoked. He has never used smokeless tobacco. He repo rts that he does not drink alcohol or use drugs. FAMILY HISTORY: History reviewed. No pertinent family history. REVIEW OF SYSTEMS: REVIEW OF SYSTEMS: GENERALLY: No fever, no night sweats, no [...] no sinus problems, no major dental work. NEUROLOGICALLY: Please see the review of systems discussed above in the history of present illness. In addition, the patient has Parkinson's disease. PSYCHIATRIC: No depression, no sleep disorders, no [...] painful or difficult urination, no incontinence. ENDOCRINE: No diabetes, no thyroid disease, no osteopenia or osteoporosis, no breast drain age. SKIN: No breast lumps, no skin changes, no rashes, no itches. HEMATOLOGIC/LYMPHATIC: No enlarged lymph nodes, no easy or unusual bleeding, no personal h istory of cancer. RHEUMATOLOGIC: No joint arthritis, no rheumatoid arthritis. PHYSICAL EXAMINATION: Blood pressure 108/62, height 1.575 m (5' 2"), weight 78 kg (172 lb). Body mass index is 31 .46 kg/m. GENERAL: The patient is well developed and well nourished. He does not appear uncomfortabl e when seated. HEENT: HEAD/FACE: EYES: Normocephalic and atraumatic. There are no areas of recent trauma. Normal sclerae without icterus. SKIN Limited skin exam shows no significant rashes or lesions. CHEST: The patient is in no acute respiratory distress with unlabored respirations. HEART: There is not lower extremity edema. ABDOMEN: Soft, non-tender, non-distended, and without palpable masses. The patient is not obese. MUSCULOSKELETAL: Cervical Spine: The cervical spine exam shows there is tenderness over the C6-C7 region. Range of motion is limited. Rotation and extension does cause symptoms to radiate into the upper extremities on left si de. Flexion and extension of the neck does not cause severe discomfort. Patient also seems to have significant muscular tension of the neck muscles equal bilateral ly at trapezius muscle, levator scapulae muscle, rhomboid minor muscle, rhomboid major muscl e. MOTOR EXAM: (5 IS NORMAL) * Indicates pain limited MUSCLE/ MOVEMENT: RIGHT LEFT Deltoids 5 4 Biceps 5 4 Triceps 5 4 Wrist Flexion 5 4 Wrist Extension 5 4 Finger Abduction 5 4 Senior Functional Analyst Strength 5 4 NEUROLOGIC: The patient is awake, alert, and oriented to time, place, person. He follows simple and complex commands. His speech is fluent. He comprehends speech well. He has no apparent deficits with short or [facility] memory. He has appropriate fund of knowledge Cranial nerves 2-12 appear grossly intact. Rapid Alternating Movement in UE and LE is intact. Sensory exam with monofilament does not show diminished sensation to light touch in the up per and lower extremities. Pill-rolling tremor due to Parkinson's disease. REFLEXES: (2 OR 2+ IS NORMAL) REFLEX: RIGHT LEFT BICEPS 2+ 2+ BRACHIORADIALIS 2+ 2+ TRICEPS 2+ 2+ RADIOGRAPHIC REVIEW: The patient's imaging was reviewed in detail with the patient today during the visit. The cervical Xray images from 03/11/2018 show cervical spine degenrative changes at C5-C6 and C6- C7. No MRI of cervical spine in EHR at this time. ASSESSMENT: Encounter Diagnoses Name Primary? Chronic neck pain Yes Cervical radiculopathy Parkinson's disease (tremor, stiffness, slow motion, unstable posture) (HCC) Type 2 diabetes mellitus without complication, without long-term current use of insulin ([facility]) PLAN: It was a pleasure meeting and evaluating this patient today, and I greatly appreciate the r salvador. 1)Today I have discussed my clinical impression with Kota Piña. Shared decision making between Kota Piña and I was used during today's encounter. We discussed the patient's d ifferential diagnosis, description of symptoms, physical exam, imaging and treatment plan th at suggest diagnosis at this time. 2) I counseled patient on treatment options which included conservative self management usi ng OTC NSAIDs/Ice and heat packs, physical therapy, prescription medications, epidural stero id injection. 3) Imaging: Reviewed above in radiology review section 4) The patient has had significant conservative care including medications (NSAIDS and narc otics), PT (multiple sessions over the years) and care nurse rn. Unfortunately Kota rai continues to have significant discomfort. It appears to me that the pain is primarily coming from Cervical spine at C6-C7 region. I did feel that Kota Piña would be a good candidate for interventional procedures an d I offered a C7-T1 ILESI to be done. 5) Patient will follow up with me 3 wks post injection/as needed to discuss any imaging and /or progress with today's treatment plan. 6) If current treatment plan is insufficient for symptom relief we should consider MRI of t he cervical spine as the next option in treatment plan because there is no MRI in EHR at thi s time. I spent 30 minutes in visit with Kota Piña today with the majority of time spent counse lling the patient on his diagnosis, options for his care, and coordinating his care. ELECTRONICALLY SIGNED BY: Andrea Nguyen PA-C, 05/12/2019 17:03 documented in this enc ounter Plan of Treatment Not on filedocumented as of this encounter Results FL ALE Cervical Thoracic Interlaminar (06/23/2019 1:29 PM PST) + + | Specimen | + + | | + + + + + | Narrative | Performed At | + + + | | [facility] | | 06/23/2019CERVICAL INTERLAMINAR EPIDURAL STEROID INJECTION CLINICAL | | | HISTORY: ICD-10 CODE M54.12 CERVICAL RADICULOPATHY Kota Piña | | | presents to the fluoroscopy suite for a fluoroscopically-guided C7-T1 | | | interlaminar epidural steroid injection, right of midline, as part of | | | conservative management for chronic pain with cervical radiculopathy | | | and degenerative disc disease. After informed consent was obtained, | | | the patient lay in the prone position on the fluoroscopy table. The | | | area was identified under fluoroscopic guidance. The area was prepped | | | and draped in sterile fashion. A 25-gauge, 1.5-inch needle was | | | inserted into this region and approximately 3 mL of buffered 1% | | | lidocaine was infused. Then a 22-gauge epidural needle was advanced | | | into the epidural space at the C7-T1 level. Confirmation into the | | | epidural space was obtained with loss of resistance, as well as | | | infusion of approximately 1 mL of Omnipaque contrast which showed | | | epidural flow. Then, a combination of 3 mL of normal saline and 1 mL | | | of 10 mg/mL dexamethasone was infused. The patient tolerated the | | | procedure well without complications. Pre- and post-procedure blood | | | pressures were stable. The patient was given verbal as well as written | | | followup instructions. Prior to the start of the procedure, the | | | following were performed and verified, including correct patient | | | identity, correct site/side marked and visible, agreement on the | | | procedure to be done, correct patient positioning and an accurate | | | procedure consent form. Any safety precautions based on clinical | | | history and/or medication use have been addressed. I personally | | | performed the procedure above. Estimated blood loss: | | | MinimalComplications: NoneFindings: As expectedAnesthesia: Local | | | 1% Lidocaine | | |I personally performed the procedure above. | | | | | |Estimated blood loss: Minimal | | |Complications: None | | |Findings: As expected | | |Anesthesia: Local 1% Lidocaine | | | | | | | | + + + + +---------+ + + | Performing | Address | City/State/Zipcode | Phone Number | | Organization | | | | + +---------+ + + | [facility] | | | | + +---------+ + + documented in this encounter Visit Diagnoses + + | Diagnosis | + + | Chronic neck pain - Primary Cervicalgia | + + | Cervical radiculopathy Brachial neuritis or radiculitis nos | + + | Parkinson's disease (tremor, stiffness, slow motion, unstable posture) (HCC) | | Paralysis agitans | + + | Type 2 diabetes mellitus without complication, without long-term current use of | | insulin (HCC) | + + documented in this encounter
--- OUTSIDE RECORDS SUMMARY | ~2020-03-09 | XMS | Encounter Summary ---
Demographics + + + | Address | [address] | | | [place] [address] | + + + | Home Phone | | + + + | Preferred Language | Unknown | + + + | Marital Status | | + + + | Sabianist Affiliation | [id number] | + + + | Race | Unknown | + + + | Ethnic Group | Unknown | + + + Author + + + | Author | [facility] | | | and [place] | + + + | Organization | [facility] | | | [...] Team Providers + +------+ + | Care Counselor Dormitory Name | Role | Phone | + +------+ + | Megan Garza | PCP | | + +------+ + Encounter Details +--------+ + + + + | Date | Type | Department | Care Team | Description | +--------+ + + + + | 05/09/ | Hospital | [facility] | Conversion | | | 2018 | Encounter | CENTER OUTPATIENT | Transaction, | | | | | PHYSICAL THERAPY | Provider Unknown | | | | | [address] | [phone] | | | | | [place], [place] | | | | | | [address] | Doris Rosado, PT | | | | | [phone] | | | +--------+ + + + [...] | 0 | 02/09/20 | | | CALIXTO MISC | | | | 18 | 8 | + + + +---------+ + + | ACCU-CHEK SOFTCLIX | | | 0 | 02/09/20 | | | LANCJULIANNA MISC | | | | 18 | [...] documented as of this encounter Miscellaneous Notes Miscellaneous - Doris Rosado PT - 05/09/2018 11:59 PM PDTFormatting of this note might b e different from the original. Treatment Plan by Doris Rosado PT at 05/09/18 0442 Author: Doris Rosado PT Service: Physical Medicine and Rehab Author Type: Physical donald Filed: 10/10/18 1357 Date of Service: 05/09/18 5277 Status: Signed Hospital Medicine Director: Doris Rosado PT (Physical Therapist) [facility] Physical Therapy Discharge Summary 10/10/2018 Dear Rick Kumar MD, Diagnosis: Gait disturbance Parkinson's disease (HCC) Resting tremor Date of Initial Evaluation:05/09/18 Number of visits:4 Kota Piña 47 was last treated on . They have had multiple cancels and no-shows to their physical therapy appointments. Due to non-compliance with the POC, we will D/C them at this time. If continued PT is indicated in the future then please provide a new script for this dayana t. Thank you! Doris Rosado PT 10/10/2018 iscellamateo - Doris Rosado PT - 05/09/2018 7:29 AM PDTFormatting of this note might be different from the o riginal. Treatment Plan by Doris Rosado PT at 05/09/18 0729 Author: Doris Rosado PT Service: Physical Medicine and Rehab Author Type: Physical Th donald Filed: 05/09/18 1648 Date of Service: 05/09/18 0729 Status: Signed Hospital Medicine Director: Doris Rosado PT (Physical Therapist) Cosigner: Rick Kumar MD at 08/30 1122 [facility] Physical Therapy Initial Evaluation Summary/Plan of Care Treatment Time: 74 min Charges: $ PT Evaluation Charges: Initial PT evaluation $Initial PT Evaluation: High Therapy Time: 74 Minutes Diagnosis: Gait disturbance Parkinson's disease (HCC) Resting tremor Onset of Symptoms: 05/09/17 Referring Provider: Rick Kumar Functional Limitations: $Mobility: Moving and Walking Around $[id number] Current Status : CM - At least 80% but less than 100% impaired, limited or restricte d $[id number] Projected Goal Status : CK - At least 40% but less than 60% impaired, limited or res tricted Rationale: Pt was able to walk with no devices for 230 feet, then was unable to continue. SUBJECTIVE: Chief complaint: involuntary muscle movements, walking issues Patient goal for therapy: to feel better Past Medical: Past Medical History Diagnosis Date Diabetes mellitus type I (HCC) Parkinson's disease (HCC) 03/07/2018 Prostate cancer (HCC) Surg Hx: Past Surgical History Procedure Laterality Date HERNIA REPAIR WRIST FRACTURE SURGERY Previous diagnostic testing: Yes - See Chart Medications: Current Outpatient Prescriptions Medication Sig Dispense Refill ACCU-CHEK SOFTCLIX LANCETS lancets atorvastatin (LIPITOR) 20 MG tablet 20 mg daily. atorvastatin (LIPITOR) 20 MG tablet Take 20 mg by mouth. Cinnamon 500 MG capsule Take 500 mg by mouth daily. gabapentin (NEURONTIN) 300 MG capsule Take 300 mg by mouth. gabapentin (NEURONTIN) 300 MG capsule glucose blood (Switch Identity GovernanceUCH VERIO) test strip glyBURIDE (DIABETA) 5 MG tablet Take 5 mg by mouth every morning. glyBURIDE (DIABETA) 5 MG tablet lisinopril-hydrochlorothiazide (ZESTORETIC) 10-12.5 MG per tablet Take 1 tablet by mout h daily. metFORMIN (GLUCOPHAGE) 1000 MG tablet Take 1,000 mg by mouth 2 (two) times daily. metFORMIN (GLUCOPHAGE) 1000 MG tablet tamsulosin (FLOMAX) 0.4 MG capsule nightly. tamsulosin (FLOMAX) 0.4 MG capsule Take 0.4 mg by mouth. No current facility-administered medications for this encounter. Allergies: Patient has no known allergies. Pain complaint: Yes - chronic pain in his full back, both leges and his L shoulder and r t humb. The pain is 7/10 now, average is 8/10 worst is 10/10. The pain is sharp, it does wake him at night and is eased by a cream from [place]. Home setting: The patient lives with their family, son Ann is with him as a chief deputy sheriff a nd lives with him along with pts . Patient s prior functional status: Independent with functional mobility, Independent wit h ADLs, Independent with IADLs, Community distance History of current diagnosis: Pt has had some tremor for a couple of years. 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 H e was diagnosed last year. He also has some chronic back and neck pain with some recent imag ing that was done out of town and they do not have any results. He has not had any previous physical therapy. He does not use any assistive devices. Additional Comments: Patient speaks French only, sone interprets per their request. Pt rep orts he does feel unbalanced and has had some falls outside in they yard, but his dog helps him get back up. Pt also reports chronic headache. He feels weak in his legs and has difficu lty climbing stairs. Pt had L wrist surgery in the past, and is cautious with it. OBJECTIVE: Observation: Pt has a continual tremor in his L hand. Tests/objective evaluation: Cervical AROM: Pt with moderate limitations in ROM but WFL. Shoulder ROM R L Pain / position / comment Flexion 90 90 Abduction 100 100 Int Rotation Ext Rotation LUMBAR AROM: ROM is limited to about 50% of normal in all motions. LE AROM: Mild limitations but WFL MMT UE: 4+ to 5/5 generally MMT LE: 4+ to 5/5 Posture: Flexed at hips with standing. SIX MINUTE WALK TEST Assesses distance walked over 6 minutes as a sub-maximal test of aerobic capacity/endurance . If physical assistance is required to walk, do not perform this test. If patient is unab le to complete the full 6 minutes, actual time and distance should be recorded. Assistive Device: none Speed: comfortable Time: 6 minutes Distance: 70 meters (1 foot = 0.3048 meters) 230 feet Community-dwelling Elderly: Age / Gender Mean Distance in Meters Age Male Female 60-69 yrs 572 m 538 m 70-79 yrs 527 m 471 m 80-89 yrs 417 m 392 m (Trung et al, 2002) Gait assessment: Pt with forward flexed posture, no arm swing, small shuffling steps. 6MWT is 230 feet with no devices. FIVE TIMES SIT TO STAND Method: Use a straight back chair with a solid seat that is 16 high. Ask participant to sit on the chair with arms folded across their chest. Instructions: Stand up and sit down as quickly as possible 5 times, keeping your arms fo lded across your chest. Trial 1: 5.2 Seconds Neuro Observations Primary Motor Problems: tremor , rigidity , postural imbalance , fall history , forward fle xed posture , decreased arm swing , shuffling gait pattern , reduced facial expressions and facial asymmetry Secondary Non-Motor Issues: confusion , depression , sleep disturbance , memory or cognitiv e problems , syncope , chest pain , LE edema , dyspnea , difficulties speaking , difficultie s swallowing , changes in bowel or bladder , fatigue and headaches Other Special Considerations: difficulty with ADLs , medication problems or questions and change in activity or exercise , [place] 3DY Screening Tool 1. What is the day? Correct 2. What is the date? Incorrect - 3. Spell the word, "leta" backwards? (0dnum) Incorrect - mudo 4. What year is it? Incorrect - doesn't know Coordination Assessment- Mild cogwheel rigidity present to PROM in U/Es Rapidly Alternating Movement (supination / pronation of UE s): dysdiadochokinesis of joseph ateral hand(s). Rapidly Alternating Movement (toe tapping): dysdiadochokinesis of bilateral leg(s). [id number] Coordination Test: within normal limits of bilateral hand(s). Heel to Kim Coordination Test: dysdiadochokinesis of bilateral leg(s). Note: if motor & sensory systems are intact, an abnormal, asymmetric heel to kim test is h ighly suggestive of an ipsilateral cerebellar lesion. and Results of the evaluation were discussed using demonstration, explanation and chief deputy sheriff w ith the patient and/or their family/caregivers, include the following: Clinical observations , Developmentally appropriate expectations, Patient/caregiver report and observations, Patie nt's present level of performance, Plan of care, Results of standardized testing and Review of records The patient and son were present during the testing session, asked appropriate questions, a nd stated understanding of test results and recommendations. ASSESSMENT: Summary/analysis of evaluation: Based on subjective and objective testing, the patient presents with gait deviations, chron ic back and neck pain, stiffness, balance issues with a few falls, decreased ROM of shoulder s, tremor that impacts functional ability to be safe with his walking and mobility, difficul ty with independence with functional tasks, fatigue, should try assistive device for walking , and ability to live with less pain. [...] to ascend 8 stairs with CGA. LTG: Navigation Officer Goals to be achieved in 13 weeks: [...] safety and indep endence with functional mobility. Rehabilitation prognosis: Good rehab potential to reach the established goals Patient/Caregiver involved in goal development and in agreement with proposed treatment tyrone n: Yes PLAN: Recommended treatment plan: Pt would benefit from skilled intervention to address functional deficits. Treatment will include: Therapeutic Exercise, Stretching, Functional Dynamic Activity Training, Patient/Family Educ ation and Gait Training Frequency: Two times weekly Duration: 90 days Certification dates: 05/09/18 to 08/07/2018 If you have any questions regarding this report, please feel free to contact me at [phone] . Doris Rosado, PT 05/09/2018 10:16 AM Please sign below to indicate agreement with treatment plan: Rick Kumar MD Date documented in t his encounter Plan of Treatment Not on filedocumented as of this encounter Visit Diagnoses Not on filedocumented in this encounter
--- OUTSIDE RECORDS SUMMARY | ~2020-03-09 | XMS | Encounter Summary ---
Demographics + + + | Address | [address] | | | [place] [address] | + + + | Home Phone | | + + + | Preferred Language | Unknown | + + + | Marital Status | | + + + | Rastafari Affiliation | 1041 | + + + | Race | Unknown | + + + | Ethnic Group | Unknown | + + + Author + + + | Author | [facility] | | | and [place] | + + + | Organization | [facility] | | | and [...] Team Providers + +------+ + | Care Deposition Reporter Name | Role | Phone | + [...] | Lumbar | [place], | [address] | | | | | radiculopath | Tirso Brito MD | [place], | | | | | y | [address] | [place] | | | | | Procedures | [address] [place] | [address] | | | | | DE INJECT | [place], [place] | Phone: | | | | | ANES/STEROID | [address] | [phone] | | | | | FORAMEN | Phone: | Fax: | | | | | LUMBAR/SACRA | [phone] | [phone] | | | | | L W IMG | Fax: | | | | | | GUIDE ,1 | [phone] | | | | | | LEVEL DE | | | | | | | [...] + + | 12/31/ | Hospital | [facility] | [place] Ra[place], | Spondylolisthesis at | | 2019 | Encounter | [facility] XRAY [address] | PA-C [address] | L5-S1 level; Lumbar | | | | [address] [place] | [address] [place] | radiculopathy | | | | [place] [address] | [place] [address] | | | | | [phone] | [phone] | | | | | | | | | | | | Cash Posting Clerk, [facility] | | | | | | [...] | | | | | | | Cook Islander instructions | | | | | + [...] | | | | | | allergies. [place] Islander | | | | | | | instructions | | | | | + + + +---------+ + + | furosemide (LASIX) | Take 1 tablet (20 mg | | 0 | 06/28/20 | | | 20 mg tablet | total) by mouth | | | 18 | 9 | | | daily. Leg swelling | | | | | | | Cook Islander instructions | | | | | + [...]
--- OUTSIDE RECORDS SUMMARY | ~2020-03-09 | XMS | Encounter Summary ---
Demographics + + + | Address | [address] | | | [place] [address] | + + + | Home Phone | | + + + | Preferred Language | Unknown | + + + | Marital Status | | + + + | Hinduism Affiliation | [id number] | + + + [...] | + + +---------+ + | Annjensen Piña | ECON | Unknown | | + + +---------+ + Care Team Providers + +------+ + | Care Product Responsibility Liaison Name | Role | Phone | + +------+ + | Megan Garza | PCP | | + +------+ + Reason for Visit + + + | Reason | Comments | + + + | Follow-up | MRI Lumbar 04/02/18 | + + + Encounter Details +--------+---------+ + + + | Date | Type | Department | Care Team | Description | +--------+---------+ + + + | 05/15/ | Office | [facility] | Raheel De Luna, | Lumbar radiculopathy | | 2018 | Visit | PHYSIATRY [address] | PA-C [address] | (Primary Dx); | | | | [address] | [address] | Spondylolisthesis at | | | | [facility] [place] | [place] [address] | L5-S1 level; | | | | [address] | [phone] | Chronic bilateral | | | | [phone] | | low back pain with | | | | | | bilateral sciatica | +--------+---------+ + + + Social History [...] + + + | Blood Pressure | 111/72 | 05/15/2018 8:45 AM | | | | | PDT | | + + + + + | Pulse | 73 | 05/15/2018 8:45 AM | | | | | PDT [...] Weight | 72.6 kg (160 lb) | 05/15/2018 8:45 AM | | | | | PDT | | + + + + + | Height | 152.4 cm (5') | 05/15/2018 8:45 AM | | | | | PDT | | + + + + + | Body Mass Index | 31.25 | 05/15/2018 8:45 AM | | | | | PDT | | + + + + + documented in this encounter Patient Instructions Patient Instructions Raheel De Luna PA-C - 05/15/2018 9:02 AM PDTWe have ordered a left an d right L5-S1 epidural steroid injection to help with the radiating leg symptoms. Begin slowly increasing the gabapentin to 600 mg 3 times a day. It may take a couple weeks before Mr Piña is able to tolerate the increased dosage. Gabapentin: Pain medicine that works on the nerves of the body. Most effective when you start off with low dose and slowly titrate up. Begin with taking medication at bedtime. Therapeutic dose is 300mg three times per day. Begin with 300mg at bedtime x 5 days Increase to 300mg twice daily x 5 days Increase to 300mg three times/day. If no response after 2 weeks, titrate up to 600mg three times per day. MAX DOSE: 1200mg 3 times per day. Possible side effects include: sedation, balance issues, mild leg swelling. Follow up as needed. Call office to request refill. Follow up with Raheel De Luna PA-C approximately 3 weeks after injection. Please remember to complete pain log form for this visit. Follow-up at the hospital thirty minutes before your scheduled procedure to allow for time to check in. You may eat and drink as usual on the day of the procedure. If you are scheduled for an epidural injection do not take any blood thinning medications f or at least 5-7 days prior to your procedure unless you have been instructed by another phys ician not to discontinue blood thinning medications. If you are having a procedure other than an epidural injection (i.e. facet injection, media l branch block, SI joint injection or other joint injection) it is not absolutely necessary to discontinue blood thinning medications but doing so will decrease the risk of bruising or bleeding. If you have had a prior stroke, DVT or PE or if you are taking blood thinning medication be cause you have atrial fibrillation, a prosthetic cardiac valve replacement or heart stenting do not stop taking your blood thinning medications unless you have permission from your car diologist or primary care provider. All other medications should be taken as usual on the day of the procedure. Common blood thinning medications include: Aspirin (a baby aspirin is o.k.) Ibuprofen (Advil or Motrin) Naproxen (Aleve) Nabumetone (Relafen) Clopidogrel (Plavix) Dipyridamole/ASA (Aggrenox) Warfarin (Coumadin) Dabigatran (Pradaxa) Rivaroxaban (Xarelto) There are many others. If you have questions about your medications and whether or not you should stop any medications please contact our office. If you are having an epidural injection or if you take any medication for relaxation/sedati on on the day of the procedure you must provide a cdl driver to take you home. For all procedur es it is recommended that someone else drive you home. Posibles causas del dolor en la espalda lumbar o la pierna Los sntomas de marcelino espalda o marcelino pierna pueden deberse a que usted tiene un nervio comprimi do. Abbe vez sea a causa de la presin ejercida por un disco daado o un crecimiento lul anormal. Cualquiera que sea marcelino jordyn, usted podra sentir dolor, ardor, hormigueo o entumeci miento. Si la presin afecta a un nervio conectado al citico, abbe vez sienta punzadas que le bajan por la pierna. Presin a causa de un disco Con el tiempo, el desgaste teofilo puede debilitar los discos y causar dolor de espalda. As aumentan las probabilidades de que los discos se daen por movimientos repentinos o le siones. Si marcelino centro blando comienza a abultarse, el disco podra llegar a presionar un ner jaimee. Tambin es posible que se rompa el exterior del disco. En mary ann jordyn, el centro blando p odra salirse y producir compresin sobre un nervio. Presin a causa de hueso A medida que se va desgastando un disco, las vrtebras que lo rodean comienzan a tocarse y a comprimir el nervio. A menudo, en el punto de roce de las vrtebras crece mary prominenci a anormal de hueso (denominada espoln lul), la cual puede provocar mary estenosis (estrec hamiento) del foramen o canal koroma que genera presin contra un nervio. Date Last Reviewed: 05/16/[id number] [employer]. [address] [place] [address], [place] [address]. Todos lo s derechos reservados. Esta informacin no pretende sustituir la atencin mdica profesio nal. Slo marcelino mdico puede diagnosticar y tratar un problema de halie. documented in this encounter Progress Notes Raheel De Luna PA-C - 05/15/2018 8:50 AM PDTFormatting of this note might be different fro m the original. Raheel De Luna PA-C [address] [place] [address] FAX: PHYSICAL MEDICINE AND REHABILITATION H&P CHIEF COMPLAINT: Chief Complaint Patient presents with Follow-up MRI Lumbar 04/02/18 HISTORY OF PRESENT ILLNESS: The patient is a 73 y.o. male being seen today for the complai nt of low back pain radiating into bilateral legs that began 4 years ago. Last visit it was recommended that he have a lumbar MRI. He is here today to review lumbar MRI and further tr eatment options. The patient reports that the pain started without any inciting event. The symptoms have been unchanged/gradually worsening. Patient does have a history of Parkinson's disease for which he is Dr. Kumar in the [facility] (neurology - [facility]). He is currently n ot taking medication for Parkinson's disease at this time secondary to confusion with rodrick dangelo to their pharmacy. The patient's son will call Dr. Kumar's office later today about thi s. He rates the pain as severe. The [...] ound a store can increase his symptoms. He reports sitting and lying down causes the leg sym ptoms to increase. Usually sitting is better but he reports [...] back pain with sciatica, sciatica laterality unspecified Chronic neck pain 03/11/2018 DDD (degenerative disc disease), cervical 03/11/2018 Dermatophytosis of nail Disorder of eye Disorder of lipid metabolism Disorder of skin and subcutaneous tissue Fecal occult blood test positive Functional disorder of stomach History of prostate cancer Obesity Osteoarthrosis Parkinson's disease (tremor, stiffness, slow motion, unstable posture) ([facility]) 03/11/2018 Pedal edema Pill rolling tremor Spondylolisthesis at L5-S1 level 03/11/2018 Type 2 diabetes mellitus without complication ([facility]) 03/11/2018 Type II diabetes mellitus ([facility]) PAST SURGICAL HISTORY: History reviewed. No [...] no rheumatoid arthritis. PHYSICAL EXAMINATION: Blood pressure 111/72, pulse 73, height 1.524 m (5'), weight 72.6 kg [...] respirations. HEART: There is lower extremity edema. 2+ pitting ABDOMEN: The patient is overweight. NEUROLOGIC: The patient is awake, alert, and oriented to time, place, person. He follows simple and complex commands. His speech is fluent. He comprehends speech well. He has no apparent deficits with short or middle or intermediate school principal memory. He has appropriate fund of knowledge [...] pain with straight leg lift on the left. Armani's maneuver and impingement testing w ere negative for any groin pain. There was no tenderness to palpation over the greater tro chanters or sacral sulci. The patient localized the majority of the pain to the lower lumba r region. Lumbar facet loading was difficult to determine as he was unable to lean backward s. He stands with forward flexed posture and is unable to extend even to neutral. Strength testing showed 5/5 strength throughout the lower extremities. The patient had diff iculty with heel to toe, but hard to distinguish if it was due to balance or weakness issues . There was no redness, effusion, warmth or joint line tenderness in the knees or ankles. RADIOGRAPHIC REVIEW: The patient's imaging was reviewed personally by me in detail with the patient during today 's visit. The XR Lumbar from 01/25/18 shows spondylolisthesis with loss of disc height at L5 -S1. Lumbar MRI from 04/02/18 was reviewed with patient today and shows: L2-3 facet inflammation. L3-4 facet inflammation, mild to moderate neural foraminal stenosis on the right. L4-5 facet hypertrophy with significant neural foraminal stenosis bilaterally. L5-S1 anteriolisthesis and central canal stenosis, Right neural foraminal stenosis which i s significant. IMPRESSION: Encounter Diagnoses Name Primary? Spondylolisthesis at L5-S1 level Yes Chronic bilateral low back pain with bilateral sciatica Lumbar radiculopathy PLAN: 1) Today we discussed the patient's differential diagnosis with the likely primary issue be ing lumbar radiculopathy. Patient's description of symptoms, physical exam, and imaging sug gest this diagnosis at this time. 2) I counseled patient on treatment options which included conservative self management usi ng OTC NSAIDs/Ice and heat packs, physical therapy, prescription medications, epidural stero id injection, neuromodulation devices, as well as possible surgical intervention. 3) Imaging: As descibed above in radiology review. 4) The patient has had significant conservative care including medications (NSAIDS and narc otics), PT (multiple sessions over the years) and care management coordinator. Unfortunately Kota rai continues to have significant discomfort. It appears to me that the pain is primarily coming from L5-S1 region. I did feel that Kota Piña would be a good candidate for interventional procedures an d I offered a Bilateral L5-S1 TF ALE to be done. I did feel that Kota Piña would be a good candidate for medication: Increase gabape ntin to 300 mg 3 times a day as tolerated. I also instructed patient/son to purchase some co mpression stockings for his lower leg edema which I informed him will likely worsen with inc reased gabapentin. Patient is currently not taking medication that was prescribed for his Parkinson's disea se. The son reports that the medication was never called over to the [facility]. I instructed patient's son to follow-up with Dr. Kumar's office and provided the [facility]'s phone number for patient. 5) Patient will follow up with me 3 weeks post injection to discuss any imaging and/or prog ress with today's treatment plan. 6) If current treatment plan is insufficient for symptom relief we could try L2-3 and L3-4 facet injections as the next therapy option. I spent 30 minutes in visit with Kota Piña today with the majority of time spent counse lling the patient on his diagnosis, options for his care, and coordinating his care. Patient is Montenegrin-speaking only and his son was there as odd job worker. ELECTRONICALLY EDITED AND SIGNED BY: Raheel De Luna PA-C, 05/15/2018 CC: TARYN Valverde CC: Dr. Kumar ([facility] neurology) documented in this en counter Plan of Treatment Not on filedocumented as of this encounter Results [place] ALE Lumbar Transforaminal [...] Diagnosis | + + | Lumbar radiculopathy - Primary Thoracic or lumbosacral neuritis or radiculitis, | | unspecified | + + | Spondylolisthesis at L5-S1 level | + + | Chronic bilateral low back pain with bilateral sciatica | + + documented in this encounter"
--- OUTSIDE RECORDS SUMMARY | ~2020-03-09 | XMS | Encounter Summary ---
Demographics + + + | Address | [address] | | | [place] [address] | + + + | Home Phone | | + + + | Preferred Language | Unknown | + + + | Marital Status | | + + + | Church Affiliation | 1041 | + + + [...] Team Providers + +------+ + | Care Parking Technician Name | Role | Phone | + +------+ + | Megan Garza | PCP | | + +------+ + Encounter Details +--------+ + + + + | Date | Type | Department | Care Team | Description | +--------+ + + + + | 03/23/ | Orders Only | [facility] | Provider, | | | 2019 | | SYSTEM GENERIC OP | [address] | | | | | CONVERSION [address] | [place] | | | | | [address] [place], [place] | [place] [address] | | | | | [address] | | | | | | [phone] | | | +--------+ + + + [...]
--- OUTSIDE RECORDS SUMMARY | ~2020-03-09 | XMS | Encounter Summary ---
Demographics + + + | Address | [address] | | | [place] [address] | + + + | Home Phone | | + + + | Preferred Language | Unknown | + + + | Marital Status | | + + + | Episcopalian Affiliation | 1041 | + + + | Race | Unknown | + + + | Ethnic Group | Unknown | + + + Author + + + | Author | [facility] | | | and [place] | + + + | Organization | [facility] | | | and [...] Team Providers + +------+ + | Care Collet Gluer Name | Role | Phone | + +------+ + | Megan Garza | PCP | | + +------+ + Encounter Details +--------+ + + + + | Date | Type | Department | Care Team | Description | +--------+ + + + + | 10/03/ | Hospital | [facility] | Conversion | Venous ulcer of left | | 2019 | Encounter | [facility] | Transaction, | leg (HCC) | | | | [address] | Provider Unknown | | | | | [place], [place] | [phone] | | | | | [address] | | | | | | [phone] | | | +--------+ + + + [...] | | | | | | | Malawian instructions | | | | | + [...] | | | | | | allergies. Malawian | | | | | | | instructions | | | | | + + + +---------+ + + | furosemide (LASIX) | Take 1 tablet (20 mg | | 0 | 06/28/20 | | | 20 mg tablet | total) by mouth | | | 18 | 9 | | | daily. Leg swelling | | | | | | | Malawian instructions | | | | | + [...]
--- OUTSIDE RECORDS SUMMARY | ~2020-03-09 | XMS | Encounter Summary ---
Demographics + + + | Address | [address] | | | [place] [address] | + + + | Home Phone | | + + + | Preferred Language | Unknown | + + + | Marital Status | | + + + | Orthodoxy Affiliation | 1041 | + + + | Race | Unknown | + + + | Ethnic Group | Unknown | + + + Author + + + | Author | [facility] | | | and [place] | + + + | Organization | [facility] | | [...] Team Providers + +------+ + | Care Material Stockkeeper Yard Name | Role | Phone | + +------+ + | eMgan Garza | PCP | | + +------+ + Reason for Referral Evaluate & Treat (Routine) +--------+ + + + + + | Status | Reason | Specialty | Diagnoses / | Referred By | Referred To | | | | | Procedures | Contact | Contact | +--------+ + + + + + | Closed | Specialty | Neuropsycholo | Diagnoses | [place], | Tristan Daniels | | | Services | gy | | FREDO Pickering | Tigre, PhD [address] | | | Required | | Spondylolist | [address] | [place] | | | | | hesis at | [address] | [place] | | | | | L5-S1 level | [address] | [address] | | | | | Lumbar | [place], | [place], [place] | | | | | radiculopath | [place] [address] | [address] Phone: | | | | | y | Phone: | [phone] | | | | | Procedures | [phone] | Fax: | | | | | HIM 08/14/18 | Fax: | [phone] | | | | | | [phone] | | +--------+ + + + + + Reason for Visit + + + | Reason | Comments | + + + | Follow-up | Injections: bilateral L5-S1 TFESI 07/24/18 | + + + Encounter Details +--------+---------+ + + + | Date | Type | Department | Care Team | Description | +--------+---------+ + + + | 08/14/ | Office | [facility] | Raheel De Luna, | Spondylolisthesis at | | 2019 | Visit | PHYSIATRY [address] | PA-C [address] | L5-S1 level | | | | [address] | [address] [place] | (Primary Dx); Lumbar | | | | [address] | [place] [address] | radiculopathy; | | | | [address] | [phone] | Sacroiliitis, not | | | | [phone] | | elsewhere classified | | | | | | ([facility]); Cervical | | | | | | radiculopathy | +--------+---------+ + + + Social History [...] + + + | Blood Pressure | - | - | | + [...] | 78.3 kg (172 lb 9.9 | 08/14/2018 11:31 AM | | | | oz) | PST | | + + + + + | Height | 157.5 cm (5' 2") | 08/14/2018 11:31 AM | | | | | PST | | + + + + + | Body Mass Index | 31.57 | 08/14/2018 11:31 AM | | | | | PST | | + + + + + documented in this encounter Patient Instructions Patient Instructions Raheel De Luna PA-C - 08/14/2018 11:[address] Daniels for s day cord stimulator eval placed. Follow up with Raheel De Luna PA-C [...] (Aggrenox) Warfarin (Coumadin) Dabigatran (Pradaxa) Rivaroxaban (Xarelto) Meloxicam (Mobic) There are many others. If you have questions about your medications and whether or not you should stop any medications please contact our office. If you are having an epidural injection or if you take any medication for relaxation/sedati on on the day of the procedure you must provide a train driver to take you home. For all procedur es it is recommended that someone else drive you home. Sacroilitis [Sacroiliitis] El sacro es el hueso triangular en la base de la columna vertebral. Las articulaciones sacr oilacas (tambin conocidas rogelio articulaciones SI ) conectan el sacro a los otros hu esos plvicos. A veces mary o ambas articulaciones SI se lesionan o se inflaman. Cuando esto sucede, pequeos movimientos en la malcom lumbar de la espalda y en la pelvis pueden resulta r muy dolorosos. Francine trastorno se llama sacroilitis . Se puede presentar junto con otras enfermedades rogelio la artritis reumatoide, soriasis, enfermedad de Crohn o colitis. Los sntomas comunes incluyen dolor o rigidez en la cadera, la malcom lumbar de la espalda, los muslos o las nalgas . El dolor se siente con mayor frecuencia en la maana o despus de estar sentado darryl un perodo prolongado. El dolor puede empeorar al caminar. El movimiento pendular de la cad era fuerza las articulaciones SI. La sacroilitis puede tener varios factores que la causen, por ejemplo: Levantar pesos (en especial si se lo hace de forma incorrecta) Lesin traumtica (cada o accidente automovilstico) Artritis degenerativa Embarazo Infeccin de la articulacin Francine trastorno es difcil de diagnosticar. Se le puede confundir con otras causas de dolor en la malcom lumbar. El tratamiento consiste en descanso, fisioterapia y medicamentos antiinf lamatorios. Si otro trastorno mdico causa la sacroilitis, deber tratrselo tambin. Es posible que se necesiten exmenes adicionales si los sntomas no mejoran con el tratamien to actual. Cuidados En [place]: 1. Si diaz mdico le roper recetado medicamentos, tmelos a todos rogelio se le roper indicado. 2. Puede usar acetaminofm (Tylenol) oibuprofeno (Motrin, Advil) para controlar el dolor , a menos que se le haya recetado otro medicamento. Si le recetaron prednisona, no tome ni ngn medicamento del tipo del ibuprofeno. [NOTA: Si usted tiene mary enfermedad crnica del hgado o del rin o roper tenido alguna vez mary lcera de estmago o hemorragia gastroin testinal, hable con diaz mdico antes de usar francine medicamento.] 3. Si lo refirieron a fisioterapia, acuerde mary duong segn se le indic. Cumpla con los e jercicios que se le indiquen. 4. No fume. Fumar disminuye el flujo sanguneo a la malcom inflamada. [place] hace que sea ms difcil de tratar. Seguimiento con diaz mdico o rogelio le indique nuestro personal. [NOTA: Si le tomaron mary radiografa o mary resonancia magntica (MRI, magnetic resonance imaging), un especialista las revisar. Se le notificar cualquier nuevo resultado que pue da afectar diaz atencin.] Busque Prontamente Atencin Mdica si algo de lo siguiente ocurre: Aumento de dolor en la malcom lumbar de la espalda Debilidad o entumecimiento en isra o ambos brazos o piernas Prdida del control del intestino o de la vejiga Entumecimiento en la malcom de la janice Inflamacin de los ojos Erupcin o enrojecimiento de la piel Date Last Reviewed: 07/06/201519990748-7356 [employer]. [address] [place] [address]. Todos lo s derechos reservados. Esta informacin no pretende sustituir la atencin mdica profesio nal. Slo diaz mdico puede diagnosticar y tratar un problema de halie. Nervio pinzado en el julianne Un nervio [...] realice actividades en las que tenga que operations systems specialist mucho el julianne. Puede usar calor y masajes para ayudar a aliviar el dolor. [place] mary ducha o un avi, o use mary almohadilla trmica. Abdifatahbin puede aliviarle usar mary compresa fra. Para [...] diaz proveedor antes de usar estos medicamentos. Abdifatahbin hable con diaz proveedor si tiene mary [...] para respirar o tragar Date Last Reviewed: 06/03/201719997857-5668 [employer]. [address] [place] [address]. Todos lo s derechos reservados. Esta informacin no pretende sustituir la atencin mdica profesio nal. Slo diaz mdico puede diagnosticar y tratar un problema de halie. documented in this encounter Progress Notes Raheel De Luna PA-C - 08/14/2018 11:20 AM PSTFormatting of this note might be different fro m the original. Raheel De Luna PA-C [address] [place] [address], [address] [place] [address] FAX: PHYSICAL MEDICINE AND REHABILITATION H&P CHIEF COMPLAINT: Chief Complaint Patient presents with Follow-up Injections: bilateral L5-S1 TFESI 07/24/18 HISTORY OF PRESENT ILLNESS: The patient is a 73 y.o. male being seen today for the complai nt of low back pain radiating into bilateral legs that began 4 years ago. Last visit it was recommended that he have bilateral L5/S1 TFESI. Patient reports approximately 50% relief sin ce receiving injection on date: 07/24/18. The symptoms have improved but still admits to "waist pain" that travels from left hip and into foot along the L5 dermatome. Patient does have a history of Parkinson's disease for whi ch he is Dr[facility] ([facility]urology - [facility]). He rates the pain as moderate (7 on scale of 0-10). The symptoms are daily. He describes the pain as aching, crushing, numbing, sharp and tingling. The patient describes [...] which unfortunately did not provide significant relief. Patient also has secondary complaint of left-sided neck pain with pain radiating down into arm and hand on the left only. He denies numbness or weakness of the left arm. Nothing m akes symptoms better or worse. He is also dealing with neck pain [...] treated with radiation Obesity Osteoarthrosis Parkinson's disease (tremor, stiffness, slow motion, unstable posture) ([facility]) 03/11/2018 Pedal edema Pill rolling tremor Spondylolisthesis at L5-S1 level 03/11/2018 Type 2 diabetes mellitus without complication ([facility]) 03/11/2018 PAST SURGICAL HISTORY: Past Surgical History: Procedure Laterality Date CATARACT REMOVAL Right 06/26/2018 Procedure: RIGHT EXTRACTION CATARACT WITH LENS IMPLANT; Surgeon: Bj Thomas; Location: [facility] MAIN OR CURRENT MEDICATIONS: Current Outpatient Prescriptions Medication Sig Dispense Refill atorvaSTATin (LIPITOR) 20 mg tablet Take 20 mg by mouth Daily. carbidopa-levodopa (SINEMET) 25-100 mg per tablet cholecalciferol (VITAMIN D-3) 1,000 units capsule Take 1,000 mg by mouth. Cinnamon 500 MG CAPS Take 500 mg by mouth 3 times daily. fish oil 1,000 mg capsule Take 1,200 mg by mouth 3 times daily. gabapentin (NEURONTIN) 300 mg capsule Take 1 [...] joint arthritis, no rheumatoid arthritis. PHYSICAL EXAMINATION: Height 1.575 m (5' 2"), weight 78.3 kg (172 lb 9.9 oz). Body mass index is 31.57 kg/m. GENERAL: The patient is well developed [...] has no apparent deficits with short or watermaster memory. He has appropriate fund of knowledge Cranial nerves 2-12 appear grossly intact. Sensory exam does not show diminished sensation at this time to light touch in the upper an d lower extremities. Pill-rolling tremor due to Parkinson's. REFLEXES: (2 OR 2+ IS NORMAL) REFLEX: RIGHT LEFT BICEPS 2+ 2+ BRACHIORADIALIS 2+ 2+ TRICEPS 2+ 2+ PATELLAR 0+ 0+ ACHILLES 0 0 OROZCO'S ABSENT ABSENT PLANTAR DOWNGOING DOWNGOING Patient was unable to relax legs during [...] the majority of the pain to the SI joint re gion. Lumbar facet loading was difficult to determine as he was unable to lean backwards. He stands with forward [...] line tenderness in the knees or ankles. Cervical Spine: The cervical spine exam shows there is tenderness over the C-6 and C-7 kenny on. Range of motion is limited. Rotation and extension does cause symptoms to radiate into the upper extremities on left side. Flexion and extension of the neck does not cause araseli re discomfort. RADIOGRAPHIC REVIEW: The patient's imaging was reviewed [...] Name Primary? 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 Unfortunately Kota rai continues to have significant discomfort. It appears to me that the pain is primarily coming from L5-S1 region. I did feel that Kota Piña would be a good candidate for interventional procedures an d I offered a LEFT L5-S1 TF ALE to be done. (cumulative effect) Bilateral SI injections ordered. C7/T1 ILESI left of midline ordered. Spinal cord stimulator was discussed in detail today and handouts provided. Patient is n ot surgical candidate due to parkinson's disease and age. Referral to neuropsych placed lalo bañuelos. 5) Patient will follow up with me [...] care, and coordinating his care. Patient is Dutch-speaking only and his grandson was there as electrician powerhouse. ELECTRONICALLY EDITED AND SIGNED BY: Raheel De Luna PA-C, 08/14/2018 CC: TARYN Valverde documented in this en counter Plan of Treatment + + +--------+ + + | Name | Type | Priori | Associated Diagnoses | Order Schedule | | | | ty | | | + + +--------+ + + | ELISE_ Dr. Daniels | Outpatient | Routin | Spondylolisthesis | 1 Occurrences | | | Referral | e | at L5-S1 level | starting 08/14/2018 | | | | | Lumbar radiculopathy | until 08/14/2019 | + + +--------+ + + documented as of this encounter Results [place] ALE Cervical Thoracic Interlaminar (01/23/2019 3:07 PM PDT) + + | Specimen | + + | | + + + + + | Narrative | Performed At | + + + | | [facility] | | 01/23/2019CERVICAL INTERLAMINAR EPIDURAL STEROID INJECTION CLINICAL | | | HISTORY: ICD-10 CODE M54.12 CERVICAL RADICULOPATHY Kota Piña | | | presents to the fluoroscopy suite for a fluoroscopically-guided C7-T1 | | | interlaminar epidural steroid injection, left of midline, as part of | | [...] | | | + +---------+ + + FL ALE Lumbar Transforaminal (12/31/2018 4:30 PM [...] | | | + +---------+ + + [place] Sacroiliac Injection Right (11/26/2018 2:17 PM PDT) + + | Specimen | + + | | + + + + + | Narrative | Performed At | + + + | | [facility] | | 11/26/2018Bilateral Sacroiliac Joint InjectionClinical History: | | | Sacroiliitis ICD-10 M46.1 Kota Piña presents to the fluoroscopy | | | suite for fluoroscopically guided bilateral sacroiliac joint steroid | | | injections as part of conservative management for chronic pain with | | | sacroiliitis. After informed consent was obtained the patient laid in | | | the prone position on the fluoroscopy table. The bilateral sacroiliac | | | joints were identified under fluoroscopic guidance. The areas were | | | prepped and draped in sterile fashion. A 25 gauge 1-1/2 inch needle | | | was inserted into each region and approximately 3 mL of buffered 1% | | | lidocaine was infused. Then a 22 gauge spinal needle was inserted into | | | the inferior joint spaces under fluoroscopic guidance. Confirmation | | | into the sacroiliac joints obtained with infusion of approximately 1 | | | mL of Omnipaque contrast which showed flow within the joint spaces. | | | Then a combination of 2 mL 1% lidocaine and 2 mL of 40 mg per | | | milliliter triamcinolone was infused divided between the two sides. | | | The patient tolerated the procedure well without complications. Pre- | | | and post procedure blood pressures were stable. The patient was given | | | verbal as well as written followup instructions. Prior to the start | | | of the procedure the following were performed and verified including | | | correct patient identity, correct site/side marked and visible, | | | agreement of the procedure to be done, correct patient positioning and | | | an accurate procedure consent form. Any safety precautions based on | | | clinical history and/or medications have been addressed. I personally | | | performed the procedure above. Estimated blood loss: | | | MinimalComplications: NoneFindings: As expectedAnesthesia: Local | | | 1% Lidocaine | | |I personally performed the procedure above. | | | | | |Estimated blood loss: Minimal | | |Complications: None | | |Findings: As expected | | |Anesthesia: Local 1% Lidocaine | | + + + + +---------+ + + | Performing | Address | City/State/Zipcode | Phone Number | | Organization | | | | + +---------+ + + | [facility] | | | | + +---------+ + + [place] Sacroiliac Injection Left (11/26/2018 2:17 PM PDT) + + | Specimen | + + | | + + + + + | Narrative | Performed At | + + + | | [facility] | | 11/26/2018Bilateral Sacroiliac Joint InjectionClinical History: | | | Sacroiliitis ICD-10 M46.1 Kota Piña presents to the fluoroscopy | | | suite for fluoroscopically guided bilateral sacroiliac joint steroid | | | injections as part of conservative management for chronic pain with | | | sacroiliitis. After informed consent was obtained the patient laid in | | | the prone position on the fluoroscopy table. The bilateral sacroiliac | | | joints were identified under fluoroscopic guidance. The areas were | | | prepped and draped in sterile fashion. A 25 gauge 1-1/2 inch needle | | | was inserted into each region and approximately 3 mL of buffered 1% | | | lidocaine was infused. Then a 22 gauge spinal needle was inserted into | | | the inferior joint spaces under fluoroscopic guidance. Confirmation | | | into the sacroiliac joints obtained with infusion of approximately 1 | | | mL of Omnipaque contrast which showed flow within the joint spaces. | | | Then a combination of 2 mL 1% lidocaine and 2 mL of 40 mg per | | | milliliter triamcinolone was infused divided between the two sides. | | | The patient tolerated the procedure well without complications. Pre- | | | and post procedure blood pressures were stable. The patient was given | | | verbal as well as written followup instructions. Prior to the start | | | of the procedure the following were performed and verified including | | | correct patient identity, correct site/side marked and visible, | | | agreement of the procedure to be done, correct patient positioning and | | | an accurate procedure consent form. Any safety precautions based on | | | clinical history and/or medications have been addressed. I personally | | | performed the procedure above. Estimated blood loss: | | | MinimalComplications: NoneFindings: As expectedAnesthesia: Local | | | 1% Lidocaine | | |I personally performed the procedure above. | | | | | |Estimated blood loss: Minimal | | |Complications: None | | |Findings: As expected | | |Anesthesia: Local 1% Lidocaine | | + + + + +---------+ + + | Performing | Address | City/State/Zipcode | Phone Number | | Organization | | | | + +---------+ + + | [facility] | | | | + +---------+ + + documented in this encounter Visit Diagnoses + + | Diagnosis | + + | Spondylolisthesis at L5-S1 level - Primary | + + | Lumbar radiculopathy Thoracic or lumbosacral neuritis or radiculitis, unspecified | + + | Sacroiliitis, not elsewhere classified (HCC) Sacroiliitis, not elsewhere classified | + + | Cervical radiculopathy Brachial neuritis or radiculitis nos | + + documented in this encounter
--- OUTSIDE RECORDS SUMMARY | ~2020-03-09 | XMS | Encounter Summary ---
Demographics + + + | Address | [address] | | | [place] [address] | + + + | Home Phone | | + + + | Preferred Language | Unknown | + + + | Marital Status | | + + + | Confucianism Affiliation | 1041 | + + + | Race | Unknown | + + + | Ethnic Group | Unknown | + + + Author + + + | Author | [facility] | | | and [place] | + + + | Organization | [facility] | | | [...] Team Providers + +------+ + | Care Harness Maker Name | Role | Phone | + +------+ + | Megan Garza | PCP | | + +------+ + Encounter Details +--------+ + + + + | Date | Type | Department | Care Team | Description | +--------+ + + + + | 10/01/ | Orders Only | [facility] | Monty Murillo DNP | | | 2018 | | VASCULAR SURGERY | [address] | | | | | [address] | [address] [place], [place] | | | | | [address] | [address] | | | | | [place], [place] | | | | | | [address] | | | | | | [phone] | | | +--------+ + + + [...] + +--------+ + + + | VAS ANKLE BRACHIAL | Routin | 10/01/2018 | | Results for this | | INDEX RESTING | e | 2:42 PM | | procedure are in the | | | | PST | | results section. | + +--------+ + + + documented in this encounter Results VAS Ankle Brachial Index Resting (10/01/2018 2:42 PM PST) + + | Specimen | + + | | + + + + + | Impressions | Performed At | + + + | Mildly diminished bilateral toe brachial indices. Normal ankle | | | brachial indices. Signed by: Iker Lopez Sign Date/Time: 10/01/2018 | | | 3:57 PM | | + + + + + + | Narrative | Performed At | + + + | LOWER EXTREMITY ARTERIAL SCAN, ANKLE BRACHIAL INDEX CLINICAL | | | INFORMATION: Left leg pain, non-healing wound. COMPARISON: None | | | PROCEDURE: Using continuous wave Doppler, segmental pressure | | | measurements in both arms and both legs. FINDINGS: (measurements in | | | millimeters of mercury systolic) Right Arm: 137 Left Arm: 127 | | | RIGHT Dorsalis Pedis: 131 Posterior Tibial: 181 JUNIOR: 1.32 TBI: | | | 0.63 Waveforms: Triphasic LEFT Dorsalis Pedis: 128 Posterior | | | Tibial: 141 JUNIOR: 1.03 TBI: 0.66 Waveforms: Triphasic | | + + + + + | Procedure Note | + + | Stewart Hay Conversion - 04/03/2019 1:32 PM PDT LOWER EXTREMITY ARTERIAL SCAN, ANKLE | | BRACHIAL INDEXCLINICAL INFORMATION:Left leg pain, non-healing | | wound.COMPARISON:NonePROCEDURE:Using continuous wave Doppler, segmental pressure | | measurements in botharms and both legs.FINDINGS:(measurements in millimeters of mercury | | systolic)Right Arm: 137Left Arm: 127RIGHTDorsalis Pedis: 131Posterior Tibial: 181ABI: | | 1.32TBI: 0.63Waveforms: TriphasicLEFTDorsalis Pedis: 128Posterior Tibial: 141ABI: | | 1.03TBI: 0.66Waveforms: TriphasicIMPRESSION: Mildly diminished bilateral toe brachial | | indices.Normal ankle brachial indices.Signed by: Vern Lopez Date/Time: 10/01/2018 | | 3:57 PM | |(measurements in millimeters of mercury systolic) | |Right Arm: 137 | |Left Arm: 127 | |RIGHT | |Dorsalis Pedis: 131 | |Posterior Tibial: 181 | |JUNIOR: 1.32 | |TBI: 0.63 | |Waveforms: Triphasic | |LEFT | |Dorsalis Pedis: 128 | |Posterior Tibial: 141 | |JUNIOR: 1.03 | |TBI: 0.66 | |Waveforms: Triphasic | |IMPRESSION: | |Mildly diminished bilateral toe brachial indices. | |Normal ankle brachial indices. | |Signed by: Iker Lopez | |Sign Date/Time: 10/01/2018 3:57 PM | + + documented in this encounter Visit Diagnoses Not on filedocumented in this encounter"
--- OUTSIDE RECORDS SUMMARY | ~2020-03-09 | XMS | Encounter Summary ---
Demographics + + + | Address | [address] | | | [place] [address] | + + + | Home Phone | | + + + | Preferred Language | Unknown | + + + | Marital Status | | + + + | Worship Affiliation | 1041 | + + + | Race | Unknown | + + + | Ethnic Group | Unknown | + + + Author + + + | Author | [facility] | | | and [place] | + + + | Organization | [facility] | | [...] Team Providers + +------+ + | Care Tactical Intelligence Officer Name | Role | Phone | + +------+ + | Megan Garza | PCP | | + +------+ + Encounter Details +--------+ + + + + | Date | Type | Department | Care Team | Description | +--------+ + + + + | 05/27/ | Hospital | [facility] | Marce Jeanna Mon, | | | 2017 | Encounter | CENTER OUTPATIENT | RUCHING MACHINE OPERATOR | | | | | PHYSICAL THERAPY | | | | | | [address] | | | | | | [place] | | | | | | [address] | | | | | | [phone] | | | +--------+ + + + [...] | | 15 | | | N ([place]) 50-1,000 | | | | | | [...] encounter Progress Notes Jeanna Zheng PTA - 05/27/2018 11:16 AM PDTFormatting of this note might be different fro m the original. Therapy Progress Note by Jeanna Zheng PTA at 05/27/181115 Author: Jeanna Zheng PTA Service: (none) Author Type: Surveyor'S Assistant Filed: 06/06/18 6488 Date of Service: 05/27/181115 Status: Signed Cage Cashier: Jeanna J Zheng, RUCHING MACHINE OPERATOR (Surveyor'S Assistant) Therapy Daily Treatment note Date of Service: 05/27/2018 Diagnosis: Gait disturbance Parkinson's disease (HCC) Resting tremor Referring Provider: Rick Kumar Treatment Time: 50 min Charges: $Therapeutic Interventions TX Charges: Gait/mobility, Functional dynamic activity $Functional Dynamic Therapy : 8-22 mins Therapy Time: 20 Minutes $Gait/Mobility: 23-37 mins Therapy Time: 30 Minutes $ Therapeutic Interventions $Functional Dynamic Therapy : 8-22 mins Insurance Authorization: 2 of 999 authorized visits Recertification Date: Expiration Date: G-CODES 1 of 10 RUCHING MACHINE OPERATOR visits: 1 of 4 Functional Limitations: $Mobility: Moving and [...] by a cream from [place]. 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 Pt c/o L sided pain in his leg and arm. OBJECTIVE: Observation: Pt has a continual tremor in his L hand. Tests/Measures: Daily treatment: Exercise Reps/Wt Completed/Date NuStep Level 3 x 8 minutes Functional warm-up to improve strength, endurance, tissue exten sibility, and physiological response to exercise. Toe taps on 4"step X 10 x SLS // bars 2 x 30" x Romberg stance 2 x 30" x Tandem stance 2 x 30" x Gait training with U-step Working on strep length and candents x // bars balance forward/backward/side step 2 x length of // bars x Patient Education: instructed pt in balance exercises marching SLS ASSESSMENT: Response to treatment: Pt tolerated session well with min increased fatigue level. He had i mproved gait pattern at end of session. Patient continues to require skilled intervention due [...] to assist his father with his pr oganna. ROM: Pt to demonstrate increased ROM in [...] to ascend 8 stairs with CGA. LTG: Long-Term Goals to be achieved in 13 weeks: [...] ation and Gait Training Jeanna Zheng PTA 05/27/2018 4:11 PM documented in this e ncounter Plan of Treatment Not on filedocumented as of this encounter Visit Diagnoses Not on filedocumented in this encounter
--- OUTSIDE RECORDS SUMMARY | ~2020-03-09 | XMS | Encounter Summary ---
Demographics + + + | Address | [address] | | | [place] [address] | + + + | Home Phone | | + + + | Preferred Language | Unknown | + + + | Marital Status | | + + + | Moravian Affiliation | 1041 | + + + [...] Team Providers + +------+ + | Care Civil Cad Tech Name | Role | Phone | + +------+ + | Megan Garza | PCP | | + +------+ + Encounter Details +--------+ + + + + | Date | Type | Department | Care Team | Description | +--------+ + + + + | 03/05/ | Abstract | [facility] [place] | Narciso, | | | 2017 | | PHYSIATRY [address] | [address] | | | | | [address] | [address] | | | | | [place], [place] | [place] [address] | | | | | [address] | [phone] | | | | | [phone] | | | +--------+ + + + [...]
--- OUTSIDE RECORDS SUMMARY | ~2020-03-09 | XMS | Encounter Summary ---
Demographics + + + | Address | [address] | | | [place] [address] | + + + | Home Phone | | + + + | Preferred Language | Unknown | + + + | Marital Status | | + + + | Sabianist Affiliation | 1041 | + + + | Race | Unknown | + + + | Ethnic Group | Unknown | + + + Author + + + | Author | [facility] | | | and [place] | + + + | Organization | [facility] | | [...] Team Providers + +------+ + | Care Line Technician Name | Role | Phone | [...] [facility] | | | | | Cervical | [place], | [address] | | | | | radiculopath | Tirso Brito MD | [place], | | | | | y | [address] | [place] | | | | | Procedures | [place] | [address] | | | | | [place] | [place], [place] | Phone: | | | | | DX/THER SBST | [address] | [phone] | | | | | INTRLMNR | Phone: | Fax: | | | | | CRV/THRC | [phone] | [phone] | | | | | W/IMG GDN | Fax: | | | | | | [place] | [phone] | | | | | | TRIAMCINOLON | | | | | | | E ACET INJ | | | | | | | NOS, 10 MG | | | | | | | C7-T1 ILESI | | | +--------+--------+ + + + + Encounter Details +--------+ + + + + | Date | Type | Department | Care Team | Description | +--------+ + + + + | 06/23/ | Hospital | [facility] | Andrea Nguyen PA-C | Chronic neck pain; | | 2019 | Encounter | MED CTR XRAY [address] | [address] | Cervical | | | | [address] [place] | [place] | radiculopathy | | | | [place] [address] | [phone] | | | | | [phone] | | | | | | | [facility] | | | | | | [place] | | +--------+ + + + + [...] +---------+ + + | Blood Pressure | 119/57 | 06/23/2019 1:18 PM | | | | | PST | | + +---------+ + + | Pulse | - | [...] | 0 | 10/26/19 | | | LANCJULIANNA MISC | | | | 19 | [...] + + + +---------+ + + | docusate sodium | 100 mg | | 0 | | | | (COLACE) 100 MG | | | | | | | tablet | | | | | | + + + +---------+ + + | doxycycline | | | 0 | //20 | | | (VIBRAMYCIN) 50 MG | | | | 19 | | | capsule | | | | | | + + + +---------+ + + | ergocalciferol | Ergocalciferol(ERGOC | | 0 | | | | (VITAMIN D-2) 50,000 | ALCIFEROL) 03991 UNT | | | | | | units capsule | CAPSULEDose: 83205 | | | | | | | UNT | | | | | + + + +---------+ + + | finasteride | 5 mg | | 0 | | | | (PROSCAR) 5 mg | | | | | | | tablet | | | | | | + + + +---------+ + + | fish oil 1,000 mg | Take 1,200 mg by | | 0 | | | | capsule | mouth 3 (three) | | | | | | | times a day. | | | | | + + [...] +---------+ + + | glucose blood | CONTOUR NEXT TEST | | 0 | | | | test strips (CONTOUR | STRIPS(GLUCOSE | | | | | | NEXT TEST) strip | BLOOD) 1 EACH | | | | | | | STRIPDose: 1 EA | | | | | + + [...] | (UNISTIK 3 EXTRA) | QDAY and ANAN Dx: | | | 17 | | [...] + + + +---------+ + + | omeprazole | 40 mg. | | 0 | | | | (PRILOSEC) 40 MG | | | | | | | capsule | | | | | | + + + +---------+ + + | raNITIdine | Take 1 tablet (150 | | 0 | 07/31/20 | | | (ZANTAC) 150 mg | mg total) by mouth 2 | | | 18 | | | tablet | (two) times a day. | | | | | | | Bahraini instructions | | | | | + [...] + + + +---------+ + + | terazosin (HYTRIN) | 1 mg | | 0 | | | | 1 mg capsule | | | | | | + + + +---------+ + + | timolol maleate | | | 0 | 20 | | | (TIMOPTIC) 0.5% | | [...] + + + +---------+ + + | traMADol (ULTRAM) | 100 mg | | 0 | | | | 50 mg tablet | | | | | | + + + +---------+ + + | traZODone | 50 mg | | 0 | | | | (DESYREL) 50 mg | | | | | | | [...] | | | | | | allergies. Bahraini | | | | | | | instructions | | | | | + + + +---------+ + + | furosemide (LASIX) | Take 1 tablet (20 mg | | 0 | 06/28/20 | | | 20 mg tablet | total) by mouth | | | 18 | 9 | | | daily. Leg swelling | | | | | | | Bahraini instructions | | | | | + [...] | FL EPIDURAL STEROID | Routin | 06/23/2019 | Chronic neck pain | Results for this | | INJ CERVICAL | e | 1:29 PM | Cervical | procedure are in the | | THORACIC | | PST | radiculopathy | results section. | | INTERLAMINAR | | | | | + +--------+ + + + documented in this encounter Results FL ALE Cervical Thoracic [...] neck pain Cervicalgia | + + | Cervical radiculopathy Brachial neuritis or radiculitis nos | + + documented in this encounter Administered Medications + +--------+ +-------+------+------+ | Medication Order | MAR | Action | Dose | Rate | Site | | | Action | Date | | | | + +--------+ +-------+------+------+ | dexamethasone (PF) 10 mg/mL | Given | 06/23/20 | 10 mg | | | | injection 10 mg 10 mg, Other, | | 19 1:40 | | | | | ONCE, 06/23/19 at 1330, For 1 | | PM PST | | | | | dose, When ordered IV push: | | | | | | | Dilute to 10-20 mL with NS and | | | | | | | give slowly over 1-2 minutes., | | | | | | + +--------+ +-------+------+------+ +---+---+ | | | +---+---+ + +-------+ +-------+---+---+ | iohexol (OMNIPAQUE 300) 300 | Given | 06/23/20 | 4 mLs | | | | mg/mL injection 4 mL 4 mL, | | 19 1:37 | | | | | Other, ONCE, Sun06/23/19 at | | PM PST | | | | | 1330, For 1 dose | | | | | | + +-------+ +-------+---+---+ +---+---+ | | | +---+---+ + +-------+ +-------+---+ + | lidocaine buffered 0.9% | Given | 06/23/20 | 3 mLs | | Other | | injection 3 mL 3 mL, | | 19 1:35 | | | (Comment | | Intradermal, ONCE, Sun06/23/19 | | PM PST | | | ) | | at 1330, For 1 dose | | | | | | + +-------+ +-------+---+ + +---+---+ | | | +---+---+ documented in this encounter"
--- OUTSIDE RECORDS SUMMARY | ~2020-03-09 | XMS | Encounter Summary ---
Demographics + + + | Address | [address] | | | [place] [address] | + + + | Home Phone | | + + + | Preferred Language | Unknown | + + + | Marital Status | | + + + | Caodaism Affiliation | 1041 | + + + [...] Team Providers + +------+ + | Care Varnish Inspector Name | Role | Phone | + +------+ + | Megan Garza | PCP | | + +------+ + Encounter Details +--------+ + + + + | Date | Type | Department | Care Team | Description | +--------+ + + + + | 11/09/ | Orders Only | [facility] | Liz Castro | | | 2018 | | CARDIOLOGY [place] | [address] | | | | | [address] | [address] | | | | | [place], [place] | [place] [address] | | | | | [address] | [phone] | | | | | [phone] | | | +--------+ + + + [...]
--- OUTSIDE RECORDS SUMMARY | ~2020-03-09 | XMS | Encounter Summary ---
Demographics + + + | Address | [address] | | | [place] [address] | + + + | Home Phone | | + + + | Preferred Language | Unknown | + + + | Marital Status | | + + + | Sikhism Affiliation | 1041 | + + + [...] Team Providers + +------+ + | Care Rigging Supervisor Name | Role | Phone | + +------+ + | Megan Garza | PCP | | + +------+ + Encounter Details +--------+ + + + + | Date | Type | Department | Care Team | Description | +--------+ + + + + | 06/06/ | Hospital | [facility] | Marce Jeanna Mon, | | | 2017 | Encounter | CENTER OUTPATIENT | PROSTHETIC AIDES TEACHER | | | | | PHYSICAL THERAPY | | | | | | [address] | | | | | | [place] | | | | | | [address] | | | | | | [phone] | | | +--------+ + + + [...] encounter Progress Notes Jeanna Zheng PTA - 06/06/2018 2:32 PM PDTFormatting of this note might be different fro m the original. Therapy Progress Note by Jeanna Zheng PTA at 06/06/18 1432 Author: Jeanna Zheng PTA Service: (none) Author Type: Pipefitter Filed: 06/06/18 6789 Date of Service: 06/06/181431 Status: Signed Shellfish Grower: Jeanna Zheng PTA (Pipefitter) Therapy Daily Treatment note Date of Service: 06/06/2018 Diagnosis: Gait disturbance Parkinson's disease (HCC) Resting tremor Referring Provider: Rick Kumar Treatment Time: 50 min Charges: $Therapeutic Interventions TX Charges: Therapeutic strengthening/ROM $Functional Dynamic Therapy : 23-37 mins Therapy Time: 30 Minutes $Therapeutic Strengthening /ROM/Endurance/Flexibility: 8-22 mins Therapy Time: 20 Minutes $ Therapeutic Interventions $Functional Dynamic Therapy : 23-37 mins $Physical Agent Modalities $Therapeutic Strengthening /ROM/Endurance/Flexibility: 8-22 mins Insurance Authorization: 3 of 999 authorized visits Recertification Date: Expiration Date: G-CODES 2 of 10 PROSTHETIC AIDES TEACHER visits: 2 of 4 Functional Limitations: $Mobility: Moving and [...] [place]. Subjective Comments: Pt states that he tolerated last session fairly well with min increas ed fatigue level. He continues to c/o L shoulder and LE pain. OBJECTIVE: Observation: Pt has a continual tremor in his L hand. Tests/Measures: Daily treatment: Exercise Reps/Wt Completed/Date NuStep Level 3 x 8 minutes UE x 2 minutes LE only Functional warm-up to improve strength, e ndurance, tissue extensibility, and physiological response to exercise. Toe taps on 4"step x 10 x SLS // bars 2 x 30" x Romberg stance 2 x 30" x Tandem stance 2 x 30" x bridge x 10 x KTC stretch 2 x 30" x // bars balance forward/backward/side step 2 x length of // bars x LTR x HS stretch 2 x 30" x Patient Education: Instructed pt in HEP, curt lateral rotation ASSESSMENT: Response to treatment: Pt c/o increases UE shoulder/neck pain with exercises today. He berta ot relax for MT into neck and shoulder or oscillation of shoulder. Patient continues to require skilled intervention due [...] to ascend 8 stairs with CGA. LTG: Fdc Goals to be achieved in 13 weeks: [...] ation and Gait Training Jeanna Zheng PTA 06/06/2018 4:32 PM documented in this e ncounter Plan of Treatment Not on filedocumented as of this encounter Visit Diagnoses Not on filedocumented in this encounter
--- OUTSIDE RECORDS SUMMARY | ~2020-03-09 | XMS | Encounter Summary ---
Demographics + + + | Address | [address] | | | [place] [address] | + + + | Home Phone | | + + + | Preferred Language | Unknown | + + + | Marital Status | | + + + | Amish Affiliation | 1041 | + + + [...] Team Providers + +------+ + | Care Critical Care Cns Name | Role | Phone | + +------+ + | Megan Garza | PCP | | + +------+ + Encounter Details +--------+ + + + + | Date | Type | Department | Care Team | Description | +--------+ + + + + | 03/11/ | Hospital | [facility] | Tirso Becerril | Chronic neck pain | | 2018 | Encounter | MED CTR XRAY [address] | T, MD [address] | | | | | [place] | ST [place], [place] | | | | | [place] [address] | [id number] | | | | | [phone] | | | +--------+ + + + [...]
--- OUTSIDE RECORDS SUMMARY | ~2020-03-09 | XMS | Encounter Summary ---
Demographics + + + | Address | [address] | | | [place] [address] | + + + | Home Phone [...] + | Author | [facility] | | | and [place] | + + + | Organization | [facility] | | | and [...] Team Providers + +------+ + | Care Soil Sampler Name | Role | Phone | + [...] [facility] | | | | | | [place], | [address] | | | | | Sacroiliitis | Tirso Brito MD | [place], | | | | | ([facility]) | [address] | [place] | | | | | Procedures | [place] | [address] | | | | | AR INJECT SI | [place], [place] | Phone: | | | | | JOINT | [address] | [phone] | | | | | ARTHRGRPHY&/ | Phone: | Fax: | | | | | ANES/STEROID | [phone] | [phone] | | | | | W/IMAGE AR | Fax: | | | | | | | [phone] | | | | | | TRIAMCINOLON | | | | | | | E ACET INJ | | | | | | | NOS, 10 MG | | | | | | | Bilat. SI | | | | | | | Joint To | | | | | | | be done | | | | | | | First | | | +--------+--------+ + + + + Encounter Details +--------+ + + + + | Date | Type | Department | Care Team | Description | +--------+ + + + + | 11/26/ | Hospital | [facility] | CalixtoTerryy, | Sacroiliitis, not | | 2019 | Encounter | MED CTR XRAY [address] | PA-C [address] | elsewhere classified | | | | [address] [place] | [address] [place] | ([facility]) | | | | [place] [address] | [place] [address] | | | | | [phone] | [phone] | | | | | | | | | | | | Medical Insurance Coding Specialist, [place] | | | | | | [place] [...] +---------+ + + | Blood Pressure | 127/67 | 11/26/2018 2:41 PM | | | | | PDT | | + +---------+ + + | Pulse | 74 | 11/26/2018 2:41 PM | | | | | PDT [...] + + + +---------+ + + | Lancsimone Misc. | Test Blood sugar | | [...] | | | | | | | Kyrgyz instructions | | | | | + [...] | | | | | | allergies. Kyrgyz | | | | | | | instructions | | | | | + + + +---------+ + + | furosemide (LASIX) | Take 1 tablet (20 mg | | 0 | 06/28/20 | | | 20 mg tablet | total) by mouth | | | 18 | 9 | | | daily. Leg swelling | | | | | | | Kyrgyz instructions | | | | | + + + +---------+ + + documented as of this encounter Plan of Treatment Not on filedocumented as of this encounter Procedures + +--------+ + + + | Procedure Name | Priori | Date/Time | Associated Diagnosis | Comments | | | ty | | | | + +--------+ + + + | FL SACROILIAC | Routin | 11/26/2018 | Sacroiliitis, not | Results for this | | INJECTION RIGHT | e | 2:17 PM | elsewhere classified | procedure are in the | | | | PDT | ([facility]) | results section. | + +--------+ + + + | FL SACROILIAC | Routin | 11/26/2018 | Sacroiliitis, not | Results for this | | INJECTION LEFT | e | 2:17 PM | elsewhere classified | procedure are in the | | | | PDT | ([facility]) | results section. | + +--------+ + + + documented in this encounter Results FL Sacroiliac Injection Right (11/26/2018 2:17 PM [...] + | Diagnosis | + + | Sacroiliitis, not elsewhere classified (HCC) Sacroiliitis, not elsewhere classified | + + documented in this encounter Administered Medications + +--------+ +-------+------+------+ | Medication Order | MAR | Action | Dose | Rate | Site | | | Action | Date | | | | + +--------+ +-------+------+------+ | iohexol (OMNIPAQUE 300) 300 | Given | 11/27/19 | 4 mLs | | | | mg/mL injection 4 mL 4 mL, | | 19 2:24 | | | | | Intra-articular, ONCE, Tue | | PM PDT | | | | | 11/26/18 at 1430, For 1 dose | | | | | | + +--------+ +-------+------+------+ +---+---+ | | | +---+---+ + +-------+ +-------+---+---+ | lidocaine (PF) 1% injection 2 | Given | 11/27/19 | 2 mLs | | | | mL 2 mL, Intra-articular, ONCE, | | 19 2:26 | | | | | 11/26/18 at 1430, For 1 dose | | PM PDT | | | | + +-------+ +-------+---+---+ +---+---+ | | | +---+---+ + +-------+ +-------+---+ + | lidocaine buffered 0.9% | Given | 11/27/19 | 6 mLs | | Other | | injection 6 mL 6 mL, | | 19 2:22 | | | (Comment | | Intradermal, ONCE, 11/26/18 at | | PM PDT | | | ) | | 1430, For 1 dose | | | | | | + +-------+ +-------+---+ + +---+---+ | | | +---+---+ + +-------+ +-------+---+---+ | triamcinolone acetonide | Given | 11/27/19 | 80 mg | | | | (KENALOG-40) 40 mg/mL injection | | 19 2:26 | | | | | 80 mg 80 mg, Intra-articular, | | PM PDT | | | | | ONCE, 11/26/18 at 1430, For 1 | | | | | | | dose, Shake well. Not for IV | | | | | | | use., | | | | | | + +-------+ +-------+---+---+ +---+---+ | | | +---+---+ documented in this encounter"
--- OUTSIDE RECORDS SUMMARY | ~2020-03-09 | XMS | Encounter Summary ---
Demographics + + + | Address | [address] | | | [place] [address] | + + + | Home Phone | | + + + | Preferred Language | Unknown | + + + | Marital Status | | + + + | Muslim Affiliation | 1041 | + + + | Race | Unknown | + + + | Ethnic Group | Unknown | + + + Author + + + | Author | [facility] | | | and [place] | + + + | Organization | [facility] | | | and [...] Team Providers + +------+ + | Care Booky Name | Role | Phone | + [...] | | | | | | | MS REMV | | | | | | [...] LENS | | | | [address] | [address] [place] | IMPLANT | | | | [place], [place] | [place] [address] | | | | | [address] | [phone] | | | | | [phone] | | | +--------+---------+ + + + [...] symptoms, immediately call your eye doctor or [facility] at (dial "9" after hours [...] signed by: Ty Russ MD, 06/26/2018 10:13 [facility] documented in t his encounter Miscellaneous Notes Op Note - Ty Russ MD - 06/26/2018 10:50 AM PSTPre-op Diagnosis: Nuclear scle rosis (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 | [address] | [place] | [phone] | | [facility] | | [address] | | | - LABORATORY | | [...]
--- OUTSIDE RECORDS SUMMARY | ~2020-03-09 | XMS | Clinical Summary ---
Demographics + + + | Address | [address] | | | [place] [address] | + + + | Home Phone | | + + + | Preferred Language | Unknown | + + + | Marital Status | | + + + | Rastafari Affiliation | 1041 | + + + | Race | Unknown | + + + | Ethnic Group | Unknown | + + + Author + + + | Author | [facility] | | | and [place] | + + + | Organization | [facility] | | | [...] Team Providers + +------+ + | Care Geriatric Physical Therapist Name | Role | Phone | + [...] | | (VITAMIN D-2) 50,000 | ALCIFEROL) 90696 UNT | | | | | e | | units capsule | CAPSULEDose: 60123 | | | | | | | [...] | 18 | | | | | Prydeinig instructions | | | | | | [...] + | Overview: 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 [facility], wears compression | | stockings | + [...] | + + + + + | Med Mgmt: HBA1C | | | | | | 6 | | | + + + + + | Med Mgmt: Vit D | | | | | | 6 | | | + + + + + | Medication | | | | | Management | 6 | | | + + [...] | + + + + + | Med Mgmt: BUN | | 11/10/19 | | | | 9 | 18, | | | | | 08/17/19 | | | | | 16 | | + + + + + | Med Mgmt: Cr | | 11/10/19 | | | | 9 | 18, | | | | | 08/17/19 | | | | | 16 | | + + + + + | Med Mgmt: K | | 11/10/19 | | | | 9 | 18, | | | | | 08/17/19 | | | | | 16 | | + + + + + | Med Mgmt: Na | | 11/10/19 | | | | 9 | 18, | | | | | 08/17/19 | | | | | 16 | | + + + + + | Med Mgmt: eGFR | | 11/10/19 | | | | 9 | 18, | | | | | 08/17/19 | | | | | 16 | | + + + + + [...] Right: | NELSON | | 03/20/ | [id number] | | 24.5 - [id number]: | c | Eye | MEDICAL | | 2020 | 0245 | | Qty: 1 on 06/26/2018 by | | | [employer] - | | | /[id number] | | Ty Russ MD at | | | [place] | | | [address] | | [facility] | | | | | | / | | [facility] | | | | | | [...] +--------+ +---------+--------+ | BCBS | BCBS | [id number] | 08/13/19 | | | PPO | | | OOS | 1001 | 19-Pre | | | | | | PPO | | sent | | | | + +--------+ +--------+ +---------+--------+ | MEDICARE | MEDICA | [id number] | 04/13/20 | [phone] | | Medica [...] Self | [birth year] | [address] | | | al/Eddie | | 1945 | [phone] | [place] | | | mar[place] | | | [address] ([place]) | [address] | + +--------+ +--------+ + + Advance Directives + + + + + | Type | Date Recorded | Patient | Explanation | | | | Nuclear Chemistry Technician | | + + + + + | Power of | | | | | Pattern Painter | | | | + + + [...]
--- OUTSIDE RECORDS SUMMARY | ~2020-03-09 | XMS | Encounter Summary ---
Demographics + + + | Address | [address] | | | [place] [address] | + + + | Home Phone | | + + + | Preferred Language | Unknown | + + + | Marital Status | | + + + | Yazidi Affiliation | 1041 | + + + | Race | Unknown | + + + | Ethnic Group | Unknown | + + + Author + + + | Author | [facility] | | | and [place] | + + + | Organization | [facility] | | | [...] Team Providers + +------+ + | Care Gas Combustion Engineer Name | Role | Phone | [...] | | | | | | | [place] REMV | | | | | | [...] 06/26/ | Anesthesia | DIMITRI ARZOLA | Rosalio Betts, | | | 2017 | Event | [facility] | [address] | | | | | [address] | [place] | | | | | [place], [place] | [address] | | | | | [address] | | | | | | [phone] | | | +--------+ + + + [...] 06/26/18 1147 by | | olayinkal | xvcg-[id number] catheter system; | Nicole Anders, | Tonja Ford, | | IV | 20 gauge, 1 1/4 in length; | RN | SALES CORRESPONDENT | | | intradermal injection, tolerated | [...] EVALUATION Kota Piña 73 y.o. male 1945 [id number] Procedure(s) RIGHT EXTRACTION CATARACT WITH LENS IMPLANT [...] signed by Rosalio Betts MD 06/26/2018 11:08 [facility] Ros[facility] Betts MD at 06/13 11:09 AM PSTAnesthesia Preprocedure Evaluation - Rosalio Betts MD - 06/24/2018 2: 33 PM PST ANESTHESIA PREANESTHESIA EVALUATION Kota Piña 73 y.o. male 1945 [id number] Procedure(s): RIGHT EXTRACTION CATARACT WITH OR WITHOUT LENS IMPLANT (Right Eye) Medical history, anesthesia, medications, allergy, NPO status verified histories reviewed. ECG reviewed. Labs reviewed. Review of Systems / Med History Anesthesia History (-) PONV, difficult intubation, malignant hyperthermia Cardiovascular (-) past VT , Exercise tolerance >4 METS Pulmonary No [...] Consenting person understands and agrees to proceed. Court Orderly used. PARQ. MAC/TIVA with propofol and anxiolytics [...]
--- OUTSIDE RECORDS SUMMARY | ~2020-03-09 | XMS | Encounter Summary ---
Demographics + + + | Address | [address] | | | [place] [address] | + + + | Home Phone | | + + + | Preferred Language | Unknown | + + + | Marital Status | | + + + | Anglican Affiliation | 1041 | + + + | Race | Unknown | + + + | Ethnic Group | Unknown | + + + Author + + + | Author | [facility] | | | and [place] | + + + | Organization | [facility] | | | [...] Team Providers + +------+ + | Care Pattern Drafter Name | Role | Phone | + +------+ + PCP | Unavailable | + +------+ + Encounter Details +--------+ + + + + | Date | Type | Department | Care Team | Description | +--------+ + + + + | 12/27/ | Hospital | [facility] | Conversion | Pain | | 2014 | Encounter | CONVERSION [address]P [address] | Transaction, | | | | | [address] | Provider Unknown | | | | | [place], [place] | | | | | | [address] | (Fax) | | | | | [phone] | | | +--------+ + + + [...] LUMBAR SPINE 2 OR | Routin | 11/03/2013 | | Results for this | | 3 VW | e | 2:21 AM | | procedure are in the | | | | PDT | | results section. | + +--------+ + + + documented in this encounter Results XR Lumbar Spine 2 or 3 Vw (11/03/2013 2:21 AM PDT) + + | Specimen [...]
--- OUTSIDE RECORDS SUMMARY | ~2020-03-09 | XMS | Encounter Summary ---
Demographics + + + | Address | [address] | | | [place] [address] | + + + | Home Phone | | + + + | Preferred Language | Unknown | + + + | Marital Status | | + + + | Methodist Affiliation | 1041 | + + + | Race | Unknown | + + + | Ethnic Group | Unknown | + + + Author + + + | Author | [facility] | | | and [place] | + + + | Organization | [facility] | | [...] Team Providers + +------+ + | Care Planer Hand Name | Role | Phone | + +------+ + PCP | Unavailable | + +------+ + Encounter Details +--------+ + + + + | Date | Type | Department | Care Team | Description | +--------+ + + + + | 08/17/ | Emergency | [facility] | Greyson Day | Hyperglycemia; Acute | | 2016 | | MEDICAL [facility]ENTER | DO [address] | nonintractable | | | | [facility] [place] | [address] | headache, | | | | [address] | [place], [place] | unspecified headache | | | | [place] | [address] | type; Acute | | | | [address] | [phone] | bronchitis, | | | | [phone] | | unspecified | | | | [...] 1316 Date of Service: 08/17/151312 Status: Signed General Scrap Worker: FERMIN Camcaho (Advanced Registered Nurse Practitioner) Cosigner: Dana Day [...] 0334 Date of Service: 08/17/15105 Status: Signed General Scrap Worker: Greyson Day DO (Physician) Procedures Additional Documentation Procedures [facility] Department of Emergency Medicine 3:34 AM History [...] Ref Range Date/Time POC venous blood gas [[id number]] (Abnormal) Collected: 08/17/15241 Order Status: Completed Updated: [...] (H) 60 - 85 % Cardiac Panel [[id number]] (Abnormal) Collected: 08/17/15123 Order Status: Completed Updated: [...] ng/mL CK-MB Index 2.4 Urine microscopic only [[id number]] (Abnormal) Collected: 08/17/15124 Order Status: Completed Updated: 08/17/15205 WBC >100 0 - 5 /hpf RBC 1-5 0 - 2 /hpf EPITHELIAL 1-5 /lpf BACTERIA 3+ (A) NONE SEEN Urinalysis Comments CULTURE TO FOLLOW TSH [[id number]] Collected: 08/17/15123 Order Status: Completed Specimen Information: Blood Updated: 08/17/15204 TSH 1.70 0.45 - 5.10 uIU/mL T4, Free [[id number]] Collected: 08/17/15123 Order Status: Completed Specimen Information: Blood Updated: 08/17/15204 FREE T4 1.2 0.7 - 1.5 ng/dL CPK [[id number]] Collected: 08/17/15123 Order Status: Completed Specimen Information: Blood Updated: 08/17/15204 CPK 173 55 - 400 U/L Urinalysis (reflex to microscopic) [[id number]] (Abnormal) Collected: 08/17/15124 Order Status: Completed Specimen Information: Urine / Urine, Clean Catch Updated: 01/ 05/16 0204 COLOR UA YELLOW CLARITY CLOUDY Specific [place], UA 1.010 1.001 - 1.035 LEUKOCYTE ESTERASE SMALL (A) NEGATIVE NITRITE NEGATIVE NEGATIVE UROBILINOGEN 1.0 <1.1 mg/dL PROTEIN NEGATIVE NEGATIVE mg/dL PH,URINE 6.5 4.6 - 8.0 BLOOD TRACE (A) NEGATIVE KETONES TRACE (A) NEGATIVE mg/dL BILIRUBIN NEGATIVE NEGATIVE GLUCOSE >1000 (A) NEGATIVE mg/dL Troponin I [[id number]] Collected: 08/17/15123 Order Status: Completed Specimen Information: Blood Updated: 08/17/15155 TROPONIN I <0.04 0.00 - 0.10 ng/mL Magnesium [[id number]] Collected: 08/17/15123 Order Status: Completed Specimen Information: Blood Updated: 08/17/15155 MAGNESIUM 2.0 1.7 - 2.4 mg/dL Influenza Swab [[id number]] Collected: 08/17/15123 Order Status: Completed Specimen Information: Nasopharyngeal / Nasopharyngeal Culture Updated: 08/17/15154 Specimen Description NASOPHARYNGEAL RESULT Result: Negative for Influenzae Type A and Type B antigen by ICA RESULT Result: Testing performed at [facility], [address], [place] [address] Ketones, Serum [[id number]] Collected: 08/17/15123 Order Status: Completed Specimen Information: Blood Updated: 08/17/15 0149 KETONES,SERUM NEGATIVE NEGATIVE I personally reviewed the lab results and they have been posted to the chart. Pertinent po sitive and negative findings have been addressed appropriately. EKG:Sinus at 98 beats a minute, MT interval within normal limits, normal QRS duration, nor mal ST segments, normal T waves: Sinus without acute ischemic changes or arrhythmia Radiology Imaging Results XR chest PA and lateral (Preliminary result) Result time: 08/17/15 03:34:08 ED Interpretation Documented by Greyson Day DO (08/17/15 03:34:08, [facility] in [place], Emergency Medicine) Questionable infiltrate right middle lobe [...] 17 2015 2:17AM Referring Provider Mahnaz styles: [phone] ID: [id number] Narrative: EXAM: CT HEAD EXAM [...] Matta MD MPH In 1 week [address] [place] [id number] Discharge Medications: New Prescriptions AZITHROMYCIN (ZITHROMAX) 250 MG TABLET Take 1 tablet by mouth daily. Dr. Greyson Day D.O. Dictation software, [employer], used which may contain error for similar [...] | | | Fingerstick | performed at [facility] | LAB | | | [address];[place], [place] | | | | | | [address] | | | | + + + [...] Conversion - 03/27/2019 7:56 PM PDT MARTY [id number] years MaleXR | | CHEST 2 VIEW [...] 2:17AM Referring Provider Line: | | | [phone] ID: [id number] | | + + + [...] Aug | 2015 2:17AM Referring Provider Line: [phone] ID: [id number] | | | |FINDINGS: | [...] 17 2015 2:17AM Referring Provider Mahnaz e: [phone] ID: [id number] | + + ECG 12 [...] | | | | | ONLY, -COMPUTER (258), | | | | | | purchase request editor Allison Basilio | | | | [...] | Testing performed | | | at [facility], [address] [place] [address] | | + + + + +---------+ [...] EXTERNAL | | | | performed at [facility], [address] | | LAB | | | | [address] [place], | | | | | | [place] [address] | | | | + + + + + + | RBC, UA | 1-5Comment: Testing | 0 - 2 /hpf | EXTERNAL | | | | performed at [facility], [address] | | LAB | | | | [address] [place], | | | | | | [place] [address] | | | | + + + + + + | Epithelial | 1-5Comment: Testing | /lpf | EXTERNAL | | | Cells | performed at [facility], [address] | | LAB | | | | [address] [place], | | | | | | [place] [address] | | | | + + + + + + | Bacteria, | 3+ (A)Comment: Testing | | EXTERNAL | | | UA | performed at [facility], [address] | | LAB | | | | [address] [place], | | | | | | [place] [address] | | | | + + + + + + | Urinalysis | CULTURE TO | | EXTERNAL | | | Comments | FOLLOWComment: Testing | | LAB | | | | performed at [facility], [address] | | | | | | [address] [place], | | | | | | [place] [address] | | | | + + + [...] EXTERNAL | | | | performed at [facility], [address] | | LAB | | | | [address] [place], | | | | | | [place] [address] | | | | + + + + + + | Clarity, | CLOUDYComment: Testing | | EXTERNAL | | | Urine | performed at [facility], [address] | | LAB | | | | [address] [place], | | | | | | [place] [address] | | | | + + + + + + | Specific | 1.010Comment: Testing | 1.001 - 1.035 | EXTERNAL | | | [place], | performed at [facility], [address] | | LAB | | | Urine | [address] [place], | | | | | | [place] [address] | | | | + + + + + + | Leukocyte | SMALL (A)Comment: | | EXTERNAL | | | Esterase, | Testing performed at | | LAB | | | Urine | [facility], [address], | | | | | | [place] [address] | | | | + + + + + + | Nitrite, | NEGATIVEComment: Testing | | EXTERNAL | | | Urine | performed at [facility], [address] | | LAB | | | | [address] [place], | | | | | | [place] [address] | | | | + + + + + + | Urobilinoge | 1.0Comment: Testing | mg/dL | EXTERNAL | | | n, Urine | performed at [facility], [address] | | LAB | | | | [address] [place], | | | | | | [place] [address] | | | | + + + + + + | Protein, | NEGATIVEComment: Testing | mg/dL | EXTERNAL | | | Urine | performed at [facility], [address] | | LAB | | | | [address] [place], | | | | | | [place] [address] | | | | + + + + + + | pH, Urine | 6.5Comment: Testing | 4.6 - 8.0 | EXTERNAL | | | | performed at [facility], [address] | | LAB | | | | [address] [place], | | | | | | [place] [address] | | | | + + + + + + | Blood, | TRACE (A)Comment: | | EXTERNAL | | | Urine | Testing performed at | | LAB | | | | [facility], [address], | | | | | | [place] [address] | | | | + + + + + + | Ketones | TRACE (A)Comment: | mg/dL | EXTERNAL | | | | Testing performed at | | LAB | | | | [facility], [address], | | | | | | [place] [address] | | | | + + + + + + | Bilirubin, | NEGATIVEComment: Testing | | EXTERNAL | | | Urine | performed at [facility], [address] | | LAB | | | | [address] | | | | | | [place] [address] | | | | + + + + + + | Glucose, | >1000 (A)Comment: | mg/dL | EXTERNAL | | | Urine | Testing performed at | | LAB | | | | [facility], [address], | | | | | | [place], [place] [address] | | | | + + + [...] | | | Blood | performed at [facility], [address] | | LAB | | | | [address] [place], | | | | | | [place] [address] | | | | + + + [...] ICA | | | Testing performed at [facility], [address] [place] | | | [address] | | + + + + +---------+ [...] EXTERNAL | | | | performed at [facility], [address] | K/uL | LAB | | | | [address] [place], | | | | | | [place] [address] | | | | + + + + + -+ | Non- | 4.36Comment: Testing | 4.20 - 5.70 | EXTERNAL | | | Red Blood | performed at [facility], [address] | M/uL | LAB | | | Cells | [address] [place], | | | | | Counted | [place] [address] | | | | + + + + + -+ | Hemoglobin | 13.3Comment: Testing | 13.2 - 17.0 | EXTERNAL | | | | performed at [facility], [address] | g/dL | LAB | | | | [address] [place], | | | | | | [place] [address] | | | | + + + + + -+ | Hematocrit, | 39.1Comment: Testing | 39.0 - 50.0 % | EXTERNAL | | | POC | performed at [facility], [address] | | LAB | | | | [address] [place], | | | | | | [place] [address] | | | | + + + + + -+ | MCV | 89.6Comment: Testing | 80.0 - 100.0 fl | EXTERNAL | | | | performed at [facility], [address] | | LAB | | | | [address] [place], | | | | | | [place] [address] | | | | + + + + + -+ | MCH | 30.4Comment: Testing | 27.0 - 34.0 pg | EXTERNAL | | | | performed at [facility], [address] | | LAB | | | | [address] [place], | | | | | | [place] [address] | | | | + + + + + -+ | MCHC | 34.0Comment: Testing | 32.0 - 35.5 | EXTERNAL | | | | performed at [facility], [address] | g/dL | LAB | | | | [address] [place], | | | | | | [place] [address] | | | | + + + + + -+ | RDW-CV | 40.3Comment: Testing | 37 - 53 fl | EXTERNAL | | | | performed at [facility], [address] | | LAB | | | | [address] [place], | | | | | | [place] [address] | | | | + + + + + -+ | Platelet | 220Comment: Testing | 150 - 400 K/uL | EXTERNAL | | | Count | performed at [facility], [address] | | LAB | | | Plasma | [address] [place], | | | | | | [place] [address] | | | | + + + + + -+ | MPV | 8.3Comment: Testing | fl | EXTERNAL | | | | performed at [facility], [address] | | LAB | | | | [address] [place], | | | | | | [place] [address] | | | | + + + + + -+ | Differentia | AUTOMATEDComment: | | EXTERNAL | | | l Type | Testing performed at | | LAB | | | | [facility], [address] [place], | | | | | | [place], [place] [address] | | | | + + + + + -+ | % Segmented | 85.78Comment: Testing | % | EXTERNAL | | | | performed at [facility], [address] | | LAB | | | Neutrophils | [address] [place], | | | | | | [place] [address] | | | | + + + + + -+ | % | 6.04Comment: Testing | % | EXTERNAL | | | Lymphocytes | performed at [facility], [address] | | LAB | | | | [address] [place], | | | | | | [place] [address] | | | | + + + + + -+ | % Monocytes | 7.36Comment: Testing | % | EXTERNAL | | | | performed at [facility], [address] | | LAB | | | | [address] [place], | | | | | | [place] [address] | | | | + + + + + -+ | % | 0.52Comment: Testing | % | EXTERNAL | | | Eosinophils | performed at [facility], [address] | | LAB | | | | [address] [place], | | | | | | [place] [address] | | | | + + + + + -+ | % Basophils | 0.30Comment: Testing | % | EXTERNAL | | | | performed at [facility], [address] | | LAB | | | | [address] [place], | | | | | | [place] [address] | | | | + + + + + -+ | Absolute | 5.91Comment: Testing | 1.90 - 7.40 | EXTERNAL | | | Segmented | performed at [facility], [address] | K/uL | LAB | | | Neutrophils | [address] [place], | | | | | | [place] [address] | | | | + + + + + -+ | Absolute | 0.42 (L)Comment: Testing | 1.00 - 3.90 | EXTERNAL | | | Lymphocytes | performed at [facility], [address] | K/uL | LAB | | | | [address] [place], | | | | | | [place] [address] | | | | + + + + + -+ | Absolute | 0.51Comment: Testing | 0.00 - 0.80 | EXTERNAL | | | Monocytes | performed at [facility], [address] | K/uL | LAB | | | | [address] [place], | | | | | | [place] [address] | | | | + + + + + -+ | Absolute | 0.04Comment: Testing | 0.00 - 0.50 | EXTERNAL | | | Eosinophils | performed at [facility], [address] | K/uL | LAB | | | | [address] [place], | | | | | | [place] [address] | | | | + + + + + -+ | Absolute | 0.02Comment: Testing | 0.00 - 0.10 | EXTERNAL | | | Basophils | performed at [facility], [address] | K/uL | LAB | | | | [address] [place], | | | | | | [place] [address] | | | | + + + + + -+ | RBC | NORMAL RBC MORPHComment: | | EXTERNAL | | | Morphology | NORMAL PLT MORPH1+TOXIC | | LAB | | | | GRANULATIONTesting | | | | | | performed at [facility], [address] | | | | | | [address] [place], | | | | | | [place] [address] | | | | | | | | | | + + + + + -+ | Platelet | ADEQUATEComment: Testing | | EXTERNAL | | | Estimate | performed at [facility], [address] | | LAB | | | | [address] [place], | | | | | | [place] [address] | | | | + + + + + -+ | Differentia | SLIDE SCANNED, AGREES | | EXTERNAL | | | l Comments | WITH AUTOMATED | | LAB | | | | RESULTS.Comment: Testing | | | | | | performed at [facility], [address] | | | | | | [address] [place], | | | | | | [place] [address] | | | | + + + + + -+ | Na | 133 (L)Comment: Testing | 135 - 143 | EXTERNAL | | | | performed at [facility], [address] | mmol/L | LAB | | | | [address] [place], | | | | | | [place] [address] | | | | + + + + + -+ | K | 4.7Comment: Testing | 3.5 - 4.9 | EXTERNAL | | | | performed at [facility], [address] | mmol/L | LAB | | | | [address] [place], | | | | | | [place] [address] | | | | + + + + + -+ | Cl | 98 (L)Comment: Testing | 99 - 109 mmol/L | EXTERNAL | | | | performed at [facility], [address] | | LAB | | | | [address] [place], | | | | | | [place] [address] | | | | + + + + + -+ | CO2 | 27Comment: Testing | 23 - 32 mmol/L | EXTERNAL | | | | performed at [facility], [address] | | LAB | | | | [address] [place], | | | | | | [place] [address] | | | | + + + + + -+ | Anion Gap | 13Comment: Testing | 5 - 20 mmol/L | EXTERNAL | | | | performed at [facility], [address] | | LAB | | | | [address] [place], | | | | | | [place] [address] | | | | + + + + + -+ | Glucose, | 416 (H)Comment: Testing | 65 - 99 mg/dL | EXTERNAL | | | Fasting | performed at [facility], [address] | | LAB | | | | [address] [place], | | | | | | [place] [address] | | | | + + + + + -+ | BUN | 21Comment: Testing | 8 - 25 mg/dL | EXTERNAL | | | | performed at [facility], [address] | | LAB | | | | [address] [place], | | | | | | [place] [address] | | | | + + + + + -+ | Creatinine | 1.74 (H)Comment: Testing | 0.70 - 1.30 | EXTERNAL | | | | performed at [facility], [address] | mg/dL | LAB | | | | [address] [place], | | | | | | [place] [address] | | | | + + + + + -+ | BUN/Creatin | 12Comment: Testing | | EXTERNAL | | | ine Ratio | performed at [facility], [address] | | LAB | | | | [address] [place], | | | | | | [place] [address] | | | | + + + + + -+ | Calcium | 8.6Comment: Testing | 8.5 - 10.5 | EXTERNAL | | | | performed at [facility], [address] | mg/dL | LAB | | | | [address] [place], | | | | | | [place] [address] | | | | + + + + + -+ | Protein, | 7.0Comment: Testing | 6.3 - 8.2 g/dL | EXTERNAL | | | Total | performed at [facility], [address] | | LAB | | | | [address] [place], | | | | | | [place] [address] | | | | + + + + + -+ | Albumin | 2.7 (L)Comment: Testing | 3.3 - 4.8 g/dL | EXTERNAL | | | | performed at [facility], [address] | | LAB | | | | [address] [place], | | | | | | [place] [address] | | | | + + + + + -+ | Globulin | 4.3Comment: Testing | 1.3 - 4.9 g/dL | EXTERNAL | | | | performed at [facility], [address] | | LAB | | | | [address] [place], | | | | | | [place] [address] | | | | + + + + + -+ | A/G Ratio | 0.6 (L)Comment: Testing | 1.0 - 2.4 | EXTERNAL | | | | performed at [facility], [address] | | LAB | | | | [address] [place], | | | | | | [place] [address] | | | | + + + + + -+ | Bilirubin | 0.2Comment: Testing | 0.1 - 1.5 mg/dL | EXTERNAL | | | Total | performed at [facility], [address] | | LAB | | | | [address] [place], | | | | | | [place] [address] | | | | + + + + + -+ | ALP, | 124 (H)Comment: Testing | 35 - 115 U/L | EXTERNAL | | | External | performed at [facility], [address] | | LAB | | | | [address] [place], | | | | | | [place] [address] | | | | + + + + + -+ | AST | 55 (H)Comment: Testing | 10 - 45 U/L | EXTERNAL | | | | performed at [facility], [address] | | LAB | | | | [address] [place], | | | | | | [place] [address] | | | | + + + + + -+ | ALT | 60Comment: Testing | 10 - 65 U/L | EXTERNAL | | | | performed at [facility], [address] | | LAB | | | | [address] [place], | | | | | | [place] [address] | | | | + + + [...] | | | | | | at [facility], [address] | | | | | | [place] | | | | | | [address] | | | | + + + + + -+ | CK, Total | 168Comment: Testing | 55 - 400 U/L | EXTERNAL | | | | performed at [facility], [address] | | LAB | | | | [address] [place], | | | | | | [place] [address] | | | | + + + [...] | | | | | performed at [facility], [address] | | | | | | [address] [place], | | | | | | [place] [address] | | | | + + + + + -+ | aPTT, | 29Comment: Testing | 23 - 32 seconds | EXTERNAL | | | Patient | performed at [facility], [address] | | LAB | | | | [address] [place], | | | | | | [place] [address] | | | | + + + + + -+ | CK-MB | 4.0 (H)Comment: Testing | 0.5 - 3.6 ng/mL | EXTERNAL | | | | performed at [facility], [address] | | LAB | | | | [address] [place], | | | | | | [place] [address] | | | | + + + [...] | | | | | | ACUTE SC Testing | | | | | | performed at [facility], [address] | | | | | | [address] [place], | | | | | | [place] [address] | | | | + + + [...] EXTERNAL | | | | performed at [facility], [address] | uIU/mL | LAB | | | | [address] [place], | | | | | | [place] [address] | | | | + + + [...] | | | (REF) | performed at [facility], [address] | | LAB | | [address] [place], | | | | | | [place] [address] | | | | + + + [...] EXTERNAL | | | | performed at [facility], [address] | | LAB | | | | [address] [place], | | | | | | [place] [address] | | | | + + + [...] EXTERNAL | | | | performed at [facility], [address] | | LAB | | | | [address] [place], | | | | | | [place] [address] | | | | + + + [...] | | | Fingerstick | performed at [facility] | | LAB | | | | [address];[place] | | | | | | [address] | | | | + + + [...]
--- OUTSIDE RECORDS SUMMARY | ~2020-03-09 | XMS | Encounter Summary ---
Demographics + + + | Address | [address] | | | [place] [address] | + + + | Home Phone [...] Team Providers + +------+ + | Care Data Assistant Name | Role | Phone | + [...] | Cervical | [place], | [address] | | | | | radiculopath | Tirso Brito MD | [place], | | | | | y | [address] | [place] | | | | | Procedures | [place] | [address] | | | | | [place] | [facility], [place] | Phone: | | | | | DX/THER SBST | [address] | [phone] | | | | | INTRLMNR | Phone: | Fax: | | | | | CRV/THRC | [phone] | [phone] | | | | | W/IMG GDN | Fax: | | | | | | [place] | [phone] | | | | | | TRIAMCINOLON [...] + + | 01/23/ | Hospital | [facility] | Raheel De Luna, | Cervical | | 2019 | Encounter | MED CTR XRAY [address] | PA-C [address] | radiculopathy | | | | [place] | [address] [place] | | | | | [place] [address] | [place] [address] | | | | | [phone] | [phone] | | | | | | | | | | | | [facility] | | | | | | [...] | | | | | | | [place] Island[place] instructions | | | | | [...] | | | | | | allergies. [place] | | | | | | | instructions | | | | | + + + +---------+ + + | furosemide (LASIX) | Take 1 tablet (20 mg | | 0 | 06/28/20 | | | 20 mg tablet | total) by mouth | | | 18 | 9 | | | daily. Leg swelling | | | | | | | [place] Island[place] instructions | | | | | [...] 3:17 | | | | | ONCE, [facility] 01/23/19 at 1530, For 1 | | [...] | | | | | Other, ONCE, [facility] 01/23/19 at 1530, | | PM PDT [...] | | (Comment | | Intradermal, ONCE, [facility] 01/23/19 at | | PM PDT | | | ) | | 1530, For 1 dose | | | | | | + +-------+ +-------+---+ + +---+---+ | | | +---+---+ documented in this encounter"
--- OUTSIDE RECORDS SUMMARY | ~2020-03-09 | XMS | Encounter Summary ---
Demographics + + + | Address | [address] | | | [place] [address] | + + + | Home Phone | | + + + | Preferred Language | Unknown | + + + | Marital Status | | + + + | Jewish Affiliation | [id number] | + + + [...] Providers + +------+ + | Care Java Sdet Name | Role | Phone | + [...] | | | [address] [place] | [place] [address] | | | | | [place] [address] | | | | | | [phone] | | | +--------+ + + + [...]
[~2020-03-09 16:51] MED LIST changes: +ATORVASTATIN CA20 MG PO; +CARBIDOPA-LEVO1 EAC1 PO; +GLYBURIDE5 MG PO; +LATANOPROST2.5 ML OD; +LISINOPRIL-HCT1 EAC2 PO; +METFORMIN HCL1000 MG PO; +TAMSULOSIN HCL0.4 MG PO
--- NOTE | 2020-03-09 17:25 | NUR ---
PATIENT SITTING UP IN CHAIR. RN IN ROOM. VITAL SIGNS AND I&O DONE. CALL LIGHT WITHIN REACH. NO OTHER NEEDS AT THIS TIME
--- NOTE | 2020-03-09 17:55 | NUR ---
EVANGELINA from Dr. Hamlin to removed oxygen saturation monitoring.
--- NOTE | 2020-03-09 19:56 | NUR ---
REPORT RECEIVED FROM DAY SHIFT RN. PT SITTING IN RECLINER, ALERT AND ORIENTED. ASSISTED TO USE URINAL. PT INCONTINENT OF URINE WELL. INCREASED RR WITH EXERTION. SpO2 93% ON 15L/NC WHILE AT REST. RR=24. HR 70'S. OCCASIONAL DRY COUGH NOTED. PT REMAINS IN RECLINER AT THIS TIME. CALL LIGHT IN REACH.
--- NOTE | 2020-03-09 22:00 | NUR ---
CALL LIGHT ANSWERED. ASSISTED PT TO USE URINAL. SCHEDULED MEDS ADMINISTERED PER EMAR. PRN GIVEN FOR COUGH. SBA WITH FWW TO BED. REPOSITIONED ON LEFT SIDE. PT BO WELL. INCREASED RR WITH ACTIVITY. SpO2 93% 15L/NC WHILE AT REST. CALL LIGHT IN REACH.
--- NOTE | 2020-03-09 23:30 | NUR ---
PT RESTING IN BED WITH EYES CLOSED, NAD.
--- NOTE | 2020-03-10 01:05 | NUR ---
CALL LIGHT ANSWERED. NASAL CANNULA HAD FALLEN OFF. CANNULA REPLACED. SpO2 91%. RESPIRATIONS UNLABORED. NO FURTHER NEEDS. CALL LIGHT IN REACH.
--- NOTE | 2020-03-10 03:08 | NUR ---
CALL LIGHT ANSWERED. PT UP TO SIDE OF BED WITH 1PA AND FWW TO VOID 50 ML MEI COLORED URINE. PT WAS ALSO INCONTINENT OF URINE. ASSISTED WITH CARLOS CARE. CLEAN BRIEF PLACED. PT BACK TO BED, BO WELL. INCREASED RR WITH ACTIVITY. SpO2 86% ON 15L/NC AFTER RETURNING TO BED. AFTER A FEW MINUTES RECOVERY, SpO2 91%. RR=24. PT REPOSITIONED TO RIGHT SIDE. CALL LIGHT IN REACH.
--- NOTE | 2020-03-10 06:04 | NUR ---
PT UP TO SIDE OF BED TO VOID WITH SBA AND FWW. THEN TO BSC TO ATTEMPT BM WITH NO RESULTS. BACK TO BED, BO FAIR. UPON RETURNING TO BED, SpO2 86% ON 15L/NC. RR=34. AFTER ABOUT 5 MIN SpO2 93% ON 15L/NC. RR =28. HR 74. HOB ELEVATED. CALL LIGHT IN REACH.
--- NOTE | 2020-03-10 07:07 | NUR ---
PATIENT PLACED ON TRANSITIONAL CARE DUE TO EXTREME DESATURATIONS WITH ACTIVITY WHEN RT DID EXERCISE TESTING PRIOR TO HOPEFUL DISCHARGE. PATIENT IS DECONDITIONED DUE TO PROLONGED RESPIRATORY ILLNESS FROM COVID 19. PLAN WILL BE TO INCREASE TOLERANCE WITH PT/OT AND RESPIRATORY SUPPORT FOR HIM TO RETURN HOME SAFELY WITH FAMILY. 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
--- NOTE | 2020-03-10 07:15 | NUR ---
bedside report from yenifer shaw. pt eyes closed, appears resting. resp rate regular. dr. gaston confirmed no tele monitor needed. extension service specialist in charge janice notified.
--- NOTE | 2020-03-10 09:00 | NUR ---
used translation phone to visit with pt. he denies needs, other than weak and sore. am medications explained by steward/stewardess second class - questions and answers. pt provided with warm h20 per his request. no bm yet. call light and phone in reach - enc. to call for needs.
--- NOTE | 2020-03-10 12:01 | NUR ---
in pt room for noon meds, and delivered lunch. pt declined to get in chair. used interp. phone for visit. pt has call light and telephone in hand, let him know that his daughter jomar called and would be bringing his clothes. attempted to call with update x2 and wrong number - this rn called rush son - and updated him then transfered him in to room to speak with pt. updated garnett feeder and will check back with pt.
--- NOTE | 2020-03-10 12:15 | NUR ---
call to daughter - new phone number to the chart. updated her and offered to transfer phone.
--- NOTE | 2020-03-10 13:23 | NUR ---
PT IN ISOLATION DUE TO PRECAUTIONS
--- NOTE | 2020-03-10 15:00 | NUR ---
PATIENT WAS INCONTINENT OF URINE. FRESH LINENS, NEW GOWN, CARLOS CARE, AND NEW WATER DONE. PATIENT WORKING WITH THERAPY NOW. NO FURTHER NEEDS AT THIS TIME.
--- NOTE | 2020-03-10 16:49 | NUR ---
pt up in ch. c/o headache - po tylomol given, on 15L
--- NOTE | 2020-03-10 17:23 | NUR ---
Dr. de notified of low o2 sat with high flow nc as low as 83. RT antonia in rm and suggested vapo therm next. Slight improvement to 90 with cpap mask but pt does not want to wear it. rt used the translation phone to educate. had no other changes aware of pt status and try the vapotherm next.
--- NOTE | 2020-03-10 17:56 | NUR ---
pt ox increased with cpap - 90% up in ch. rt setting up the vapotherm.
--- NOTE | 2020-03-10 19:20 | NUR ---
SHIFT REPORT RECEIVED FROM DAYSHIFT BK ALLEN IN [facility]. PT RESTING QUIETLY IN CHAIR, CALL LIGHT IN REACH. VAPOTHERM IN PLACE, O2 SETTINGS TO 70%O2, 36 DEGREES, WITH 20L FLOW RATE. O2 SAT 91%, HR 78. NO DISTRESS AT THIS TIME.
--- NOTE | 2020-03-10 21:15 | NUR ---
DR VALE ROUNDING AT RN STATION. DISCUSSED WITH PT'S VARYING RR AND O2 SATURATION. PER DR VALE, CAN NOTIFY HIM IF RR SUSTAINS ELEVATED AND IF O2 NEEDS INCREASE/SIGNS OF RESPIRATORY DISTRESS IS NOTED.
--- NOTE | 2020-03-10 22:20 | NUR ---
ASSESSMENT COMPLETE, LIDOCAINE PATCH REMOVED PER EMAR. PRN TYLENOL GIVEN FOR PAIN IN BLE ALONG WITH PRN COUGH MEDICATION (SEE EMAR). VSS, RR 44. PREVIOSLY NOTED TO BE 50 PER RT. PER PT, O2 SATURATION UPPER 80'S, TITRATED BY RT TO 30L FLOWRATE. %02 REMAINS 70. WILL MONITOR. PT REPORTS PAIN AT TIMES WITH COUGHING, EDUCATION ON PROPER BREATHING AND ELEVATION OF BED DISCUSSED WITH PT VIA INTERPRETOR. PT VOIDED 100MLS, UNABLE TO HAVE BM AT THIS TIME. PT BACK IN BED, DENIES FURTHER NEEDS. TALKING TO FAMILY AT THIS TIME, CALL LIGHT IN REACH.
--- NOTE | 2020-03-11 00:33 | NUR ---
PT RESTING IN BED WITH EYES CLOSED. RR APPROX 28, RESPIRATIONS REMAIN SHALLOW. WILL MONITOR. PT REMAINS ON 30L VAPOTHERM, %O2 70. O2 SAT UPPER 90'S. HR 80'S. BLE FIDGETING IN BED. WILL CONTINUE TO MONITOR. CALL LIGHT IN REACH.
--- NOTE | 2020-03-11 00:41 | NUR ---
O2 SAT SUSTAINING 97-100% ON 30L VAPOTHERM. DISCUSSED WITH RT JUN. RT TO COME AND ASSESS PT AND ADJUST VAPOTHERM PRN. WILL MONITOR.
--- NOTE | 2020-03-11 01:21 | NUR ---
CALL LIGHT ANSWERED. PT VOID VIA URINAL, 150MLS. PT REPOSITIONED UNTO LEFT SIDE WITH USE OF PILLOWS. VAPOTHERM IN PLACE, O2 SAT 94-97%. PT EDUCATED ON SLOW DEEP BREATHS. NO FURTHER NEEDS, CALL LIGHT IN REACH.
--- NOTE | 2020-03-11 02:06 | NUR ---
RT JUN AT RN STATION. DISCUSSED PT'S TRENDING O2 SAT. NO HX OF CO2 RETENTION OR COPD NOTED IN H&P. RT SUGGESTS LEAVING CURRENT VAPOTHERM SETTINGS IN PLACE AND REEVALUATE AT 0300. PER RT, RR 40. BIBLICAL LANGUAGES PROFESSOR CLAY UPDATED, PER BIBLICAL LANGUAGES PROFESSOR NO NEED TO NOTIFY MD. WILL CONTINUE TO MONITOR.
--- NOTE | 2020-03-11 03:50 | NUR ---
IN ROOM TO ANSWER CALL LIGHT. PT REPORTS NEED TO VOID, PT ALREADY INCONTINENT OF URINE. PT UP 1PA WITH FWW, NEW CHUCKS AND ATTENDS IN PLACE. INTERMODAL TRUCK DRIVER TO ROOM, REPORTS PT'S O2 SAT DOWN TO 60'S. EFFORT OF BREATHING INCREASED. PT BACK TO BED, HOB ELEVATED. EDUCATION ON DEEP BREATHING, O2 SAT RETURNED TO MID 90'S. UNSURE OF THIS WAS ACCURATE SPO2 READING. EFFORT OF BREATHING RETURNING TO BASELINE. VIA INTERPRETOR RN ASKED IF PT WAS HAVING SOB, PT STATES, "I THINK I WAS BREATHING FAST BECAUSE I WAS COLD". HOB REMAINS ELEVATED, PT REPOSITIONED. BLANKETS PROVIDED. PT REPORTING NOW FEELING "GOOD". DENIES FURTHER NEEDS, CALL LIGHT IN REACH.
--- NOTE | 2020-03-11 04:52 | NUR ---
PT RESTING IN BED WITH EYES CLOSED. RESPIRATIONS REMAINS SHALLOW, REMAIN BASELINE. HR 76, O2 SAT 96-97% ON 30L VAPOTHERM, %02 70. CALL LIGHT IN REACH.
--- NOTE | 2020-03-11 06:19 | NUR ---
PT SLEPT OFF AND ON THIS SHIFT, HUNGARIAN SPEAKING ONLY. INTERPRETOR UTILIZED, LANGUAGE BARRIER REMAINS NOTED. PT ON VAPOTHERM AT 30L/MIN, %O2 AT 70. RESPIRATIONS REMAIN SHALLOW AND ELEVATED. O2 SAT MID 90'S TO 100%. 60G CARB DIET, TOLERATING WELL. NO NAUSEA REPORTED. PAIN CONTROLLED WITH PRN TYLENOL.
--- NOTE | 2020-03-11 07:01 | NUR ---
RR 45-48 BPM THIS AM, IN ROOM TO VOID VIA URINAL. VAPOTHERM IN PLACE AT 30LPM, %O2 70. O2 SAT REMAINING AT UPPER 90'S TO 100%, HR 90'S. DR VALE UPDATED. NO NEW ORDERS. CALL LIGHT IN REACH.
--- NOTE | 2020-03-11 09:02 | NUR ---
respiratory therapist called at 0855 to monitor/change vapotherm settings as patient was not adequately oxygenating at rest. When patient got up to chair his oxygen dropped to 80% and did not recover more than 83%. Interpretive services being used to communicate with patient. Linens changed and medications administered. Urinated dark yellow/tea colored urine about 50ml. Attends changed. 0915: patient proning in bed
--- NOTE | 2020-03-11 11:16 | NUR ---
PATIENT WORKED WITH PHYSICAL THERAPY. THERAPIST REPORTS HE HAD A LARGE BM AND TEA COLORED URINE DURING THERAPY.
--- NOTE | 2020-03-11 11:32 | NUR ---
WORKING WITH PHYSICAL THERAPY NOW. OXYGEN 95% WHEN STANDING AND MARCHING.
--- NOTE | 2020-03-11 15:51 | NUR ---
pt resting with eyes closed lying semi fowlers in bed. o2 97% on vapotherm.
--- NOTE | 2020-03-11 17:22 | NUR ---
OXYGEN DEMANDS INCREASED THIS MORNING. WEAKNESS INCREASED TODAY. LIQUID BROWN BMs TODAY. HELD EVENING STOOL SOFTENERS. POOR APPETITE. DID EAT A FEW BITES OF DINNER. VAPOTHERM AT 40L AND 100% OXYGEN. OT/PT TODAY. ABGs TAKEN--- NORMAL. CHEST XRAY DONE.
--- NOTE | 2020-03-11 20:15 | NUR ---
charge nurse note:. Awake, bhutanese speaking, on transitional bed status, Contact/respiratory isolation. denies need for pain meds, rapid respirations noted, on vapoterm 40% at this time. call light at hands reach
--- NOTE | 2020-03-12 01:15 | NUR ---
ENTERED TO TRY AND CHANGE PATIENT'S POSITION, WITH RT. RESP RATE 50+ MIN. PRONED PATIENT AT DR. VALE'S REQUEST. PATIENT DIDN'T TOLERATE WELL AND SATS DROPPED TO 50'S. QUICKLY 2 LEFT SIDE AND PATIENT COMPENSEATED BACK TO 40'S-50'S ON PREATHS AND 90-92% ON VAPOTHERM. DECODRON IV GOT ORDERED, BUT PATIENT A SWING SO 22G IV HAD TO BE STARTED IN LEFT HAND AND MED GIVEN THIS 0230. IN ROOM UNTIL AROUND 3AM. USING RIP AND GROOVE MACHINE OPERATOR FOR QUESTIONS. LEFT AND CALL LIGHT IN REACH AND LET PATIENT KNOW i WOULD BE BACK IN ABOUT 2 HOURS IF NO EMERGENCY AND HE HAD JUST VOIDED.
--- NOTE | 2020-03-12 03:08 | NUR ---
JUST GOT OUT OF THE PATIENT'S ROOM AFTER BEINING IN THERE SINCE JUST AFTER ONE. HE JUST VOIDED 100MLS, TOLD PATIENT WOULD NOT BE BACK FOR 2 HOURS. PATIENT HAS CALLED 3 TIMES NOW TO USE THE URINAL AND I HAVE BEEN WITH MY OTHER PATIENT'S GETTING READY TO GO BACK INTO THE ROOM IN PAPR AGAIN.
--- NOTE | 2020-03-12 07:45 | NUR ---
0720: Report received from Jaspreet BOURGEOIS. Sat 91% at this time.
--- NOTE | 2020-03-12 08:23 | NUR ---
BACK IN WITH PATIENT AGAIN AND DAY SHIFT RT INFORMED PATIENT'S RESPS WERE UP TO 60/MIN COUNTED A FULL MINUTE X2, THIS WAS TOLD TO KB BEFORE HE WENT IN FOR HIS FIRST ASSSESSMENT.PATIENT HAD VOIDED ABOUT 50MLS, LOW URINE OUTPUT ALL NIGHT WHICH IS NOT OUT OF NORMAL. DISCUSSED NEEDS WITH INSPECTOR ALIGNING, FULLFILLED THOSE NEEDS AND LET THE ROOM ABOUT 7AM.
--- NOTE | 2020-03-12 09:00 | NUR ---
PATIENT HAS TAKEN A TURN FOR THE WORSE IN RESPIRATORY STATUS. DR VALE HAS SPOKEN WITH FAMILY AND THEY ARE NOT SURE THEY WANT TO INTUBATE PATIENT OR BRING HIM HOME "TO WITH FAMILY". DR VALE STATES THEY ARE TALKING AMONG FAMILY AND WILL CALL BACK AT 1000. HE IS NOT SURE PATIENT WOULD SURVIVE AN ATTEMPT AT TRANSFER TO HOME IN [place]. PATIENT IS REQUIRING VERY HIGH LEVELS OF OXYGEN AND IS NOT TOLERATING ANY KIND OF MOVEMENT.
--- NOTE | 2020-03-12 09:38 | NUR ---
PT RESTING IN HIS BED WITH A SAT OF 90% WITH THE USE OF THE VAPOTHERM. TRANSLATION LINE USED AND THE PT DENIES ANY CP OR SOB, HIS RR IS 48 AT THIS TIME OF WHICH THE MD IS AWARE. THE PT DENIES ANY PROBLEMS OTHER THAN CONSTIPATION FOR WHICH HE WAS GIVEN THE ORDERED SENNA AND MIRALAX AND IT IS NOTED HE HAD 2 BM'S YESTERDAY. PT'S URINE IS DARK MEI FOR WHICH HE JUST VOIDED 125 ML. SEE ASSESSMENT.
--- NOTE | 2020-03-12 09:42 | NUR ---
PT REPOSITIONED AT THIS TIME.
--- NOTE | 2020-03-12 10:17 | NUR ---
Sat now 95%.
--- NOTE | 2020-03-12 10:45 | NUR ---
Pt called and needed to have a BM. Pt was placed on a bed black and he had a med loose BM and voided 50ml. PT's RR increased to 60 with this movement and is now slowing back down into the low 50's, sat is 96% at this time.
--- NOTE | 2020-03-12 11:15 | NUR ---
PATIENTS FAMILY HAS DECIDED TO MOVE PATIENT TO COMFORT ONLY BUT REQUEST TO BE ABLE TO COME BE WITH PATIENT. INTERNAL CORROSION SPECIALIST CORE ASSEMBLY SUPERVISOR DEALING WITH VISITING RULES AND HOW TO HELP THEM WITH END OF LIFE ISSUE. IT IS NOT CLEAR PATIENT WOULD SURVIVE TO ARRANGE HOSPICE. CORE ASSEMBLY SUPERVISOR AND PHYSICAN WILL SEE HOW AFTERNOON GOES REGARDING IF THAT WOULD EVEN BE A POSSIBILITY.
--- NOTE | 2020-03-12 11:33 | NUR ---
DECISION IS BEING MADE ABOUT POSSIBLY HAVING PT GO ON COMFORT CARE. DR VALE HAS VISITED WITH ME REGARDING HELPING THE FAMILY, WE WILL BE AVAILABLE TO HELP WITH DECISIONS. HAVE CONTACTED [employer] GETTING UPDATED INFO REGARDINGTHE GOVERNOR'S LATEST RULING FOR [facility].
--- NOTE | 2020-03-12 12:07 | NUR ---
The pt has been speaking with Dr Turner and is now on the phone speaking with his Son Ann.
--- NOTE | 2020-03-12 12:10 | NUR ---
I was given the phone by the pt and I spoke with Ann (the pt's son) who states that Kota does not wish to be intubated. Dr Turner notified of the pt's wishes and is getting ready for a call to the pt, Ann and the intepeter.
--- NOTE | 2020-03-12 12:24 | NUR ---
RR 48 AT THIS TIME.
--- NOTE | 2020-03-12 14:10 | NUR ---
SPOKE WITH YENI AT [facility] REGARDING POSSIBLE HOSPICE CARE AT HOME. SHE STATES TO SEND CLINICALS AND THEY WILL REVIEW. IT MIGHT NOT BE POSSIBLE TO ADMIT THIS WEEKEND. ADVISED HER TO CALL [facility]ICAL FLOOR NURSES STATION AFTER THIS FOR COMMUNICATION CASE MANAGEMENT WILL BE OUT OF HOUSE AFTER 2PM TODAY. SPOKE WITH [facility] AND ROSA M RN FOR PATIENT. UPDATED THEM. CLINICALS GIVEN FOR RESPIRATORY THERAPY INSTRUCTOR TO FAX TO [facility].
--- NOTE | 2020-03-12 14:20 | NUR ---
Pt denies any sob or pain at this time. RR 56 sat 90% on vapotherm at 40lmp at 100%. Pt is DNR/DNI and Dr Turner is aware of his resp status.
--- NOTE | 2020-03-12 14:37 | NUR ---
Pt stated he needed to have a bm and was placed on the bedpan and he was unable to have any bm at this time. Pt drank 100% of an ensure at this time. Pt repositioned to his right side. Pt has refused proning as he is unable to tolerate it, MD aware.
--- NOTE | 2020-03-12 15:44 | NUR ---
Pt's family was given education regarding infection risks and donning and doffing of PPE. Once they state they are comfortable and they were masked, face sheilds, gowns and gloves entered the room. The education was given by myself and Jina BOURGEOIS the dry house operator. The family was also informed that once they exit the room they will not be allowed back in due to the PPE use and understanding was stated.
--- NOTE | 2020-03-12 16:56 | NUR ---
RR 52 at this time. Pt continues to deny any sob or pain. Family remains in the room and there questions were answered at this time.
--- NOTE | 2020-03-12 17:06 | NUR ---
Pt voided via the urinal and attempted to have a bm which did not happen. Pt repositioned to his back with his head elevated per his request. He declined to lay on his left side.
--- NOTE | 2020-03-12 19:53 | NUR ---
7 VISITORS LC IN WITH THE PATIENT, CALLED DR VALE AND 2 IV ANTIBIOTICS DC'D AND AN ORDER FOR A GARCIA CATHETER PUT IN FOR PATIENT COMFORT THE PATIENT SAID HE WOULD ALLOW ONE TO THE OFF GOING RN ROSA M, WILL DISCUSS THIS FURTHER WITH THE PATIENT, BUT ORDER IS THERE FROM .
--- NOTE | 2020-03-12 21:20 | NUR ---
WENT IN TO EVALUAT PATIENT STATUS, 5 OF THE ORIGINAL 12 FAMILY MEMBERS REMAIN IN THE ROOM IN GOWNS, SIMPLE MASKS AND FACE ROMERO, MAINLY SPEAKING PUERTO RICAN. ORDER FOR PATIENT'S GARCIA WAS COMPLETED AND GARCIA PLACED AND SMALL AMOUNT OF URINE DRIANING. PATIENT TRIED TO USE THE BED LEO X3 WHILE I WAS IN THE ROOM TO HAVE A BM, NO RESULT ANYTIME. PATIEN REMAINS WITH RESP RATE IN THE 50'S, WITH SAYT 0F 90-92% ON 40LITERS VAPOTHERM AT 100% O2. FAMILY THAT WS TRYING TO SLEEP ON THE FLOOR WERE TOLD THIS WAS NOT APPROPRIATE AND IF THEY NEEDED TO SLEEP IT WOULD HAVE TO BE SOMEWHERE BESIDES THE HOSPITAL ROOM FLOOR. PATIENT REPOSITIONED AND PULLED UP IN BED, SHOWED FAMILY HOW TO USE THE LIGHTS. FAMILY TRANSLATING EVEYTHING TO PATIENT. PATIENT DENIES PAIN AND OTHER VITALS AR STABLE. IV FLUSHES WELL, AND PATIENT TOOK PM MEDS. TOLD THE PATIENT'S FAMILY TO CALL IF PATIENT GOT UNCOMFORTABLE OR HAD PAIN, THEY SAID THEY WOULD. CALL LIGHT IS IN REACH. UNABLE TO AUSCULTATE PATIENT SINCE I WAS IN A PAPR.
--- NOTE | 2020-03-12 22:40 | NUR ---
SEE PREVIOUS NOTE, JUST FINALLY ABLE TO LEAVE THE ROOM. FAMILY AND PATIENT HAD NO MORE NEEDS. CALL LIGHT IN REACH.
--- NOTE | 2020-03-12 23:31 | NUR ---
PATIENT'S FAMILY ALL STILL SITTING AROUND THE PATIENT'S BED AND PATIENT'S STATUS IS UNCHANGED. CALL LIGHT IN REACH.
--- NOTE | 2020-03-13 01:05 | NUR ---
PATIENT SATS STARTED TO DROP TO 80%, I WENT IN AND MADE SURE ALL OF HIS EQUIPMENT WAS IN PLACE, WHICH IT WAS, BUT HE SAID HE STARTED TO HAVE 7/10 PAIN IN HIS LEFT LEG, AND 10MG LS MORPHINE WAS GIVEN TO THE PATIENT AND SATS ARE BETTER , PUT ONLY UP TO 86% SO FAR, HOPING HE IS GOING TO SETTLE. HE SAID PER FAMILY INTERPRETING HE WAS NOT FEELING SHORT OF BREATH. CALL LIGHT IN REACH.
--- NOTE | 2020-03-13 02:59 | NUR ---
JUST SPENT ALMOST AN HOUT WAITING FOR PATIENT TO TRY AND USE THE BED LEO TO POOP. HE KEPT INSISTING HE WAS GOING AND I HAD TO TELL HIM UNFORTUNATLEY HE WAS NOT. REMOVED THE LEO WITH NO RESLT AFTER 45 MINUTES, DID CHART A BM FROM DAY SHIFT YESTERDAY THAT DID NOT MAKE IT IN TO THE COMPUTER. PATIENT'S SATS ARE HANGING AROUND 89% ON SAME VAPO THERM SETTINGS. SPENT ANOTHER 15 MINUTES CLEANING UP AFTER THE 5 REMAINING FAMILY MEMBERS WHO HAD SPILLED WATER OVER MOST OF THE BACK OF THE ROOM FLOOR AREA AND THEN SPILLED RANCH DRESSING IN THAT. PATIENT BREATHING AT 60 BREATHS/MIN AND PAIN DOWN TO 5/10 IN HPATIENT'S LEG AND HE DID SAY IT HELPED HIM BREATH BETTER. CALL LIGHT IS IN REACH.
--- NOTE | 2020-03-13 05:07 | NUR ---
PATIENT STILL HAVING 5/10LEFT LEG PAIN AND COUGH HAS INCREASED. PATIENT GIVEN HIS ORDERED DOSE OF COUGH MEDICATION AND 10MG SL MORPHINE. FAMILY AND PATIENT SAID THEY HAD NO OTHER NEEDS AND I INFORMED THEM I WOULD BE BACK IN A COUPLE HOURS UNLESS THEY NEEDED SOMETHING. CALL LIGHT IN REACH.
--- NOTE | 2020-03-13 06:57 | NUR ---
REPORT TO AM NURSE, STILL 5 FAMILY MEMBERS IN PATIENT ROOM, mORPHINE HAS BEEN HELPING WITH PAIN, AND COUGH SYRUP WITH COUGH. REMAINS OF VAPOTHERM 40L/MIN AT 100%. IV FLUSHES WELL PATIENT SHOULD BE FULL COMFORT CARE TODAY, BUT IS STILL LISTED SWING. CALL LIGHT IN REACH. 4 ATTEMPTS TO HAVE A STOOL WITHOUT A RESULT.
--- NOTE | 2020-03-13 10:00 | NUR ---
Pt resting in bed, awakes to verbal stimuli. Pt denies pain and sob. Vital signs are stable at this time. Breakfast ordered. Pt denies needs, call light within reach.
--- NOTE | 2020-03-13 10:08 | NUR ---
REMOVED OXYGEN SATTURATION MONITOR PER DR. VALE'S REQUEST.
--- NOTE | 2020-03-13 11:51 | NUR ---
Morphine 10mg sl admin for reports of 5/10 generalized pain. Two family members at bedside at this time. Call light within reach.
--- NOTE | 2020-03-13 13:18 | NUR ---
Assisted pt on/off bedpan; reports unable to have a bowel movement. Bowel aids x2 BID in use at this time. Encouraged water consumption; water provided. Pt reports pain has improved since last dose of morphine. Pt and family deny needs at this time. Education with family completed regarding strategies to group care/needs as we're encouraged to optimize our supply of PPE. Patient and family receptive to plan of care. There are no current reported needs.
--- NOTE | 2020-03-13 14:52 | NUR ---
Pt resting at this time, eyes closed, respirations non labored. Family at bedside. No notable distress. Vapotherm intact; setting remain at 40L/min @100%.
--- NOTE | 2020-03-13 15:38 | NUR ---
Pt reports he is having new onset of sob, respirations of 44/min. Morphine 10mg SL admin for comfort at this time. Repositioned patient at this time. Encouraged patient to call me if he had any other needs. Two family members in room with patient.
--- NOTE | 2020-03-13 17:48 | NUR ---
In to check on patient, admin scheduled medication and to take vs. Patient reports he is very tired and is not wanting his vitals/medications at this time. Pt and family requesting patient be left alone to premote his rest for now. Encouraged pt and family to call if he is in need of anything. Call light within reach.
--- NOTE | 2020-03-13 18:55 | NUR ---
Morphine 10mg SL admin for comfort.
--- NOTE | 2020-03-13 19:00 | NUR ---
Called Dr. Turner regarding patient becoming more anxious. New orders to be placed by Dr. Turner for this.
--- NOTE | 2020-03-13 19:20 | NUR ---
REPORT RECEIVED FROM DAY SHIFT RN. VISITORS X 2 IN ROOM.
--- NOTE | 2020-03-13 20:56 | NUR ---
PT'S FAMILY CALLS, REPORTS PT IS HAVING PAIN, INFORMED THAT RN WILL BRING PAIN MEDCIATION WHEN SHE COMES TO ROOM. UDNERSTANDING STATED. FOOD DELIVERED TO ROOM THAT FAMILY DROPPED OFF FOR PT. CONTINUOUS ABSORPTION PROCESS OPERATOR TOOK TO ROOM AND GAVE TO FAMILY AT BEDSIDE. FURTHER NEEDS DENIED. CALL LIGHT IN REACH.
--- NOTE | 2020-03-13 22:30 | NUR ---
THIS RN IN TO ROOM AT 2100. PT LYING IN BED ON LEFT SIDE WITH EYES CLOSED. DID NOT OPEN EYES WHEN SPOKE TO. BREATHING SHALLOW. VAPOTHERM IN PLACE AT 40L WITH 100% FIO2. PT DAUGHTER AND IN ROOM. DAUGHTER WITH MULTIPLE QUESTIONS ABOUT EATING AND DRINKING IN ROOM. DISCUSSED WITH NURSING PROPERTY SUPERVISOR AND COMPUTER SYSTEMS ENGINEER REGARDING QUESTIONS OUT SIDE OF THE ROOM. UPON ENTERING ROOM AGAIN AT APPROX 2120 PT NOTED TO HAVE AGONAL RESPIRATIONS. AT 2129 NO PULSE WAS PALPABLE AND CHEST RISE WAS NOT FELT OR SEEN. NURSING PROPERTY SUPERVISOR AND MD NOTIFIED. PRONOUNCED BY PROPERTY SUPERVISOR AND MD. POST MORTEM CARE DONE. IV, GARCIA CATH, AND OXYGEN REMOVED. 2149 PT PLACED IN BODY BAG. PASTORAL CARE NOTIFIED. FAMILY AT BEDSIDE.
--- NOTE | 2020-03-14 00:24 | NUR ---
PT LEFT FACILITY VIA [facility], [facility].
--- NOTE | 2020-03-14 00:34 | NUR ---
CALLED BY [facility] WHEN PT . ARRIVED TO FIND AND DAUGHTER IN ROOM WITH PT. PT HAD BEEN PLACED IN BODY BAG PER CURRENT PROTOCOL. SAID PRAYERS OF COMMENDATION, PEACE AND COMFORT IN TIME OF GRIEF. REST OF FAMILY ARRIVED AFTER. FAMILY EXPRESSED GRIEF AND SADNESS AND ALSO EXHIBITED STRONG SUPPORT OF ONE ANOTHER. STRONG SIMON WAS EVIDENCED BY PRAYERS OFFERED BY FAMILY MEMBERS. LED PRAYERS FOR PEACE FOR THE DEPARTED AND PEACE AND COMFORT FOR THE GREIVING WITH WHOLE FAMILY PRESENT. CALLED [facility] AT FAMILY'S REQUEST. DELIVERED PT BODY TO [facility]. PERSONAL BELONGINGS TAKEN BY FAMILY. GAVE [facility] CONTACT INFORMATION TO FAMILY AT MIRIAM'S REQUEST, AND PASSED ALONG HIS REQEUST FOR FAMILY TO CALL IN THE MORNING.
== END 2020-03-14 00:15 | DRG 177 ==
LOC: MS 16:51
PROVIDERS: ADMIT Internal Medicine
DX: U07.1 COVID-19 (principal); J96.01 Acute respiratory failure with hypoxia; J12.89 Other viral pneumonia; Z51.5 Encounter for palliative care; I10 Essential (primary) hypertension; E11.9 Type 2 diabetes mellitus without complications; G20 Parkinson's disease; R53.81 Other malaise; N40.0 Benign prostatic hyperplasia without lower urinary tract symptoms; E78.5 Hyperlipidemia, unspecified; Z79.84 Long term (current) use of oral hypoglycemic drugs
CPT/HCPCS: 36600; 71045; 80048; 82803; 85025; 94660; 94760; 94799; 97110; 97116; 97162; 97165; 97535; J0692; J1100; J1650; J8540